=== PATIENT | female | born 1950 | race African-American/Black ===

== ENCOUNTER 2017-01-10 00:09 | Inpatient (IN) | payer OTHER, MEDICARE ==
[~2017-01-10] VITALS: Ht 167.6 cm; Wt 71.0 kg
[2017-01-10] VITALS (11 sets, daily range): BP systolic 115–158; BP diastolic 60–77; PULSE 52–99; RESP 14–20; TEMP 97.7–98.2; O2SAT 95–99
[~2017-01-10 00:09] MED LIST: AMLO10 PO; ASPI81 PO; CALC0.25 PO; CLON0.2T PO; FISH1000 PO; FLUO40CA PO; FURO1TAB93 PO; GLIP5 OR; HYDR50TA15 PO; KETO2AER; KETO2SHA5 EX; METO10TA PO; NEOS15T; ROSU10 PO; SIMV20 PO; SPIR25TA PO; SUPECAP3 PO; TOPR25TA2 PO; TRAZ50TA4 PO
[2017-01-10] MEDS ORDERED: GLUCAGON 1 MG/ML VIAL ONE (00:19)
[2017-01-10] MEDS ORDERED: SODIUM CHLORIDE 0.9% FLUSH 5 ML FLUSH IVF PRN (00:45)
[2017-01-10] MEDS ORDERED: DEXTROSE 50% IN WATER 50 ML VIAL(D50) IV PUSH ONE ×2 (00:45→05:15)
--- NOTE | 2017-01-10 00:57 | RADRPT ---
EXAM DATE/TIME: 01/10/2017 00:49 [facility] COMPARISON: No previous studies available for comparison. INDICATIONS : Shortness of breath. MEDICAL HISTORY : Hypertension. Congestive heart failure. Diabetes mellitus type II. SURGICAL HISTORY : None. ENCOUNTER: Initial ACUITY: 1 day PAIN SCORE: Non-responsive. LOCATION: Bilateral chest FINDINGS: Lungs are clear. There is cardiomegaly. No definite consolidation or effusion. EKG leads overlie the chest. Prominent skin folds overlie the right chest and cervical region. Degenerative changes of the spine. CONCLUSION: No acute disease. Samuel Don MD on January 10, 2017 at 0:55 Board Certified Radiologist. This report was verified electronically.
--- NOTE | 2017-01-10 01:03 | PD ---
HPI Chief Complaint: Altered Mental Status Time Seen by Provider: 00:34 Travel History International Travel<30 days: No Contact w/Intl Traveler<30days: No Traveled to known affect area: No History of Present Illness HPI The patient is a 66 year old female who presents to the [facility] emergency department with a history of since 7 PM this evening beginning to stare off into space and being nonverbal. According to her at 7:16 PM he checked her blood sugar and it was 30. He reports that she was sleepy, therefore she went to bed. He reports that she last ate a normal meal last night. He reports that this morning at 9:20 AM he did check her blood sugar and it was 131. At this time he administered her last dose of insulin. At that time he gave 10 units of Humalog and 20 units of Lantus. He reports that she has had altered mentation since 2:58 PM today, however it became more severe at 7:00. He reports that she has a history of diminished appetite for weeks. He reports that she last moved her bowels earlier today and it was a very large bowel movement. He denies her having any abdominal pain, vomiting, or diarrhea. The patient on arrival is noted to have a blood sugar of 36. The patient is staring off and is not answering questions. The patient does spontaneously move all of her extremities. The patient has no visible facial asymmetry. 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 Arthritis: No Asthma: No Autoimmune Disease: No Blood Disorders: No Anxiety: No Depression: No Heart Rhythm Problems: No Cancer: No Cardiovascular Problems: Yes High Cholesterol: Yes Chemotherapy: No Chest Pain: Yes Congestive Heart Failure: Yes COPD: No Cerebrovascular Accident: Yes (2010 LEFT SIDE AFFECTED) Diabetes: Yes Patient Takes Glucophage: Yes Diminished Hearing: No Endocrine: Yes GERD: No Glaucoma: No Genitourinary: No Headaches: No Hepatitis: No Hiatal Hernia: No Hypertension: Yes Immune Disorder: No Kidney Stones: No Musculoskeletal: No Neurologic: Yes Psychiatric: No Reproductive: No Respiratory: Yes Immunizations Current: Yes Migraines: No Myocardial Infarction: No Radiation Therapy: No Renal Failure: No Seizures: Yes Sickle Cell Disease: No Sleep Apnea: No Thyroid Disease: Yes Ulcer: No Tetanus Vaccination: Unknown Influenza Vaccination: No PNEUMOCCOCAL Vaccine (Year): 2 ?: Not Menopausal: Yes : 5 Para: 5 Dilation and Curettage (D&C): Yes (X4) Tubal Ligation: Yes Past Surgical History Narrative Surgical The patient's past surgical history is significant for a D&C 4, bilateral tubal ligation. Abdominal Surgery: No AICD: No Appendectomy: No Arteriovenous Shunt: No Cardiac Surgery: No Cholecystectomy: No Ear Surgery: No Endocrine Surgery: No Eye Surgery: No Genitourinary Surgery: No Gynecologic Surgery: Yes (D/C X4, BTL) Hysterectomy: Yes Insulin Pump: No Joint Replacement: No Oral Surgery: No Pacemaker: No Thoracic Surgery: No Other Surgery: Yes Social History Alcohol Use: No Tobacco Use: No Substance Use: No Allergies-Medications (Allergen,Severity, Reaction): Coded Allergies: Penicillin (Verified Allergy, Severe, rash/itching, 01/10/17) Uncoded Allergies: CILLINS ALL (Allergy, Severe, 07/23/10) Reported Meds & Prescriptions Reported Meds & Active Scripts Active Reported Calcitriol 0.25 Mcg Cap 0.25 Mcg PO EVERY OTHER DAY Aspirin 81 Mg Tabdr 81 Mg PO DAILY [place] 3 500 500 mg ([place]-3 Fatty Acids) 1 Cap Cap 500 Mg PO DAILY Vitamin D3 (Cholecalciferol) 5,000 Unit Tab 5,000 Units PO DAILY Sensipar (Cinacalcet) 30 Mg Tab 30 Mg PO DAILY Furosemide 20 Mg Tab 20 Mg PO BID Bydureon Inj (Exenatide) 2 Mg Vial 2 Mg SQ Q7D Clonidine (Clonidine HCl) 0.2 Mg Tab 0.2 Mg PO BID Glipizide 5 Mg Tab 5 Mg PO BIDAC Take 30 minutes before a meal Trazodone (Trazodone HCl) 50 Mg Tab 50 Mg PO HS Zocor (Simvastatin) 20 Mg Tab 20 Mg PO HS Spironolactone 25 Mg Tab 25 Mg PO HS Metoclopramide (Metoclopramide HCl) 5 Mg Tab 5 Mg PO QID Fluoxetine (Fluoxetine HCl) 40 Mg Cap 40 Cap PO DAILY Amlodipine (Amlodipine Besylate) 10 Mg Tab 10 Mg PO DAILY Review of Systems General / Constitutional: No: Fever Eyes: No: Visual changes HENT: No: Headaches Cardiovascular: No: Chest Pain or Discomfort Respiratory: No: Shortness of Breath Gastrointestinal: Positive: Constipation, Other (she had a large bowel movement earlier today), No: Nausea, Vomiting, Diarrhea, Abdominal Pain Genitourinary: No: Dysuria Musculoskeletal: No: Pain Skin: No Rash Neurologic: Positive: Change in Mentation, No: Weakness, Focal Abnormalities, Slurred Speech, Sensory Disturbance Psychiatric: No: Depression Endocrine: No: Polydipsia Hematologic/Lymphatic: No: Easy Bruising Physical Exam Narrative General: The patient is a well-developed well-nourished female, staring off, intermittently making eye contact with the staff at the bedside, nonverbal. Head and Neck exam: Head is normocephalic atraumatic. Eyes: EOMI, pupils are equal round and reactive to light. Nose: Midline septum with pink mucous membranes Mouth: Dentition unremarkable. Moist mucus membranes. Posterior oropharynx is not erythematous. No tonsillar hypertrophy. Uvula midline. Airway patent. Neck: No palpable lymphadenopathy. No nuchal rigidity. No thyromegaly. Cardiovascular: Sinus tachycardia in the low 100s without any murmurs gallops or rubs, no pulse deficit to the extremities on simultaneous auscultation and palpation of her radial artery. Lungs: Clear to auscultation bilaterally. No wheezes, rhonchi, or rales. Abdomen: Soft, without tenderness to palpation in all 4 quadrants of the abdomen. No guarding, rebound, or rigidity. Normal bowel sounds are audible. No tenderness on palpation of McBurney's point. Extremities: No clubbing, cyanosis, or edema. 2+ pulses in all 4 extremities. No calf tenderness on palpation. Back: No spinous process tenderness to palpation. No costovertebral angle tenderness to palpation. Neurologic Exam: Initially, the patient was nonverbal, however after an IV was placed and the patient was given an amp of D50, the patient began to have improvement in her mentation and was able to answer questions regarding her name and the fact that she is currently in the hospital. The patient has 5 over 5 strength in all 4 extremities, intact sensation over all dermatomes. No evidence of facial asymmetry. Skin Exam: No rash noted. Intact skin that is warm and dry. Data Data Last Documented VS Vital Signs Date Time Temp Pulse Resp B/P Pulse Ox O2 Delivery O2 Flow Rate FiO2 01/10/17 01:56 14 96 Room Air 01/10/17 00:29 52 158/70 Orders Glucagon Inj (Glucagon Inj) (01/10/17 00:19) Electrocardiogram (01/10/17 00:38) Ammonia (01/10/17 00:38) Complete Blood Count With Diff (01/10/17 00:38) Comprehensive Metabolic Panel (01/10/17 00:38) Creatine Kinase (Cpk) (01/10/17 00:38) Prothrombin Time / Inr (Pt) (01/10/17 00:38) Act Partial Throm Time (Ptt) (01/10/17 00:38) Troponin I (01/10/17 00:38) Thyroid Stimulating Hormone (01/10/17 00:38) Urinalysis - C+S If Indicated (01/10/17 00:38) Chest, Single Ap (01/10/17 00:38) Ct Brain W/O Iv Contrast(Rout) (01/10/17 00:38) Blood Glucose (01/10/17 00:38) Ecg Monitoring (01/10/17 00:38) Iv Access Insert/Monitor (01/10/17 00:38) Oximetry (01/10/17 00:38) Dextrose 50% In Jessica (Vial) Inj (D50w (Vi (01/10/17 00:45) Sodium Chloride 0.9% Flush (Ns Flush) (01/10/17 00:45) Drug Screen, Random Urine (01/10/17 00:38) Alcohol (Ethanol) (01/10/17 00:38) Salicylates (Aspirin) (01/10/17 00:38) Tylenol (Acetaminophen) (01/10/17 00:38) Cath For Specimen (01/10/17 02:38) CKMB (01/10/17 02:15) CKMB% (01/10/17 02:15) Admit Order (Ed Use Only) (01/10/17 03:56) Dext 5%-Nacl 0.45% 1000 Ml Inj (D5w-1/2 (01/10/17 04:00) Labs Laboratory Tests Test 01/10/17 02:15 White Blood Count 19.5 TH/MM3 Red Blood Count 3.28 MIL/MM3 Hemoglobin 9.7 GM/DL Hematocrit 31.3 % Mean Corpuscular Volume 95.5 FL Mean Corpuscular Hemoglobin 29.6 PG Mean Corpuscular Hemoglobin 31.0 % Concent Red Cell Distribution Width 17.2 % Platelet Count 361 TH/MM3 Mean Platelet Volume 8.4 FL Neutrophils (%) (Auto) 90.9 % Lymphocytes (%) (Auto) 2.8 % Monocytes (%) (Auto) 6.0 % Eosinophils (%) (Auto) 0.1 % Basophils (%) (Auto) 0.2 % Neutrophils # (Auto) 17.7 TH/MM3 Lymphocytes # (Auto) 0.5 TH/MM3 Monocytes # (Auto) 1.2 TH/MM3 Eosinophils # (Auto) 0.0 TH/MM3 Basophils # (Auto) 0.0 TH/MM3 CBC Comment DIFF FINAL Differential Comment Prothrombin Time 11.3 SEC Prothromb Time International 1.0 RATIO Ratio Activated Partial 21.0 SEC Thromboplast Time Sodium Level 146 MEQ/L Potassium Level 4.3 MEQ/L Chloride Level 109 MEQ/L Carbon Dioxide Level 24.8 MEQ/L Anion Gap 12 MEQ/L Blood Urea Nitrogen 101 MG/DL Creatinine 3.91 MG/DL Estimat Glomerular Filtration 14 ML/MIN Rate Random Glucose 133 MG/DL Calcium Level 11.7 MG/DL Protein Corrected Calcium 11.2 MG/DL Total Bilirubin 0.4 MG/DL Aspartate Amino Transf 58 U/L (AST/SGOT) Alanine Aminotransferase 53 U/L (ALT/SGPT) Alkaline Phosphatase 100 U/L Ammonia 23 MCMOL/L Total Creatine Kinase 665 U/L Creatine Kinase MB 6.0 NG/ML Creatine Kinase MB % 0.9 % Troponin I 0.10 NG/ML Total Protein 7.9 GM/DL Albumin 1.9 GM/DL Thyroid Stimulating Hormone 0.593 uIU/ML 3rd Gen Salicylates Level LESS THAN 1.7 MG/DL Acetaminophen Level LESS THAN 2.0 MCG/ML Ethyl Alcohol Level LESS THAN 3 MG/DL MDM Medical Decision Making Medical Screen Exam Complete: Yes Emergency Medical Condition: Yes Medical Record Reviewed: Yes Differential Diagnosis Intracranial abnormality, versus hepatic encephalopathy, versus hypoglycemic encephalopathy Narrative Course During the course of the patients emergency department visit, the patients history, examination, and differential diagnosis were reviewed with the patient. The patient had IV access obtained and blood work sent for analysis. The patient was placed on a base filler with oximetry and blood pressure monitoring. An EKG was ordered. An ammonia level was ordered. The patient's blood sugar on arrival was noted to be 36. The patient was started on an amp of D50. The patient will be given food and drink to supplement her blood sugar as she is becoming more awake and alert. The patient's blood sugar will be repeated. The patient was able to tolerate eating some food. The patient on repeat Accu-Chek was noted to be 125. The patient's then questioned whether the patient would be receiving her insulin. I explained to him that we would be holding off on insulin at this point given her persistent hypoglycemia throughout the evening. We will be continuing to monitor her closely and if her blood sugar goes to high and we will address that at that point. The patients laboratory studies were reviewed and remarkable for an elevated sodium and chloride, elevated BUN and creatinine increased compared to previously consistent with acute on chronic renal failure. The patient was noted to have a leukocytosis. Chest x-ray showed no evidence of infiltrate. The patient's urine will be sent for analysis for possible source of leukocytosis. Alcohol level was negative, urine drug screen was negative. Salicylate and Tylenol level were negative. Ammonia level was within normal limits ruling out hepatic encephalopathy. CPK was slightly elevated with a normal MB percent. Troponin I was an intermediate range, however this could simply be related to the patient's acute on chronic renal failure. The patient denies having any chest pain. Patient is noted to be hypercalcemic with a protein corrected calcium of 11.2 which could be contributing additionally to her mentation changes. Radiology studies were reviewed and remarkable for a chest x-ray that is unremarkable. CT scan of the brain showed no acute abnormality. The patient will be admitted for AMS, hypoglycemia, leukocytosis, acute on chronic renal failure. The patient's case was discussed with Ralph lAex. He is made aware the patient's leukocytosis and the fact that urinalysis is pending. They will address with antibiotic coverage if necessary. The patients results were discussed with the patient, including the plan of care. I explained that further testing and/ or monitoring is indicated based on the patients history, examination, and/ or laboratory findings. Therefore, I recommended admission for additional evaluation. The patient expressed understanding and was agreeable with this plan. The patient was admitted to the hospital in stable condition and sent to a bed under the care of the [facility]. Physician Communication Physician Communication The patient's case was discussed with Ralph Alex who did agree to that the patient for further evaluation and treatment at this time. Diagnosis Primary Impression: Hypoglycemia Additional Impressions: Altered mental status Qualified Code: R40.4 - Transient alteration of awareness Leukocytosis Qualified Code: D72.829 - Leukocytosis, unspecified type Acute on chronic renal failure Hypercalcemia Admitting Information Admitting Physician Requests: Jasmin Garland MD Jan 10, 2017 01:03
--- NOTE | 2017-01-10 01:47 | RADRPT ---
EXAM DATE/TIME: 01/10/2017 01:23 [facility] COMPARISON: CT BRAIN W/O CONTRAST, January 25, 2012, 16:38. INDICATIONS : Altered mental status. RADIATION DOSE: 48.72 CTDIvol (mGy) MEDICAL HISTORY : Seizures. Hypertension. cva, diabetes SURGICAL HISTORY : Hysterectomy. ENCOUNTER: Initial ACUITY: 1 day PAIN SCALE: 2/10 LOCATION: cranial TECHNIQUE: Multiple contiguous axial images were obtained of the head. Using automated exposure control and adj ustment of the mA and/or kV according to patient size, radiation dose was kept as low as reasonably a chievable to obtain optimal diagnostic quality images. FINDINGS: There is mild atrophy greatest at the level of the cerebellum. No hemorrhage, acute infarct, or mass. No fractures. Remote basal ganglia lacunar infarcts. CONCLUSION: No significant change has occurred. Samuel Don MD on January 10, 2017 at 1:44 Board Certified Radiologist. This report was verified electronically.
[2017-01-10 02:35] LABS: AUTOMATED NEUTROPHIL # 17.7 TH/MM3 (1.8-7.7); BASOPHIL % 0.2 % (0.0-2.0); EOSINOPHIL % 0.1 % (0.0-4.0); HEMATOCRIT 31.3 % (35.0-46.0); HEMO FLAGS DIFF FINAL; LYMPH % 2.8 % (9.0-44.0); LYMPHOCYTE # 0.5 TH/MM3 (1.0-4.8); MEAN CELL VOLUME 95.5 FL (80.0-100.0); MEAN CORPUSCULAR HEMOGLOBIN 29.6 PG (27.0-34.0); NEUT % 90.9 % (16.0-70.0); PLATELET COUNT 361 TH/MM3 (150-450); RED BLOOD COUNT 3.28 MIL/MM3 (4.00-5.30); RED CELL DISTRIBUTION WIDTH 17.2 % (11.6-17.2); WHITE BLOOD COUNT 19.5 TH/MM3 (4.0-11.0)
[2017-01-10 02:43] LABS: PROTHROMBIN TIME - PATIENT 11.3 SEC (9.8-11.6)
[2017-01-10 02:57] LABS: ALKALINE PHOSPHATASE 100 U/L (45-117); ALT (GPT) 53 U/L (10-53); ANION GAP 12 MEQ/L (5-15); AST (GOT) 58 U/L (15-37); BICARBONATE 24.8 MEQ/L (21.0-32.0); BLOOD UREA NITROGEN 101 MG/DL (7-18); CALCIUM-PROTEIN CORRECTED 11.2 MG/DL (8.5-10.1); CHLORIDE 109 MEQ/L (98-107); CREATINE KINASE 665 U/L (26-192); GLOMERULAR FILTRATION RATE 14 ML/MIN (>89); POTASSIUM 4.3 MEQ/L (3.5-5.1); SODIUM (NA) 146 MEQ/L (136-145); TOTAL BILIRUBIN ADULT 0.4 MG/DL (0.2-1.0)
[2017-01-10 02:58] LABS: ACETAMINOPHEN LESS THAN 2.0 MCG/ML (10.0-30.0)
[2017-01-10] MEDS ORDERED: DEXT 5%-NACL 0.45% 1000 ML INJ 1,000 ML IV SCH (04:00)
[2017-01-10 04:51] LABS: BACTERIA, URINE MANY /hpf; BLOOD, URINE SMALL (NEG); COMMENT (UR) CATH-CULTURE IND; CULTURE IF INDICATED CATH CULTURE IND; GLUCOSE,URINE NEG (NEG); HYALINE CAST, URINE 3 /lpf (RARE); KETONE, URINE NEG (NEG); MUCUS URINE FEW /lpf (OCC); NITRITE,URINE NEG (NEG); PH, URINE 6.5 (5.0-8.5); RENAL EPITHELIAL CELLS <1 /hpf; SQUAMOUS EPITHELIAL CELL URINE 10 /hpf (0-5); TRANSITIONAL EPI CELLS, URINE <1 /hpf; URINE COLOR YELLOW (YELLW/STRAW)
[2017-01-10 05:02] LABS: AMPHETAMINE, URINE NEG (NEG); BARBITURATES, URINE NEG (NEG); COCAINE, URINE NEG (NEG)
[2017-01-10] MEDS ORDERED: NALOXONE HCL 0.4 MG/ML AMP IV PRN (05:15)
[2017-01-10] MEDS ORDERED: GLUCAGON 1 MG/ML VIAL IM ONE (05:15)
[2017-01-10] MEDS ORDERED: SODIUM CHLORIDE 0.9% FLUSH 5 ML FLUSH FLUSH PRN (05:15)
[2017-01-10] MEDS ORDERED: SENNOSIDES 8.6 MG TAB PO PRN (05:15)
[2017-01-10] MEDS: DEXT 5%-NACL 0.9% 1000 ML INJ 1,000 ML IV SCH ×2 (05:30→18:36)
[2017-01-10] MEDS: HEPARIN SODIUM - SQ 10,000 UNITS/ML VIAL SQ SCH ×2 (06:33→18:32)
[2017-01-10] MEDS: LEVOFLOXACIN 750 MG PREMIX INJ 150 ML IV SCH (06:34)
[2017-01-10] MEDS ORDERED: AMLO10TA2 PO (08:35)
[2017-01-10] MEDS ORDERED: OMEG1CAP50 PO (08:35)
[2017-01-10] MEDS ORDERED: ZOCO20TA PO (08:35)
[2017-01-10] MEDS ORDERED: EXENINJ SQ (08:35)
[2017-01-10] MEDS ORDERED: METO5TAB PO (08:35)
[2017-01-10] MEDS ORDERED: ASPI1TAB69 PO (08:35)
[2017-01-10] MEDS ORDERED: CLON0.2T PO (08:35)
[2017-01-10] MEDS ORDERED: CINA30 PO (08:35)
[2017-01-10] MEDS ORDERED: CHOL50008 PO (08:35)
[2017-01-10] MEDS ORDERED: SPIR25TA PO (08:35)
[2017-01-10] MEDS ORDERED: GLIP5TAB8 PO (08:35)
[2017-01-10] MEDS ORDERED: CALC0.25 PO (08:35)
[2017-01-10] MEDS ORDERED: FLUO40CA PO (08:35)
[2017-01-10] MEDS ORDERED: FURO20TA PO (08:35)
[2017-01-10] MEDS ORDERED: TRAZ50TA12 PO (08:35)
--- NOTE | 2017-01-10 09:03 | HHI.HP ---
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 Patient presented to the emergency room after she was noted altered, staing into space and hypoglycemic. endorses that patient has been declining over the last 2 weeks. She has not been eating much and not talking much. She has also been more agitated and refusing to take her pills sometimes spitting food at him. He has been crushing pills and trying to mix them in applesauce. She also noted that she's been coughing more and having some difficulty swallowing. Yesterday he noted that she didn't want to eat and had to force her to take a couple of bites. He checked her blood sugar and it was 131 at which time he administer her insulin dosage. Later on, she was noted more sleepy, he checked her blood sugar and it was noted in the 30s. Since she refused to eat he decided to bring her to the hospital for further evaluation. He does not report any fever or chills. She is having regular bowel movements, no diarrhea. Patient was evaluated in the emergency room, laboratory workup was completed. She was noted with significant leukocytosis, WBC 19.5. Hemoglobin 9.7, hematocrit 31.3. ENT was remarkable for BUN of 101, creatinine 3.91. According to the she follows up with information systems planner in the [place] area and he recently attended a class to learn more about dialysis as she is becoming closer to going on dialysis. Her TSH was 0.593. Calcium was noted elevated. Her blood glucose on admission to the ED was 36, she was given an amp of D50 and patient started waking up. Urinalysis was positive for urinary tract infection. Patient was given IV fluids, she was started on empiric antibiotics. Patient is examined in the emergency room in the presence of her . indicates that he is the caregiver and has to do everything for her. He also endorses some pressure areas to the right buttock. Patient is slow to respond, she is oriented to self only. Patient is admitted for further evaluation and treatment. (Karis Guthrie) Review of Systems ROS Limitations: Clinical Condition (Karis Guthrie) Past Family Social History Past Medical History DM CKD possibly last stage, indicates that he was told that patient was close to dialysis. CHF HTN Sarcoidosis Pericardial Effusion Stroke with residual left-sided hemiplegia Prior history of myocardial infarction Coronary artery disease Hyperlipidemia Pericardial effusion Sarcoidosis Hypothyroid Past Surgical History Hysterectomy 2/2 fibroids Reported Medications Reported Meds & Active Scripts Active Reported Calcitriol 0.25 Mcg Cap 0.25 Mcg PO EVERY OTHER DAY Aspirin 81 Mg Tabdr 81 Mg PO DAILY [place] 3 500 500 mg ([place]-3 Fatty Acids) 1 Cap Cap 500 Mg PO DAILY Vitamin D3 (Cholecalciferol) 5,000 Unit Tab 5,000 Units PO DAILY Sensipar (Cinacalcet) 30 Mg Tab 30 Mg PO DAILY Furosemide 20 Mg Tab 20 Mg PO BID Bydureon Inj (Exenatide) 2 Mg Vial 2 Mg SQ Q7D Clonidine (Clonidine HCl) 0.2 Mg Tab 0.2 Mg PO BID Glipizide 5 Mg Tab 5 Mg PO BIDAC Take 30 minutes before a meal Trazodone (Trazodone HCl) 50 Mg Tab 50 Mg PO HS Zocor (Simvastatin) 20 Mg Tab 20 Mg PO HS Spironolactone 25 Mg Tab 25 Mg PO HS Metoclopramide (Metoclopramide HCl) 5 Mg Tab 5 Mg PO QID Fluoxetine (Fluoxetine HCl) 40 Mg Cap 40 Cap PO DAILY Amlodipine (Amlodipine Besylate) 10 Mg Tab 10 Mg PO DAILY (Karis Guthrie) Allergies: Coded Allergies: Penicillin (Verified Allergy, Severe, rash/itching, 01/10/17) Uncoded Allergies: CILLINS ALL (Allergy, Severe, 07/23/10) Active Ordered Medications Inpatient Medications Acetaminophen (Tylenol) 650 mg Q4H PRN PO TEMP > 100.4; Start 01/10/17 at 05:15 Bisacodyl (Dulcolax Supp) 10 mg DAILY PRN [place] CONSTIPATION; Start 01/10/17 at 05 :15 Dextrose (D50w (Vial) Inj) 25 ml NOW ONCE IV PUSH ; Start 01/10/17 at 05:15; Stop 01/10/17 at 05:17; Status DC Dextrose/Sodium Chloride 1,000 ml @ 75 mls/hr [id number] IV ; Start 01/10/17 at 05 :30 Dextrose/Sodium Chloride (D5W-1/2 NS 1000 ml Inj) 1,000 ml @ 100 mls/hr Q10H IV Last administered on 01/10/17 05:03; Start 01/10/17 at 04:00; Stop at 05:15; Status DC Glucagon 1 mg 1 mg NOW ONCE IM ; Start 01/10/17 at 05:15; Stop 01/10/17 at 05: 17; Status DC Heparin Sodium (Porcine) (Heparin Inj) 5,000 units Q12H SQ Last administered on 01/10/17 06:33; Start 01/10/17 at 06:00 IV Flush (NS Flush) 2 ml BID FLUSH ; Start 01/10/17 at 09:00 IV Flush 2 ml 2 ml UNSCH PRN IVF FLUSH AFTER USING IV ACCESS Last administered on 01/10/17 02:22; Start 01/10/17 at 00:45; Stop 01/10/17 at 05:15; Status DC Levofloxacin/ Dextrose (Levaquin 750 Mg Premix Inj) 150 ml @ 100 mls/hr Q48H IV Last administered on 01/10/17 06:34; Start 01/10/17 at 06:00 Naloxone HCl (Narcan Inj) 0.4 mg UNSCH PRN IV SEE LABEL COMMENTS; Start at 05:15 Ondansetron HCl (Zofran Inj) 4 mg Q6H PRN IVP NAUSEA OR VOMITING; Start at 05:15 Sennosides (Senokot) 17.2 mg Q12H PRN PO CONSTIPATION; Start 01/10/17 at 05:15 Family History Reviewed with , noncontributory Social History Patient is , lives with . Has been his caregiver. She has grown children. No recent smoking, no alcohol, no substance abuse. Patient is nonambulatory, requires assistance with activities of daily living. She needs to be fed (Karis Guthrie) Physical Exam Vital Signs Vital Signs Date Time Temp Pulse Resp B/P Pulse Ox O2 Delivery O2 Flow Rate FiO2 01/10/17 08:46 93 16 139/71 99 Room Air 01/10/17 05:09 98 2.00 01/10/17 01:56 14 96 Room Air 01/10/17 00:29 52 16 158/70 95 Room Air 01/10/17 00:17 16 96 Room Air 01/10/17 00:15 94 18 96 Physical Exam GENERAL: Chronically ill-appearing female SKIN: Stage II noted to right buttock, approximately 2 cm, indurated area underneath. There is a stage II to the back of the right thigh. HEAD: Atraumatic. Normocephalic. No temporal or scalp tenderness. EYES: Pupils equal round and reactive. Extraocular motions intact. No scleral icterus. No injection or drainage. ENT: Nose without bleeding, purulent drainage or septal hematoma. Throat without erythema, tonsillar hypertrophy or exudate. Uvula midline. Airway patent. NECK: Trachea midline. No JVD or lymphadenopathy. Supple, nontender, no meningeal signs. CARDIOVASCULAR: Regular rate and rhythm without murmurs, gallops, or rubs. RESPIRATORY: Diminished, poor inspiratory effort. GASTROINTESTINAL: Abdomen soft, non-tender, nondistended. No hepato-splenomegaly , or palpable masses. No guarding. MUSCULOSKELETAL: Left-sided hemiparesis from previous stroke. Muscle wasting the left upper and left lower extremity. Left wrist contracture. NEUROLOGICAL: Patient awakes to voice, oriented to self and others. Some expressive aphasia. Follows simple commands. Slow to respond. Left sided hemiplegia from previous stroke. Laboratory Laboratory Tests Test 01/10/17 01/10/17 02:15 04:35 White Blood Count 19.5 Red Blood Count 3.28 Hemoglobin 9.7 Hematocrit 31.3 Mean Corpuscular Volume 95.5 Mean Corpuscular Hemoglobin 29.6 Mean Corpuscular Hemoglobin 31.0 Concent Red Cell Distribution Width 17.2 Platelet Count 361 Mean Platelet Volume 8.4 Neutrophils (%) (Auto) 90.9 Lymphocytes (%) (Auto) 2.8 Monocytes (%) (Auto) 6.0 Eosinophils (%) (Auto) 0.1 Basophils (%) (Auto) 0.2 Neutrophils # (Auto) 17.7 Lymphocytes # (Auto) 0.5 Monocytes # (Auto) 1.2 Eosinophils # (Auto) 0.0 Basophils # (Auto) 0.0 CBC Comment DIFF FINAL Differential Comment Prothrombin Time 11.3 Prothromb Time International 1.0 Ratio Activated Partial 21.0 Thromboplast Time Sodium Level 146 Potassium Level 4.3 Chloride Level 109 Carbon Dioxide Level 24.8 Anion Gap 12 Blood Urea Nitrogen 101 Creatinine 3.91 Estimat Glomerular Filtration 14 Rate Random Glucose 133 Calcium Level 11.7 Protein Corrected Calcium 11.2 Total Bilirubin 0.4 Aspartate Amino Transf 58 (AST/SGOT) Alanine Aminotransferase 53 (ALT/SGPT) Alkaline Phosphatase 100 Ammonia 23 Total Creatine Kinase 665 Creatine Kinase MB 6.0 Creatine Kinase MB % 0.9 Troponin I 0.10 Total Protein 7.9 Albumin 1.9 Thyroid Stimulating Hormone 0.593 3rd Gen Salicylates Level LESS THAN 1.7 Acetaminophen Level LESS THAN 2.0 Ethyl Alcohol Level LESS THAN 3 Urine Color YELLOW Urine Turbidity CLOUDY Urine pH 6.5 Urine Specific [place] 1.012 Urine Protein 30 Urine Glucose (UA) NEG Urine Ketones NEG Urine Occult Blood SMALL Urine Nitrite NEG Urine Bilirubin NEG Urine Urobilinogen 8.0 Urine Leukocyte Esterase MOD Urine RBC 2 Urine WBC 45 Urine Squamous Epithelial 10 Cells Urine Transitional Epithelial <1 Cells Urine Renal Epithelial Cells <1 Urine Amorphous Sediment RARE Urine Bacteria MANY Urine Hyaline Casts 3 Urine Mucus FEW Microscopic Urinalysis Comment CATH-CULTURE IND Urine Opiates Screen NEG Urine Barbiturates Screen NEG Urine Amphetamines Screen NEG Urine Benzodiazepines Screen NEG Urine Cocaine Screen NEG Urine Cannabinoids Screen NEG Date/Time Procedure Status Source Growth 01/10/17 04:35 Urine Culture Received Urine Catheterized Urine Pending (Karis Guthrie) Result Diagram: 01/10/1721401/10/17214 Imaging Last Impressions Head CT 01/10/1737 Signed Impressions: Service Date/Time: Tuesday, January 10, 2017 01:23 - CONCLUSION: No significant change has occurred. Samuel Don MD Chest X-Ray 01/10/1737 Signed Impressions: Service Date/Time: Tuesday, January 10, 2017 00:49 - CONCLUSION: No acute disease. Samuel Don MD (Karis Guthrie) Assessment and Plan Problem List: (1) Hypoglycemia (2) Dehydration (3) Altered mental status (4) HTN (hypertension) (5) DM (diabetes mellitus) (6) History of CVA with residual deficit (7) UTI (urinary tract infection) (8) Hypercalcemia (9) Leukocytosis (10) Acute on chronic renal failure Assessment and Plan Admit to Dr. Valdivia 66-year-old female with history of chronic kidney disease, hypertension, hyperlipidemia, CVA with left-sided hemiparesis, type 2 diabetes. Admitted with hypoglycemia, altered mental status. Found with UTI, acute on chronic renal failure, dehydration. Altered mental status secondary to hypoglycemia, infection, dehydration, acute on chronic renal failure. Accu-Cheks every 4 hours Hold insulin and oral hypoglycemics at this time UTI, with significant leukocytosis -continue antibiotics -follow cultures Acute on CKD, stage V, pt. nearing HD per history. Possibly worst secondary to dehydration, poor by mouth intake -nephrology consultation -Appointed for toxic agents Avoid diuretics Repeat BMP Hypercalcemia, etiology unclear, on calcium supplements, also prolonged bed rest -Hold calcium supplements Calcium level in the morning Continue with hydration Nephrology has been consulted Dysphasia, risk for aspiration We will obtain swallow evaluation History of CVA with residual deficits, left-sided hemiplegia, dysphasia, expressive aphasia. It and appears to be declining. CT of the head negative for any acute findings Continue with home medications Physical therapy, speech therapy -Continue with aspirin and statins Hypertension, stable Continue with home medications Pressure ulcer -wound care consultation Home medications reviewed, initiated as indicated SCDs and heparin for DVT prophylaxis Consult physical therapy for evaluation Pt's condition is guarded. Plan of care has been discussed with the patient's , his questions have been answered detail. Plan of care discussed with attending and registered nurse. Further management of the patient will be dependent on the hospital course This patient was seen by myself and Dr. Valdivia this H&P is written his behalf ( Karis Guthrie) Assessment and Plan PT IS SEEN & EXAMINED DW PT'S AT BEDSIDE anorexia /dehydration ARF/CKD hypercalcemia Hypergammaglobulinemia DM Htn CAD hx CVA w left hemiplegia see orders d/w Karis prince f./u (Melvin Valdivia MD) Physician Certification 2 Midnight Certification Type: Admission for Inpatient Services Order for Inpatient Services The services are ordered in accordance with Medicare regulations or non- Medicare payer requirements, as applicable. In the case of services not specified as inpatient-only, they are appropriately provided as inpatient services in accordance with the 2-midnight benchmark. Estimated LOS (days): 2 2 days is the estimated time the patient will need to remain in the hospital, assuming treatment plan goals are met and no additional complications. 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
[2017-01-10] MEDS ORDERED: PILL SPLITTER OTHER PRN (10:30)
[2017-01-10] MEDS: SODIUM CHLORIDE 0.9% FLUSH 5 ML FLUSH FLUSH SCH ×2 (13:13→21:00)
[2017-01-10] MEDS: METOCLOPRAMIDE HCL 10 MG TAB PO SCH ×3 (13:15→22:00)
[2017-01-10] MEDS ORDERED: GLUCAGON 1 MG/ML VIAL OTHER PRN (17:15)
[2017-01-10] MEDS ORDERED: DEXTROSE 50% IN WATER 50 ML VIAL(D50) IV PUSH PRN (17:15)
--- NOTE | 2017-01-10 20:07 | MB ---
cc: АННА CARTER MD DATE OF CONSULTATION 01/10/17 REASON FOR CONSULTATION Elevated BUN and creatinine with chronic kidney disease for evaluation. HISTORY OF PRESENT ILLNESS This is a 66-year-old female with past medical history of hypertension, diabetes mellitus, chronic kidney disease, history of cerebrovascular accident with left-sided weakness who was brought to the hospital because of altered mental status. I was called to see the patient because of elevated BUN and creatinine. The patient has known history of chronic kidney disease. She has been following with Dr. Ramos and, according to the , the last time she was seen was in October and at that time her GFR was 18 and she was told that she will need to start on dialysis and will need AV fistula in the near future. According to who takes care of her at home, she has been more sleepy and for the last two weeks off and on she is not eating very well and she has decreased appetite. There is no vomiting. There is no history of diarrhea. Occasionally she has nausea. Patient is still sleepy. She wakes up on command, but goes back to sleep again. Most of the history was taken from the patient's and also from the chart. There is no history of fever. The patient has been mostly bedridden because of the stroke and she can transport to pass stool and urine with some support which they have been at home. PAST MEDICAL HISTORY 1. Hypertension, 2. Cerebrovascular accident with left-sided weakness in 2009, 3. Ischemic heart disease, 4. Congestive heart failure, 5. Hyperlipidemia, 6. Diabetes mellitus, 7. Chronic kidney disease with stage IV renal failure, 8. Hypothyroidism. PAST SURGICAL HISTORY 1. Hysterectomy, 2. Tubal ligation REVIEW OF SYSTEMS Cannot be taken much since the patient is not answering most of the questions, but there is no history of fever. No sore throat. No shortness of breath. No chest pain. She has occasional nausea. There is no vomiting, has decreased appetite, generalized weakness, feeling tired. No abdominal pain. No history of diarrhea. No dysuria or hematuria. SOCIAL HISTORY lives with her . There is no history of smoking or alcoholism. FAMILY HISTORY Noncontributory. ALLERGIES PENICILLIN MEDICATIONS Currently - 1. Dextrose Normal saline at 100 mL an hour. 2. Catapres 0.2 mg b.i.d. 3. Amlodipine 10 mg once a day. 4. Aspirin 81 mg daily 5. Vitamin D3 5000 units once a day. 6. Sensipar 30 mg once a day. 7. Prozac 40 mg daily. 8. Santal ointment ___ 9. Pravachol 40 mg q.h.s. 10. Heparin 5000 units q. 12-hour. 11. Levaquin 750 mg IV q.48 h. 12. Reglan 5 mg q.i.d. 13. Insulin aspart per sliding scale. 14. Zofran as needed. 15. Narcan as needed PHYSICAL EXAMINATION GENERAL: The patient is sleepy. She wakes up on command and goes back to sleep, not in acute distress. VITAL SIGNS: Last blood pressure is 143/75, temperature 98.2, oxygen saturation on room air is 95-98%. HEENT: Pupils are mid constricted. Nonicteric sclerae, conjunctivae pale. NECK: Supple. JVD is not elevated. LUNGS: The patient has bilateral decreased air entry with occasional wheezing. HEART: S1, S2 regular rhythm. ABDOMEN: Distended, soft, lax. There is no tenderness. Bowel sounds positive. EXTREMITIES: There is mild edema in the legs. the left arm is contracted and she has some weakness in the left side. LABORATORY DATA WBC count 19.5, hemoglobin 9.7, platelet count of 361, neutrophils 90.9. Sodium 146, potassium 4.3, chloride 109, bicarb 24.3, BUN 101, creatinine 3.9 and GFR is 14, glucose 133. Calcium 11.7, corrected calcium 11.2, AST is 58, ALT is 53, creatinine kinase 665. Her total protein is 7.9 with albumin of 1.9, INR is 1.0. Urinalysis showing protein of 30 with many bacteria, WBCs 45. Toxicology screen was negative. Salicylate and less than 1.7. Acetaminophen was less than 2 and ethyl alcohol was less than three. She has positive kappa and lambda light chain and IgA total was elevated. This was done in 2010. IMAGING STUDIES The patient has CT scan of the brain was done which shows mild atrophy, no hemorrhage or acute infarct. There is remote basal ganglion lacunar infarct. Chest x-ray was done which shows no acute changes. ASSESSMENT/PLAN 1. Chronic kidney disease some acute worsening. 2. Urinary tract infection. 3. Hypercalcemia. 4. Altered mental status. 5. Diabetes mellitus 6. Hypertension. The patient has history of chronic kidney disease which is a possibility of combination of hypertensive and diabetic renal disease with contribution by the hypergammaglobulinemia, but she seems to have advanced stage IV disease. There is some acute worsening, could be related to urinary tract infection or hypercalcemia. The patient was on some vitamin D at home and she is still getting the vitamin D here, so I will stop the vitamin D. She is on Sensipar. I do not have the PTH and I do not have her phosphorus level, so I will send for these too. Agree with continuing IV fluid and antibiotic and hopefully we will have some improvement in the kidney function. I did discuss with the about the possibility of dialysis if things do not improve and he seems to understand that. Avoid any nephrotoxins and follow the urine output and BUN and creatinine. Thank you for the consultation and I will follow the patient while she is in the hospital. MD MAGNUS Alexander/ /6:28 PM /7:42 PM
[2017-01-10] MEDS ORDERED: FUROSEMIDE 20 MG TAB PO SCH (21:00)
[2017-01-10] MEDS ORDERED: SPIRONOLACTONE 25 MG TAB PO SCH (21:00)
[2017-01-10 21:24] LABS: TOTAL PROTEIN SPE 6.9 GM/DL (6.0-7.6)
[2017-01-10] MEDS: PRAVASTATIN SOD 40 MG TAB PO SCH (22:00)
[2017-01-10] MEDS: cloNIDine HCL 0.2 MG TAB PO SCH (22:00)
[2017-01-10] MEDS: INSULIN ASPART SUPPLEMENTAL SCALE SQ SCH (22:01)
[2017-01-11] VITALS (8 sets, daily range): BP systolic 105–169; BP diastolic 66–86; PULSE 86–116; RESP 17–22; TEMP 96.4–98.9; O2SAT 93–99
[2017-01-11] MEDS: DEXT 5%-NACL 0.9% 1000 ML INJ 1,000 ML IV SCH ×3 (04:26→23:23)
[2017-01-11] MEDS: INSULIN ASPART SUPPLEMENTAL SCALE SQ SCH ×4 (05:40→21:55)
[2017-01-11] MEDS: HEPARIN SODIUM - SQ 10,000 UNITS/ML VIAL SQ SCH ×2 (05:55→16:21)
[2017-01-11] MEDS ORDERED: CHOLECALCIFEROL (VIT D3) 5000 UNIT CAP PO SCH (09:00)
[2017-01-11] MEDS: ASPIRIN EC 81 MG TABEC PO SCH (09:55)
[2017-01-11] MEDS: CINACALCET HYDROCHLORIDE 30 MG TAB PO SCH (09:55)
[2017-01-11] MEDS: METOCLOPRAMIDE HCL 10 MG TAB PO SCH ×4 (09:55→21:56)
[2017-01-11] MEDS: cloNIDine HCL 0.2 MG TAB PO SCH ×2 (09:55→21:55)
[2017-01-11] MEDS: FLUoxetine HCL 20 MG CAP PO SCH (09:55)
[2017-01-11] MEDS: SODIUM CHLORIDE 0.9% FLUSH 5 ML FLUSH FLUSH SCH ×2 (09:56→21:55)
[2017-01-11 10:24] LABS: BICARBONATE 21.1 MEQ/L (21.0-32.0)
[2017-01-11 10:29] LABS: AUTOMATED NEUTROPHIL # 10.7 TH/MM3 (1.8-7.7); BASOPHIL % 0.2 % (0.0-2.0); EOSINOPHIL # 0.1 TH/MM3 (0-0.4); EOSINOPHIL % 1.2 % (0.0-4.0); HEMATOCRIT 30.9 % (35.0-46.0); HEMO FLAGS DIFF FINAL; LYMPH % 4.9 % (9.0-44.0); LYMPHOCYTE # 0.6 TH/MM3 (1.0-4.8); MEAN CELL VOLUME 92.4 FL (80.0-100.0); MEAN CORPUSCULAR HEMOGLOBIN 28.9 PG (27.0-34.0); MEAN CORPUSCULAR HGB CONC 31.3 % (32.0-36.0); NEUT % 87.7 % (16.0-70.0); PLATELET COUNT 237 TH/MM3 (150-450); RED BLOOD COUNT 3.35 MIL/MM3 (4.00-5.30); WHITE BLOOD COUNT 12.2 TH/MM3 (4.0-11.0)
[2017-01-11 10:30] LABS: POTASSIUM 4.7 MEQ/L (3.5-5.1)
--- NOTE | 2017-01-11 12:55 | HHI.PR ---
Subjective Subjective Remarks pt more awake oriented to self and place on pureed diet, at times pocketing food at bsd, multiple questions asked, doesn't want SNF HHC when offered, argumentative, asking why pt. was admitted. This was explained to him in detail yesterday and today Review of Systems Constitutional Constitutional Remarks unable to obtain ROS from pt. Vitals/Results Intake & Output 01/10/17 01/10/17 01/11/17 15:00 23:00 07:00 # Voids 1 1 1 Vital Signs Vital Signs Date Time Temp Pulse Resp B/P Pulse Ox O2 Delivery O2 Flow Rate FiO2 01/11/17 11:45 96.4 94 20 141/68 94 01/11/17 08:00 96.4 95 22 162/85 99 01/11/17 03:40 98.9 96 17 135/86 98 01/11/17 02:21 86 18 105/70 97 01/10/17 21:49 98 21 01/10/17 19:43 97.8 99 18 132/60 97 01/10/17 15:16 98.2 93 20 143/75 98 CBC/BMP: 01/11/17 0927 01/11/17 0927 Lab Results Laboratory Tests Test 01/10/17 01/11/17 01/11/17 20:20 09:17 09:27 Troponin I 0.07 NG/ML 0.05 NG/ML Total Protein 6.9 GM/DL Parathyroid Hormone (Intact) 269.8 PG/ML White Blood Count 12.2 TH/MM3 Red Blood Count 3.35 MIL/MM3 Hemoglobin 9.7 GM/DL Hematocrit 30.9 % Mean Corpuscular Volume 92.4 FL Mean Corpuscular Hemoglobin 28.9 PG Mean Corpuscular Hemoglobin 31.3 % Concent Red Cell Distribution Width 17.0 % Platelet Count 237 TH/MM3 Mean Platelet Volume 9.5 FL Neutrophils (%) (Auto) 87.7 % Lymphocytes (%) (Auto) 4.9 % Monocytes (%) (Auto) 6.0 % Eosinophils (%) (Auto) 1.2 % Basophils (%) (Auto) 0.2 % Neutrophils # (Auto) 10.7 TH/MM3 Lymphocytes # (Auto) 0.6 TH/MM3 Monocytes # (Auto) 0.7 TH/MM3 Eosinophils # (Auto) 0.1 TH/MM3 Basophils # (Auto) 0.0 TH/MM3 CBC Comment DIFF FINAL Differential Comment Hematology Comments Sodium Level 144 MEQ/L Potassium Level 4.7 MEQ/L Chloride Level 113 MEQ/L Carbon Dioxide Level 21.1 MEQ/L Anion Gap 10 MEQ/L Blood Urea Nitrogen 94 MG/DL Creatinine 3.06 MG/DL Estimat Glomerular Filtration 18 ML/MIN Rate Random Glucose 107 MG/DL Calcium Level 10.8 MG/DL Phosphorus Level 4.0 MG/DL Physical Exam General General Appearance: Well Developed, Comfortable, Obese Eyes Eye Exam: Pupils Equal, Pupils Reactive Ears & Nose Ears & Nose Exam: Nasal Mucosa [place] Throat Throat Exam: Oral Mucosa [place] & Moist Neck Neck Exam: Neck Supple, Trachea Midline Pulmonary Resp Exam: No Distress, Decreased Bases, Poor Inspiratory Effort Cardiology CV Exam: Regular Gastrointestinal/Abdomen GI Exam: Soft, Non-Tender, Bowel Sounds Present, Non-Distended Musculoskeletal MS Exam: Atrophy MS Remarks left hemiplegia contracture left wrist Integumentary Skin Exam: Warm Skin Remarks pressure areas right buttock, back of right thigh Extremeties Extremities Exam: Pedal Pulses Palpable, Trace Edema Neurologic Neuro Exam: Awake Neuro Remarks left hemiplegia VTE Prophylaxis VTE Prophylaxis Device: SCDs VTE Prophylaxis Meds: Heparin Assessment/Plan Problem List: (1) Altered mental status (2) Dehydration (3) Hypoglycemia (4) UTI (urinary tract infection) (5) HTN (hypertension) (6) DM (diabetes mellitus) (7) CKD (chronic kidney disease) stage 4, GFR 15-29 ml/min (8) History of CVA with residual deficit (9) Pressure ulcer (10) Hypercalcemia (11) Leukocytosis (12) Acute on chronic renal failure Assessment/Plan 66-year-old female with history of chronic kidney disease, hypertension, hyperlipidemia, CVA with left-sided hemiparesis, type 2 diabetes. Admitted with hypoglycemia, altered mental status. Found with UTI, acute on chronic renal failure, dehydration. Altered mental status secondary to hypoglycemia, infection, dehydration, acute on chronic renal failure. Improving -blood glucose 180s, 200s, not pt. is eating -will change to accuchecks AC/HS with low dose ISS -Enc. PO intake, must be fed, on pureed diet UTI, with significant leukocytosis -continue antibiotics -follow cultures-GNR, sens. pending Acute on CKD, stage V, pt. nearing HD per history. Possibly worst secondary to dehydration, poor by mouth intake. Some improvement -nephrology consultation-input appreciated -avoid nephrotoxic agents Avoid diuretics -follow BMP Hypercalcemia, etiology unclear, on calcium supplements, also prolonged bed rest -better today -Hold calcium supplements Continue with hydration Nephrology on board, input appreciated Dysphasia, risk for aspiration-d/w , wants to continue Pureed diet at this time. May need PEG at some point. -appreciate speech input -HOB up -Aspiration precautions -Pureed diet History of CVA with residual deficits, left-sided hemiplegia, dysphasia, expressive aphasia. It and appears to be declining. CT of the head negative for any acute findings Continue with home medications Physical therapy, speech therapy -Continue with aspirin and statins Hypertension, stable Continue with home medications Pressure ulcer -wound care consultation, recommendations noted SCDs and heparin for DVT prophylaxis Consult physical therapy for evaluation CM for DC planning,HHC vs SNF, doesn't know-wants to talk to his children hopefully dc pt. next 1-[address] Ruiz to assume care tomorrow, d/w D/W RN D/W Dr. Valdivia D/W pt's at length, more than 20 minutes spent discussing with him; answering same questions. Doesn't seem to have realistic expectation of patient' s declining condition. Offered HHC or SNF, declined both This patient was seen by myself and Dr. 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
[2017-01-11] MEDS ORDERED: GLUCAGON 1 MG/ML VIAL OTHER PRN (15:15)
[2017-01-11] MEDS ORDERED: DEXTROSE 50% IN WATER 50 ML VIAL(D50) IV PUSH PRN (15:15)
--- NOTE | 2017-01-11 19:13 | HHI.NPPN ---
Subjective History of Present Illness 66-year-old female with past medical history of hypertension, diabetes mellitus, chronic kidney disease, history of cerebrovascular accident with left-sided weakness who was brought to the hospital because of altered mental status. I was called to see the patient because of elevated BUN and creatinine. The patient has known history of chronic kidney disease. She has been following with Dr. Ramos. Additional Remarks Patient is awake, not following all commands, not in distress. Objective Data Data 01/10/17 01/11/17 19:00 07:00 # Voids 2 1 Vital Signs Date Time Temp Pulse Resp B/P Pulse Ox O2 Delivery O2 Flow Rate FiO2 01/11/17 16:00 96.9 88 22 152/72 95 01/11/17 13:44 99 21 01/11/17 11:45 96.4 94 20 141/68 94 01/11/17 08:00 96.4 95 22 162/85 99 01/11/17 03:40 98.9 96 17 135/86 98 01/11/17 02:21 86 18 105/70 97 01/10/17 21:49 98 21 01/10/17 19:43 97.8 99 18 132/60 97 -: 01/11/17 0927 01/11/17 0927 Physical Exam General Appearance: No Acute Distress, Anxious, Malnourished Eyes Eye Exam: Pupils Equal, Pupils Reactive Ears & Nose Ears & Nose Exam: Nasal Mucosa [place] Throat Throat Exam: Oral Mucosa [place] & Moist Neck Neck Exam: Neck Supple, Trachea Midline Pulmonary Resp Exam: No Distress, Decreased Bases, Poor Inspiratory Effort Cardiology CV Exam: Regular Gastrointestinal/Abdomen GI Exam: Soft, Non-Tender, Bowel Sounds Present, Non-Distended Musculoskeletal MS Exam: Atrophy Integumentary Skin Exam: Warm Extremeties Extremities Exam: Pedal Pulses Palpable, Trace Edema Neurologic Neuro Exam: Awake VTE Prophylaxis Device: SCDs Assessment/Plan Assessment Summary: Dehydration, Hypertension, CKD Stage IV Problem List: (1) Dehydration (2) UTI (urinary tract infection) (3) HTN (hypertension) (4) DM (diabetes mellitus) (5) CKD (chronic kidney disease) stage 4, GFR 15-29 ml/min (6) History of CVA with residual deficit (7) Altered mental status (8) Acute on chronic renal failure Plan Patient has advance stage 4 chronic kidney disease. Creatinine now better and the GFR is 18 ml/min., close to her baseline as per patient. Continue Levaquin and IVF. Encourage oral intake. 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
[2017-01-11] MEDS: PRAVASTATIN SOD 40 MG TAB PO SCH (21:55)
[2017-01-11] MEDS: COLLAGENASE OINT 30 GM TUBE TOP SCH (21:57)
[2017-01-12] VITALS (9 sets, daily range): BP systolic 122–165; BP diastolic 63–93; PULSE 100–106; RESP 16; TEMP 96.8–100; O2SAT 94–100
[2017-01-12] MEDS: HEPARIN SODIUM - SQ 10,000 UNITS/ML VIAL SQ SCH ×2 (05:59→16:26)
[2017-01-12] MEDS: LEVOFLOXACIN 750 MG PREMIX INJ 150 ML IV SCH (05:59)
[2017-01-12] MEDS: INSULIN ASPART SUPPLEMENTAL SCALE SQ SCH ×4 (06:10→22:13)
[2017-01-12 07:44] LABS: HEMATOCRIT 27.9 % (35.0-46.0); MEAN CELL VOLUME 93.7 FL (80.0-100.0); MEAN CORPUSCULAR HEMOGLOBIN 28.9 PG (27.0-34.0); MEAN CORPUSCULAR HGB CONC 30.8 % (32.0-36.0); PLATELET COUNT 322 TH/MM3 (150-450); RED BLOOD COUNT 2.98 MIL/MM3 (4.00-5.30); RED CELL DISTRIBUTION WIDTH 16.9 % (11.6-17.2); REVIEW FLAG FINAL; WHITE BLOOD COUNT 14.4 TH/MM3 (4.0-11.0)
[2017-01-12 08:12] LABS: BICARBONATE 24.1 MEQ/L (21.0-32.0); POTASSIUM 3.9 MEQ/L (3.5-5.1)
[2017-01-12 08:35] LABS: CALCIUM-PROTEIN CORRECTED 11.5 MG/DL (8.5-10.1)
[2017-01-12] MEDS: CINACALCET HYDROCHLORIDE 30 MG TAB PO SCH (09:00)
[2017-01-12] MEDS: METOCLOPRAMIDE HCL 10 MG TAB PO SCH ×4 (09:00→22:03)
[2017-01-12] MEDS: COLLAGENASE OINT 30 GM TUBE TOP SCH (09:00)
[2017-01-12] MEDS: FLUoxetine HCL 20 MG CAP PO SCH (09:00)
[2017-01-12] MEDS: cloNIDine HCL 0.2 MG TAB PO SCH ×2 (09:00→22:03)
[2017-01-12] MEDS ORDERED: CALCITRIOL 0.25 MCG CAP PO SCH (09:00)
[2017-01-12] MEDS: ASPIRIN EC 81 MG TABEC PO SCH (09:00)
[2017-01-12] MEDS: SODIUM CHLORIDE 0.9% FLUSH 5 ML FLUSH FLUSH SCH ×2 (09:00→22:03)
[2017-01-12] MEDS: ACETAMINOPHEN 325 MG TAB PO PRN (10:48)
--- NOTE | 2017-01-12 11:22 | HHI.PR ---
Subjective Interval History pt awake and alert oriented to self and place on pureed diet, at times pocketing food No family at bedside On questioning she is standing me back pain lower back pain. As per patient she was not on any medication for back pain. For some question she is not giving me any answers. Very difficult to get information from patient. Review of Systems unable to obtain ROS from pt. Vitals/Results Intake & Output 01/11/17 01/11/17 01/12/17 15:00 23:00 07:00 Intake Total 720 ml 120 ml Balance 720 ml 120 ml Intake Oral 720 ml 120 ml # Voids 4 2 4 Vital Signs Vital Signs Date Time Temp Pulse Resp B/P Pulse Ox O2 Delivery O2 Flow Rate FiO2 01/12/17 08:00 99.6 106 16 165/93 98 01/12/17 04:00 97.5 100 16 135/66 97 01/12/17 00:00 96.8 103 16 122/74 98 01/11/17 20:08 116 01/11/17 20:00 98.2 115 17 169/66 93 01/11/17 16:00 96.9 88 22 152/72 95 01/11/17 13:44 99 21 01/11/17 11:45 96.4 94 20 141/68 94 CBC/BMP: 01/12/17 0640 01/12/17 0640 Lab Results Laboratory Tests Test 01/12/17 06:40 White Blood Count 14.4 TH/MM3 Red Blood Count 2.98 MIL/MM3 Hemoglobin 8.6 GM/DL Hematocrit 27.9 % Mean Corpuscular Volume 93.7 FL Mean Corpuscular Hemoglobin 28.9 PG Mean Corpuscular Hemoglobin 30.8 % Concent Red Cell Distribution Width 16.9 % Platelet Count 322 TH/MM3 Mean Platelet Volume 8.7 FL Sodium Level 150 MEQ/L Potassium Level 3.9 MEQ/L Chloride Level 116 MEQ/L Carbon Dioxide Level 24.1 MEQ/L Anion Gap 10 MEQ/L Blood Urea Nitrogen 80 MG/DL Creatinine 2.83 MG/DL Estimat Glomerular Filtration 20 ML/MIN Rate Random Glucose 249 MG/DL Calcium Level 11.6 MG/DL Protein Corrected Calcium 11.5 MG/DL Total Protein 7.3 GM/DL Physical Exam General General Appearance: No Acute Distress, Anxious, Malnourished Eyes Eye Exam: Pupils Equal, Pupils Reactive Ears & Nose Ears & Nose Exam: Nasal Mucosa [place] Throat Throat Exam: Oral Mucosa [place] & Moist Neck Neck Exam: Neck Supple, Trachea Midline Pulmonary Resp Exam: No Distress, Decreased Bases, Poor Inspiratory Effort Cardiology CV Exam: Regular Gastrointestinal/Abdomen GI Exam: Soft, Non-Tender, Bowel Sounds Present, Non-Distended Musculoskeletal MS Exam: Atrophy Integumentary Skin Exam: Warm Extremeties Extremities Exam: Pedal Pulses Palpable, Trace Edema Neurologic Neuro Exam: Alert, Awake Neuro Remarks Following commands. With residual left-sided hemiparesis VTE Prophylaxis VTE Prophylaxis Device: SCDs VTE Prophylaxis Meds: Heparin Assessment/Plan Problem List: (1) Altered mental status (2) Dehydration (3) Hypoglycemia (4) UTI (urinary tract infection) (5) HTN (hypertension) (6) DM (diabetes mellitus) (7) CKD (chronic kidney disease) stage 4, GFR 15-29 ml/min (8) History of CVA with residual deficit (9) Pressure ulcer (10) Hypercalcemia (11) Leukocytosis (12) Acute on chronic renal failure Assessment/Plan 66-year-old female with history of chronic kidney disease, hypertension, hyperlipidemia, CVA with left-sided hemiparesis, type 2 diabetes. Admitted with hypoglycemia, altered mental status. Found with UTI, acute on chronic renal failure, dehydration. Altered mental status secondary to hypoglycemia, infection, dehydration, acute on chronic renal failure. Improving seems like back to baseline. -blood glucose 180s, 200s, pt. is eating. -accuchecks AC/HS with low dose ISS -Enc. PO intake, must be fed, on pureed diet UTI, with significant leukocytosis, improving -continue antibiotics -follow cultures-GNR, sens. Report seen continue antibiotic Acute on CKD, stage V, pt. nearing HD per history. Possibly worst secondary to dehydration, improving -nephrology consultation-input appreciated -avoid nephrotoxic agents Avoid diuretics -follow BMP Hypercalcemia, etiology unclear, on calcium supplements, also prolonged bed rest -better today -Hold calcium supplements Continue with hydration Nephrology on board, input appreciated Dysphasia, risk for aspiration-it was d/w on January 11, wants to continue Pureed diet at this time. May need PEG at some point. -appreciate speech input -HOB up -Aspiration precautions -Pureed diet History of CVA with residual deficits, left-sided hemiplegia, dysphasia, expressive aphasia. It appears to be declining. CT of the head negative for any acute findings Continue with home medications Physical therapy, speech therapy -Continue with aspirin and statins Hypertension, stable Continue with home medications Pressure ulcer -wound care consultation, recommendations noted Labs reviewed Hypernatremia will change IV fluid to half normal saline and monitor Anemia of hydration will monitor [place] for lower back pain on when necessary basis SCDs and heparin for DVT prophylaxis Consult physical therapy for evaluation CM for DC planning,HHC vs SNF, doesn't know-wants to talk to his children hopefully dc pt. next 1-2 days D/W RN As per yesterday's note patient Doesn't seem to have realistic expectation of patient's declining condition. 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
[2017-01-12] MEDS: SODIUM CHLOR 0.45% 1000 ML INJ 1,000 ML IV SCH ×2 (11:30→22:15)
--- NOTE | 2017-01-12 19:56 | HHI.NPPN ---
Subjective History of Present Illness 66-year-old female with past medical history of hypertension, diabetes mellitus, chronic kidney disease, history of cerebrovascular accident with left-sided weakness who was brought to the hospital because of altered mental status. I was called to see the patient because of elevated BUN and creatinine. The patient has known history of chronic kidney disease. She has been following with Dr. Ramos. Additional Remarks Patient is more alert and awake, now following some commands, not in distress. Objective Data Data 01/11/17 01/12/17 19:00 07:00 Intake Total 840 ml Balance 840 ml Intake Oral 840 ml # Voids 6 4 Vital Signs Date Time Temp Pulse Resp B/P Pulse Ox O2 Delivery O2 Flow Rate FiO2 01/12/17 17:35 94 21 01/12/17 16:00 99.8 104 16 155/75 95 01/12/17 12:00 100.0 105 16 150/71 94 01/12/17 11:29 98 01/12/17 08:00 99.6 106 16 165/93 98 01/12/17 04:00 97.5 100 16 135/66 97 01/12/17 00:00 96.8 103 16 122/74 98 01/11/17 20:08 116 01/11/17 20:00 98.2 115 17 169/66 93 -: 01/12/17 0640 01/12/17 0640 Physical Exam General Appearance: No Acute Distress, Anxious, Malnourished Eyes Eye Exam: Pupils Equal, Pupils Reactive Ears & Nose Ears & Nose Exam: Nasal Mucosa [place] Throat Throat Exam: Oral Mucosa [place] & Moist Neck Neck Exam: Neck Supple, Trachea Midline Pulmonary Resp Exam: No Distress, Decreased Bases, Poor Inspiratory Effort Cardiology CV Exam: Regular Gastrointestinal/Abdomen GI Exam: Soft, Non-Tender, Bowel Sounds Present, Non-Distended Musculoskeletal MS Exam: Atrophy Integumentary Skin Exam: Warm Extremeties Extremities Exam: Pedal Pulses Palpable, Trace Edema Neurologic Neuro Exam: Alert, Awake VTE Prophylaxis Device: SCDs Assessment/Plan Assessment Summary: Dehydration, Hypertension, CKD Stage IV Problem List: (1) Dehydration (2) UTI (urinary tract infection) (3) HTN (hypertension) (4) DM (diabetes mellitus) (5) CKD (chronic kidney disease) stage 4, GFR 15-29 ml/min (6) History of CVA with residual deficit (7) Altered mental status (8) Acute on chronic renal failure Plan Patient has advance stage 4 chronic kidney disease. Creatinine continue to improve and GFR now is 20 ml/min. close to her baseline as per patient. Continue Levaquin and IVF. Encourage oral intake. Calcium is still elevated, PTH is high. U/S neck for Parathyroid adenoma? Problem Qualifiers (1) UTI (urinary tract infection): Qualified Code: N39.0 - Urinary tract infection without hematuria, site unspecified (2) HTN (hypertension): Qualified Code: I10 - Essential hypertension (3) DM (diabetes mellitus): Qualified Code: E11.49 - Type 2 diabetes mellitus with other neurologic complication, unspecified usp insulin use status (4) Altered mental status: Qualified Code: R40.4 - Transient alteration of awareness Chelsea Mora MD Jan 12, 2017 19:56
[2017-01-12] MEDS: PRAVASTATIN SOD 40 MG TAB PO SCH (22:03)
[2017-01-12 22:06] LABS: ALBUMIN SPE 3.39 GM/DL (3.50-5.00); ALPHA 1 GLOBULIN 0.2 GM/DL (0.11-0.29); ALPHA 2 GLOBULIN 0.77 GM/DL (0.22-1.00); BETA GLOBULINS (SPE) 0.65 GM/DL (0.53-1.03)
[2017-01-13 05:16] VITALS: BP 123/73; PULSE 93; RESP 16; TEMP 98.4; O2SAT 99
[2017-01-13] MEDS: HEPARIN SODIUM - SQ 10,000 UNITS/ML VIAL SQ SCH ×2 (06:12→17:26)
[2017-01-13] MEDS: INSULIN ASPART SUPPLEMENTAL SCALE SQ SCH ×4 (06:35→21:41)
[2017-01-13 07:07] LABS: HEMATOCRIT 24.8 % (35.0-46.0); MEAN CELL VOLUME 93.7 FL (80.0-100.0); MEAN CORPUSCULAR HEMOGLOBIN 29.1 PG (27.0-34.0); PLATELET COUNT 281 TH/MM3 (150-450); RED BLOOD COUNT 2.64 MIL/MM3 (4.00-5.30); RED CELL DISTRIBUTION WIDTH 16.8 % (11.6-17.2); REVIEW FLAG FINAL; WHITE BLOOD COUNT 17.9 TH/MM3 (4.0-11.0)
[2017-01-13 07:34] LABS: BICARBONATE 24.8 MEQ/L (21.0-32.0); POTASSIUM 3.9 MEQ/L (3.5-5.1)
[2017-01-13 08:00] VITALS: BP 129/60; PULSE 96; RESP 21; TEMP 97.9; O2SAT 97
[2017-01-13] MEDS: CINACALCET HYDROCHLORIDE 30 MG TAB PO SCH (10:40)
[2017-01-13] MEDS: cloNIDine HCL 0.2 MG TAB PO SCH ×2 (10:40→21:41)
[2017-01-13] MEDS: METOCLOPRAMIDE HCL 10 MG TAB PO SCH ×4 (10:41→21:41)
[2017-01-13] MEDS: ASPIRIN EC 81 MG TABEC PO SCH (10:41)
[2017-01-13] MEDS: FLUoxetine HCL 20 MG CAP PO SCH (10:41)
--- NOTE | 2017-01-13 10:52 | HHI.PR ---
Subjective Interval History Patient is alert and talking some Denies any headache dizziness nausea vomiting chest pain abdominal pain. As per daughter was at bedside did not eat much. Patient doesn't like pured food Review of system for 10 point system otherwise unremarkable Vitals/Results Intake & Output 01/12/17 01/12/17 01/13/17 14:59 22:59 06:59 Intake Total 300 ml 2016 ml 0 ml Balance 300 ml 2016 ml 0 ml Intake Oral 300 ml 0 ml 0 ml IV Total 2016 ml # Voids 3 2 1 # Bowel Movements 0 0 0 Vital Signs Vital Signs Date Time Temp Pulse Resp B/P Pulse Ox O2 Delivery O2 Flow Rate FiO2 01/13/17 08:00 97.9 96 21 129/60 97 01/13/17 05:16 98.4 93 16 123/73 99 01/12/17 20:08 106 01/12/17 20:00 98.9 104 16 133/63 100 01/12/17 17:35 94 21 01/12/17 16:00 99.8 104 16 155/75 95 01/12/17 12:00 100.0 105 16 150/71 94 01/12/17 11:29 98 CBC/BMP: 01/13/17 0624 01/13/17 0624 Lab Results Laboratory Tests Test 01/13/17 06:24 White Blood Count 17.9 TH/MM3 Red Blood Count 2.64 MIL/MM3 Hemoglobin 7.7 GM/DL Hematocrit 24.8 % Mean Corpuscular Volume 93.7 FL Mean Corpuscular Hemoglobin 29.1 PG Mean Corpuscular Hemoglobin 31.0 % Concent Red Cell Distribution Width 16.8 % Platelet Count 281 TH/MM3 Mean Platelet Volume 8.4 FL Sodium Level 149 MEQ/L Potassium Level 3.9 MEQ/L Chloride Level 116 MEQ/L Carbon Dioxide Level 24.8 MEQ/L Anion Gap 8 MEQ/L Blood Urea Nitrogen 70 MG/DL Creatinine 2.43 MG/DL Estimat Glomerular Filtration 24 ML/MIN Rate Random Glucose 151 MG/DL Calcium Level 10.5 MG/DL Physical Exam General General Appearance: Well Developed, No Acute Distress, Malnourished Eyes Eye Exam: Pupils Equal, Pupils Reactive Ears & Nose Ears & Nose Exam: Nasal Mucosa [place] Throat Throat Exam: Oral Mucosa [place] & Moist Neck Neck Exam: Neck Supple, Trachea Midline Pulmonary Resp Exam: No Distress, Decreased Bases, Poor Inspiratory Effort Cardiology CV Exam: Regular Gastrointestinal/Abdomen GI Exam: Soft, Non-Tender, Bowel Sounds Present, Non-Distended Musculoskeletal MS Exam: Atrophy Integumentary Skin Exam: Warm Extremeties Extremities Exam: Pedal Pulses Palpable, Trace Edema Neurologic Neuro Exam: Alert, Awake Neuro Remarks Following commands. With residual left-sided hemiparesis VTE Prophylaxis VTE Prophylaxis Device: SCDs VTE Prophylaxis Meds: Heparin Assessment/Plan Problem List: (1) Altered mental status (2) Dehydration (3) Hypoglycemia (4) UTI (urinary tract infection) (5) HTN (hypertension) (6) DM (diabetes mellitus) (7) CKD (chronic kidney disease) stage 4, GFR 15-29 ml/min (8) History of CVA with residual deficit (9) Pressure ulcer (10) Hypercalcemia (11) Leukocytosis (12) Acute on chronic renal failure Assessment/Plan 66-year-old female with history of chronic kidney disease, hypertension, hyperlipidemia, CVA with left-sided hemiparesis, type 2 diabetes. Admitted with hypoglycemia, altered mental status. Found with UTI, acute on chronic renal failure, dehydration. Altered mental status secondary to hypoglycemia, infection, dehydration, acute on chronic renal failure. back to baseline as per family. -blood glucose level is better, pt. is eating. -accuchecks AC/HS with low dose ISS -Enc. PO intake, must be fed, on pureed diet UTI, with significant leukocytosis, improving -continue antibiotics -follow cultures-GNR, sens. Report seen continue antibiotic. Also Gardnerella vaginalis with a start metronidazole Acute on CKD, stage V, pt. nearing HD per history. Possibly worst secondary to dehydration, improving -nephrology consultation-input appreciated -avoid nephrotoxic agents Avoid diuretics -follow BMP Hypercalcemia, etiology unclear, on calcium supplements, also prolonged bed rest -better today -Hold calcium supplements Continue with hydration Nephrology on board, input appreciated Dysphasia, risk for aspiration-it was d/w on January 11, wants to continue Pureed diet at this time. May need PEG at some point. -appreciate speech input -HOB up -Aspiration precautions -Pureed diet History of CVA with residual deficits, left-sided hemiplegia, dysphasia, expressive aphasia. It appears to be declining. CT of the head negative for any acute findings Continue with home medications Physical therapy, speech therapy -Continue with aspirin and statins Hypertension, stable Continue with home medications Pressure ulcer -wound care consultation, recommendations noted Labs reviewed Hypernatremia improving him a continue IV fluid to half normal saline Anemia of hydration will monitor Labs for tomorrow [place] for lower back pain on when necessary basis SCDs and heparin for DVT prophylaxis Consult physical therapy for evaluation CM for DC planning,HHC vs SNF, doesn't know-wants to talk to his children hopefully dc pt. next 1-2 days D/W RN As per previous note patient Doesn't seem to have realistic expectation of patient's declining condition. He has been offered HHC or SNF, declined both discussed with daughter who is agreeing with SNF. And she will talk to her father. 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
[2017-01-13] MEDS: COLLAGENASE OINT 30 GM TUBE TOP SCH (10:58)
[2017-01-13] MEDS: SODIUM CHLORIDE 0.9% FLUSH 5 ML FLUSH FLUSH SCH ×2 (10:58→21:00)
--- NOTE | 2017-01-13 11:11 | RADRPT ---
EXAM DATE/TIME: 01/13/2017 08:58 [facility] COMPARISON: No previous studies available for comparison. INDICATIONS : Parathyroid enlargement. MEDICAL HISTORY : Hypertension. Hyperthyroidism. Diabetic. CAD. CVA. SURGICAL HISTORY : Hysterectomy. Tubal ligation. ENCOUNTER: Initial ACUITY: 1 day PAIN SCORE: Nonresponsive. LOCATION: Bilateral neck AREA EVALUATED: Lateral neck bilaterally. FINDINGS: MASSES: A 3 mm hypoechoic nodule is identified in the right lobe of the thyroid with a 5 mm cyst on the left. Parathyroid tissue is not identified. FLUID COLLECTIONS: None. OTHER: Negative. CONCLUSION: 1. Could not identify parathyroid tissue. 2. 3 mm, isolated hypoechoic nodule in the right lobe of the thyroid isolated 5 mm cyst in the left l obe of the thyroid. David Mason MD on January 13, 2017 at 11:07 Board Certified Radiologist. This report was verified electronically.
[2017-01-13 12:13] VITALS: BP 132/69; PULSE 100; RESP 19; TEMP 97.9; O2SAT 100
[2017-01-13] MEDS: ACETAMINOPHEN/HYDROcodone 325 MG/5 MG TAB PO PRN (12:16)
[2017-01-13] MEDS: SODIUM CHLOR 0.45% 1000 ML INJ 1,000 ML IV SCH ×2 (13:09→23:15)
[2017-01-13 16:04] VITALS: BP 139/62; PULSE 86; RESP 18; TEMP 98; O2SAT 98
--- NOTE | 2017-01-13 17:45 | HHI.NPPN ---
Subjective History of Present Illness 66-year-old female with past medical history of hypertension, diabetes mellitus, chronic kidney disease, history of cerebrovascular accident with left-sided weakness who was brought to the hospital because of altered mental status. I was called to see the patient because of elevated BUN and creatinine. The patient has known history of chronic kidney disease. She has been following with Dr. Ramos. Additional Remarks Patient is now sleepy, not in distress, started on thickened liquids. Objective Data Data 01/12/17 01/13/17 19:00 07:00 Intake Total 2316 ml 0 ml Balance 2316 ml 0 ml Intake Oral 300 ml 0 ml IV Total 2016 ml # Voids 4 2 # Bowel Movements 0 0 Vital Signs Date Time Temp Pulse Resp B/P Pulse Ox O2 Delivery O2 Flow Rate FiO2 01/13/17 16:04 98.0 86 18 139/62 98 01/13/17 12:13 97.9 100 19 132/69 100 01/13/17 08:00 97.9 96 21 129/60 97 01/13/17 05:16 98.4 93 16 123/73 99 01/12/17 20:08 106 01/12/17 20:00 98.9 104 16 133/63 100 -: 01/13/17 0624 01/13/17 0624 Physical Exam General Appearance: Well Developed, No Acute Distress, Malnourished Eyes Eye Exam: Pupils Equal, Pupils Reactive Ears & Nose Ears & Nose Exam: Nasal Mucosa [place] Th[place]at Throat Exam: Oral Mucosa [place] & Moist Neck Neck Exam: Neck Supple, Trachea Midline Pulmonary Resp Exam: No Distress, Decreased Bases, Poor Inspiratory Effort Cardiology CV Exam: Regular Gastrointestinal/Abdomen GI Exam: Soft, Non-Tender, Bowel Sounds Present, Non-Distended Musculoskeletal MS Exam: Atrophy Integumentary Skin Exam: Warm Extremeties Extremities Exam: Pedal Pulses Palpable, Trace Edema Neurologic Neuro Exam: Alert, Awake VTE Prophylaxis Device: SCDs Assessment/Plan Assessment Summary: Dehydration, Hypertension, CKD Stage IV Problem List: (1) Dehydration (2) UTI (urinary tract infection) (3) HTN (hypertension) (4) DM (diabetes mellitus) (5) CKD (chronic kidney disease) stage 4, GFR 15-29 ml/min (6) History of CVA with residual deficit (7) Altered mental status (8) Acute on chronic renal failure Plan Patient has advance stage 4 chronic kidney disease. Creatinine continue to improve and GFR now is 24 ml/min. So there is an element of EDMUND. Continue Levaquin and IVF. Encourage oral intake. Calcium is better, PTH is high. U/S neck noted. Has Thyroid Nodule. Will need to see Endocrinology after D/C. 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
[2017-01-13 20:00] VITALS: BP 122/53; PULSE 92; RESP 18; TEMP 98; O2SAT 97
[2017-01-13] MEDS: PRAVASTATIN SOD 40 MG TAB PO SCH (21:41)
[2017-01-14] VITALS: BP 121/58; PULSE 87; RESP 19; TEMP 97.7; O2SAT 97
[2017-01-14 04:00] VITALS: BP 120/54; PULSE 90; RESP 19; TEMP 98.1; O2SAT 97
[2017-01-14] MEDS: INSULIN ASPART SUPPLEMENTAL SCALE SQ SCH ×4 (05:18→20:43)
[2017-01-14] MEDS: HEPARIN SODIUM - SQ 10,000 UNITS/ML VIAL SQ SCH ×2 (05:18→17:38)
[2017-01-14] MEDS: LEVOFLOXACIN 750 MG PREMIX INJ 150 ML IV SCH (05:19)
[2017-01-14 07:17] LABS: HEMATOCRIT 22.5 % (35.0-46.0); MEAN CELL VOLUME 92.1 FL (80.0-100.0); MEAN CORPUSCULAR HEMOGLOBIN 29.2 PG (27.0-34.0); MEAN CORPUSCULAR HGB CONC 31.7 % (32.0-36.0); PLATELET COUNT 259 TH/MM3 (150-450); RED BLOOD COUNT 2.44 MIL/MM3 (4.00-5.30); RED CELL DISTRIBUTION WIDTH 16.7 % (11.6-17.2); REVIEW FLAG FINAL; WHITE BLOOD COUNT 16.2 TH/MM3 (4.0-11.0)
[2017-01-14 07:47] LABS: BICARBONATE 25.7 MEQ/L (21.0-32.0)
[2017-01-14 08:00] VITALS: BP 136/63; PULSE 89; PULSE 90; RESP 17; TEMP 98.8; O2SAT 100
[2017-01-14] MEDS: cloNIDine HCL 0.2 MG TAB PO SCH ×2 (09:42→20:41)
[2017-01-14] MEDS: FLUoxetine HCL 20 MG CAP PO SCH (09:42)
[2017-01-14] MEDS: ASPIRIN EC 81 MG TABEC PO SCH (09:42)
[2017-01-14] MEDS: CINACALCET HYDROCHLORIDE 30 MG TAB PO SCH (09:42)
[2017-01-14] MEDS: SODIUM CHLORIDE 0.9% FLUSH 5 ML FLUSH FLUSH SCH ×2 (09:42→20:43)
[2017-01-14] MEDS: METOCLOPRAMIDE HCL 10 MG TAB PO SCH ×4 (09:43→20:41)
[2017-01-14] MEDS: COLLAGENASE OINT 30 GM TUBE TOP SCH (09:43)
--- NOTE | 2017-01-14 10:48 | HHI.PR ---
Subjective Interval History Patient is alert walking 1-2 words. Denies any pain No nausea vomiting No shortness of breath No abdominal pain No headache Review of system for 10 point system otherwise unremarkable at bedside Vitals/Results Intake & Output 01/13/17 01/13/17 01/14/17 15:00 23:00 07:00 Intake Total 300 ml 120 ml Balance 300 ml 120 ml Intake Oral 300 ml 120 ml # Voids 1 2 3 # Bowel Movements 0 Vital Signs Vital Signs Date Time Temp Pulse Resp B/P Pulse Ox O2 Delivery O2 Flow Rate FiO2 01/14/17 08:00 98.8 90 17 136/63 100 01/14/17 04:00 98.1 90 19 120/54 97 01/14/17 00:00 97.7 87 19 121/58 97 01/13/17 20:00 98.0 92 18 122/53 97 01/13/17 16:04 98.0 86 18 139/62 98 01/13/17 12:13 97.9 100 19 132/69 100 CBC/BMP: 01/14/17 0620 01/14/17 0620 Lab Results Laboratory Tests Test 01/14/17 06:20 White Blood Count 16.2 TH/MM3 Red Blood Count 2.44 MIL/MM3 Hemoglobin 7.1 GM/DL Hematocrit 22.5 % Mean Corpuscular Volume 92.1 FL Mean Corpuscular Hemoglobin 29.2 PG Mean Corpuscular Hemoglobin 31.7 % Concent Red Cell Distribution Width 16.7 % Platelet Count 259 TH/MM3 Mean Platelet Volume 8.7 FL Sodium Level 146 MEQ/L Potassium Level 4.0 MEQ/L Chloride Level 114 MEQ/L Carbon Dioxide Level 25.7 MEQ/L Anion Gap 6 MEQ/L Blood Urea Nitrogen 56 MG/DL Creatinine 2.07 MG/DL Estimat Glomerular Filtration 29 ML/MIN Rate Random Glucose 127 MG/DL Calcium Level 10.7 MG/DL Physical Exam General General Appearance: Well Developed, No Acute Distress, Malnourished Eyes Eye Exam: Pupils Equal, Pupils Reactive Ears & Nose Ears & Nose Exam: Nasal Mucosa [place] Throat Throat Exam: Oral Mucosa [place] & Moist Neck Neck Exam: Neck Supple, Trachea Midline Pulmonary Resp Exam: No Distress, Decreased Bases, Poor Inspiratory Effort Cardiology CV Exam: Regular Gastrointestinal/Abdomen GI Exam: Soft, Non-Tender, Bowel Sounds Present, Non-Distended Musculoskeletal MS Exam: Atrophy Integumentary Skin Exam: Warm Extremeties Extremities Exam: Pedal Pulses Palpable, Trace Edema Extremeties Remarks With contractures chronic Neurologic Neuro Exam: Alert, Awake Neuro Remarks Following commands. With residual left-sided hemiparesis VTE Prophylaxis VTE Prophylaxis Device: SCDs VTE Prophylaxis Meds: Heparin Assessment/Plan Problem List: (1) Altered mental status (2) Dehydration (3) Hypoglycemia (4) UTI (urinary tract infection) (5) HTN (hypertension) (6) DM (diabetes mellitus) (7) CKD (chronic kidney disease) stage 4, GFR 15-29 ml/min (8) History of CVA with residual deficit (9) Pressure ulcer (10) Hypercalcemia (11) Leukocytosis (12) Acute on chronic renal failure Assessment/Plan 66-year-old female with history of chronic kidney disease, hypertension, hyperlipidemia, CVA with left-sided hemiparesis, type 2 diabetes. Admitted with hypoglycemia, altered mental status. Found with UTI, acute on chronic renal failure, dehydration. Altered mental status secondary to hypoglycemia, infection, dehydration, acute on chronic renal failure. His cast with , back to baseline. -blood glucose level is better, pt. is eating. -accuchecks AC/HS with low dose ISS -Enc. PO intake, must be fed, on pureed diet UTI, with significant leukocytosis, improving -Culture report seen adjust antibiotic -Escherichia coli resistant to Cipro will change to ceftriaxone. Also Gardnerella vaginalis with a start metronidazole Acute on CKD, stage V, pt. nearing HD per history. Possibly worst secondary to dehydration, improving -nephrology consultation-input appreciated -avoid nephrotoxic agents Avoid diuretics -follow BMP Hypercalcemia, etiology unclear, on calcium supplements, also prolonged bed rest -better today -Hold calcium supplements Continue with hydration Nephrology on board, input appreciated Dysphasia, risk for aspiration-it was d/w on January 11, wants to continue Pureed diet at this time. May need PEG at some point. -appreciate speech input -HOB up -Aspiration precautions -Pureed diet History of CVA with residual deficits, left-sided hemiplegia, dysphasia, expressive aphasia. It appears to be declining. CT of the head negative for any acute findings Continue with home medications Physical therapy, speech therapy -Continue with aspirin and statins Hypertension, stable Continue with home medications Pressure ulcer -wound care consultation, recommendations noted Labs reviewed Hypernatremia improving him a continue IV fluid to half normal saline Anemia of hydration will monitor Labs for tomorrow [place] for lower back pain on when necessary basis SCDs and heparin for DVT prophylaxis Consult physical therapy for evaluation CM for DC planning,HHC vs SNF, wants [facility] hopefully dc pt. next 1-2 days D/W RN Problem Qualifiers (1) Altered mental status: Qualified Code: R40.4 - Transient alteration of awareness (2) UTI (urinary tract infection): Qualified Code: N39.0 - Urinary tract infection without hematuria, site unspecified (3) HTN (hypertension): Qualified Code: I10 - Essential hypertension (4) DM (diabetes mellitus): Qualified Code: E11.49 - Type 2 diabetes mellitus with other neurologic complication, unspecified residential insulin use status (5) Leukocytosis: Qualified Code: D72.829 - Leukocytosis, unspecified type Jonathan Davis MD Jan 14, 2017 10:48
[2017-01-14] MEDS ORDERED: cefTRIAXone INJ 1,000 MG in SODIUM CHLORIDE 0.9% INJ 100 ML IV SCH (11:00)
[2017-01-14 12:00] VITALS: BP 117/66; PULSE 94; RESP 18; TEMP 99; O2SAT 97
[2017-01-14] MEDS: SULFAMETHOXAZOLE-TRIMETHOPRIM DS 800-160 MG TAB PO SCH ×2 (12:56→20:41)
[2017-01-14] MEDS: SODIUM CHLOR 0.45% 1000 ML INJ 1,000 ML IV SCH ×2 (13:52→23:53)
--- NOTE | 2017-01-14 13:58 | HHI.NPPN ---
Subjective History of Present Illness 66-year-old female with past medical history of hypertension, diabetes mellitus, chronic kidney disease, history of cerebrovascular accident with left-sided weakness who was brought to the hospital because of altered mental status. I was called to see the patient because of elevated BUN and creatinine. The patient has known history of chronic kidney disease. She has been following with Dr. Ramos. Additional Remarks Patient is now sleepy, not in distress, started on thickened liquids. Objective Data Data 01/13/17 01/14/17 19:00 07:00 Intake Total 300 ml 120 ml Balance 300 ml 120 ml Intake Oral 300 ml 120 ml # Voids 1 5 # Bowel Movements 0 Vital Signs Date Time Temp Pulse Resp B/P Pulse Ox O2 Delivery O2 Flow Rate FiO2 01/14/17 12:00 99.0 94 18 117/66 97 01/14/17 08:00 89 01/14/17 08:00 98.8 90 17 136/63 100 01/14/17 04:00 98.1 90 19 120/54 97 01/14/17 00:00 97.7 87 19 121/58 97 01/13/17 20:00 98.0 92 18 122/53 97 01/13/17 16:04 98.0 86 18 139/62 98 -: 01/14/17 0620 01/14/17 0620 Physical Exam General Appearance: Well Developed, No Acute Distress, Malnourished Eyes Eye Exam: Pupils Equal, Pupils Reactive Ears & Nose Ears & Nose Exam: Nasal Mucosa [place] Throat Throat Exam: Oral Mucosa [place] & Moist Neck Neck Exam: Neck Supple, Trachea Midline Pulmonary Resp Exam: No Distress, Decreased Bases, Poor Inspiratory Effort Cardiology CV Exam: Regular Gastrointestinal/Abdomen GI Exam: Soft, Non-Tender, Bowel Sounds Present, Non-Distended Musculoskeletal MS Exam: Atrophy Integumentary Skin Exam: Warm Extremeties Extremities Exam: Pedal Pulses Palpable, Trace Edema Neurologic Neuro Exam: Alert, Awake VTE Prophylaxis Device: SCDs Assessment/Plan Assessment Summary: Dehydration, Hypertension, CKD Stage IV Problem List: (1) Dehydration (2) UTI (urinary tract infection) (3) HTN (hypertension) (4) DM (diabetes mellitus) (5) CKD (chronic kidney disease) stage 4, GFR 15-29 ml/min (6) History of CVA with residual deficit (7) Altered mental status (8) Acute on chronic renal failure Plan Patient has advance stage 4 chronic kidney disease. Creatinine continue to improve and GFR now is 29 ml/min. So there is an element of EDMUND. Continue Levaquin and IVF. Encourage oral intake. Calcium is high, PTH is high. Sensipar 30 mg U/S neck noted. Has Thyroid Nodule. Will need to see Endocrinology after D/C. Problem Qualifiers (1) UTI (urinary tract infection): Qualified Code: N39.0 - Urinary tract infection without hematuria, site unspecified (2) HTN (hypertension): Qualified Code: I10 - Essential hypertension (3) DM (diabetes mellitus): Qualified Code: E11.49 - Type 2 diabetes mellitus with other neurologic complication, unspecified senior living insulin use status (4) Altered mental status: Qualified Code: R40.4 - Transient alteration of awareness Rich Downing MD Jan 14, 2017 13:58
[2017-01-14 16:00] VITALS: BP 125/58; PULSE 95; RESP 18; TEMP 99.3; O2SAT 100
[2017-01-14 20:00] VITALS: BP 128/58; PULSE 89; PULSE 91; RESP 22; TEMP 98.7; O2SAT 95
[2017-01-14] MEDS: PRAVASTATIN SOD 40 MG TAB PO SCH (20:41)
[2017-01-15] VITALS (7 sets, daily range): BP systolic 115–145; BP diastolic 56–68; PULSE 85–108; RESP 18–21; TEMP 97–100.5; O2SAT 96–100
[2017-01-15] MEDS: INSULIN ASPART SUPPLEMENTAL SCALE SQ SCH ×4 (06:01→20:29)
[2017-01-15] MEDS: HEPARIN SODIUM - SQ 10,000 UNITS/ML VIAL SQ SCH ×2 (06:01→18:19)
[2017-01-15 07:59] LABS: BICARBONATE 22.7 MEQ/L (21.0-32.0); POTASSIUM 4.2 MEQ/L (3.5-5.1)
[2017-01-15 08:04] LABS: HEMATOCRIT 22.4 % (35.0-46.0); MEAN CELL VOLUME 92.1 FL (80.0-100.0); MEAN CORPUSCULAR HGB CONC 31.5 % (32.0-36.0); PLATELET COUNT 244 TH/MM3 (150-450); RED BLOOD COUNT 2.43 MIL/MM3 (4.00-5.30); RED CELL DISTRIBUTION WIDTH 16.6 % (11.6-17.2); REVIEW FLAG FINAL; WHITE BLOOD COUNT 13.7 TH/MM3 (4.0-11.0)
[2017-01-15] MEDS: METOCLOPRAMIDE HCL 10 MG TAB PO SCH ×4 (09:00→20:27)
[2017-01-15] MEDS: ASPIRIN EC 81 MG TABEC PO SCH (10:12)
[2017-01-15] MEDS: CINACALCET HYDROCHLORIDE 30 MG TAB PO SCH (10:12)
[2017-01-15] MEDS: FLUoxetine HCL 20 MG CAP PO SCH (10:12)
[2017-01-15] MEDS: cloNIDine HCL 0.2 MG TAB PO SCH ×2 (10:12→20:27)
[2017-01-15] MEDS: SODIUM CHLORIDE 0.9% FLUSH 5 ML FLUSH FLUSH SCH ×2 (10:13→21:00)
[2017-01-15] MEDS: SULFAMETHOXAZOLE-TRIMETHOPRIM DS 800-160 MG TAB PO SCH ×2 (10:13→20:27)
[2017-01-15] MEDS: COLLAGENASE OINT 30 GM TUBE TOP SCH (10:13)
[2017-01-15] MEDS: SODIUM CHLOR 0.45% 1000 ML INJ 1,000 ML IV SCH ×2 (11:36→20:30)
--- NOTE | 2017-01-15 12:50 | HHI.PR ---
Subjective Interval History Patient offering no complaint As per our and had low-grade fever 100.1 No nausea vomiting No chest pain or abdominal pain No diarrhea Review of systems a 12 point system otherwise unremarkable Vitals/Results Intake & Output 01/14/17 01/14/17 01/15/17 15:00 23:00 07:00 Intake Total 120 ml 60 ml Balance 120 ml 60 ml Intake Oral 120 ml 60 ml # Voids 2 3 Vital Signs Vital Signs Date Time Temp Pulse Resp B/P Pulse Ox O2 Delivery O2 Flow Rate FiO2 01/15/17 09:45 100.1 108 21 139/68 96 01/15/17 04:00 98.1 89 21 115/56 98 01/15/17 00:00 97.0 94 21 144/66 97 01/14/17 20:00 98.7 91 22 128/58 95 01/14/17 20:00 89 01/14/17 16:00 99.3 95 18 125/58 100 CBC/BMP: 01/15/17 0703 01/15/17 0703 Lab Results Laboratory Tests Test 01/15/17 07:03 White Blood Count 13.7 TH/MM3 Red Blood Count 2.43 MIL/MM3 Hemoglobin 7.1 GM/DL Hematocrit 22.4 % Mean Corpuscular Volume 92.1 FL Mean Corpuscular Hemoglobin 29.0 PG Mean Corpuscular Hemoglobin 31.5 % Concent Red Cell Distribution Width 16.6 % Platelet Count 244 TH/MM3 Mean Platelet Volume 8.6 FL Sodium Level 146 MEQ/L Potassium Level 4.2 MEQ/L Chloride Level 115 MEQ/L Carbon Dioxide Level 22.7 MEQ/L Anion Gap 8 MEQ/L Blood Urea Nitrogen 55 MG/DL Creatinine 2.15 MG/DL Estimat Glomerular Filtration 28 ML/MIN Rate Random Glucose 86 MG/DL Calcium Level 10.4 MG/DL Microbiology Microbiology 01/15/17 Gram Stain - Final, Resulted 01/15/17 Wound Culture, Resulted Pending 01/15/17 Aerobic Blood Culture, Received Pending 01/15/17 Anaerobic Blood Culture, Received Pending 01/15/17 Aerobic Blood Culture, Received Pending 01/15/17 Anaerobic Blood Culture, Received Pending Physical Exam General General Appearance: Well Developed, No Acute Distress, Malnourished Eyes Eye Exam: Pupils Equal, Pupils Reactive Ears & Nose Ears & Nose Exam: Nasal Mucosa [place] Throat Throat Exam: Oral Mucosa [place] & Moist Neck Neck Exam: Neck Supple, Trachea Midline Pulmonary Resp Exam: No Distress, Decreased Bases, Poor Inspiratory Effort Cardiology CV Exam: Regular Gastrointestinal/Abdomen GI Exam: Soft, Non-Tender, Bowel Sounds Present, Non-Distended Musculoskeletal MS Exam: Atrophy Integumentary Skin Exam: Warm Extremeties Extremities Exam: Pedal Pulses Palpable, Trace Edema Extremeties Remarks With contractures chronic Neurologic Neuro Exam: Alert, Awake Neuro Remarks Following commands. With residual left-sided hemiparesis VTE Prophylaxis VTE Prophylaxis Device: SCDs VTE Prophylaxis Meds: Heparin Assessment/Plan Problem List: (1) Altered mental status (2) Dehydration (3) Hypoglycemia (4) UTI (urinary tract infection) (5) HTN (hypertension) (6) DM (diabetes mellitus) (7) CKD (chronic kidney disease) stage 4, GFR 15-29 ml/min (8) History of CVA with residual deficit (9) Pressure ulcer (10) Hypercalcemia (11) Leukocytosis (12) Acute on chronic renal failure Assessment/Plan 66-year-old female with history of chronic kidney disease, hypertension, hyperlipidemia, CVA with left-sided hemiparesis, type 2 diabetes. Admitted with hypoglycemia, altered mental status. Found with UTI, acute on chronic renal failure, dehydration. Low-grade fever -Blood culture, UA and blood test. Altered mental status secondary to hypoglycemia, infection, dehydration, acute on chronic renal failure. His cast with , back to baseline. -blood glucose level is better, pt. is eating. -accuchecks AC/HS with low dose ISS -Enc. PO intake, must be fed, on pureed diet UTI, with significant leukocytosis, improving -Culture report seen adjust antibiotic -Escherichia coli resistant to Cipro will change to Bactrim. Also Gardnerella vaginalis with a start metronidazole Acute on CKD, stage V, pt. nearing HD per history. Possibly worst secondary to dehydration, improving. -nephrology consultation-input appreciated -avoid nephrotoxic agents Avoid diuretics -follow BMP Hypercalcemia, etiology unclear, on calcium supplements, also prolonged bed rest -better today . Improving -Hold calcium supplements Continue with hydration Nephrology on board, input appreciated Dysphasia, risk for aspiration-it was d/w on January 11, wants to continue Pureed diet at this time. May need PEG at some point. -appreciate speech input -HOB up -Aspiration precautions -Pureed diet History of CVA with residual deficits, left-sided hemiplegia, dysphasia, expressive aphasia. It appears to be declining. CT of the head negative for any acute findings Continue with home medications Physical therapy, speech therapy -Continue with aspirin and statins Hypertension, stable Continue with home medications Pressure ulcer -wound care consultation, recommendations noted Labs reviewed Hypernatremia improving him a continue IV fluid to half normal saline Anemia of hydration stable H&H Labs for tomorrow [place] for lower back pain on when necessary basis SCDs and heparin for DVT prophylaxis Consult physical therapy for evaluation CM for DC planning,HHC vs SNF, wants [facility] hopefully dc pt. 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
--- NOTE | 2017-01-15 13:38 | HHI.NPPN ---
Subjective History of Present Illness 66-year-old female with past medical history of hypertension, diabetes mellitus, chronic kidney disease, history of cerebrovascular accident with left-sided weakness who was brought to the hospital because of altered mental status. I was called to see the patient because of elevated BUN and creatinine. The patient has known history of chronic kidney disease. She has been following with Dr. Ramos. Additional Remarks Patient is now sleepy, not in distress, started on thickened liquids. Objective Data Data 01/14/17 01/15/17 19:00 07:00 Intake Total 180 ml Balance 180 ml Intake Oral 180 ml # Voids 5 Vital Signs Date Time Temp Pulse Resp B/P Pulse Ox O2 Delivery O2 Flow Rate FiO2 01/15/17 13:12 104 01/15/17 09:45 100.1 108 21 139/68 96 01/15/17 04:00 98.1 89 21 115/56 98 01/15/17 00:00 97.0 94 21 144/66 97 01/14/17 20:00 98.7 91 22 128/58 95 01/14/17 20:00 89 01/14/17 16:00 99.3 95 18 125/58 100 -: 01/15/17 0703 01/15/17 0703 Microbiology 01/15/17 Gram Stain - Final, Resulted 01/15/17 Wound Culture, Resulted Pending 01/15/17 Aerobic Blood Culture, Received Pending 01/15/17 Anaerobic Blood Culture, Received Pending 01/15/17 Aerobic Blood Culture, Received Pending 01/15/17 Anaerobic Blood Culture, Received Pending Physical Exam General Appearance: Well Developed, No Acute Distress, Malnourished Eyes Eye Exam: Pupils Equal, Pupils Reactive Ears & Nose Ears & Nose Exam: Nasal Mucosa [place] Throat Throat Exam: Oral Mucosa [place] & Moist Neck Neck Exam: Neck Supple, Trachea Midline Pulmonary Resp Exam: No Distress, Decreased Bases, Poor Inspiratory Effort Cardiology CV Exam: Regular Gastrointestinal/Abdomen GI Exam: Soft, Non-Tender, Bowel Sounds Present, Non-Distended Musculoskeletal MS Exam: Atrophy Integumentary Skin Exam: Warm Extremeties Extremities Exam: Pedal Pulses Palpable, Trace Edema Neurologic Neuro Exam: Alert, Awake VTE Prophylaxis Device: SCDs Assessment/Plan Assessment Summary: Dehydration, Hypertension, CKD Stage IV Problem List: (1) Dehydration (2) UTI (urinary tract infection) (3) HTN (hypertension) (4) DM (diabetes mellitus) (5) CKD (chronic kidney disease) stage 4, GFR 15-29 ml/min (6) History of CVA with residual deficit (7) Altered mental status (8) Acute on chronic renal failure Plan Patient has advance stage 4 chronic kidney disease. Creatinine continue to improve and GFR now is 28 ml/min. So there is an element of EDMUND. switch to Bactrim watch GFR as in [place] it can caused worsening IVF. Encourage oral intake. Calcium is high, PTH is high. Sensipar 30 mg U/S neck noted. Has Thyroid Nodule. Will need to see Endocrinology after D/C. Problem Qualifiers (1) UTI (urinary tract infection): Qualified Code: N39.0 - Urinary tract infection without hematuria, site unspecified (2) HTN (hypertension): Qualified Code: I10 - Essential hypertension (3) DM (diabetes mellitus): Qualified Code: E11.49 - Type 2 diabetes mellitus with other neurologic complication, unspecified [facility] insulin use status (4) Altered mental status: Qualified Code: R40.4 - Transient alteration of awareness Rich Downing MD Jan 15, 2017 13:38
[2017-01-15] MEDS: ACETAMINOPHEN 325 MG TAB PO PRN (15:13)
[2017-01-15] MEDS: PRAVASTATIN SOD 40 MG TAB PO SCH (20:27)
[2017-01-15 21:46] LABS: BLOOD, URINE NEG (NEG); COMMENT (UR) CULT NOT INDICATED; CULTURE IF INDICATED CULT NOT INDICATED; GLUCOSE,URINE TRACE mg/dL (NEG); HYALINE CAST, URINE 2 /lpf (RARE); KETONE, URINE NEG (NEG); MUCUS URINE FEW /lpf (OCC); NITRITE,URINE NEG (NEG); PH, URINE 6.5 (5.0-8.5); SQUAMOUS EPITHELIAL CELL URINE 1 /hpf (0-5); URINE COLOR YELLOW (YELLW/STRAW)
[2017-01-16] VITALS (7 sets, daily range): BP systolic 108–156; BP diastolic 57–76; PULSE 80–92; RESP 17–22; TEMP 98–99.5; O2SAT 94–99
[2017-01-16] MEDS: INSULIN ASPART SUPPLEMENTAL SCALE SQ SCH ×4 (06:07→21:00)
[2017-01-16] MEDS: HEPARIN SODIUM - SQ 10,000 UNITS/ML VIAL SQ SCH ×2 (06:07→18:38)
[2017-01-16 06:21] LABS: HEMATOCRIT 21.4 % (35.0-46.0); MEAN CORPUSCULAR HEMOGLOBIN 28.8 PG (27.0-34.0); MEAN CORPUSCULAR HGB CONC 31.3 % (32.0-36.0); PLATELET COUNT 237 TH/MM3 (150-450); RED BLOOD COUNT 2.33 MIL/MM3 (4.00-5.30); RED CELL DISTRIBUTION WIDTH 17.2 % (11.6-17.2); WHITE BLOOD COUNT 11.8 TH/MM3 (4.0-11.0)
[2017-01-16 06:23] LABS: REVIEW FLAG FINAL
[2017-01-16 06:48] LABS: BICARBONATE 22.9 MEQ/L (21.0-32.0); POTASSIUM 3.8 MEQ/L (3.5-5.1)
[2017-01-16] MEDS: SULFAMETHOXAZOLE-TRIMETHOPRIM DS 800-160 MG TAB PO SCH (09:00)
[2017-01-16] MEDS: ASPIRIN EC 81 MG TABEC PO SCH (09:00)
[2017-01-16] MEDS: METOCLOPRAMIDE HCL 10 MG TAB PO SCH ×3 (09:00→22:23)
[2017-01-16] MEDS: FLUoxetine HCL 20 MG CAP PO SCH (09:00)
[2017-01-16] MEDS: cloNIDine HCL 0.2 MG TAB PO SCH ×2 (09:00→22:23)
[2017-01-16] MEDS: COLLAGENASE OINT 30 GM TUBE TOP SCH (09:00)
[2017-01-16] MEDS: SODIUM CHLORIDE 0.9% FLUSH 5 ML FLUSH FLUSH SCH ×2 (09:00→21:00)
[2017-01-16] MEDS: CINACALCET HYDROCHLORIDE 30 MG TAB PO SCH (09:00)
[2017-01-16] MEDS ORDERED: FUROSEMIDE 20 MG/2 ML VIAL IV PUSH PRN (09:45)
[2017-01-16] MEDS: SODIUM CHLOR 0.45% 1000 ML INJ 1,000 ML IV SCH ×2 (10:50→22:45)
--- NOTE | 2017-01-16 10:51 | HHI.PR ---
Subjective Interval History Offering no complaint Has no bowel movement from past 6 days No abdominal pain No nausea vomiting No shortness of breath Review of system for point system otherwise unremarkable at bedside Vitals/Results Intake & Output 01/15/17 01/15/17 01/16/17 15:00 23:00 07:00 Intake Total 120 ml 60 ml 120 ml Output Total 275 ml Balance 120 ml -215 ml 120 ml Intake Oral 120 ml 60 ml 120 ml Output Urine Total 275 ml # Voids 2 1 3 Vital Signs Vital Signs Date Time Temp Pulse Resp B/P Pulse Ox O2 Delivery O2 Flow Rate FiO2 01/16/17 04:00 99.5 92 19 108/57 94 01/16/17 00:00 98.9 89 18 128/58 97 01/15/17 20:00 98.6 99 19 145/63 97 01/15/17 20:00 90 01/15/17 16:00 100.1 99 20 145/65 100 01/15/17 13:12 104 01/15/17 12:00 100.5 85 18 142/60 98 CBC/BMP: 01/16/17 0545 01/16/17 0545 Lab Results Laboratory Tests Test 01/15/17 01/16/17 01/16/17 21:03 05:45 09:45 Urine Color YELLOW Urine Turbidity HAZY Urine pH 6.5 Urine Specific [place] 1.012 Urine Protein 30 mg/dL Urine Glucose (UA) TRACE mg/dL Urine Ketones NEG mg/dL Urine Occult Blood NEG Urine Nitrite NEG Urine Bilirubin NEG Urine Urobilinogen LESS THAN 2.0 MG/DL Urine Leukocyte Esterase TRACE Urine RBC 1 /hpf Urine WBC 7 /hpf Urine Squamous Epithelial 1 /hpf Cells Urine Bacteria NONE /hpf Urine Hyaline Casts 2 /lpf Urine Mucus FEW /lpf Microscopic Urinalysis Comment CULT NOT INDICATED White Blood Count 11.8 TH/MM3 Red Blood Count 2.33 MIL/MM3 Hemoglobin 6.7 GM/DL Hematocrit 21.4 % Mean Corpuscular Volume 92.0 FL Mean Corpuscular Hemoglobin 28.8 PG Mean Corpuscular Hemoglobin 31.3 % Concent Red Cell Distribution Width 17.2 % Platelet Count 237 TH/MM3 Mean Platelet Volume 8.6 FL Sodium Level 147 MEQ/L Potassium Level 3.8 MEQ/L Chloride Level 114 MEQ/L Carbon Dioxide Level 22.9 MEQ/L Anion Gap 10 MEQ/L Blood Urea Nitrogen 44 MG/DL Creatinine 2.15 MG/DL Estimat Glomerular Filtration 28 ML/MIN Rate Random Glucose 118 MG/DL Calcium Level 10.2 MG/DL Blood Type O POSITIVE Microbiology Microbiology 01/15/17 Aerobic Blood Culture, Received Pending 01/15/17 Anaerobic Blood Culture, Received Pending 01/15/17 Aerobic Blood Culture, Received Pending 01/15/17 Anaerobic Blood Culture, Received Pending Physical Exam General General Appearance: Well Developed, No Acute Distress, Malnourished Eyes Eye Exam: Pupils Equal, Pupils Reactive Ears & Nose Ears & Nose Exam: Nasal Mucosa [place] Neck Neck Exam: Neck Supple, Trachea Midline Pulmonary Resp Exam: No Distress, Decreased Bases, Poor Inspiratory Effort Cardiology CV Exam: Regular Gastrointestinal/Abdomen GI Exam: Soft, Non-Tender, Bowel Sounds Present, Non-Distended Musculoskeletal MS Exam: Atrophy Integumentary Skin Exam: Warm Skin Remarks Stage II decubitus ulcer approximately 5 cm lower left lateral buttock area with clean base. Just beneath that also there is a small hole with a yellowish discharge. No surrounding swelling or discoloration noted. Extremeties Extremities Exam: Pedal Pulses Palpable, Trace Edema Extremeties Remarks With contractures chronic Neurologic Neuro Exam: Alert, Awake Neuro Remarks Following commands. With residual left-sided hemiparesis VTE Prophylaxis VTE Prophylaxis Device: SCDs VTE Prophylaxis Meds: Heparin Assessment/Plan Problem List: (1) Altered mental status (2) Dehydration (3) Hypoglycemia (4) UTI (urinary tract infection) (5) HTN (hypertension) (6) DM (diabetes mellitus) (7) CKD (chronic kidney disease) stage 4, GFR 15-29 ml/min (8) History of CVA with residual deficit (9) Pressure ulcer (10) Hypercalcemia (11) Leukocytosis (12) Acute on chronic renal failure Assessment/Plan 66-year-old female with history of chronic kidney disease, hypertension, hyperlipidemia, CVA with left-sided hemiparesis, type 2 diabetes. Admitted with hypoglycemia, altered mental status. Found with UTI, acute on chronic renal failure, dehydration. Low-grade fever -Blood culture pending, UA report reviewed and blood test report reviewed. -Leukocytosis improving Anemia -Likely of chronic disease plan for blood transfusion today Decubitus ulcer -Wound care is following -Questionable abscess plan for CT lower extremity -Antibiotic empirically -ID consult -Surgical consult Altered mental status secondary to hypoglycemia, infection, dehydration, acute on chronic renal failure. His cast with , back to baseline. -blood glucose level is better, pt. is eating. -accuchecks AC/HS with low dose ISS -Enc. PO intake, must be fed, on pureed diet UTI, with significant leukocytosis, improving -Culture report seen adjust antibiotic -Escherichia coli resistant to Cipro will change to Bactrim. Also Gardnerella vaginalis with a start metronidazole Acute on CKD, stage V, pt. nearing HD per history. Possibly worst secondary to dehydration, improving. -nephrology consultation-input appreciated -avoid nephrotoxic agents Avoid diuretics -follow BMP Hypercalcemia, etiology unclear, on calcium supplements, also prolonged bed rest -better today . Improving -Hold calcium supplements Continue with hydration Nephrology on board, input appreciated Dysphasia, risk for aspiration-it was d/w on January 11, wants to continue Pureed diet at this time. May need PEG at some point. -appreciate speech input -[facility] up -Aspiration precautions -Pureed diet History of CVA with residual deficits, left-sided hemiplegia, dysphasia, expressive aphasia. It appears to be declining. CT of the head negative for any acute findings Continue with home medications Physical therapy, speech therapy -Continue with aspirin and statins Hypertension, stable Continue with home medications Pressure ulcer -wound care consultation, recommendations noted Labs reviewed Hypernatremia improving him a continue IV fluid to half normal saline Labs for tomorrow [place] for lower back pain on when necessary basis SCDs and heparin for DVT prophylaxis physical therapy Discussed with bedside in detail D/W RN Problem Qualifiers (1) Altered mental status: Qualified Code: R40.4 - Transient alteration of awareness (2) UTI (urinary tract infection): Qualified Code: N39.0 - Urinary tract infection without hematuria, site unspecified (3) HTN (hypertension): Qualified Code: I10 - Essential hypertension (4) DM (diabetes mellitus): Qualified Code: E11.49 - Type 2 diabetes mellitus with other neurologic complication, unspecified terminal gauger insulin use status (5) Leukocytosis: Qualified Code: D72.829 - Leukocytosis, unspecified type Jonathan Davis MD Jan 16, 2017 10:51
[2017-01-16] MEDS ORDERED: VANCOMYCIN INJ 1,000 MG in SODIUM CHLOR 0.9% 250 ML INJ 250 ML IV ONE (11:00)
[2017-01-16] MEDS ORDERED: Vancomycin Consult Pharmacy 1 EA OTHER SCH (11:00)
--- NOTE | 2017-01-16 12:21 | PD.ID.CON ---
History of Present Illness Service ID Consult Requested By Dr Davis Reason for Consult L buttock abscess Primary Care Physician Mango Ruiz MD Diagnoses: History of Present Illness 66-year-old female with history of CVA in 2009 with left-sided hemiplegia, type 2 diabetes, chronic kidney disease nearing hemodialysis, hyperlipidemia, CHF, sarcoidosis, hypertension. She is bed ridden and totally dependent on DLA Patient presented to the emergency room after she was noted altered, staing into space and hypoglycemic. noticed that patient has been declining over the last 2 weeks, has not been eating much and not talking much, more agitated and refusing to take her pills UA initially had 45 WBC and urine clx grew out >100,000 CFU/ML ESCHERICHIA COLI and >100,000 CFU/ML GARDNERELLA VAGINALIS Repeat UA negtive Blood clx negative @ 1 day SHe has Left buttock pressure wound present on admission and the gram stain showed HEAVY MIXED SANTHOSH WITH NO PREDOMINANT MORPHOLOGY; culture P Pt has interemitted fever in the last 2 days notticed worsening in the appearnce alcon the wound few days before admission Review of Systems ROS Limitations: Clinical Condition, Altered Mental Status Past Family Social History Allergies: Coded Allergies: Penicillin (Verified Allergy, Severe, rash/itching, 01/10/17) Uncoded Allergies: CILLINS ALL (Allergy, Severe, 07/23/10) Past Medical History DM CKD possibly last stage, indicates that he was told that patient was close to dialysis. CHF HTN Sarcoidosis Pericardial Effusion Stroke with residual left-sided hemiplegia Prior history of myocardial infarction Coronary artery disease Hyperlipidemia Pericardial effusion Sarcoidosis Hypothyroid Past Surgical History Hysterectomy 2/2 fibroids Active Ordered Medications Medications where reviewed in EMR Antibiotics Include: Bactrim Family History Non-Contributory. Social History No Tobacco. No ETOH. No Illicit Drugs. Physical Exam Vital Signs Vital Signs Date Time Temp Pulse Resp B/P Pulse Ox O2 Delivery O2 Flow Rate FiO2 01/16/17 04:00 99.5 92 19 108/57 94 01/16/17 00:00 98.9 89 18 128/58 97 01/15/17 20:00 98.6 99 19 145/63 97 01/15/17 20:00 90 01/15/17 16:00 100.1 99 20 145/65 100 01/15/17 13:12 104 Physical Exam CONSTITUTIONAL/GENERAL: This is an adequately nourished patient, in no apparent distress. TUBES/LINES/DRAINS: SKIN: No jaundice, rashes, Skin temperature appropriate. Not diaphoretic. Small excriated stage II R buttock ulcer L posterior thigh and buttock has an unstagible decubitus ulcer, covered with necrotic tissue and draining purulent d/c No granulations observed. Complex shape of decubitus ulceration, deep likely stage III-IV HEAD: Atraumatic. Normocephalic. EYES: Pupils equal and round and reactive. Extraocular motions intact. No scleral icterus. No injection or drainage. Fundi not examined. ENT: Hearing grossly normal. Nose without bleeding or purulent drainage.Oral mucosae moist without visible erythem NECK: Trachea midline. Supple, nontender. CARDIOVASCULAR: Regular rate and rhythm without murmurs, gallops, or rubs. No JVD. Peripheral pulses symmetric. RESPIRATORY/CHEST: Symmetric, unlabored respirations. Clear to auscultation. Breath sounds equal bilaterally. No wheezes, rales, or rhonchi. GASTROINTESTINAL: Abdomen soft, non-tender, nondistended. No hepato-splenomegaly , or palpable masses. No guarding. Bowel sounds present. GENITOURINARY: Without palpable bladder distension. MUSCULOSKELETAL: Extremities without clubbing, cyanosis, or edema. No joint tenderness or effusion noted. No calf tenderness. No mottling or clubbing. LYMPHATICS: No palpable cervical or supraclavicular adenopathy. NEUROLOGICAL: Awake and alert. L side with hemiplegia (baseline); PSYCHIATRIC: calm and cooperative Laboratory Laboratory Tests Test 01/15/17 01/16/17 01/16/17 21:03 05:45 09:45 Urine Color YELLOW Urine Turbidity HAZY Urine pH 6.5 Urine Specific [place] 1.012 Urine Protein 30 Urine Glucose (UA) TRACE Urine Ketones NEG Urine Occult Blood NEG Urine Nitrite NEG Urine Bilirubin NEG Urine Urobilinogen LESS THAN 2.0 Urine Leukocyte Esterase TRACE Urine RBC 1 Urine WBC 7 Urine Squamous Epithelial 1 Cells Urine Bacteria NONE Urine Hyaline Casts 2 Urine Mucus FEW Microscopic Urinalysis Comment CULT NOT INDICATED White Blood Count 11.8 Red Blood Count 2.33 Hemoglobin 6.7 Hematocrit 21.4 Mean Corpuscular Volume 92.0 Mean Corpuscular Hemoglobin 28.8 Mean Corpuscular Hemoglobin 31.3 Concent Red Cell Distribution Width 17.2 Platelet Count 237 Mean Platelet Volume 8.6 Sodium Level 147 Potassium Level 3.8 Chloride Level 114 Carbon Dioxide Level 22.9 Anion Gap 10 Blood Urea Nitrogen 44 Creatinine 2.15 Estimat Glomerular Filtration 28 Rate Random Glucose 118 Calcium Level 10.2 Blood Type O POSITIVE Antibody Screen NEGATIVE Crossmatch Leukocyte-Reduced Red Blood Cells Blood Bank Comment Date/Time Procedure Status Source Growth 01/15/17 11:53 Aerobic Blood Culture - Preliminary Resulted Blood Peripheral NO GROWTH IN 1 DAY 01/15/17 11:53 Anaerobic Blood Culture - Preliminary Resulted Blood Peripheral NO GROWTH IN 1 DAY 01/15/17 00:05 Gram Stain - Final Resulted Wound Buttock 01/15/17 00:05 Wound Culture Resulted Wound Buttock Pending Result Diagram: 01/16/17 0545 01/16/17 0545 Imaging Last Impressions Neck Ultrasound 01/13/17 0000 Signed Impressions: Service Date/Time: Friday, January 13, 2017 08:58 - CONCLUSION: 1. Could not identify parathyroid tissue. 2. 3 mm, isolated hypoechoic nodule in the right lobe of the thyroid isolated 5 mm cyst in the left lobe of the thyroid. David Mason MD Head CT 01/10/17 0038 Signed Impressions: Service Date/Time: Tuesday, January 10, 2017 01:23 - CONCLUSION: No significant change has occurred. Samuel Don MD Chest X-Ray 01/10/17 003 Signed Impressions: Service Date/Time: Tuesday, January 10, 2017 00:49 - CONCLUSION: No acute disease. Samuel Don MD Assessment and Plan Assessment and Plan Bedridden non verbal pt with h/o devastating stroke L thigh/L buttock decub, appears clinically infected - clx is growing MRSA and GNB UTI PCN allergy , but uneventfully took cefepime in 2009 CKD approaching ESRD -change current abx to vancomycin, flagyl and cefepime - monitor closely pts GFR Discussed Condition With at b/s Janice Navarrete MD Jan 16, 2017 12:21
[2017-01-16] MEDS ORDERED: Vancomycin Consult Pharmacy 1 EA IV SCH (13:45)
[2017-01-16] MEDS ORDERED: CEFEPIME INJ 2,000 MG in SODIUM CHLORIDE 0.9% INJ 100 ML IV SCH (14:00)
[2017-01-16] MEDS: ACETAMINOPHEN 325 MG TAB PO PRN (16:41)
[2017-01-16] MEDS: LACTULOSE SYRUP 20 GM/30 ML CUP PO SCH (16:41)
[2017-01-16] MEDS: metroNIDAZOLE 500 MG INJ 100 ML IV SCH (16:42)
--- NOTE | 2017-01-16 19:23 | HHI.NPPN ---
Subjective History of Present Illness 66-year-old female with past medical history of hypertension, diabetes mellitus, chronic kidney disease, history of cerebrovascular accident with left-sided weakness who was brought to the hospital because of altered mental status. I was called to see the patient because of elevated BUN and creatinine. The patient has known history of chronic kidney disease. She has been following with Dr. Ramos. Additional Remarks Patient is awake not in distress, started on thickened liquids. Objective Data Data 01/15/17 01/16/17 19:00 07:00 Intake Total 120 ml 180 ml Output Total 275 ml Balance 120 ml -95 ml Intake Oral 120 ml 180 ml Output Urine Total 275 ml # Voids 2 4 Vital Signs Date Time Temp Pulse Resp B/P Pulse Ox O2 Delivery O2 Flow Rate FiO2 01/16/17 15:55 98.0 88 22 119/71 97 01/16/17 13:10 98.4 92 18 140/70 99 01/16/17 04:00 99.5 92 19 108/57 94 01/16/17 00:00 98.9 89 18 128/58 97 01/15/17 20:00 98.6 99 19 145/63 97 01/15/17 20:00 90 -: 01/16/17 0545 01/16/17 0545 Microbiology 01/16/17 Gram Stain - Final, Resulted 01/16/17 Wound Culture, Resulted Pending Physical Exam General Appearance: Well Developed, No Acute Distress, Malnourished Eyes Eye Exam: Pupils Equal, Pupils Reactive Ears & Nose Ears & Nose Exam: Nasal Mucosa [place] Neck Neck Exam: Neck Supple, Trachea Midline Pulmonary Resp Exam: No Distress, Decreased Bases, Poor Inspiratory Effort Cardiology CV Exam: Regular Gastrointestinal/Abdomen GI Exam: Soft, Non-Tender, Bowel Sounds Present, Non-Distended Musculoskeletal MS Exam: Atrophy Integumentary Skin Exam: Warm Extremeties Extremities Exam: Pedal Pulses Palpable, Trace Edema Neurologic Neuro Exam: Alert, Awake VTE Prophylaxis Device: SCDs Assessment/Plan Assessment Summary: Dehydration, Hypertension, CKD Stage IV Problem List: (1) Dehydration (2) UTI (urinary tract infection) (3) HTN (hypertension) (4) DM (diabetes mellitus) (5) CKD (chronic kidney disease) stage 4, GFR 15-29 ml/min (6) History of CVA with residual deficit (7) Altered mental status (8) Acute on chronic renal failure Plan Patient has advance stage 4 chronic kidney disease. Creatinine continue to improve and GFR now is 28 ml/min. So there is an element of EDMUND. Has Thyroid Nodule. Will need to see Endocrinology after D/C. Now on Cefepime and Metronidazole. ID following. Check serum immunofixation. Hgb. dropped, check iron study and one dose of Epogen. Problem Qualifiers (1) UTI (urinary tract infection): Qualified Code: N39.0 - Urinary tract infection without hematuria, site unspecified (2) HTN (hypertension): Qualified Code: I10 - Essential hypertension (3) DM (diabetes mellitus): Qualified Code: E11.49 - Type 2 diabetes mellitus with other neurologic complication, unspecified prison insulin use status (4) Altered mental status: Qualified Code: R40.4 - Transient alteration of awareness Chelsea Mora MD Jan 16, 2017 19:23
[2017-01-16] MEDS ORDERED: EPOETIN ALFA 20,000 UNITS/ML VIAL SQ ONE (19:30)
[2017-01-16] MEDS: PRAVASTATIN SOD 40 MG TAB PO SCH (21:00)
--- NOTE | 2017-01-16 22:05 | RADRPT ---
EXAM DATE/TIME: 01/16/2017 21:27 [place] COMPARISON: No previous studies available for comparison. INDICATIONS : Evaluate left femur and buttocks area for abscess. RADIATION DOSE: 44.57 CTDIvol (mGy) MEDICAL HISTORY : Seizures. Diabetes mellitus type 2. Hypertension. SURGICAL HISTORY : None. ENCOUNTER: Subsequent ACUITY: 1 day PAIN SCALE: 3/10 LOCATION: Left leg and pelvis TECHNIQUE: Volumetric scanning of the femur was performed. Using automated exposure control and adjustment of t he mA and/or kV according to patient size, radiation dose was kept as low as reasonably achievable to obtain optimal diagnostic quality images. FINDINGS: There is a large fluid and air collection involving the left posterior lateral upper thigh and inferi or aspect of the left buttock which measures 10.4 cm x 8.1 cm x 6.4 cm. This is consistent with a la rge subcutaneous abscess. Diffuse cellulitis is noted surrounding this abscess. No definite erosive changes are noted involving the adjacent femur or ischium. CONCLUSION: Large air and fluid collection within the subcutaneous tissues of the posterior lateral upper thigh a nd base of the left buttock measuring 10.4 x 8.1 x 6.4 cm consistent with large subcutaneous abscess and surrounding diffuse cellulitis. Shaw Morfin MD on January 16, 2017 at 21:55 Board Certified Radiologist. This report was verified electronically.
[2017-01-17] VITALS (7 sets, daily range): BP systolic 130–159; BP diastolic 69–76; PULSE 80–91; RESP 18–20; TEMP 97.2–97.8; O2SAT 95–100
[2017-01-17] MEDS: metroNIDAZOLE 500 MG INJ 100 ML IV SCH ×4 (00:55→23:48)
[2017-01-17] MEDS: CEFEPIME INJ 2,000 MG in SODIUM CHLORIDE 0.9% INJ 100 ML IV SCH ×2 (01:53→23:50)
[2017-01-17] MEDS: HEPARIN SODIUM - SQ 10,000 UNITS/ML VIAL SQ SCH ×2 (06:36→18:05)
[2017-01-17] MEDS: INSULIN ASPART SUPPLEMENTAL SCALE SQ SCH ×4 (06:37→20:36)
[2017-01-17] MEDS: SODIUM CHLOR 0.45% 1000 ML INJ 1,000 ML IV SCH ×2 (06:38→20:36)
[2017-01-17 07:01] LABS: HEMATOCRIT 30.4 % (35.0-46.0); MEAN CELL VOLUME 89.8 FL (80.0-100.0); MEAN CORPUSCULAR HEMOGLOBIN 28.8 PG (27.0-34.0); MEAN CORPUSCULAR HGB CONC 32.1 % (32.0-36.0); PLATELET COUNT 247 TH/MM3 (150-450); RED BLOOD COUNT 3.38 MIL/MM3 (4.00-5.30); RED CELL DISTRIBUTION WIDTH 15.7 % (11.6-17.2); REVIEW FLAG FINAL; WHITE BLOOD COUNT 13.2 TH/MM3 (4.0-11.0)
[2017-01-17 07:18] LABS: ANION GAP 8 MEQ/L (5-15); BICARBONATE 22.8 MEQ/L (21.0-32.0); BLOOD UREA NITROGEN 38 MG/DL (7-18); CHLORIDE 115 MEQ/L (98-107); FERRITIN 258 NG/ML (8-252); GLOMERULAR FILTRATION RATE 31 ML/MIN (>89); SODIUM (NA) 146 MEQ/L (136-145); TRANSFERRIN IRON PROFILE 101 MG/DL (200-360)
[2017-01-17] MEDS: FLUoxetine HCL 20 MG CAP PO SCH (09:48)
[2017-01-17] MEDS: LACTULOSE SYRUP 20 GM/30 ML CUP PO SCH (09:48)
[2017-01-17] MEDS: METOCLOPRAMIDE HCL 10 MG TAB PO SCH ×4 (09:49→20:23)
[2017-01-17] MEDS: COLLAGENASE OINT 30 GM TUBE TOP SCH (09:49)
[2017-01-17] MEDS: cloNIDine HCL 0.2 MG TAB PO SCH ×2 (09:49→20:24)
[2017-01-17] MEDS: ASPIRIN EC 81 MG TABEC PO SCH (09:49)
[2017-01-17] MEDS: CINACALCET HYDROCHLORIDE 30 MG TAB PO SCH (09:49)
[2017-01-17] MEDS ORDERED: VANCOMYCIN 1,000 MG/NS 250 ML IV ONE ×2 (10:00)
[2017-01-17] MEDS: SODIUM CHLORIDE 0.9% FLUSH 5 ML FLUSH FLUSH SCH ×2 (10:27→20:36)
--- NOTE | 2017-01-17 11:03 | HHI.PR ---
Subjective Interval History Offering no complaint Has no bowel movement from past 6 days No abdominal pain No nausea vomiting No shortness of breath Review of system for 10 point system otherwise unremarkable No family at bedside Vitals/Results Intake & Output 01/16/17 01/16/17 01/17/17 15:00 23:00 07:00 Intake Total 120 ml 1165 ml Balance 120 ml 1165 ml Intake Oral 120 ml IV Total 1165 ml # Voids 2 2 4 # Bowel Movements 0 Vital Signs Vital Signs Date Time Temp Pulse Resp B/P Pulse Ox O2 Delivery O2 Flow Rate FiO2 01/17/17 08:00 97.8 83 20 130/71 96 01/17/17 00:45 97.2 80 20 157/70 100 01/16/17 23:00 98.5 80 18 126/68 97 01/16/17 22:40 98.0 81 18 156/76 96 01/16/17 20:00 82 01/16/17 20:00 99.0 84 17 124/69 95 01/16/17 15:55 98.0 88 22 119/71 97 01/16/17 13:10 98.4 92 18 140/70 99 CBC/BMP: 01/17/17 0620 01/17/17 0620 Lab Results Laboratory Tests Test 01/16/17 01/17/17 11:35 06:20 Blood Type O POSITIVE White Blood Count 13.2 TH/MM3 Red Blood Count 3.38 MIL/MM3 Hemoglobin 9.8 GM/DL Hematocrit 30.4 % Mean Corpuscular Volume 89.8 FL Mean Corpuscular Hemoglobin 28.8 PG Mean Corpuscular Hemoglobin 32.1 % Concent Red Cell Distribution Width 15.7 % Platelet Count 247 TH/MM3 Mean Platelet Volume 8.6 FL Sodium Level 146 MEQ/L Potassium Level 4.0 MEQ/L Chloride Level 115 MEQ/L Carbon Dioxide Level 22.8 MEQ/L Anion Gap 8 MEQ/L Blood Urea Nitrogen 38 MG/DL Creatinine 1.96 MG/DL Estimat Glomerular Filtration 31 ML/MIN Rate Random Glucose 95 MG/DL Calcium Level 9.8 MG/DL Iron Level 56 MCG/DL Total Iron Binding Capacity 141 MCG/DL Percent Iron Saturation 39.6 % Ferritin 258 NG/ML Random Vancomycin Level 10.4 COMMENT Microbiology Microbiology 01/16/17 Gram Stain - Final, Resulted 01/16/17 Wound Culture, Resulted Pending Physical Exam General General Appearance: Well Developed, No Acute Distress, Malnourished Eyes Eye Exam: Pupils Equal, Pupils Reactive Ears & Nose Ears & Nose Exam: Nasal Mucosa [place] Neck Neck Exam: Neck Supple, Trachea Midline Pulmonary Resp Exam: No Distress, Decreased Bases, Poor Inspiratory Effort Cardiology CV Exam: Regular Gastrointestinal/Abdomen GI Exam: Soft, Non-Tender, Bowel Sounds Present, Non-Distended Musculoskeletal MS Exam: Atrophy Integumentary Skin Exam: Warm Skin Remarks Stage II decubitus ulcer approximately 5 cm lower left lateral buttock area with clean base. Just beneath that also there is a small hole with a yellowish discharge. No surrounding swelling or discoloration noted. Extremeties Extremities Exam: Pedal Pulses Palpable, Trace Edema Extremeties Remarks With contractures chronic Neurologic Neuro Exam: Alert, Awake Neuro Remarks Following commands. With residual left-sided hemiparesis VTE Prophylaxis VTE Prophylaxis Device: SCDs VTE Prophylaxis Meds: Heparin Assessment/Plan Problem List: (1) Altered mental status (2) Dehydration (3) Hypoglycemia (4) UTI (urinary tract infection) (5) HTN (hypertension) (6) DM (diabetes mellitus) (7) CKD (chronic kidney disease) stage 4, GFR 15-29 ml/min (8) History of CVA with residual deficit (9) Pressure ulcer (10) Hypercalcemia (11) Leukocytosis (12) Acute on chronic renal failure Assessment/Plan 66-year-old female with history of chronic kidney disease, hypertension, hyperlipidemia, CVA with left-sided hemiparesis, type 2 diabetes. Admitted with hypoglycemia, altered mental status. Found with UTI, acute on chronic renal failure, dehydration. Low-grade fever resolved -Blood culture pending, UA report reviewed and blood test report reviewed. Wound culture report pending -Leukocytosis will monitor Anemia -Likely of chronic disease status post blood transfusion arch 27th. Stable will monitor Decubitus ulcer with abscess left buttock and thigh -Wound care is following -Report of CT lower extremity reviewed. -Antibiotic empirically -ID consult magen abx per ID -Surgical consult, discussed the surgeon he prefers plastic surgery. -Plastic surgery consult Altered mental status secondary to hypoglycemia, infection, dehydration, acute on chronic renal failure. His cast with , back to baseline. -blood glucose level is better, pt. is eating. -accuchecks AC/HS with low dose ISS -Enc. PO intake, must be fed, on pureed diet UTI, with significant leukocytosis, improving -Culture report seen adjust antibiotic -Escherichia coli resistant to Cipro will change to Bactrim. Also Gardnerella vaginalis with a start metronidazole Acute on CKD, stage V, pt. nearing HD per history. Possibly worst secondary to dehydration, improving. -nephrology consultation-input appreciated -avoid nephrotoxic agents Avoid diuretics -follow BMP Hypercalcemia, etiology unclear, on calcium supplements, also prolonged bed rest -better today . Improving -Hold calcium supplements Continue with hydration Nephrology on board, input appreciated Dysphasia, risk for aspiration-it was d/w on January 11, wants to continue Pureed diet at this time. May need PEG at some point. -appreciate speech input -HOB up -Aspiration precautions -Pureed diet History of CVA with residual deficits, left-sided hemiplegia, dysphasia, expressive aphasia. It appears to be declining. CT of the head negative for any acute findings Continue with home medications Physical therapy, speech therapy -Continue with aspirin and statins Hypertension, stable Continue with home medications Labs reviewed Hypernatremia improving him a continue IV fluid to half normal saline Labs for tomorrow [place] for lower back pain on when necessary basis SCDs and heparin for DVT prophylaxis physical therapy Discussed with bedside in detail D/W RN Problem Qualifiers (1) Altered mental status: Qualified Code: R40.4 - Transient alteration of awareness (2) UTI (urinary tract infection): Qualified Code: N39.0 - Urinary tract infection without hematuria, site unspecified (3) HTN (hypertension): Qualified Code: I10 - Essential hypertension (4) DM (diabetes mellitus): Qualified Code: E11.49 - Type 2 diabetes mellitus with other neurologic complication, unspecified supervisor maintenance insulin use status (5) Leukocytosis: Qualified Code: D72.829 - Leukocytosis, unspecified type Jonathan Davis MD Jan 17, 2017 11:03
--- NOTE | 2017-01-17 11:46 | PD.CONS ---
HPI Service General Surgery Consult Requested By Dr. Davis Reason for Consult Infected pressure ulcer with abscess Primary Care Physician Mango Ruiz MD History of Present Illness The patient is a 66 yo F with a h/o CVA in 2009, CKD, HTN, DM who presented to the hospital on 01/10 with altered mental status. She was found to have leukocytosis and anemia as well as acute on chronic kidney insufficiency. She was noted to have multiple sacral and trochanteric pressure ulcers, the worst on the left greater trochanter. This was noted to be draining pus. Cultures were obtained and grew MRSA, E coli, and abelardo. She is currently treated with cefepime, flagyl, and vancomycin. The patient underwent CT left femur with SQ air and fluid in tissues of lateral left upper thigh and buttock, consistent with infected pressure ulcer in this area. Review of Systems Constitutional: DENIES: Fever, Chills Eyes: DENIES: Eye inflammation, Eye pain Ears, nose, mouth, throat: DENIES: Ear Pain, Running Nose Gastrointestinal: DENIES: Abdominal pain, Vomiting Integumentary: DENIES: Pruritus, Rash Neurologic: COMPLAINS OF: Localized weakness, Speech Problems Past Family Social History Past Medical History DM CKD CHF HTN Sarcoidosis Pericardial Effusion Stroke with residual left-sided hemiplegia Prior history of myocardial infarction Coronary artery disease Hyperlipidemia Pericardial effusion Sarcoidosis Hypothyroid Past Surgical History Hysterectomy Reported Medications Reported Meds & Active Scripts Active Reported Calcitriol 0.25 Mcg Cap 0.25 Mcg PO EVERY OTHER DAY Aspirin 81 Mg Tabdr 81 Mg PO DAILY [place] 3 500 500 mg ([place]-3 Fatty Acids) 1 Cap Cap 500 Mg PO DAILY Vitamin D3 (Cholecalciferol) 5,000 Unit Tab 5,000 Units PO DAILY Sensipar (Cinacalcet) 30 Mg Tab 30 Mg PO DAILY Furosemide 20 Mg Tab 20 Mg PO BID Bydureon Inj (Exenatide) 2 Mg Vial 2 Mg SQ Q7D Clonidine (Clonidine HCl) 0.2 Mg Tab 0.2 Mg PO BID Glipizide 5 Mg Tab 5 Mg PO BIDAC Take 30 minutes before a meal Trazodone (Trazodone HCl) 50 Mg Tab 50 Mg PO HS Zocor (Simvastatin) 20 Mg Tab 20 Mg PO HS Spironolactone 25 Mg Tab 25 Mg PO HS Metoclopramide (Metoclopramide HCl) 5 Mg Tab 5 Mg PO QID Fluoxetine (Fluoxetine HCl) 40 Mg Cap 40 Cap PO DAILY Amlodipine (Amlodipine Besylate) 10 Mg Tab 10 Mg PO DAILY Allergies: Coded Allergies: Penicillin (Verified Allergy, Severe, rash/itching, 01/10/17) *MDRO Multi-Drug Resistant Organism (Verified Adverse Reaction, Unknown, ) MRSA (buttock)-01/15/17 Uncoded Allergies: CILLINS ALL (Allergy, Severe, 07/23/10) Active Ordered Medications Current Medications Medications (Trade) Dose Ordered Sig/Yari Route Start Time Stop Time Status Last Admin (NS Flush) 2 ml UNSCH PRN FLUSH 01/10/17 05:15 (NS Flush) 2 ml BID FLUSH 01/10/17 09:00 01/17/17 10:27 (Tylenol) 650 mg Q4H PRN PO 01/10/17 05:15 01/16/17 16:41 (Zofran Inj) 4 mg Q6H PRN IVP 01/10/17 05:15 (Dulcolax Supp) 10 mg DAILY PRN NC 01/10/17 05:15 (Senokot) 17.2 mg Q12H PRN PO 01/10/17 05:15 (Heparin Inj) 5,000 units Q12H SQ 01/10/17 06:00 01/17/17 06:36 (Narcan Inj) 0.4 mg UNSCH PRN IV 01/10/17 05:15 (Norvasc) 10 mg DAILY PO 01/11/17 09:00 01/17/17 09:48 (Ecotrin Ec) 81 mg DAILY PO 01/11/17 09:00 01/17/17 09:49 (Sensipar) 30 mg DAILY PO 01/11/17 09:00 01/17/17 09:49 (Catapres) 0.2 mg BID PO 01/10/17 21:00 01/17/17 09:49 (PROzac) 40 mg DAILY PO 01/11/17 09:00 01/17/17 09:48 (Reglan) 5 mg QID PO 01/10/17 13:00 01/17/17 09:49 (Pravachol) 40 mg HS PO 01/10/17 21:00 01/16/17 21:00 (Pill Splitter) 1 ea UNSCH PRN OTHER 01/10/17 10:30 (Santyl Oint) 1 applic DAILY TOP 01/11/17 09:00 01/17/17 09:49 (D50w (Vial) Inj) 25 ml UNSCH PRN IV PUSH 01/11/17 15:15 (Glucagon Inj) 1 mg UNSCH PRN OTHER 01/11/17 15:15 Acetaminophen/ Hydrocodone Bitart 1 tab 1 tab Q6H PRN PO 01/12/17 11:30 01/13/17 12:16 (1/2 NS 1000 ml Inj) 1,000 ml @ 84 mls/hr [id number] IV 01/12/17 11:30 01/17/17 06:38 (Lasix Inj) 20 mg UNSCH PRN IV PUSH 01/16/17 09:45 01/16/17 22:22 Lactulose 30 ml 30 ml DAILY PO 01/16/17 11:00 01/17/17 09:48 Pharmacy Profile Note 0 ml @ 0 mls/hr UNSCH IV 01/16/17 13:45 Metronidazole 100 ml @ 100 mls/hr Q8H IV 01/16/17 15:00 01/17/17 06:35 (Maxipime Inj/NS Inj) 100 ml @ 200 mls/hr Q24H IV 01/17/17 01:00 01/17/17 01:53 Family History Noncontributory. Social History and lives with who is present. No ETOH, drug or tobacco use. She is dependent for ADLS. Physical Exam Vital Signs Vital Signs Date Time Temp Pulse Resp B/P Pulse Ox O2 Delivery O2 Flow Rate FiO2 01/17/17 08:00 97.8 83 20 130/71 96 01/17/17 00:45 97.2 80 20 157/70 100 01/16/17 23:00 98.5 80 18 126/68 97 01/16/17 22:40 98.0 81 18 156/76 96 01/16/17 20:00 82 01/16/17 20:00 99.0 84 17 124/69 95 01/16/17 15:55 98.0 88 22 119/71 97 01/16/17 13:10 98.4 92 18 140/70 99 Physical Exam GENERAL: Chronically ill-appearing female SKIN: Stage II pressure ulcer noted to sacrum, approximately 6x6 cm. She has multiple healed scars apparently from previous pressure ulcers. left greater trochanter area there is a large unstageable ulcer with a pinhole type wound superiolaterally draining copious pus. HEAD: Atraumatic. Normocephalic EYES: Pupils equal round and reactive. Extraocular motions intact. CARDIOVASCULAR: Regular rate and rhythm without murmurs, gallops, or rubs. RESPIRATORY: CTAB GASTROINTESTINAL: Abdomen soft, non-tender, nondistended. MUSCULOSKELETAL: Left-sided hemiparesis from previous stroke. Muscle wasting the left upper and left lower extremity. Left wrist contracture. NEUROLOGICAL: Some expressive aphasia. Slow to respond. Left sided hemiplegia from previous stroke. Laboratory Laboratory Tests Test 01/16/17 01/17/17 11:35 06:20 Blood Type O POSITIVE White Blood Count 13.2 Red Blood Count 3.38 Hemoglobin 9.8 Hematocrit 30.4 Mean Corpuscular Volume 89.8 Mean Corpuscular Hemoglobin 28.8 Mean Corpuscular Hemoglobin 32.1 Concent Red Cell Distribution Width 15.7 Platelet Count 247 Mean Platelet Volume 8.6 Sodium Level 146 Potassium Level 4.0 Chloride Level 115 Carbon Dioxide Level 22.8 Anion Gap 8 Blood Urea Nitrogen 38 Creatinine 1.96 Estimat Glomerular Filtration 31 Rate Random Glucose 95 Calcium Level 9.8 Iron Level 56 Total Iron Binding Capacity 141 Percent Iron Saturation 39.6 Ferritin 258 Random Vancomycin Level 10.4 Date/Time Procedure Status Source Growth 01/16/17 11:15 Gram Stain - Final Resulted Wound Buttock 01/16/17 11:15 Wound Culture Resulted Wound Buttock Pending 01/15/17 11:53 Aerobic Blood Culture - Preliminary Resulted Blood Peripheral NO GROWTH IN 2 DAYS 01/15/17 11:53 Anaerobic Blood Culture - Preliminary Resulted Blood Peripheral NO GROWTH IN 2 DAYS Result Diagram: 01/17/17 0620 01/17/17 0620 Imaging Last Impressions Lower Extremity CT 01/16/17 0000 Signed Impressions: Service Date/Time: Monday, January 16, 2017 21:27 - CONCLUSION: Large air and fluid collection within the subcutaneous tissues of the posterior lateral upper thigh and base of the left buttock measuring 10.4 x 8.1 x 6.4 cm consistent with large subcutaneous abscess and surrounding diffuse cellulitis. Shaw Morfin MD Neck Ultrasound 01/13/17 0000 Signed Impressions: Service Date/Time: Friday, January 13, 2017 08:58 - CONCLUSION: 1. Could not identify parathyroid tissue. 2. 3 mm, isolated hypoechoic nodule in the right lobe of the thyroid isolated 5 mm cyst in the left lobe of the thyroid. David Mason MD Head CT 01/10/1737 Signed Impressions: Service Date/Time: Tuesday, January 10, 2017 01:23 - CONCLUSION: No significant change has occurred. Samuel Don MD Chest X-Ray 01/10/1737 Signed Impressions: Service Date/Time: Tuesday, January 10, 2017 00:49 - CONCLUSION: No acute disease. Samuel Don MD Assessment and Plan Assessment and Plan 66 yo F h/o CVA and multiple chronic conditions with unstageable likely stage 4 left trochanteric pressure ulcer with underlying soft tissue infection. I recommend evaluation and treatment by plastic surgery and wound care team for comprehensive treatment of her pressure ulcers. She appears to require surgical debridement. Discussed Condition With Kt Castro MD Jan 17, 2017 11:46
--- NOTE | 2017-01-17 15:57 | HHI.NPPN ---
Subjective History of Present Illness 66-year-old female with past medical history of hypertension, diabetes mellitus, chronic kidney disease, history of cerebrovascular accident with left-sided weakness who was brought to the hospital because of altered mental status. I was called to see the patient because of elevated BUN and creatinine. The patient has known history of chronic kidney disease. She has been following with Dr. Ramos. Additional Remarks Patient is more alert, and not in distress. Objective Data Data 01/16/17 01/17/17 19:00 07:00 Intake Total 1285 ml Balance 1285 ml Intake Oral 120 ml IV Total 1165 ml # Voids 4 4 # Bowel Movements 0 Vital Signs Date Time Temp Pulse Resp B/P Pulse Ox O2 Delivery O2 Flow Rate FiO2 01/17/17 12:00 97.8 82 20 132/69 95 01/17/17 08:00 97.8 83 20 130/71 96 01/17/17 00:45 97.2 80 20 157/70 100 01/16/17 23:00 98.5 80 18 126/68 97 01/16/17 22:40 98.0 81 18 156/76 96 01/16/17 20:00 82 01/16/17 20:00 99.0 84 17 124/69 95 -: 01/17/17 0620 01/17/17 0620 Physical Exam General Appearance: No Acute Distress, Anxious, Malnourished Eyes Eye Exam: Pupils Equal, Pupils Reactive Ears & Nose Ears & Nose Exam: Nasal Mucosa [place] Neck Neck Exam: Neck Supple, Trachea Midline Pulmonary Resp Exam: No Distress, Decreased Bases, Poor Inspiratory Effort Cardiology CV Exam: Regular Gastrointestinal/Abdomen GI Exam: Soft, Non-Tender, Bowel Sounds Present, Non-Distended Musculoskeletal MS Exam: Atrophy Integumentary Skin Exam: Warm Extremeties Extremities Exam: Pedal Pulses Palpable, Trace Edema Neurologic Neuro Exam: Alert, Awake VTE Prophylaxis Device: SCDs Assessment/Plan Assessment Summary: Dehydration, Hypertension, CKD Stage IV Problem List: (1) Dehydration (2) UTI (urinary tract infection) (3) HTN (hypertension) (4) DM (diabetes mellitus) (5) CKD (chronic kidney disease) stage 4, GFR 15-29 ml/min (6) History of CVA with residual deficit (7) Altered mental status (8) Acute on chronic renal failure Plan Patient has advance stage 4 chronic kidney disease. Creatinine continue to improve. So there is an element of EDMUND, possibly pre renal. Has Thyroid Nodule. Will need to see Endocrinology after D/C. TSH was normal. Now on Cefepime and Metronidazole. ID following. Check serum immunofixation. Hgb. dropped, transfused, also given Epogen. Seen by surgery has pressure ulcers and will need possible debridement. Problem Qualifiers (1) UTI (urinary tract infection): Qualified Code: N39.0 - Urinary tract infection without hematuria, site unspecified (2) HTN (hypertension): Qualified Code: I10 - Essential hypertension (3) DM (diabetes mellitus): Qualified Code: E11.49 - Type 2 diabetes mellitus with other neurologic complication, unspecified longterm insulin use status (4) Altered mental status: Qualified Code: R40.4 - Transient alteration of awareness Chelsea Mora MD Jan 17, 2017 15:57
[2017-01-17] MEDS: ACETAMINOPHEN/HYDROcodone 325 MG/5 MG TAB PO PRN (20:24)
[2017-01-17] MEDS: PRAVASTATIN SOD 40 MG TAB PO SCH (20:24)
[2017-01-18] VITALS (7 sets, daily range): BP systolic 139–156; BP diastolic 67–87; PULSE 78–93; RESP 18–20; TEMP 96–98; O2SAT 95–100
[2017-01-18] MEDS: HEPARIN SODIUM - SQ 10,000 UNITS/ML VIAL SQ SCH ×2 (05:55→18:02)
[2017-01-18] MEDS: metroNIDAZOLE 500 MG INJ 100 ML IV SCH ×3 (06:01→23:00)
[2017-01-18] MEDS: INSULIN ASPART SUPPLEMENTAL SCALE SQ SCH ×4 (06:01→20:49)
[2017-01-18 06:35] LABS: HEMATOCRIT 30.6 % (35.0-46.0); MEAN CORPUSCULAR HEMOGLOBIN 28.6 PG (27.0-34.0); MEAN CORPUSCULAR HGB CONC 31.4 % (32.0-36.0); PLATELET COUNT 263 TH/MM3 (150-450); RED BLOOD COUNT 3.37 MIL/MM3 (4.00-5.30); RED CELL DISTRIBUTION WIDTH 15.9 % (11.6-17.2); REVIEW FLAG FINAL; WHITE BLOOD COUNT 12.4 TH/MM3 (4.0-11.0)
[2017-01-18 06:52] LABS: POTASSIUM 3.7 MEQ/L (3.5-5.1)
[2017-01-18] MEDS: SODIUM CHLORIDE 0.9% FLUSH 5 ML FLUSH FLUSH SCH ×2 (09:00→20:40)
--- NOTE | 2017-01-18 10:40 | HHI.PR ---
Subjective Interval History Offering no complaint Has no bowel movement from past 6 days No abdominal pain No nausea vomiting No shortness of breath Review of system for 10 point system otherwise unremarkable at bedside Vitals/Results Intake & Output 01/17/17 01/17/17 01/18/17 15:00 23:00 07:00 Intake Total 170 ml 240 ml 2180 ml Balance 170 ml 240 ml 2180 ml Intake Oral 170 ml 240 ml IV Total 2180 ml # Voids 2 3 3 Vital Signs Vital Signs Date Time Temp Pulse Resp B/P Pulse Ox O2 Delivery O2 Flow Rate FiO2 01/18/17 04:00 96.7 86 18 142/68 99 01/18/17 00:00 96.6 89 18 139/67 100 01/17/17 21:15 90 01/17/17 20:00 97.6 91 18 159/70 96 01/17/17 16:00 97.7 83 20 145/76 100 01/17/17 12:00 97.8 82 20 132/69 95 CBC/BMP: 01/18/17 0533 01/18/17 0533 Lab Results Laboratory Tests Test 01/18/17 05:33 White Blood Count 12.4 TH/MM3 Red Blood Count 3.37 MIL/MM3 Hemoglobin 9.6 GM/DL Hematocrit 30.6 % Mean Corpuscular Volume 91.0 FL Mean Corpuscular Hemoglobin 28.6 PG Mean Corpuscular Hemoglobin 31.4 % Concent Red Cell Distribution Width 15.9 % Platelet Count 263 TH/MM3 Mean Platelet Volume 9.1 FL Sodium Level 144 MEQ/L Potassium Level 3.7 MEQ/L Chloride Level 115 MEQ/L Carbon Dioxide Level 21.0 MEQ/L Anion Gap 8 MEQ/L Blood Urea Nitrogen 32 MG/DL Creatinine 1.81 MG/DL Estimat Glomerular Filtration 34 ML/MIN Rate Random Glucose 107 MG/DL Calcium Level 9.9 MG/DL Random Vancomycin Level 6.7 COMMENT Physical Exam General General Appearance: No Acute Distress, Anxious, Malnourished Eyes Eye Exam: Pupils Equal, Pupils Reactive Ears & Nose Ears & Nose Exam: Nasal Mucosa [place] Neck Neck Exam: Neck Supple, Trachea Midline Pulmonary Resp Exam: No Distress, Decreased Bases, Poor Inspiratory Effort Cardiology CV Exam: Regular Gastrointestinal/Abdomen GI Exam: Soft, Non-Tender, Bowel Sounds Present, Non-Distended Musculoskeletal MS Exam: Atrophy Integumentary Skin Exam: Warm Skin Remarks Stage II decubitus ulcer lower left lateral buttock area with pinkish corrigan base. Just beneath that also there is a small hole with a grayish yellowish discharge on dressing. No surrounding swelling or discoloration noted. Extremeties Extremities Exam: Pedal Pulses Palpable, Trace Edema Extremeties Remarks With contractures chronic Neurologic Neuro Exam: Alert, Awake Neuro Remarks Following commands. With residual left-sided hemiparesis VTE Prophylaxis VTE Prophylaxis Device: SCDs VTE Prophylaxis Meds: Heparin Assessment/Plan Problem List: (1) Altered mental status (2) Dehydration (3) Hypoglycemia (4) UTI (urinary tract infection) (5) HTN (hypertension) (6) DM (diabetes mellitus) (7) CKD (chronic kidney disease) stage 4, GFR 15-29 ml/min (8) History of CVA with residual deficit (9) Pressure ulcer (10) Hypercalcemia (11) Leukocytosis (12) Acute on chronic renal failure Assessment/Plan 66-year-old female with history of chronic kidney disease, hypertension, hyperlipidemia, CVA with left-sided hemiparesis, type 2 diabetes. Admitted with hypoglycemia, altered mental status. Found with UTI, acute on chronic renal failure, dehydration. Low-grade fever resolved -Blood culture following, UA report reviewed and blood test report reviewed. Wound culture report seen -Leukocytosis , improving will monitor -On antibiotic per ID. Will add Diflucan Anemia -Likely of chronic disease status post blood transfusion arch 27th. Stable, will monitor Decubitus ulcer with abscess left buttock and thigh -Wound care is following -Report of CT lower extremity reviewed. -Antibiotic empirically -ID consult magen abx per ID, discussed with ID in detail. As per ID no invasive radiology consult. As patient need plastic surgeon. -Surgical consult, discussed the surgeon he prefers plastic surgery. No plastic surgeon available. Processes started to transfer to tertiary care center. Discussed with surgeon yesterday in tertiary care center. customer development manager is working on it. -Plastic surgery consult again today Altered mental status secondary to hypoglycemia, infection, dehydration, acute on chronic renal failure. His cast with , back to baseline. -blood glucose level is better, pt. is eating. -accuchecks AC/HS with low dose ISS -Enc. PO intake, must be fed, on pureed diet UTI, with significant leukocytosis, improving -Culture report seen adjust antibiotic -Escherichia coli resistant to Cipro will change to Bactrim. Also Gardnerella vaginalis with a start metronidazole Acute on CKD, stage V, pt. nearing HD per history. Possibly worst secondary to dehydration, improving. -nephrology consultation-input appreciated -avoid nephrotoxic agents Avoid diuretics -follow BMP Hypercalcemia, etiology unclear, on calcium supplements, also prolonged bed rest -better today . Improving -Hold calcium supplements Continue with hydration Nephrology on board, input appreciated Dysphasia, risk for aspiration-it was d/w on January 11, wants to continue Pureed diet at this time. May need PEG at some point. -appreciate speech input -HOB up -Aspiration precautions -Pureed diet History of CVA with residual deficits, left-sided hemiplegia, dysphasia, expressive aphasia. It appears to be declining. CT of the head negative for any acute findings Continue with home medications Physical therapy, speech therapy -Continue with aspirin and statins Hypertension, stable Continue with home medications Labs reviewed Hypernatremia improved Labs for tomorrow [place] for lower back pain on when necessary basis SCDs and heparin for DVT prophylaxis physical therapy Discussed with bedside in detail all questions answered in detail fashion. Also discussed with primary care physician D/W RN patient seen with RN Discussed with window caser Total time spent in management of this patient is more than 35 minutes Problem Qualifiers (1) Altered mental status: Qualified Code: R40.4 - Transient alteration of awareness (2) UTI (urinary tract infection): Qualified Code: N39.0 - Urinary tract infection without hematuria, site unspecified (3) HTN (hypertension): Qualified Code: I10 - Essential hypertension (4) DM (diabetes mellitus): Qualified Code: E11.49 - Type 2 diabetes mellitus with other neurologic complication, unspecified [facility] insulin use status (5) Leukocytosis: Qualified Code: D72.829 - Leukocytosis, unspecified type Jonathan Davis MD Jan 18, 2017 10:40
[2017-01-18] MEDS: CINACALCET HYDROCHLORIDE 30 MG TAB PO SCH (11:00)
[2017-01-18] MEDS: LACTULOSE SYRUP 20 GM/30 ML CUP PO SCH (11:00)
[2017-01-18] MEDS: FLUoxetine HCL 20 MG CAP PO SCH (11:01)
[2017-01-18] MEDS: cloNIDine HCL 0.2 MG TAB PO SCH ×2 (11:01→20:40)
[2017-01-18] MEDS: METOCLOPRAMIDE HCL 10 MG TAB PO SCH ×4 (11:01→20:40)
[2017-01-18] MEDS: ASPIRIN EC 81 MG TABEC PO SCH (11:02)
[2017-01-18] MEDS: COLLAGENASE OINT 30 GM TUBE TOP SCH (11:02)
[2017-01-18] MEDS: FLUCONAZOLE 200 MG PREMIX BAG 100 ML IV SCH (11:18)
[2017-01-18] MEDS: SODIUM CHLOR 0.45% 1000 ML INJ 1,000 ML IV SCH ×2 (11:18→20:56)
[2017-01-18] MEDS ORDERED: VANCOMYCIN INJ 1,250 MG in SODIUM CHLOR 0.9% 250 ML INJ 250 ML IV SCH (12:00)
--- NOTE | 2017-01-18 12:04 | HHI.NPPN ---
Subjective History of Present Illness 66-year-old female with past medical history of hypertension, diabetes mellitus, chronic kidney disease, history of cerebrovascular accident with left-sided weakness who was brought to the hospital because of altered mental status. I was called to see the patient because of elevated BUN and creatinine. The patient has known history of chronic kidney disease. She has been following with Dr. Ramos. Additional Remarks Patient is alert, and not in distress, taking orally, no SOB. Objective Data Data 01/17/17 01/18/17 19:00 07:00 Intake Total 410 ml 2180 ml Balance 410 ml 2180 ml Intake Oral 410 ml IV Total 2180 ml # Voids 3 5 Vital Signs Date Time Temp Pulse Resp B/P Pulse Ox O2 Delivery O2 Flow Rate FiO2 01/18/17 07:50 96.0 91 20 150/76 100 01/18/17 04:00 96.7 86 18 142/68 99 01/18/17 00:00 96.6 89 18 139/67 100 01/17/17 21:15 90 01/17/17 20:00 97.6 91 18 159/70 96 01/17/17 16:00 97.7 83 20 145/76 100 -: 01/18/17 0533 01/18/17 0533 Physical Exam General Appearance: No Acute Distress, Anxious, Malnourished Eyes Eye Exam: Pupils Equal, Pupils Reactive Ears & Nose Ears & Nose Exam: Nasal Mucosa [place] Neck Neck Exam: Neck Supple, Trachea Midline Pulmonary Resp Exam: No Distress, Decreased Bases, Poor Inspiratory Effort Cardiology CV Exam: Regular Gastrointestinal/Abdomen GI Exam: Soft, Non-Tender, Bowel Sounds Present, Non-Distended Musculoskeletal MS Exam: Atrophy Integumentary Skin Exam: Warm Extremeties Extremities Exam: Pedal Pulses Palpable, Trace Edema Neurologic Neuro Exam: Alert, Awake VTE Prophylaxis Device: SCDs Assessment/Plan Assessment Summary: Dehydration, Hypertension, CKD Stage IV Problem List: (1) Dehydration (2) UTI (urinary tract infection) (3) HTN (hypertension) (4) DM (diabetes mellitus) (5) CKD (chronic kidney disease) stage 4, GFR 15-29 ml/min (6) History of CVA with residual deficit (7) Altered mental status (8) Acute on chronic renal failure Plan Patient has advance stage 4 chronic kidney disease. Has Thyroid Nodule. Will need to see Endocrinology after D/C. TSH was normal. Now on Cefepime and Metronidazole. ID following. Check serum immunofixation, in progress. Hgb. is stable. Seen by surgery has pressure ulcers and will need possible debridement. Creatinine continue to improve. So there is an element of EDMUND, possibly pre renal. Encourage oral intake. Problem Qualifiers (1) UTI (urinary tract infection): Qualified Code: N39.0 - Urinary tract infection without hematuria, site unspecified (2) HTN (hypertension): Qualified Code: I10 - Essential hypertension (3) DM (diabetes mellitus): Qualified Code: E11.49 - Type 2 diabetes mellitus with other neurologic complication, unspecified alf insulin use status (4) Altered mental status: Qualified Code: R40.4 - Transient alteration of awareness Chelsea Mora MD Jan 18, 2017 12:04
--- NOTE | 2017-01-18 12:11 | HHI.IDPN ---
Subjective Subjective Remarks CT [id number] cm abscess clx + for MRSA no fever but persistent leukocytosis Allergies: Coded Allergies: Penicillin (Verified Allergy, Severe, rash/itching, 01/10/17) *MDRO Multi-Drug Resistant Organism (Verified Adverse Reaction, Unknown, ) MRSA (buttock)-01/15/17 Uncoded Allergies: CILLINS ALL (Allergy, Severe, 07/23/10) Objective . Vital Signs Date Time Temp Pulse Resp B/P Pulse Ox O2 Delivery O2 Flow Rate FiO2 01/18/17 07:50 96.0 91 20 150/76 100 01/18/17 04:00 96.7 86 18 142/68 99 01/18/17 00:00 96.6 89 18 139/67 100 01/17/17 21:15 90 01/17/17 20:00 97.6 91 18 159/70 96 01/17/17 16:00 97.7 83 20 145/76 100 01/17/17 01/17/17 01/18/17 15:00 23:00 07:00 Intake Total 170 ml 240 ml 2180 ml Balance 170 ml 240 ml 2180 ml Intake Oral 170 ml 240 ml IV Total 2180 ml # Voids 2 3 3 . Laboratory Tests Test 01/17/17 01/18/17 06:20 05:33 White Blood Count 13.2 TH/MM3 12.4 TH/MM3 Red Blood Count 3.38 MIL/MM3 3.37 MIL/MM3 Hemoglobin 9.8 GM/DL 9.6 GM/DL Hematocrit 30.4 % 30.6 % Mean Corpuscular Volume 89.8 FL 91.0 FL Mean Corpuscular Hemoglobin 28.8 PG 28.6 PG Mean Corpuscular Hemoglobin 32.1 % 31.4 % Concent Red Cell Distribution Width 15.7 % 15.9 % Platelet Count 247 TH/MM3 263 TH/MM3 Mean Platelet Volume 8.6 FL 9.1 FL Laboratory Tests Test 01/17/17 01/18/17 06:20 05:33 Sodium Level 146 MEQ/L 144 MEQ/L Potassium Level 4.0 MEQ/L 3.7 MEQ/L Chloride Level 115 MEQ/L 115 MEQ/L Carbon Dioxide Level 22.8 MEQ/L 21.0 MEQ/L Anion Gap 8 MEQ/L 8 MEQ/L Blood Urea Nitrogen 38 MG/DL 32 MG/DL Creatinine 1.96 MG/DL 1.81 MG/DL Estimat Glomerular Filtration 31 ML/MIN 34 ML/MIN Rate Random Glucose 95 MG/DL 107 MG/DL Calcium Level 9.8 MG/DL 9.9 MG/DL Iron Level 56 MCG/DL Total Iron Binding Capacity 141 MCG/DL Percent Iron Saturation 39.6 % Ferritin 258 NG/ML Microbiology Date/Time Procedure Status Source Growth 01/16/17 11:15 Gram Stain - Final Complete Wound Buttock 01/16/17 11:15 Wound Culture - Final Complete S. Aureus [facility] Imaging Last Impressions Lower Extremity CT 01/16/17 0000 Signed Impressions: Service Date/Time: Monday, January 16, 2017 21:27 - CONCLUSION: Large air and fluid collection within the subcutaneous tissues of the posterior lateral upper thigh and base of the left buttock measuring 10.4 x 8.1 x 6.4 cm consistent with large subcutaneous abscess and surrounding diffuse cellulitis. Shaw Morfin MD Neck Ultrasound 01/13/17 0000 Signed Impressions: Service Date/Time: Friday, January 13, 2017 08:58 - CONCLUSION: 1. Could not identify parathyroid tissue. 2. 3 mm, isolated hypoechoic nodule in the right lobe of the thyroid isolated 5 mm cyst in the left lobe of the thyroid. David Mason MD Head CT 01/10/1737 Signed Impressions: Service Date/Time: Tuesday, January 10, 2017 01:23 - CONCLUSION: No significant change has occurred. Samuel Don MD Chest X-Ray 01/10/1737 Signed Impressions: Service Date/Time: Tuesday, January 10, 2017 00:49 - CONCLUSION: No acute disease. Samuel Don MD Physical Exam CONSTITUTIONAL/GENERAL: This is an adequately nourished patient, in no apparent distress. TUBES/LINES/DRAINS: SKIN: No jaundice, rashes, Skin temperature appropriate. Not diaphoretic. Small excoriated stage II R buttock ulcer L posterior thigh and buttock has an unstagible decubitus ulcer, covered with necrotic tissue and draining purulent d/c + induration, + tenderness and some hyperemic skin discoloration aroud it No granulations observed. Complex shape of decubitus ulceration, deep likely stage III-IV Sacrum 6 cm stage II clean decubitus HEAD: Atraumatic. Normocephalic. EYES: Pupils equal and round and reactive. Extraocular motions intact. No scleral icterus. No injection or drainage. Fundi not examined. ENT:Oral mucosae moist without visible erythem CARDIOVASCULAR: Regular rate and rhythm without murmurs, gallops, or rubs. No JVD. Peripheral pulses symmetric. RESPIRATORY/CHEST: Symmetric, unlabored respirations. Clear to auscultation. Breath sounds equal bilaterally. No wheezes, rales, or rhonchi. GASTROINTESTINAL: Abdomen soft, non-tender, nondistended. No hepato-splenomegaly , or palpable masses. No guarding. Bowel sounds present. MUSCULOSKELETAL: Extremities without clubbing, cyanosis, or edema. No joint tenderness or effusion noted. No calf tenderness. No mottling or clubbing. LYMPHATICS: No palpable cervical or supraclavicular adenopathy. NEUROLOGICAL: Awake and alert. L side with hemiplegia (baseline); Non verbal PSYCHIATRIC: calm Assessment & Plan Remarks Bedridden non verbal pt with h/o devastating stroke L thigh/L buttock decub, appears clinically infected L buttock abscess, MRSA - clx is growing MRSA and E.coli base of the left buttock measuring 10.4 x 8.1 x 6.4 cm consistent with large subcutaneous abscess and surrounding diffuse cellulitis -abelardo is likely representing colonisation UTI, E.coli PCN allergy , but uneventfully took cefepime in 2009 CKD approaching ESRD -cont vancomycin, - cont flagyl and cefepime - dc fluconazol - monitor closely pts GFR Discussed Condition With at b/s Dr Susan Ratliff - he will see her today Janice Camp MD Jan 18, 2017 12:11
[2017-01-18] MEDS: VANCOMYCIN 1,000 MG/NS 250 ML IV SCH ×2 (13:13)
--- NOTE | 2017-01-18 14:49 | HHI.DS ---
Discharge Summary Admission Date Jan 10, 2017 at 04:03 Discharge Date: Jan 18, 2017 Admitting Diagnosis AMS, hypoglycemia, leukocytosis, acute on chronic renal failure (1) Hypoglycemia (2) Dehydration (3) Altered mental status (4) HTN (hypertension) (5) DM (diabetes mellitus) (6) History of CVA with residual deficit (7) UTI (urinary tract infection) (8) Hypercalcemia (9) Leukocytosis (10) Acute on chronic renal failure (11) Pressure ulcer (12) CKD (chronic kidney disease) stage 4, GFR 15-29 ml/min (13) Left buttock abscess CBC/BMP: 01/18/17 0533 01/18/17 0533 Significant Findings Laboratory Tests Test 01/15/17 01/16/17 01/17/17 01/18/17 21:03 05:45 06:20 05:33 Urine Turbidity HAZY (CLEAR) Urine Protein 30 mg/dL (NEG-TRACE) Urine Leukocyte Esterase TRACE (NEG) Urine WBC 7 /hpf (0-5) Urine Mucus FEW /lpf (OCC) White Blood Count 11.8 TH/MM3 13.2 TH/MM3 12.4 TH/MM3 (4.0-11.0) (4.0-11.0) (4.0-11.0) Red Blood Count 2.33 MIL/MM3 3.38 MIL/MM3 3.37 MIL/MM3 (4.00-5.30) (4.00-5.30) (4.00-5.30) Hemoglobin 6.7 GM/DL 9.8 GM/DL 9.6 GM/DL (11.6-15.3) (11.6-15.3) (11.6-15.3) Hematocrit 21.4 % 30.4 % 30.6 % (35.0-46.0) (35.0-46.0) (35.0-46.0) Mean Corpuscular Hemoglobin 31.3 % 31.4 % Concent (32.0-36.0) (32.0-36.0) Sodium Level 147 MEQ/L 146 MEQ/L (136-145) (136-145) Chloride Level 114 MEQ/L 115 MEQ/L 115 MEQ/L (98-107) (98-107) (98-107) Blood Urea Nitrogen 44 MG/DL (7-18) 38 MG/DL (7-18) 32 MG/DL (7-18) Creatinine 2.15 MG/DL 1.96 MG/DL 1.81 MG/DL (0.50-1.00) (0.50-1.00) (0.50-1.00) Estimat Glomerular Filtration 28 ML/MIN (>89) 31 ML/MIN (>89) 34 ML/MIN (>89) Rate Random Glucose 118 MG/DL 107 MG/DL (74-106) (74-106) Calcium Level 10.2 MG/DL (8.5-10.1) Total Iron Binding Capacity 141 MCG/DL (250-450) Ferritin 258 NG/ML (8-252) Imaging Last Impressions Lower Extremity CT 01/16/17 Signed Impressions: Service Date/Time: Monday, January 16, 2017 21:27 - CONCLUSION: Large air and fluid collection within the subcutaneous tissues of the posterior lateral upper thigh and base of the left buttock measuring 10.4 x 8.1 x 6.4 cm consistent with large subcutaneous abscess and surrounding diffuse cellulitis. Shaw Morfin MD Neck Ultrasound 01/13/17 Signed Impressions: Service Date/Time: Friday, January 13, 2017 08:58 - CONCLUSION: 1. Could not identify parathyroid tissue. 2. 3 mm, isolated hypoechoic nodule in the right lobe of the thyroid isolated 5 mm cyst in the left lobe of the thyroid. David Mason MD Head CT 01/10/1737 Signed Impressions: Service Date/Time: Tuesday, January 10, 2017 01:23 - CONCLUSION: No significant change has occurred. Samuel Don MD Chest X-Ray 01/10/1737 Signed Impressions: Service Date/Time: Tuesday, January 10, 2017 00:49 - CONCLUSION: No acute disease. Samuel Don MD Hospital Course This is an unfortunate 66-year-old female with history of CVA in 2010 with left- sided hemiplegia, type 2 diabetes, chronic kidney disease nearing hemodialysis, hyperlipidemia, CHF, sarcoidosis, hypertension. Patient presented to the emergency room after she was noted altered, staring into space and hypoglycemic. endorsed that patient has been declining over the last 2 weeks. She had not been eating much and not talking much. She had also been more agitated and refusing to take her pills sometimes spitting food at him. He had been crushing pills and trying to mix them in applesauce. He also noted that she's been coughing more and having some difficulty swallowing. The day before admission, he noted that she didn't want to eat and had to force her to take a couple of bites. He checked her blood sugar and it was 131 at which time he administer her insulin dosage. Later on, she was noted more sleepy, he checked her blood sugar and it was noted in the 30s. Since she refused to eat he decided to bring her to the hospital for further evaluation. He did not report any fever or chills. She was having regular bowel movements, no diarrhea. Patient was evaluated in the emergency room, laboratory workup was completed. She was noted with significant leukocytosis, WBC 19.5. Hemoglobin 9.7, hematocrit 31.3. BMP was remarkable for BUN of 101, creatinine 3.91. According to the she follows up with maintenance of [facility] in the [place] area and he recently attended a class to learn more about dialysis as she is becoming closer to going on dialysis. Her TSH was 0.593. Calcium was noted elevated. Her blood glucose on admission to the ED was 36, she was given an amp of D50 and patient started waking up. Urinalysis was positive for urinary tract infection. Patient was given IV fluids, she was started on empiric antibiotics. Patient is examined in the emergency room in the presence of her . indicates that he is the caregiver and has to do everything for her. He also endorsed some pressure areas to the right buttock. Patient was slow to respond, she was oriented to self only. Patient was admitted for further evaluation and treatment for the following: (1) Altered mental status (2) Dehydration (3) Hypoglycemia (4) UTI (urinary tract infection) (5) HTN (hypertension) (6) DM (diabetes mellitus) (7) CKD (chronic kidney disease) stage 4, GFR 15-29 ml/min (8) History of CVA with residual deficit (9) Pressure ulcer (10) Hypercalcemia (11) Leukocytosis (12) Acute on chronic renal failure (13). Left buttock abscess During the course of the hospitalization, the following took place: 66-year-old female with history of chronic kidney disease, hypertension, hyperlipidemia, CVA with left-sided hemiparesis, type 2 diabetes. Admitted with hypoglycemia, altered mental status. Found with UTI, acute on chronic renal failure, dehydration. Fever, presence of UTI, significant leukocytosis -started on antibiotics -cultures were followed, + MRSA -consulted ID who managed abx -Wound care nurse consulted -was found with wound to buttocks. L thigh/L buttock decub, appeared clinically infected L buttock abscess, MRSA - clx is growing MRSA and E.coli CT of leg done- base of the left buttock measuring 10.4 x 8.1 x 6.4 cm consistent with large subcutaneous abscess and surrounding diffuse cellulitis also + abelardo is likely representing colonization UTI, E.coli -cont vancomycin, - cont flagyl and cefepime - dc fluconazol Per ID recommendation: no invasive radiology consult, patient needs plastic surgeon. General surgery consulted initially who evaluated pt. and recommended plastic surgery as well. No plastic surgeon available. Processes started to transfer to tertiary care center. Discussed with surgeon yesterday in tertiary care center. Anemia -Likely of chronic disease -was transfused and given Epogen -no active bleeding. Altered mental status secondary to hypoglycemia, infection, dehydration, acute on chronic renal failure. -blood glucose level is better, pt. was eating. -accuchecks AC/HS with low dose ISS -Enc. PO intake, must be fed, on pureed diet Acute on CKD, stage V, pt. nearing HD per history. Possibly worst secondary to dehydration, improving. -nephrology consultation-input appreciated -avoided nephrotoxic agents Avoided diuretics -followed BMP Hypercalcemia, etiology unclear, on calcium supplements, also prolonged bed rest -Improving -Held calcium supplements Continued with hydration Nephrology on board, input appreciated Dysphasia, risk for aspiration-it was d/w on January 11, wants to continue Pureed diet at this time. May need PEG at some point. -appreciate speech input -HOB up -Aspiration precautions -Pureed diet to continue History of CVA with residual deficits, left-sided hemiplegia, dysphasia, expressive aphasia. It appears to be declining. CT of the head negative for any acute findings Continued with home medications Physical therapy, speech therapy -Continued with aspirin and statins Hypertension, stable Continued with home medications [place] for lower back pain on when necessary basis SCDs and heparin for DVT prophylaxis physical therapy was ordered ST followed pt. as well. Plan of care discussed with in detail, he agreed with transfer and to continue aggressive care. Pt. transferred to [facility] for further treatment-possible debridement of left buttock abscess. Pt Condition on Discharge: Guarded Discharge Instructions Speech Therapy-Diet Recommends: Karis Mccall Jan 18, 2017 14:49
--- NOTE | 2017-01-18 19:33 | MB ---
cc: MASON BECKHAM M.D.,YUKO DATE OF CONSULTATION: 01/18/2017 REASON FOR CONSULTATION: Decubitus ulcer with abscess on the knee. REQUESTING PHYSICIAN: Dr. Davis HISTORY OF PRESENT ILLNESS The patient is a 66-year-old female with a history of CVA since 2009. She has left-sided hemiplegia, type 2 diabetes. In addition, she has chronic renal disease, hyperlipidemia, congestive heart failure, sarcoidosis and hypertension. The patient was admitted due to changes in her affect. On 01/10/17, it was noted that she came in with a decubitus ulcer and was diagnosed as having an abscess. Consultation was requested regarding evaluation and treatment of the abscess. REVIEW OF SYSTEMS Unable to be obtained. PAST MEDICAL HISTORY Obtained from the chart. History of medical problems as noted above. PAST SURGICAL HISTORY Hysterectomy. MEDICATIONS Listed on the chart. ALLERGIES PENICILLIN. PHYSICAL EXAMINATION The patient is lying in bed. She is not communicative. She is somewhat sh[place] her lower extremities. Examination of the buttock area to the left reveals decubitus ulcer which is stage IV. There is draining purulence. Exploration does reveal a pocket. The abscess cavity is approximately 7 cm to 9 cm deep, going towards the left hip. There is also loss of skin. There is a large open area and it is actively draining. There is another small area on the right side which is small and draining slightly. LABORATORY DATA: White count is 12.4, H&H is 9.6/30.6. Her latest albumin was 3.39 on 01/10. IMPRESSION The patient has multiple decubitus ulcers which appear to communicate with each other and is spontaneously draining. PLAN The wound will be irrigated twice a day by the nursing staff and OR debridement may be anticipated. Mason Beckham MD Radha/YOEL /5:35 PM /7:22 PM
[2017-01-18] MEDS: PRAVASTATIN SOD 40 MG TAB PO SCH (20:40)
[2017-01-18] MEDS: POVIDONE IODINE 10% SOLN 118 ML BOTTLE TOP SCH (21:00)
[2017-01-19] VITALS (7 sets, daily range): BP systolic 137–160; BP diastolic 68–89; PULSE 83–98; RESP 16–18; TEMP 96.5–99.2; O2SAT 95–100
[2017-01-19] MEDS: CEFEPIME INJ 2,000 MG in SODIUM CHLORIDE 0.9% INJ 100 ML IV SCH (01:00)
[2017-01-19] MEDS: INSULIN ASPART SUPPLEMENTAL SCALE SQ SCH ×4 (06:00→22:54)
[2017-01-19] MEDS: HEPARIN SODIUM - SQ 10,000 UNITS/ML VIAL SQ SCH ×2 (06:00→17:50)
[2017-01-19] MEDS: VANCOMYCIN 1,000 MG/NS 250 ML IV SCH ×2 (06:00)
[2017-01-19 07:24] LABS: BICARBONATE 20.8 MEQ/L (21.0-32.0); POTASSIUM 3.8 MEQ/L (3.5-5.1)
[2017-01-19 07:32] LABS: HEMATOCRIT 32.2 % (35.0-46.0); MEAN CELL VOLUME 90.4 FL (80.0-100.0); MEAN CORPUSCULAR HEMOGLOBIN 28.6 PG (27.0-34.0); MEAN CORPUSCULAR HGB CONC 31.7 % (32.0-36.0); PLATELET COUNT 282 TH/MM3 (150-450); RED BLOOD COUNT 3.57 MIL/MM3 (4.00-5.30); RED CELL DISTRIBUTION WIDTH 15.5 % (11.6-17.2); REVIEW FLAG FINAL; WHITE BLOOD COUNT 11.3 TH/MM3 (4.0-11.0)
[2017-01-19] MEDS: SODIUM CHLORIDE 0.9% FLUSH 5 ML FLUSH FLUSH SCH ×2 (09:00→22:39)
[2017-01-19] MEDS: POVIDONE IODINE 10% SOLN 118 ML BOTTLE TOP SCH ×2 (09:00→22:40)
[2017-01-19] MEDS: metroNIDAZOLE 500 MG INJ 100 ML IV SCH ×3 (09:40→22:41)
[2017-01-19] MEDS: CINACALCET HYDROCHLORIDE 30 MG TAB PO SCH (09:41)
[2017-01-19] MEDS: METOCLOPRAMIDE HCL 10 MG TAB PO SCH ×4 (09:41→22:39)
[2017-01-19] MEDS: cloNIDine HCL 0.2 MG TAB PO SCH ×2 (09:41→22:39)
[2017-01-19] MEDS: ASPIRIN EC 81 MG TABEC PO SCH (09:43)
[2017-01-19] MEDS: LACTULOSE SYRUP 20 GM/30 ML CUP PO SCH (09:43)
[2017-01-19] MEDS: FLUoxetine HCL 20 MG CAP PO SCH (09:43)
[2017-01-19] MEDS: FLUCONAZOLE 200 MG PREMIX BAG 100 ML IV SCH (09:45)
[2017-01-19] MEDS: COLLAGENASE OINT 30 GM TUBE TOP SCH (09:54)
--- NOTE | 2017-01-19 10:25 | HHI.PR ---
Subjective Interval History Offering no complaint No abdominal pain No nausea vomiting No shortness of breath Review of system for 10 point system otherwise unremarkable at bedside Vitals/Results Intake & Output 01/18/17 01/18/17 01/19/17 15:00 23:00 07:00 Intake Total 1198 ml Balance 1198 ml Intake Oral 400 ml IV Total 798 ml # Voids 5 1 # Bowel Movements 0 1 1 Vital Signs Vital Signs Date Time Temp Pulse Resp B/P Pulse Ox O2 Delivery O2 Flow Rate FiO2 01/19/17 08:49 97.8 85 18 145/68 100 01/19/17 04:00 98.2 95 16 142/75 100 01/19/17 00:00 99.2 98 16 152/89 100 01/18/17 22:00 91 01/18/17 20:00 98.0 93 18 139/87 100 01/18/17 15:50 97.3 78 20 144/78 100 01/18/17 11:50 96.5 87 20 156/80 95 CBC/BMP: 01/19/17 0538 01/19/17 0538 Lab Results Laboratory Tests Test 01/19/17 05:38 White Blood Count 11.3 TH/MM3 Red Blood Count 3.57 MIL/MM3 Hemoglobin 10.2 GM/DL Hematocrit 32.2 % Mean Corpuscular Volume 90.4 FL Mean Corpuscular Hemoglobin 28.6 PG Mean Corpuscular Hemoglobin 31.7 % Concent Red Cell Distribution Width 15.5 % Platelet Count 282 TH/MM3 Mean Platelet Volume 8.4 FL Sodium Level 144 MEQ/L Potassium Level 3.8 MEQ/L Chloride Level 114 MEQ/L Carbon Dioxide Level 20.8 MEQ/L Anion Gap 9 MEQ/L Blood Urea Nitrogen 29 MG/DL Creatinine 1.75 MG/DL Estimat Glomerular Filtration 35 ML/MIN Rate Random Glucose 137 MG/DL Calcium Level 9.8 MG/DL Magnesium Level 2.0 MG/DL Physical Exam General General Appearance: No Acute Distress, Anxious, Malnourished Eyes Eye Exam: Pupils Equal, Pupils Reactive Ears & Nose Ears & Nose Exam: Nasal Mucosa [place] Neck Neck Exam: Neck Supple, Trachea Midline Pulmonary Resp Exam: No Distress, Decreased Bases, Poor Inspiratory Effort Cardiology CV Exam: Regular Gastrointestinal/Abdomen GI Exam: Soft, Non-Tender, Bowel Sounds Present, Non-Distended Musculoskeletal MS Exam: Atrophy Integumentary Skin Exam: Warm Skin Remarks Stage II decubitus ulcer lower left lateral buttock area with pinkish base clean. With gauze wick. Some discharge on dressing. Extremeties Extremities Exam: Pedal Pulses Palpable, Trace Edema Extremeties Remarks With contractures chronic Neurologic Neuro Exam: Alert, Awake Neuro Remarks Following commands. With residual left-sided hemiparesis VTE Prophylaxis VTE Prophylaxis Device: SCDs VTE Prophylaxis Meds: Heparin Assessment/Plan Problem List: (1) Altered mental status (2) Dehydration (3) Hypoglycemia (4) UTI (urinary tract infection) (5) HTN (hypertension) (6) DM (diabetes mellitus) (7) CKD (chronic kidney disease) stage 4, GFR 15-29 ml/min (8) History of CVA with residual deficit (9) Pressure ulcer (10) Hypercalcemia (11) Leukocytosis (12) Acute on chronic renal failure Assessment/Plan 66-year-old female with history of chronic kidney disease, hypertension, hyperlipidemia, CVA with left-sided hemiparesis, type 2 diabetes. Admitted with hypoglycemia, altered mental status. Found with UTI, acute on chronic renal failure, dehydration. Low-grade fever resolved -Blood culture following, UA report reviewed and blood test report reviewed. Wound culture report seen -Leukocytosis , improving will monitor -On antibiotic per ID. Anemia -Likely of chronic disease status post blood transfusion arch 27th. Stable, will monitor Decubitus ulcer with abscess left buttock and thigh -Wound care is following -Report of CT lower extremity reviewed. -Antibiotic empirically -ID consult magen abx per ID, discussed with ID -Plastic surgery consult appreciated Altered mental status secondary to hypoglycemia, infection, dehydration, acute on chronic renal failure. His cast with , back to baseline. -blood glucose level is better, pt. is eating. -accuchecks AC/HS with low dose ISS -Enc. PO intake, must be fed, on pureed diet UTI, with significant leukocytosis, improving -Culture report seen adjust antibiotic -Escherichia coli resistant to Cipro will change to Bactrim. Also Gardnerella vaginalis with a start metronidazole Acute on CKD, stage V, pt. nearing HD per history. Possibly worst secondary to dehydration, improving. -nephrology-input appreciated -avoid nephrotoxic agents Avoid diuretics -follow BMP Hypercalcemia, etiology unclear, on calcium supplements, also prolonged bed rest -better today . Improving -Hold calcium supplements Continue with hydration Nephrology on board, input appreciated Dysphasia, risk for aspiration-it was d/w on January 11, wants to continue Pureed diet at this time. May need PEG at some point. -appreciate speech input -HOB up -Aspiration precautions -Pureed diet History of CVA with residual deficits, left-sided hemiplegia, dysphasia, expressive aphasia. It appears to be declining. CT of the head negative for any acute findings Continue with home medications Physical therapy, speech therapy -Continue with aspirin and statins Hypertension, stable Continue with home medications Thyroid nodule -Follow endocrinology as outpatient Labs reviewed Hypernatremia improved Labs for tomorrow [place] for lower back pain on when necessary basis SCDs and heparin for DVT prophylaxis physical therapy Discussed with bedside in detail all questions answered in detail fashion. D/W RN patient seen with RN Discussed with caser in Total time spent in management of this patient is more than 35 minutes Problem Qualifiers (1) Altered mental status: Qualified Code: R40.4 - Transient alteration of awareness (2) UTI (urinary tract infection): Qualified Code: N39.0 - Urinary tract infection without hematuria, site unspecified (3) HTN (hypertension): Qualified Code: I10 - Essential hypertension (4) DM (diabetes mellitus): Qualified Code: E11.49 - Type 2 diabetes mellitus with other neurologic complication, unspecified assisted insulin use status (5) Leukocytosis: Qualified Code: D72.829 - Leukocytosis, unspecified type Jonathan Davis MD Jan 19, 2017 10:25
--- NOTE | 2017-01-19 10:44 | HHI.NPPN ---
Subjective History of Present Illness 66-year-old female with past medical history of hypertension, diabetes mellitus, chronic kidney disease, history of cerebrovascular accident with left-sided weakness who was brought to the hospital because of altered mental status. I was called to see the patient because of elevated BUN and creatinine. The patient has known history of chronic kidney disease. She has been following with Dr. Ramos. Additional Remarks Patient is more alert, and not in distress, now eating better. Objective Data Data 01/18/17 01/19/17 19:00 07:00 Intake Total 1198 ml Balance 1198 ml Intake Oral 400 ml IV Total 798 ml # Voids 5 1 # Bowel Movements 0 2 Vital Signs Date Time Temp Pulse Resp B/P Pulse Ox O2 Delivery O2 Flow Rate FiO2 01/19/17 08:49 97.8 85 18 145/68 100 01/19/17 04:00 98.2 95 16 142/75 100 01/19/17 00:00 99.2 98 16 152/89 100 01/18/17 22:00 91 01/18/17 20:00 98.0 93 18 139/87 100 01/18/17 15:50 97.3 78 20 144/78 100 01/18/17 11:50 96.5 87 20 156/80 95 -: 01/19/17 0538 01/19/17 0538 Physical Exam General Appearance: No Acute Distress, Anxious, Malnourished Eyes Eye Exam: Pupils Equal, Pupils Reactive Ears & Nose Ears & Nose Exam: Nasal Mucosa [place] Neck Neck Exam: Neck Supple, Trachea Midline Pulmonary Resp Exam: No Distress, Decreased Bases, Poor Inspiratory Effort Cardiology CV Exam: Regular Gastrointestinal/Abdomen GI Exam: Soft, Non-Tender, Bowel Sounds Present, Non-Distended Musculoskeletal MS Exam: Atrophy Integumentary Skin Exam: Warm Extremeties Extremities Exam: Pedal Pulses Palpable, Trace Edema Neurologic Neuro Exam: Alert, Awake VTE Prophylaxis Device: SCDs Assessment/Plan Assessment Summary: Dehydration, Hypertension, CKD Stage IV Problem List: (1) Dehydration (2) UTI (urinary tract infection) (3) HTN (hypertension) (4) DM (diabetes mellitus) (5) CKD (chronic kidney disease) stage 4, GFR 15-29 ml/min (6) History of CVA with residual deficit (7) Altered mental status (8) Acute on chronic renal failure Plan Patient has advance stage 4 chronic kidney disease. Has Thyroid Nodule. Will need to see Endocrinology after D/C. TSH was normal. Now on Cefepime and Metronidazole. ID following. Check serum immunofixation, in progress. Hgb. is stable. Seen by surgery has pressure ulcers and will need possible debridement. Creatinine continue to improve, now it is 1.75. So there is an element of EDMUND, possibly pre renal. Encourage oral intake. D/W the . Problem Qualifiers (1) UTI (urinary tract infection): Qualified Code: N39.0 - Urinary tract infection without hematuria, site unspecified (2) HTN (hypertension): Qualified Code: I10 - Essential hypertension (3) DM (diabetes mellitus): Qualified Code: E11.49 - Type 2 diabetes mellitus with other neurologic complication, unspecified technician terminal and repeater insulin use status (4) Altered mental status: Qualified Code: R40.4 - Transient alteration of awareness Chelsea Mora MD Jan 19, 2017 10:44
[2017-01-19] MEDS: SODIUM CHLOR 0.45% 1000 ML INJ 1,000 ML IV SCH ×2 (14:22→22:41)
[2017-01-19] MEDS: PRAVASTATIN SOD 40 MG TAB PO SCH (22:39)
[2017-01-19] MEDS ORDERED: PHARMACY ORDERED LAB XX ONE (23:45)
[2017-01-20] VITALS (8 sets, daily range): BP systolic 128–160; BP diastolic 66–84; PULSE 73–90; RESP 16–19; TEMP 96.2–97.6; O2SAT 94–100
[2017-01-20 01:04] LABS: BICARBONATE 21.3 MEQ/L (21.0-32.0); POTASSIUM 3.8 MEQ/L (3.5-5.1); VANCOMYCIN TROUGH 22.6 MCG/ML (5.0-10.0)
[2017-01-20] MEDS: VANCOMYCIN 1,000 MG/NS 250 ML IV SCH ×2 (01:59)
[2017-01-20] MEDS: CEFEPIME INJ 2,000 MG in SODIUM CHLORIDE 0.9% INJ 100 ML IV SCH (02:05)
[2017-01-20] MEDS: HEPARIN SODIUM - SQ 10,000 UNITS/ML VIAL SQ SCH ×2 (06:11→18:08)
[2017-01-20] MEDS: metroNIDAZOLE 500 MG INJ 100 ML IV SCH ×3 (06:12→23:33)
[2017-01-20] MEDS: INSULIN ASPART SUPPLEMENTAL SCALE SQ SCH ×4 (06:12→21:00)
[2017-01-20 07:02] LABS: HEMATOCRIT 31.1 % (35.0-46.0); MEAN CELL VOLUME 89.9 FL (80.0-100.0); MEAN CORPUSCULAR HEMOGLOBIN 30.4 PG (27.0-34.0); MEAN CORPUSCULAR HGB CONC 33.9 % (32.0-36.0); PLATELET COUNT 313 TH/MM3 (150-450); RED BLOOD COUNT 3.46 MIL/MM3 (4.00-5.30); RED CELL DISTRIBUTION WIDTH 15.9 % (11.6-17.2); REVIEW FLAG FINAL; WHITE BLOOD COUNT 9.8 TH/MM3 (4.0-11.0)
[2017-01-20] MEDS: SODIUM CHLORIDE 0.9% FLUSH 5 ML FLUSH FLUSH SCH ×2 (09:00→21:00)
[2017-01-20] MEDS: LACTULOSE SYRUP 20 GM/30 ML CUP PO SCH (09:00)
[2017-01-20] MEDS: CINACALCET HYDROCHLORIDE 30 MG TAB PO SCH (09:55)
[2017-01-20] MEDS: METOCLOPRAMIDE HCL 10 MG TAB PO SCH ×4 (09:55→21:36)
[2017-01-20] MEDS: FLUCONAZOLE 200 MG PREMIX BAG 100 ML IV SCH (09:55)
[2017-01-20] MEDS: cloNIDine HCL 0.2 MG TAB PO SCH ×2 (09:55→21:36)
[2017-01-20] MEDS: ASPIRIN EC 81 MG TABEC PO SCH (09:55)
[2017-01-20] MEDS: FLUoxetine HCL 20 MG CAP PO SCH (09:55)
--- NOTE | 2017-01-20 11:06 | HHI.NPPN ---
Subjective History of Present Illness 66-year-old female with past medical history of hypertension, diabetes mellitus, chronic kidney disease, history of cerebrovascular accident with left-sided weakness who was brought to the hospital because of altered mental status. I was called to see the patient because of elevated BUN and creatinine. The patient has known history of chronic kidney disease. She has been following with Dr. Ramos. Additional Remarks Patient is clinically same, not in distress. Objective Data Data 01/19/17 01/20/17 19:00 07:00 Intake Total 240 ml 0 ml Balance 240 ml 0 ml Intake Oral 240 ml 0 ml # Voids 2 3 # Bowel Movements 2 1 Vital Signs Date Time Temp Pulse Resp B/P Pulse Ox O2 Delivery O2 Flow Rate FiO2 01/20/17 08:00 97.4 87 18 160/70 100 01/20/17 08:00 97.5 86 16 128/66 97 01/20/17 04:49 97.3 87 16 139/67 94 01/20/17 00:00 97.6 88 16 152/80 94 01/19/17 20:00 96.5 85 16 160/80 95 01/19/17 16:00 98.1 83 18 139/72 100 01/19/17 12:08 97.7 86 16 137/73 99 -: 01/20/17 0555 01/20/17 0023 Physical Exam General Appearance: No Acute Distress, Anxious, Malnourished Eyes Eye Exam: Pupils Equal, Pupils Reactive Ears & Nose Ears & Nose Exam: Nasal Mucosa [place] Neck Neck Exam: Neck Supple, Trachea Midline Pulmonary Resp Exam: No Distress, Decreased Bases, Poor Inspiratory Effort Cardiology CV Exam: Regular Gastrointestinal/Abdomen GI Exam: Soft, Non-Tender, Bowel Sounds Present, Non-Distended Musculoskeletal MS Exam: Atrophy Integumentary Skin Exam: Warm Extremeties Extremities Exam: Pedal Pulses Palpable, Trace Edema Neurologic Neuro Exam: Alert, Awake VTE Prophylaxis Device: SCDs Assessment/Plan Assessment Summary: Dehydration, Hypertension, CKD Stage IV Problem List: (1) Dehydration (2) UTI (urinary tract infection) (3) HTN (hypertension) (4) DM (diabetes mellitus) (5) CKD (chronic kidney disease) stage 4, GFR 15-29 ml/min (6) History of CVA with residual deficit (7) Altered mental status (8) Acute on chronic renal failure Plan Patient has advance stage 4 chronic kidney disease. Has Thyroid Nodule. Will need to see Endocrinology after D/C. TSH was normal. Now on Cefepime and Metronidazole. ID following. Check serum immunofixation, in progress. Hgb. is stable. Seen by surgery has pressure ulcers and will need possible debridement. Creatinine continue to improve, now it is 1.5 So there is an element of EDMUND, possibly pre renal. Encourage oral intake. Continue antibiotics, avoid Nephrotoxins. Problem Qualifiers (1) UTI (urinary tract infection): Qualified Code: N39.0 - Urinary tract infection without hematuria, site unspecified (2) HTN (hypertension): Qualified Code: I10 - Essential hypertension (3) DM (diabetes mellitus): Qualified Code: E11.49 - Type 2 diabetes mellitus with other neurologic complication, unspecified jail insulin use status (4) Altered mental status: Qualified Code: R40.4 - Transient alteration of awareness Chelsea Mora MD Jan 20, 2017 11:06
[2017-01-20] MEDS: SODIUM CHLOR 0.45% 1000 ML INJ 1,000 ML IV SCH ×2 (13:13→23:33)
--- NOTE | 2017-01-20 13:13 | HHI.PR ---
Subjective Interval History Offering no complaint No abdominal pain No nausea vomiting No shortness of breath Review of system for 10 point system otherwise unremarkable As per RN had 3 bowel movements at bedside Vitals/Results Intake & Output 01/19/17 01/19/17 01/20/17 15:00 23:00 07:00 Intake Total 240 ml 0 ml 0 ml Balance 240 ml 0 ml 0 ml Intake Oral 240 ml 0 ml 0 ml # Voids 2 2 1 # Bowel Movements 2 0 1 Vital Signs Vital Signs Date Time Temp Pulse Resp B/P Pulse Ox O2 Delivery O2 Flow Rate FiO2 01/20/17 08:21 73 01/20/17 08:00 97.4 87 18 160/70 100 01/20/17 08:00 97.5 86 16 128/66 97 01/20/17 04:49 97.3 87 16 139/67 94 01/20/17 00:00 97.6 88 16 152/80 94 01/19/17 20:00 96.5 85 16 160/80 95 01/19/17 16:00 98.1 83 18 139/72 100 CBC/BMP: 01/20/17 0555 01/20/17 0023 Lab Results Laboratory Tests Test 01/20/17 01/20/17 00:23 05:55 Sodium Level 142 MEQ/L Potassium Level 3.8 MEQ/L Chloride Level 114 MEQ/L Carbon Dioxide Level 21.3 MEQ/L Anion Gap 7 MEQ/L Blood Urea Nitrogen 22 MG/DL Creatinine 1.56 MG/DL Estimat Glomerular Filtration 40 ML/MIN Rate Random Glucose 107 MG/DL Calcium Level 9.0 MG/DL Vancomycin Level Trough 22.6 MCG/ML White Blood Count 9.8 TH/MM3 Red Blood Count 3.46 MIL/MM3 Hemoglobin 10.5 GM/DL Hematocrit 31.1 % Mean Corpuscular Volume 89.9 FL Mean Corpuscular Hemoglobin 30.4 PG Mean Corpuscular Hemoglobin 33.9 % Concent Red Cell Distribution Width 15.9 % Platelet Count 313 TH/MM3 Mean Platelet Volume 8.3 FL Physical Exam General General Appearance: No Acute Distress, Anxious, Malnourished Eyes Eye Exam: Pupils Equal, Pupils Reactive Ears & Nose Ears & Nose Exam: Nasal Mucosa [place] Neck Neck Exam: Neck Supple, Trachea Midline Pulmonary Resp Exam: No Distress, Decreased Bases, Poor Inspiratory Effort Cardiology CV Exam: Regular Gastrointestinal/Abdomen GI Exam: Soft, Non-Tender, Bowel Sounds Present, Non-Distended Musculoskeletal MS Exam: Atrophy Integumentary Skin Exam: Warm Skin Remarks Stage II decubitus ulcer lower left lateral buttock area with pinkish base clean. With gauze wick. Some discharge on dressing. Extremeties Extremities Exam: Pedal Pulses Palpable, Trace Edema Extremeties Remarks With contractures chronic Neurologic Neuro Exam: Alert, Awake Neuro Remarks Following commands. With residual left-sided hemiparesis VTE Prophylaxis VTE Prophylaxis Device: SCDs VTE Prophylaxis Meds: Heparin Assessment/Plan Problem List: (1) Altered mental status (2) Dehydration (3) Hypoglycemia (4) UTI (urinary tract infection) (5) HTN (hypertension) (6) DM (diabetes mellitus) (7) CKD (chronic kidney disease) stage 4, GFR 15-29 ml/min (8) History of CVA with residual deficit (9) Pressure ulcer (10) Hypercalcemia (11) Leukocytosis (12) Acute on chronic renal failure Assessment/Plan 66-year-old female with history of chronic kidney disease, hypertension, hyperlipidemia, CVA with left-sided hemiparesis, type 2 diabetes. Admitted with hypoglycemia, altered mental status. Found with UTI, acute on chronic renal failure, dehydration. No more fever, resolved -Blood culture negative 5 days, UA report reviewed and blood test report reviewed. Wound culture report seen -Leukocytosis , improved -On antibiotic per ID. Anemia -Likely of chronic disease status post blood transfusion arch 27. Stable, will monitor Decubitus ulcer with abscess left buttock and thigh -Wound care is following -Report of CT lower extremity reviewed. -Antibiotic empirically -ID consult magen abx per ID, discussed with ID -Plastic surgery consult appreciated. Discussed with plastic surgeon yesterday , likely debridement on Monday Altered mental status secondary to hypoglycemia, infection, dehydration, acute on chronic renal failure. Discussed with with , back to baseline. -blood glucose level is better, pt. is eating. -accuchecks AC/HS with low dose ISS -Enc. PO intake, must be fed, on pureed diet UTI, with significant leukocytosis, improving -Culture report seen adjust antibiotic -Escherichia coli resistant to Cipro will change to Bactrim. Also Gardnerella vaginalis with a start metronidazole Acute on CKD, stage V, pt. nearing HD per history. Possibly worst secondary to dehydration, improving. -nephrology-input appreciated -avoid nephrotoxic agents Avoid diuretics -follow BMP Hypercalcemia, etiology unclear, on calcium supplements, also prolonged bed rest -better today . Improving -Hold calcium supplements Continue with hydration Nephrology on board, input appreciated Dysphasia, risk for aspiration-it was d/w on January 11, wants to continue Pureed diet at this time. May need PEG at some point. -appreciate speech input -HOB up -Aspiration precautions -Pureed diet History of CVA with residual deficits, left-sided hemiplegia, dysphasia, expressive aphasia. It appears to be declining. CT of the head negative for any acute findings Continue with home medications Physical therapy, speech therapy -Continue with aspirin and statins Hypertension, stable Continue with home medications Thyroid nodule -Follow endocrinology as outpatient Labs reviewed Hypernatremia improved Labs for tomorrow [place] for lower back pain on when necessary basis SCDs and heparin for DVT prophylaxis physical therapy Discussed with bedside in detail all questions answered in detail fashion. D/W RN patient seen with RN Total time spent in management of this patient is more than 35 minutes Problem Qualifiers (1) Altered mental status: Qualified Code: R40.4 - Transient alteration of awareness (2) UTI (urinary tract infection): Qualified Code: N39.0 - Urinary tract infection without hematuria, site unspecified (3) HTN (hypertension): Qualified Code: I10 - Essential hypertension (4) DM (diabetes mellitus): Qualified Code: E11.49 - Type 2 diabetes mellitus with other neurologic complication, unspecified assisted insulin use status (5) Leukocytosis: Qualified Code: D72.829 - Leukocytosis, unspecified type Jonathan Davis MD Jan 20, 2017 13:13
[2017-01-20] MEDS: COLLAGENASE OINT 30 GM TUBE TOP SCH (15:19)
[2017-01-20] MEDS: POVIDONE IODINE 10% SOLN 118 ML BOTTLE TOP SCH ×2 (15:19→21:00)
[2017-01-20] MEDS: PRAVASTATIN SOD 40 MG TAB PO SCH (21:00)
[2017-01-20] MEDS: ACETAMINOPHEN/HYDROcodone 325 MG/5 MG TAB PO PRN (23:33)
[2017-01-21] VITALS: BP 139/80; PULSE 85; RESP 19; TEMP 97.7; O2SAT 99
[2017-01-21] MEDS: CEFEPIME INJ 2,000 MG in SODIUM CHLORIDE 0.9% INJ 100 ML IV SCH (00:40)
[2017-01-21 04:00] VITALS: BP 128/69; PULSE 82; RESP 19; TEMP 97.3; O2SAT 99
[2017-01-21] MEDS: INSULIN ASPART SUPPLEMENTAL SCALE SQ SCH ×4 (06:05→21:00)
[2017-01-21] MEDS: HEPARIN SODIUM - SQ 10,000 UNITS/ML VIAL SQ SCH ×2 (06:09→17:49)
[2017-01-21] MEDS: metroNIDAZOLE 500 MG INJ 100 ML IV SCH ×3 (06:09→22:54)
[2017-01-21 08:00] VITALS: BP 150/89; PULSE 90; RESP 16; TEMP 98.1; O2SAT 98
[2017-01-21] MEDS: POVIDONE IODINE 10% SOLN 118 ML BOTTLE TOP SCH ×2 (09:00→21:00)
[2017-01-21] MEDS: LACTULOSE SYRUP 20 GM/30 ML CUP PO SCH (09:00)
[2017-01-21] MEDS: SODIUM CHLORIDE 0.9% FLUSH 5 ML FLUSH FLUSH SCH ×2 (09:00→21:00)
--- NOTE | 2017-01-21 09:04 | HHI.PR ---
Subjective Interval History Lying on bed comfortably without any apparent distress Alert talking some Offering no complaint No abdominal pain No nausea vomiting No shortness of breath Review of system for 10 point system otherwise unremarkable at bedside trying to feed her first Vitals/Results Intake & Output 01/20/17 01/20/17 01/21/17 15:00 23:00 07:00 Intake Total 480 ml 240 ml 2490 ml Balance 480 ml 240 ml 2490 ml Intake Oral 480 ml 240 ml 240 ml IV Total 2250 ml # Voids 1 1 3 # Bowel Movements 0 1 Vital Signs Vital Signs Date Time Temp Pulse Resp B/P Pulse Ox O2 Delivery O2 Flow Rate FiO2 01/21/17 04:00 97.3 82 19 128/69 99 01/21/17 00:00 97.7 85 19 139/80 99 01/20/17 21:05 86 01/20/17 20:00 96.2 90 19 143/79 100 01/20/17 16:00 97.0 90 16 145/84 98 01/20/17 12:00 97.2 82 18 149/83 99 CBC/BMP: 01/20/17 0555 01/21/17 0800 Lab Results Laboratory Tests Test 01/21/17 08:00 Creatinine 1.46 MG/DL Estimat Glomerular Filtration 43 ML/MIN Rate Random Vancomycin Level 16.5 COMMENT Physical Exam General General Appearance: No Acute Distress, Anxious, Malnourished Eyes Eye Exam: Pupils Equal, Pupils Reactive Ears & Nose Ears & Nose Exam: Nasal Mucosa [place] Neck Neck Exam: Neck Supple, Trachea Midline Pulmonary Resp Exam: No Distress, Decreased Bases, Poor Inspiratory Effort Cardiology CV Exam: Regular Gastrointestinal/Abdomen GI Exam: Soft, Non-Tender, Bowel Sounds Present, Non-Distended Musculoskeletal MS Exam: Atrophy Integumentary Skin Exam: Warm Skin Remarks Stage II decubitus ulcer lower left lateral buttock area with pinkish base clean. With gauze wick. Some discharge on dressing. Extremeties Extremities Exam: Pedal Pulses Palpable, Trace Edema Extremeties Remarks With contractures chronic Neurologic Neuro Exam: Alert, Awake Neuro Remarks Following commands. With residual left-sided hemiparesis VTE Prophylaxis VTE Prophylaxis Device: SCDs VTE Prophylaxis Meds: Heparin Assessment/Plan Problem List: (1) Altered mental status (2) Dehydration (3) Hypoglycemia (4) UTI (urinary tract infection) (5) HTN (hypertension) (6) DM (diabetes mellitus) (7) CKD (chronic kidney disease) stage 4, GFR 15-29 ml/min (8) History of CVA with residual deficit (9) Pressure ulcer (10) Hypercalcemia (11) Leukocytosis (12) Acute on chronic renal failure Assessment/Plan 66-year-old female with history of chronic kidney disease, hypertension, hyperlipidemia, CVA with left-sided hemiparesis, type 2 diabetes. Admitted with hypoglycemia, altered mental status. Found with UTI, acute on chronic renal failure, dehydration. No more fever, resolved -Blood culture negative 5 days, UA report reviewed and blood test report reviewed. Wound culture report seen -Leukocytosis , improved -On antibiotic per ID. Anemia -Likely of chronic disease status post blood transfusion arch . Stable, will monitor Decubitus ulcer with abscess left buttock and thigh -Wound care is following -Report of CT lower extremity reviewed. -Antibiotic empirically. Wound culture showing MRSA -ID consult magen abx per ID, discussed with ID -Plastic surgery consult appreciated. Discussed with plastic surgeon yesterday , likely debridement on Monday Altered mental status secondary to hypoglycemia, infection, dehydration, acute on chronic renal failure. Discussed with with , back to baseline. -blood glucose level is better, pt. is eating. -accuchecks AC/HS with low dose ISS -Enc. PO intake, must be fed, on pureed diet UTI, with significant leukocytosis, improving -Culture report seen adjust antibiotic -Escherichia coli resistant to Cipro will change to Bactrim. Also Gardnerella vaginalis with a start metronidazole Acute on CKD, stage V, pt. nearing HD per history. Possibly worst secondary to dehydration, improving. -nephrology-input appreciated -avoid nephrotoxic agents Avoid diuretics -follow BMP Hypercalcemia, etiology unclear, on calcium supplements, also prolonged bed rest -better today . Improving -Hold calcium supplements Continue with hydration Nephrology on board, input appreciated Dysphasia, risk for aspiration-it was d/w on January 11, wants to continue Pureed diet at this time. May need PEG at some point. -appreciate speech input -HOB up -Aspiration precautions -Pureed diet History of CVA with residual deficits, left-sided hemiplegia, dysphasia, expressive aphasia. It appears to be declining. CT of the head negative for any acute findings Continue with home medications Physical therapy, speech therapy -Continue with aspirin and statins Hypertension, stable Continue with home medications Thyroid nodule -Follow endocrinology as outpatient Labs reviewed Anemia stable H&H Labs for tomorrow [place] for lower back pain on when necessary basis SCDs and heparin for DVT prophylaxis physical therapy Discussed with bedside in detail again D/W RN Total time spent in management of this patient is more than 35 minutes Problem Qualifiers (1) Altered mental status: Qualified Code: R40.4 - Transient alteration of awareness (2) UTI (urinary tract infection): Qualified Code: N39.0 - Urinary tract infection without hematuria, site unspecified (3) HTN (hypertension): Qualified Code: I10 - Essential hypertension (4) DM (diabetes mellitus): Qualified Code: E11.49 - Type 2 diabetes mellitus with other neurologic complication, unspecified [facility] insulin use status (5) Leukocytosis: Qualified Code: D72.829 - Leukocytosis, unspecified type Jonathan Davis MD Jan 21, 2017 09:04
[2017-01-21] MEDS: ASPIRIN EC 81 MG TABEC PO SCH (10:56)
[2017-01-21] MEDS: CINACALCET HYDROCHLORIDE 30 MG TAB PO SCH ×2 (10:56→10:57)
[2017-01-21] MEDS: cloNIDine HCL 0.2 MG TAB PO SCH ×2 (10:56→20:57)
[2017-01-21] MEDS: METOCLOPRAMIDE HCL 10 MG TAB PO SCH ×4 (10:57→20:56)
[2017-01-21] MEDS: FLUoxetine HCL 20 MG CAP PO SCH (10:57)
[2017-01-21] MEDS: FLUCONAZOLE 200 MG PREMIX BAG 100 ML IV SCH (11:09)
[2017-01-21] MEDS: COLLAGENASE OINT 30 GM TUBE TOP SCH (11:11)
[2017-01-21] MEDS: FAMOTIDINE 20 MG TAB PO SCH ×2 (11:14→20:57)
--- NOTE | 2017-01-21 11:41 | HHI.NPPN ---
Subjective History of Present Illness 66-year-old female with past medical history of hypertension, diabetes mellitus, chronic kidney disease, history of cerebrovascular accident with left-sided weakness who was brought to the hospital because of altered mental status. I was called to see the patient because of elevated BUN and creatinine. The patient has known history of chronic kidney disease. She has been following with Dr. Ramos. Additional Remarks Patient is awake, but not answering and non verbal, not in distress. Objective Data Data 01/20/17 01/21/17 19:00 07:00 Intake Total 480 ml 2730 ml Balance 480 ml 2730 ml Intake Oral 480 ml 480 ml IV Total 2250 ml # Voids 1 4 # Bowel Movements 0 1 Vital Signs Date Time Temp Pulse Resp B/P Pulse Ox O2 Delivery O2 Flow Rate FiO2 01/21/17 08:00 98.1 90 16 150/89 98 01/21/17 04:00 97.3 82 19 128/69 99 01/21/17 00:00 97.7 85 19 139/80 99 01/20/17 21:05 86 01/20/17 20:00 96.2 90 19 143/79 100 01/20/17 16:00 97.0 90 16 145/84 98 01/20/17 12:00 97.2 82 18 149/83 99 -: 01/20/17 0555 01/21/17 0800 Physical Exam General Appearance: No Acute Distress, Anxious, Malnourished Eyes Eye Exam: Pupils Equal, Pupils Reactive Ears & Nose Ears & Nose Exam: Nasal Mucosa [place] Neck Neck Exam: Neck Supple, Trachea Midline Pulmonary Resp Exam: No Distress, Decreased Bases, Poor Inspiratory Effort Cardiology CV Exam: Regular Gastrointestinal/Abdomen GI Exam: Soft, Non-Tender, Bowel Sounds Present, Non-Distended Musculoskeletal MS Exam: Atrophy Integumentary Skin Exam: Warm Extremeties Extremities Exam: Pedal Pulses Palpable, Trace Edema Neurologic Neuro Exam: Alert, Awake VTE Prophylaxis Device: SCDs Assessment/Plan Assessment Summary: Dehydration, Hypertension, CKD Stage IV Problem List: (1) Dehydration (2) UTI (urinary tract infection) (3) HTN (hypertension) (4) DM (diabetes mellitus) (5) CKD (chronic kidney disease) stage 4, GFR 15-29 ml/min (6) History of CVA with residual deficit (7) Altered mental status (8) Acute on chronic renal failure Plan Patient has now stage 3 chronic kidney disease. Has Thyroid Nodule. Will need to see Endocrinology after D/C. TSH was normal. Now on Cefepime and Metronidazole. ID following. Check serum immunofixation, in progress. Hgb. is stable. Seen by surgery has pressure ulcers and will need possible debridement. Creatinine continue to improve, now it is 1.45. So there is an element of EDMUND, possibly pre renal. Encourage oral intake. Continue antibiotics, avoid Nephrotoxins. Wound care, follow Hgb. Problem Qualifiers (1) UTI (urinary tract infection): Qualified Code: N39.0 - Urinary tract infection without hematuria, site unspecified (2) HTN (hypertension): Qualified Code: I10 - Essential hypertension (3) DM (diabetes mellitus): Qualified Code: E11.49 - Type 2 diabetes mellitus with other neurologic complication, unspecified senior living insulin use status (4) Altered mental status: Qualified Code: R40.4 - Transient alteration of awareness Chelsea Mora MD Jan 21, 2017 11:41
[2017-01-21 12:00] VITALS: BP 107/64; PULSE 86; RESP 16; TEMP 97.1; O2SAT 95
[2017-01-21] MEDS: ACETAMINOPHEN/HYDROcodone 325 MG/5 MG TAB PO PRN (13:27)
[2017-01-21 16:00] VITALS: BP_SYST 149; BP_SYST 98; BP_DIAS 61; BP_DIAS 79; PULSE 110; PULSE 87; RESP 16; RESP 20; TEMP 96.9; TEMP 98.8; O2SAT 100; O2SAT 97
[2017-01-21] MEDS: VANCOMYCIN 1,000 MG/NS 250 ML IV SCH ×2 (17:54)
[2017-01-21 20:00] VITALS: BP 149/70; PULSE 85; PULSE 89; RESP 19; TEMP 97.4; O2SAT 99
[2017-01-21] MEDS: PRAVASTATIN SOD 40 MG TAB PO SCH (21:00)
[2017-01-22] VITALS (7 sets, daily range): BP systolic 122–146; BP diastolic 62–79; PULSE 77–85; RESP 16–20; TEMP 95.5–98; O2SAT 96–100
[2017-01-22] MEDS: ACETAMINOPHEN/HYDROcodone 325 MG/5 MG TAB PO PRN ×3 (00:15→21:47)
[2017-01-22] MEDS: CEFEPIME INJ 2,000 MG in SODIUM CHLORIDE 0.9% INJ 100 ML IV SCH (00:16)
[2017-01-22] MEDS: metroNIDAZOLE 500 MG INJ 100 ML IV SCH ×3 (06:07→23:19)
[2017-01-22] MEDS: HEPARIN SODIUM - SQ 10,000 UNITS/ML VIAL SQ SCH (06:08)
[2017-01-22] MEDS: SODIUM CHLOR 0.45% 1000 ML INJ 1,000 ML IV SCH ×3 (06:25→21:45)
[2017-01-22] MEDS: INSULIN ASPART SUPPLEMENTAL SCALE SQ SCH ×4 (06:30→21:58)
[2017-01-22] MEDS: ASPIRIN EC 81 MG TABEC PO SCH ×2 (07:34→10:18)
[2017-01-22] MEDS: FAMOTIDINE 20 MG TAB PO SCH ×3 (07:35→21:47)
[2017-01-22] MEDS: LACTULOSE SYRUP 20 GM/30 ML CUP PO SCH (07:35)
[2017-01-22] MEDS: METOCLOPRAMIDE HCL 10 MG TAB PO SCH ×5 (07:35→21:47)
[2017-01-22 08:25] LABS: HEMATOCRIT 29.2 % (35.0-46.0); MEAN CELL VOLUME 90.6 FL (80.0-100.0); MEAN CORPUSCULAR HEMOGLOBIN 30.5 PG (27.0-34.0); MEAN CORPUSCULAR HGB CONC 33.6 % (32.0-36.0); PLATELET COUNT 326 TH/MM3 (150-450); RED BLOOD COUNT 3.22 MIL/MM3 (4.00-5.30); REVIEW FLAG FINAL; WHITE BLOOD COUNT 10.5 TH/MM3 (4.0-11.0)
[2017-01-22 08:53] LABS: BICARBONATE 19.9 MEQ/L (21.0-32.0); POTASSIUM 3.5 MEQ/L (3.5-5.1)
[2017-01-22] MEDS: SODIUM CHLORIDE 0.9% FLUSH 5 ML FLUSH FLUSH SCH ×2 (09:00→22:00)
[2017-01-22] MEDS: POVIDONE IODINE 10% SOLN 118 ML BOTTLE TOP SCH ×2 (09:00→21:59)
[2017-01-22] MEDS: FLUCONAZOLE 200 MG PREMIX BAG 100 ML IV SCH (10:15)
[2017-01-22] MEDS: CINACALCET HYDROCHLORIDE 30 MG TAB PO SCH (10:17)
[2017-01-22] MEDS: cloNIDine HCL 0.2 MG TAB PO SCH ×2 (10:18→21:47)
[2017-01-22] MEDS: FLUoxetine HCL 20 MG CAP PO SCH (10:19)
[2017-01-22] MEDS: COLLAGENASE OINT 30 GM TUBE TOP SCH (10:19)
--- NOTE | 2017-01-22 13:31 | HHI.PR ---
Subjective Interval History Lying on bed comfortably without any apparent distress Alert talking some Offering no complaint No abdominal pain No nausea vomiting No shortness of breath Review of system for 10 point system otherwise unremarkable at bedside trying to feed her first Vitals/Results Intake & Output 01/21/17 01/21/17 01/22/17 15:00 23:00 07:00 Intake Total 480 ml 240 ml Balance 480 ml 240 ml Intake Oral 480 ml 240 ml # Voids 4 2 4 # Bowel Movements 3 Vital Signs Vital Signs Date Time Temp Pulse Resp B/P Pulse Ox O2 Delivery O2 Flow Rate FiO2 01/22/17 12:00 96.9 84 16 146/78 96 01/22/17 08:00 95.5 83 16 132/67 97 01/22/17 04:00 96.1 85 20 133/66 99 01/22/17 00:00 96.2 81 18 122/62 98 01/21/17 20:00 89 01/21/17 20:00 97.4 85 19 149/70 99 01/21/17 16:00 96.9 87 16 149/79 100 CBC/BMP: 01/22/17 0710 01/22/17 0710 Lab Results Laboratory Tests Test 01/22/17 07:10 White Blood Count 10.5 TH/MM3 Red Blood Count 3.22 MIL/MM3 Hemoglobin 9.8 GM/DL Hematocrit 29.2 % Mean Corpuscular Volume 90.6 FL Mean Corpuscular Hemoglobin 30.5 PG Mean Corpuscular Hemoglobin 33.6 % Concent Red Cell Distribution Width 16.0 % Platelet Count 326 TH/MM3 Mean Platelet Volume 8.0 FL Sodium Level 140 MEQ/L Potassium Level 3.5 MEQ/L Chloride Level 112 MEQ/L Carbon Dioxide Level 19.9 MEQ/L Anion Gap 8 MEQ/L Blood Urea Nitrogen 16 MG/DL Creatinine 1.40 MG/DL Estimat Glomerular Filtration 46 ML/MIN Rate Random Glucose 82 MG/DL Calcium Level 8.7 MG/DL Physical Exam General General Appearance: No Acute Distress, Anxious, Malnourished Eyes Eye Exam: Pupils Equal, Pupils Reactive Ears & Nose Ears & Nose Exam: Nasal Mucosa [place] Neck Neck Exam: Neck Supple, Trachea Midline Pulmonary Resp Exam: No Distress, Decreased Bases, Poor Inspiratory Effort Cardiology CV Exam: Regular Gastrointestinal/Abdomen GI Exam: Soft, Non-Tender, Bowel Sounds Present, Non-Distended Musculoskeletal MS Exam: Atrophy Integumentary Skin Exam: Warm Skin Remarks dressing on ulcerated area Extremeties Extremities Exam: Pedal Pulses Palpable, Trace Edema Extremeties Remarks With contractures chronic Neurologic Neuro Exam: Alert, Awake Neuro Remarks Following commands. With residual left-sided hemiparesis VTE Prophylaxis VTE Prophylaxis Device: SCDs VTE Prophylaxis Meds: Heparin Assessment/Plan Problem List: (1) Altered mental status (2) Dehydration (3) Hypoglycemia (4) UTI (urinary tract infection) (5) HTN (hypertension) (6) DM (diabetes mellitus) (7) CKD (chronic kidney disease) stage 4, GFR 15-29 ml/min (8) History of CVA with residual deficit (9) Pressure ulcer (10) Hypercalcemia (11) Leukocytosis (12) Acute on chronic renal failure Assessment/Plan 66-year-old female with history of chronic kidney disease, hypertension, hyperlipidemia, CVA with left-sided hemiparesis, type 2 diabetes. Admitted with hypoglycemia, altered mental status. Found with UTI, acute on chronic renal failure, dehydration. No more fever, resolved -Blood culture negative 5 days, UA report reviewed and blood test report reviewed. Wound culture report seen -Leukocytosis , improved -On antibiotic per ID. Anemia -Likely of chronic disease status post blood transfusion arch . Stable, will monitor Decubitus ulcer with abscess left buttock and thigh -Wound care is following -Report of CT lower extremity reviewed. -Antibiotic empirically. Wound culture showing MRSA -ID consult magen abx per ID, discussed with ID -Plastic surgery consult appreciated. debridement on Monday Altered mental status secondary to hypoglycemia, infection, dehydration, acute on chronic renal failure. Discussed with with , back to baseline. -blood glucose level is better, pt. is eating. -accuchecks AC/HS with low dose ISS -Enc. PO intake, must be fed, on pureed diet UTI, with significant leukocytosis, improving -Culture report seen adjust antibiotic -Escherichia coli resistant to Cipro will change to Bactrim. Also Gardnerella vaginalis with a start metronidazole Acute on CKD, stage V, pt. nearing HD per history. Possibly worst secondary to dehydration, improving. -nephrology-input appreciated -avoid nephrotoxic agents Avoid diuretics -follow BMP Hypercalcemia, etiology unclear, on calcium supplements, also prolonged bed rest -better today . Improving -Hold calcium supplements Continue with hydration Nephrology on board, input appreciated Dysphasia, risk for aspiration-it was d/w on January 11, wants to continue Pureed diet at this time. May need PEG at some point. -appreciate speech input -HOB up -Aspiration precautions -Pureed diet History of CVA with residual deficits, left-sided hemiplegia, dysphasia, expressive aphasia. It appears to be declining. CT of the head negative for any acute findings Continue with home medications Physical therapy, speech therapy -Continue with aspirin and statins Hypertension, stable Continue with home medications Thyroid nodule -Follow endocrinology as outpatient Labs reviewed Anemia stable H&H Labs for tomorrow [place] for lower back pain on when necessary basis SCDs and heparin for DVT prophylaxis physical therapy Discussed with bedside in detail again D/W RN Problem Qualifiers (1) Altered mental status: Qualified Code: R40.4 - Transient alteration of awareness (2) UTI (urinary tract infection): Qualified Code: N39.0 - Urinary tract infection without hematuria, site unspecified (3) HTN (hypertension): Qualified Code: I10 - Essential hypertension (4) DM (diabetes mellitus): Qualified Code: E11.49 - Type 2 diabetes mellitus with other neurologic complication, unspecified usp insulin use status (5) Leukocytosis: Qualified Code: D72.829 - Leukocytosis, unspecified type Jonathan Davis MD Jan 22, 2017 13:31
[2017-01-22] MEDS: VANCOMYCIN 1,000 MG/NS 250 ML IV SCH ×2 (16:40)
--- NOTE | 2017-01-22 20:18 | HHI.NPPN ---
Subjective History of Present Illness 66-year-old female with past medical history of hypertension, diabetes mellitus, chronic kidney disease, history of cerebrovascular accident with left-sided weakness who was brought to the hospital because of altered mental status. I was called to see the patient because of elevated BUN and creatinine. The patient has known history of chronic kidney disease. She has been following with Dr. Ramos. Additional Remarks Patient is awake, non verbal, clinically same, not in distress. Objective Data Data 01/21/17 01/22/17 19:00 07:00 Intake Total 480 ml 240 ml Balance 480 ml 240 ml Intake Oral 480 ml 240 ml # Voids 4 6 # Bowel Movements 3 Vital Signs Date Time Temp Pulse Resp B/P Pulse Ox O2 Delivery O2 Flow Rate FiO2 01/22/17 16:00 95.9 80 16 125/70 98 01/22/17 12:00 96.9 84 16 146/78 96 01/22/17 08:00 95.5 83 16 132/67 97 01/22/17 04:00 96.1 85 20 133/66 99 01/22/17 00:00 96.2 81 18 122/62 98 -: 01/22/17 0710 01/22/17 0710 Physical Exam General Appearance: No Acute Distress, Anxious, Malnourished Eyes Eye Exam: Pupils Equal, Pupils Reactive Ears & Nose Ears & Nose Exam: Nasal Mucosa [place] Neck Neck Exam: Neck Supple, Trachea Midline Pulmonary Resp Exam: No Distress, Decreased Bases, Poor Inspiratory Effort Cardiology CV Exam: Regular Gastrointestinal/Abdomen GI Exam: Soft, Non-Tender, Bowel Sounds Present, Non-Distended Musculoskeletal MS Exam: Atrophy Integumentary Skin Exam: Warm Extremeties Extremities Exam: Pedal Pulses Palpable, Trace Edema Neurologic Neuro Exam: Alert, Awake VTE Prophylaxis Device: SCDs Assessment/Plan Assessment Summary: Dehydration, Hypertension, CKD Stage IV Problem List: (1) Dehydration (2) UTI (urinary tract infection) (3) HTN (hypertension) (4) DM (diabetes mellitus) (5) CKD (chronic kidney disease) stage 4, GFR 15-29 ml/min (6) History of CVA with residual deficit (7) Altered mental status (8) Acute on chronic renal failure Plan Patient has now stage 3 chronic kidney disease. Has Thyroid Nodule. Will need to see Endocrinology after D/C. TSH was normal. Now on Cefepime and Metronidazole. ID following. Check serum immunofixation, in progress. Hgb. is stable. Seen by surgery has pressure ulcers and will need possible debridement. Creatinine continue to improve, So there is an element of EDMUND, possibly pre renal. Encourage oral intake. Continue antibiotics, avoid Nephrotoxins. For wound debridement. Problem Qualifiers (1) UTI (urinary tract infection): Qualified Code: N39.0 - Urinary tract infection without hematuria, site unspecified (2) HTN (hypertension): Qualified Code: I10 - Essential hypertension (3) DM (diabetes mellitus): Qualified Code: E11.49 - Type 2 diabetes mellitus with other neurologic complication, unspecified assisted insulin use status (4) Altered mental status: Qualified Code: R40.4 - Transient alteration of awareness Chelsea Mora MD Jan 22, 2017 20:18
[2017-01-22] MEDS: PRAVASTATIN SOD 40 MG TAB PO SCH (21:48)
[2017-01-23] VITALS (9 sets, daily range): BP systolic 121–166; BP diastolic 63–91; PULSE 76–96; RESP 12–20; TEMP 96.3–98.2; O2SAT 95–100
[2017-01-23] MEDS: CEFEPIME INJ 2,000 MG in SODIUM CHLORIDE 0.9% INJ 100 ML IV SCH (01:29)
[2017-01-23] MEDS: LACTATED RINGER'S 1000 ML INJ 1,000 ML IV SCH (03:08)
[2017-01-23] MEDS ORDERED: POVIDONE IODINE 5% (ANTISEPSIS KIT) 4 APPLICATIONS EACH NARE PRN (03:15)
[2017-01-23] MEDS ORDERED: CHLORHEXIDINE GLUCONATE 2 % 1 PACK (2 CLOTHS) TOPICAL PRN (03:15)
[2017-01-23] MEDS ORDERED: SODIUM CHLORID 0.9% 500 ML IV PRN (03:15)
[2017-01-23] MEDS: SODIUM CHLOR 0.45% 1000 ML INJ 1,000 ML IV SCH ×2 (06:16→22:35)
[2017-01-23] MEDS: metroNIDAZOLE 500 MG INJ 100 ML IV SCH ×4 (06:28→22:35)
[2017-01-23] MEDS: INSULIN ASPART SUPPLEMENTAL SCALE SQ SCH ×4 (06:40→21:00)
[2017-01-23] MEDS: LACTULOSE SYRUP 20 GM/30 ML CUP PO SCH (07:58)
[2017-01-23] MEDS: FAMOTIDINE 20 MG TAB PO SCH ×2 (07:58→21:00)
[2017-01-23] MEDS: CINACALCET HYDROCHLORIDE 30 MG TAB PO SCH (07:59)
[2017-01-23] MEDS: SODIUM CHLORIDE 0.9% FLUSH 5 ML FLUSH FLUSH SCH ×2 (07:59→21:00)
[2017-01-23] MEDS: METOCLOPRAMIDE HCL 10 MG TAB PO SCH ×4 (07:59→22:33)
[2017-01-23] MEDS: FLUoxetine HCL 20 MG CAP PO SCH (07:59)
[2017-01-23 08:07] LABS: APTT (PATIENT) 35.4 SEC (24.3-30.1); INTERNATIONAL NORMALIZED RATIO 1.6 RATIO; PROTHROMBIN TIME - PATIENT 18.4 SEC (9.8-11.6)
[2017-01-23 08:42] LABS: BICARBONATE 14.9 MEQ/L (21.0-32.0); POTASSIUM 3.9 MEQ/L (3.5-5.1)
[2017-01-23] MEDS: cloNIDine HCL 0.2 MG TAB PO SCH ×2 (09:00→22:33)
[2017-01-23] MEDS: POVIDONE IODINE 10% SOLN 118 ML BOTTLE TOP SCH ×2 (09:00→21:00)
[2017-01-23] MEDS: COLLAGENASE OINT 30 GM TUBE TOP SCH (09:00)
[2017-01-23] MEDS: FLUCONAZOLE 200 MG PREMIX BAG 100 ML IV SCH (10:20)
--- NOTE | 2017-01-23 10:31 | EKG ---
Date Performed: 01/23/2017 Time Performed: 05:37:00 PTAGE: 66 years EKG: Sinus rhythm LOW QRS VOLTAGE IN PRECORDIAL LEADS INFERIOR MYOCARDIAL INFARCTION , PROBABLY OLD ANTEROLATERAL MYOC ARDIAL INFARCTION , OF INDETERMINATE AGE ABNORMAL ECG PREVIOUS TRACING : 01/25/2012 15.07 DOCTOR: Bud Cedeno Interpretating Date/Time 01/23/2017 10:30:23
[2017-01-23] MEDS ORDERED: METRONIDAZOLE 500 MG/100 ML IV ONE (12:00)
[2017-01-23] MEDS ORDERED: DEXTROSE 50% IN WATER 50 ML SYRINGE IV ONE (12:00)
[2017-01-23] MEDS ORDERED: PROPOFOL 200 MG/20 ML AMP IV ONE (12:00)
[2017-01-23] MEDS ORDERED: ONDANSETRON HCL 4 MG/2 ML VIAL IV PUSH ONE (12:00)
--- NOTE | 2017-01-23 12:52 | HHI.PR ---
Subjective Interval History patient appears at baseline at bed side no fever plan for debridement of left leg wound Vitals/Results Intake & Output 01/22/17 01/22/17 01/23/17 15:00 23:00 07:00 Intake Total 360 ml 2098 ml 1435 ml Balance 360 ml 2098 ml 1435 ml Intake Oral 360 ml 240 ml IV Total 1858 ml 1435 ml # Voids 2 1 4 # Bowel Movements 1 Vital Signs Vital Signs Date Time Temp Pulse Resp B/P Pulse Ox O2 Delivery O2 Flow Rate FiO2 01/23/17 08:00 96.9 88 20 139/68 95 01/23/17 04:00 98.2 86 18 142/79 100 01/23/17 00:00 97.6 76 18 121/63 98 01/22/17 20:01 77 01/22/17 20:00 98.0 80 18 136/79 100 01/22/17 16:00 95.9 80 16 125/70 98 CBC/BMP: 01/22/17 0710 01/23/17 0640 Lab Results Laboratory Tests Test 01/23/17 06:40 Prothrombin Time 18.4 SEC Prothromb Time International 1.6 RATIO Ratio Activated Partial 35.4 SEC Thromboplast Time Sodium Level 139 MEQ/L Potassium Level 3.9 MEQ/L Chloride Level 113 MEQ/L Carbon Dioxide Level 14.9 MEQ/L Anion Gap 11 MEQ/L Blood Urea Nitrogen 15 MG/DL Creatinine 1.42 MG/DL Estimat Glomerular Filtration 45 ML/MIN Rate Random Glucose 74 MG/DL Calcium Level 8.5 MG/DL Physical Exam General General Appearance: No Acute Distress, Anxious, Malnourished Eyes Eye Exam: Pupils Equal, Pupils Reactive Ears & Nose Ears & Nose Exam: Nasal Mucosa [place] Neck Neck Exam: Neck Supple, Trachea Midline Pulmonary Resp Exam: No Distress, Decreased Bases, Poor Inspiratory Effort Cardiology CV Exam: Regular Gastrointestinal/Abdomen GI Exam: Soft, Non-Tender, Bowel Sounds Present, Non-Distended Musculoskeletal MS Exam: Atrophy Integumentary Skin Exam: Warm Extremeties Extremities Exam: Pedal Pulses Palpable, Trace Edema Neurologic Neuro Exam: Alert, Awake VTE Prophylaxis VTE Prophylaxis Device: SCDs VTE Prophylaxis Meds: Heparin Assessment/Plan Problem List: (1) Altered mental status (2) Dehydration (3) Hypoglycemia (4) UTI (urinary tract infection) (5) HTN (hypertension) (6) DM (diabetes mellitus) (7) CKD (chronic kidney disease) stage 4, GFR 15-29 ml/min (8) History of CVA with residual deficit (9) Pressure ulcer (10) Hypercalcemia (11) Leukocytosis (12) Acute on chronic renal failure Assessment/Plan 66-year-old female with history of chronic kidney disease, hypertension, hyperlipidemia, CVA with left-sided hemiparesis, type 2 diabetes. Admitted with hypoglycemia, altered mental status. Found with UTI, acute on chronic renal failure, dehydration. No more fever, resolved -Blood culture negative 5 days, UA report reviewed and blood test report reviewed. Wound culture report seen -Leukocytosis , improved -On antibiotic per ID. Anemia -Likely of chronic disease status post blood transfusion arch . Stable, will monitor Decubitus ulcer with abscess left buttock and thigh -Wound care is following -Report of CT lower extremity reviewed. -Antibiotic empirically. Wound culture showing MRSA -ID consult magen abx per ID, discussed with ID -Plastic surgery consult appreciated. debridement today. Altered mental status secondary to hypoglycemia, infection, dehydration, acute on chronic renal failure. Discussed with with , back to baseline. -blood glucose level is better, pt. is eating. -accuchecks AC/HS with low dose ISS -Enc. PO intake, must be fed, on pureed diet UTI, with significant leukocytosis, improving -Culture report seen adjust antibiotic -Escherichia coli resistant to Cipro will change to Bactrim. Also Gardnerella vaginalis with a start metronidazole Acute on CKD, stage V, pt. nearing HD per history. Possibly worst secondary to dehydration, improving. -nephrology-input appreciated -avoid nephrotoxic agents Avoid diuretics -follow BMP Hypercalcemia, etiology unclear, on calcium supplements, also prolonged bed rest -better today . Improving -Hold calcium supplements Continue with hydration Nephrology on board, input appreciated Dysphasia, risk for aspiration-it was d/w on January 11, wants to continue Pureed diet at this time. May need PEG at some point. -appreciate speech input -HOB up -Aspiration precautions -Pureed diet History of CVA with residual deficits, left-sided hemiplegia, dysphasia, expressive aphasia. It appears to be declining. CT of the head negative for any acute findings Continue with home medications Physical therapy, speech therapy -Continue with aspirin and statins Hypertension, stable Continue with home medications Thyroid nodule -Follow endocrinology as outpatient Labs reviewed Anemia stable H&H Labs for tomorrow [place] for lower back pain on when necessary basis SCDs and heparin for DVT prophylaxis physical therapy Discussed with bedside in detail again D/W RN Problem Qualifiers (1) Altered mental status: Qualified Code: R40.4 - Transient alteration of awareness (2) UTI (urinary tract infection): Qualified Code: N39.0 - Urinary tract infection without hematuria, site unspecified (3) HTN (hypertension): Qualified Code: I10 - Essential hypertension (4) DM (diabetes mellitus): Qualified Code: E11.49 - Type 2 diabetes mellitus with other neurologic complication, unspecified 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
[2017-01-23] MEDS ORDERED: DEXTROSE 50% IN WATER 50 ML SYRINGE ONE (13:44)
[2017-01-23] MEDS ORDERED: KETAMINE HCL 500 MG/5 ML VIAL ONE (15:40)
[2017-01-23] MEDS ORDERED: PHARMACY ORDERED LAB ONE (15:45)
[2017-01-23] MEDS: VANCOMYCIN 1,000 MG/NS 250 ML IV SCH ×2 (16:00)
[2017-01-23] MEDS ORDERED: VANCOMYCIN 500 MG VIAL ONE (17:00)
[2017-01-23] MEDS ORDERED: fentaNYL CITRATE 250 MCG/5 ML AMP ONE (17:10)
[2017-01-23] MEDS ORDERED: SUGAMMADEX SODIUM 200 MG/2 ML VIAL IV PUSH ONE ×2 (17:10)
[2017-01-23] MEDS ORDERED: diphenhydrAMINE HCL 50 MG/ML VIAL ONE (17:19)
--- NOTE | 2017-01-23 17:24 | HHI.PR ---
Immediate Post Op Note Procedure Date: Jan 23, 2017 Pre Op Diagnosis: (1) Pressure ulcer Post Op Diagnosis: (1) Pressure ulcer Surgeon: Carol Ratliff Manager Stars(s): None Procedure: Excisional debridement of muscle of left buttock. Application of Wound vac. Estimated blood loss: 100ml Anesthesia: General Drains: Other (wound vac) Patient to: PACU (Swelling of tongue noted and treated.) Patient Condition: Good Date/Time of Procedure: SEE SURGICAL CARE RECORD Carol Ratliff MD Jan 23, 2017 17:24
[2017-01-23] MEDS ORDERED: PROPOFOL 1000 MG/100 ML INJ 100 ML ONE ×2 (17:34→21:24)
[2017-01-23] MEDS ORDERED: MIDAZOLAM HCL 2 MG/2 ML VIAL ONE (17:55)
[2017-01-23 18:05] LABS: BLOOD GAS BASE EXCESS -8.2 mmol/L (-2-2); BLOOD GAS CARBOXYHEMOGLOBIN 1.2 % (0-4); BLOOD GAS HCO3 17 mmol/L (22-26); BLOOD GAS METHEMOGLOBIN 1.3 % (0-2); BLOOD GAS O2 HGB SATURATION 96 % (90-100); BLOOD GAS OXYGEN CONTENT 13.3 Vol % (12.0-20.0); BLOOD GAS PCO2 35 mmHg (38-42); BLOOD GAS PO2 125 mmHg (61-120); BLOOD GAS TOTAL HGB 9.7 G/DL (12.0-16.0); CRITICAL VALUE NO; OXYGEN DEVICE VENTILATOR; TEMP CORR TO 98.6; VENT SETTINGS 500/AC12/PEEP5
[2017-01-23 18:06] LABS: DRAW SITE LT RADIAL; FIO2 50 %; NUMBER OF ARTERIAL PUNCTURES 1; STAT NO; ULNAR PULSE PRESENT
--- NOTE | 2017-01-23 18:26 | RADRPT ---
EXAM DATE/TIME: 01/23/2017 17:41 [facility] COMPARISON: CHEST SINGLE AP, January 10, 2017, 0:49. INDICATIONS : ET tube placement. MEDICAL HISTORY : None. SURGICAL HISTORY : None. ENCOUNTER: Initial ACUITY: 1 day PAIN SCORE: 0/10 LOCATION: Bilateral chest FINDINGS: ET tube is present with tip overlapping approximately 2 cm above the sukhdeep. There is prominence of t he perivascular markings with crowding of the bronchovascular markings may be due to expiratory state of this radiograph, however slight interstitial process is not excluded. Borderline cardiomegaly is seen. CONCLUSION: Possible mild distal early CHF versus technical. KRen Ambrosio MD on January 23, 2017 at 18:23 Board Certified Radiologist. This report was verified electronically.
[2017-01-23] MEDS ORDERED: DO NOT ADM ANY ANTICOAGULANT DRUGS PRN (19:15)
--- NOTE | 2017-01-23 21:08 | RADRPT ---
EXAM DATE/TIME: 01/23/2017 20:58 [facility] COMPARISON: CHEST SINGLE AP, January 23, 2017, 17:41. INDICATIONS : Respiratory failure and OG tube placement. MEDICAL HISTORY : None. SURGICAL HISTORY : None. ENCOUNTER: Initial ACUITY: 1 day PAIN SCORE: Non-responsive. LOCATION: Bilateral chest FINDINGS: ET tube is present with tip overlapping approximately 3 cm above the sukhdeep. OG tube is present with tip in the stomach. There is dense air space consolidation left lung base. Mild degree of pulmonary e lucho is not excluded. CONCLUSION: Dense left lung base consolidation and mild case of pulmonary edema is not excluded. Gabriele Ambrosio MD on January 23, 2017 at 21:06 Board Certified Radiologist. This report was verified electronically.
--- NOTE | 2017-01-23 21:18 | PD.CONS ---
HPI Service Critical Care Medicine Consult Requested By Primary Care Physician Mango Ruiz MD History of Present Illness 66-year-old female with history of CVA in 2009 with residual left-sided hemiplegia, type 2 diabetes, chronic kidney disease nearing hemodialysis, hyperlipidemia, CHF, sarcoidosis, hypertension. She is bed ridden and totally dependent on DLA. She has developed stage IV sacral ulcer and became clinically worsening including hypoglycemia and leukocytosis. She was taken to operating room for debridement of a sacral ulcer. During the general anesthesia and surgical procedure she developed angioedema and postprocedure remained intubated for an airway protection. Review of Systems ROS Unable to obtain patient is sedated and intubated Past Family Social History Allergies: Coded Allergies: Penicillin (Verified Allergy, Severe, rash/itching, 01/10/17) *MDRO Multi-Drug Resistant Organism (Verified Adverse Reaction, Unknown, ) MRSA (buttock)-01/15/17 Uncoded Allergies: CILLINS ALL (Allergy, Severe, 07/23/10) Past Medical History Diabetes mellitus Chronic kidney disease nearing dialysis Congestive heart failure Hypertension Sarcoidosis Pericardial Effusion Stroke with residual left-sided hemiplegia Prior history of myocardial infarction Coronary artery disease Hyperlipidemia Pericardial effusion Sarcoidosis Hypothyroid Past Surgical History Hysterectomy 2/2 fibroids Reported Medications Reported Meds & Active Scripts Active Reported Calcitriol 0.25 Mcg Cap 0.25 Mcg PO EVERY OTHER DAY Aspirin 81 Mg Tabdr 81 Mg PO DAILY [place] 3 500 500 mg ([place]-3 Fatty Acids) 1 Cap Cap 500 Mg PO DAILY Vitamin D3 (Cholecalciferol) 5,000 Unit Tab 5,000 Units PO DAILY Sensipar (Cinacalcet) 30 Mg Tab 30 Mg PO DAILY Furosemide 20 Mg Tab 20 Mg PO BID Bydureon Inj (Exenatide) 2 Mg Vial 2 Mg SQ Q7D Clonidine (Clonidine HCl) 0.2 Mg Tab 0.2 Mg PO BID Glipizide 5 Mg Tab 5 Mg PO BIDAC Take 30 minutes before a meal Trazodone (Trazodone HCl) 50 Mg Tab 50 Mg PO HS Zocor (Simvastatin) 20 Mg Tab 20 Mg PO HS Spironolactone 25 Mg Tab 25 Mg PO HS Metoclopramide (Metoclopramide HCl) 5 Mg Tab 5 Mg PO QID Fluoxetine (Fluoxetine HCl) 40 Mg Cap 40 Cap PO DAILY Amlodipine (Amlodipine Besylate) 10 Mg Tab 10 Mg PO DAILY Active Ordered Medications Current Medications Medications (Trade) Dose Ordered Sig/Yari Route PRN Reason Start Time Stop Time Status Last Admin Dose Admin IV Flush (NS Flush) 2 ml UNSCH PRN FLUSH FLUSH AFTER USING IV ACCESS 01/10/17 05:15 IV Flush (NS Flush) 2 ml BID FLUSH 01/10/17 09:00 01/22/17 22:00 Acetaminophen (Tylenol) 650 mg Q4H PRN PO TEMP > 100.4 01/10/17 05:15 01/16/17 16:41 Ondansetron HCl (Zofran Inj) 4 mg Q6H PRN IVP NAUSEA OR VOMITING 01/10/17 05:15 Bisacodyl (Dulcolax Supp) 10 mg DAILY PRN [place] CONSTIPATION 01/10/17 05:15 Sennosides (Senokot) 17.2 mg Q12H PRN PO CONSTIPATION 01/10/17 05:15 Heparin Sodium (Porcine) (Heparin Inj) 5,000 units Q12H SQ 01/10/17 06:00 Hold 01/22/17 06:08 Naloxone HCl (Narcan Inj) 0.4 mg UNSCH PRN IV SEE LABEL COMMENTS 01/10/17 05:15 Amlodipine Besylate (Norvasc) 10 mg DAILY PO 01/11/17 09:00 01/22/17 10:18 Aspirin (Ecotrin Ec) 81 mg DAILY PO 01/11/17 09:00 Hold 01/22/17 10:18 Cinacalcet (Sensipar) 30 mg DAILY PO 01/11/17 09:00 01/22/17 10:17 Clonidine (Catapres) 0.2 mg BID PO 01/10/17 21:00 01/23/17 22:33 Fluoxetine HCl (PROzac) 40 mg DAILY PO 01/11/17 09:00 01/22/17 10:19 Metoclopramide HCl (Reglan) 5 mg QID PO 01/10/17 13:00 01/23/17 22:33 Pravastatin Sodium (Pravachol) 40 mg HS PO 01/10/17 21:00 01/23/17 22:33 Miscellaneous (Pill Splitter) 1 ea UNSCH PRN OTHER SEE LABEL COMMENTS 01/10/17 10:30 Collagenase (Santyl Oint) 1 applic DAILY TOP 01/11/17 09:00 01/22/17 10:19 Dextrose (D50w (Vial) Inj) 25 ml UNSCH PRN IV PUSH HYPOGLYCEMIA-SEE COMMENTS 01/11/17 15:15 Glucagon (Glucagon Inj) 1 mg UNSCH PRN OTHER HYPOGLYCEMIA-SEE COMMENTS 01/11/17 15:15 Acetaminophen/ Hydrocodone Bitart 1 tab 1 tab Q6H PRN PO PAIN SCALE 6 TO 10 01/12/17 11:30 01/22/17 21:47 Sodium Chloride (1/2 NS 1000 ml Inj) 1,000 ml @ 84 mls/hr [id number] IV 01/12/17 11:30 01/23/17 22:35 Furosemide (Lasix Inj) 20 mg UNSCH PRN IV PUSH UNITS OF BLOOD 01/16/17 09:45 01/16/17 22:22 Lactulose 30 ml 30 ml DAILY PO 01/16/17 11:00 01/19/17 09:43 Pharmacy Profile Note 0 ml @ 0 mls/hr UNSCH IV 01/16/17 13:45 Metronidazole 100 ml @ 100 mls/hr Q8H IV 01/16/17 15:00 01/23/17 22:35 Cefepime HCl 2000 mg/Sodium Chloride 100 ml @ 200 mls/hr Q24H IV 01/17/17 01:00 01/24/17 00:56 Fluconazole/ Sodium Chloride (Diflucan 200 Mg Premix Bag) 100 ml @ 100 mls/hr Q24H IV 01/18/17 10:00 01/23/17 10:20 Povidone Iodine (Betadine 10% Top Soln) 1 applic BID TOP 01/18/17 21:00 01/22/17 21:59 Famotidine 10 mg 10 mg BID PO 01/22/17 21:00 01/22/17 21:47 Lactated Ringer's 1,000 ml @ 0 mls/hr Q24H IV 01/23/17 03:15 Sodium Chloride (NS 500 ml Inj) 500 ml @ 30 mls/hr [id number] PRN IV SEE LABEL COMMENTS 01/23/17 03:15 01/26/17 03:14 Miscellaneous Information ALL NURSING DEPARTME... UNSCH PRN .XX SEE LABEL COMMENTS 4/3/17 19:15 01/24/17 19:14 Vancomycin HCl/ Sodium Chloride (Vancomycin Inj/ NS 250 ml Inj) 250 ml @ 250 mls/hr Q24H IV 01/24/17 17:00 Miscellaneous Information SPECIFIC LAB TO BE DRAWN:VA... ONCE ONCE .XX 01/24/17 16:45 01/24/17 16:46 Protein (Beneprotein Powder) 2 pack TID G-TUBE 01/24/17 09:00 Dexamethasone Sodium Phosphate (Decadron Inj) 10 mg DAILY IV PUSH 01/23/17 21:15 01/23/17 23:14 Famotidine (Pepcid Inj) 20 mg Q12H IV PUSH 01/23/17 21:15 01/23/17 22:34 Diphenhydramine HCl 25 mg 25 mg Q6H IM 01/23/17 21:15 01/24/17 03:04 Propofol (Diprivan 1000 Mg/100ml Inj) 100 ml @ 0 mls/hr TITRATE IV 01/24/17 01:00 Family History Noncontributory Social History Negative 3 Physical Exam Vital Signs Vital Signs Date Time Temp Pulse Resp B/P Pulse Ox O2 Delivery O2 Flow Rate FiO2 01/23/17 19:49 100 100 01/23/17 19:25 50 01/23/17 19:25 98.6 74 14 124/75 99 Mechanical Ventilator 50 01/23/17 19:15 74 14 124/75 99 Mechanical Ventilator 50 01/23/17 19:00 75 14 146/82 99 Mechanical Ventilator 50 01/23/17 18:45 75 14 122/73 99 Mechanical Ventilator 50 01/23/17 18:30 50 01/23/17 18:30 76 14 134/78 100 Mechanical Ventilator 50 01/23/17 18:15 77 14 97/58 99 Mechanical Ventilator 50 01/23/17 18:00 66 14 107/69 100 Mechanical Ventilator 50 01/23/17 17:45 99 14 93/57 99 Mechanical Ventilator 50 01/23/17 17:29 50 01/23/17 17:29 98.6 111 14 151/68 99 Mechanical Ventilator 50 01/23/17 17:29 99 50 01/23/17 13:05 88 01/23/17 12:00 96.3 96 20 150/73 99 01/23/17 08:00 96.9 88 20 139/68 95 01/23/17 04:00 98.2 86 18 142/79 100 01/23/17 00:00 97.6 76 18 121/63 98 Physical Exam GENERAL: To be dictation on mechanical ventilation in no acute distress SKIN: Warm and dry. HEAD: Normocephalic. Angioedema of the tongue EYES: No scleral icterus. No injection or drainage. NECK: Supple, trachea midline. No JVD or lymphadenopathy. CARDIOVASCULAR: Regular rate and rhythm without murmurs, gallops, or rubs. RESPIRATORY: Breath sounds equal bilaterally. No accessory muscle use. GASTROINTESTINAL: Abdomen soft, non-tender, nondistended. MUSCULOSKELETAL: No cyanosis, or edema. BACK: Nontender without obvious deformity. No CVA tenderness. EXTREMITIES: No clubbing cyanosis or edema Laboratory Laboratory Tests Test 01/23/17 01/23/17 06:40 17:58 Prothrombin Time 18.4 Prothromb Time International 1.6 Ratio Activated Partial 35.4 Thromboplast Time Sodium Level 139 Potassium Level 3.9 Chloride Level 113 Carbon Dioxide Level 14.9 Anion Gap 11 Blood Urea Nitrogen 15 Creatinine 1.42 Estimat Glomerular Filtration 45 Rate Random Glucose 74 Calcium Level 8.5 Blood Gas Puncture Site LT RADIAL Blood Gas Patient Temperature 98.6 Blood Gas HCO3 17 Blood Gas Base Excess -8.2 Blood Gas Oxygen Saturation 96 Arterial Blood pH 7.31 Arterial Blood Partial 35 Pressure CO2 Arterial Blood Partial 125 Pressure O2 Arterial Blood Oxygen Content 13.3 Arterial Blood 1.2 Carboxyhemoglobin Arterial Blood Methemoglobin 1.3 Blood Gas Hemoglobin 9.7 Oxygen Delivery Device VENTILATOR Blood Gas Ventilator Setting 500/AC12/PEEP5 Blood Gas Inspired Oxygen 50 Result Diagram: 01/22/17 0710 01/23/17 0640 Assessment and Plan Assessment and Plan Respiratory failure - Intubated for an airway protection - Continue mechanical ventilation - no weaning until it edema improves Angioedema - Unknown origin - Decadron - H1 H2 blockers IV - Supportive care Diabetes - Levemir and insulin sliding scale - Glucerna tube feeds Stage IV chronic kidney disease - Per nephrology Stage IV sacral ulcer - Status post debridement - Further per surgery and infectious disease DVT GI prophylaxis - Teds SCDs subcutaneous heparin and Pepcid Critical Care: The total critical care time was 35 minutes. Time to perform other separately billable procedures was not included in the critical care time. Carlos Camara MD Jan 23, 2017 21:18
[2017-01-23 22:07] LABS: HEMATOCRIT 34.5 % (35.0-46.0); MEAN CELL VOLUME 90.9 FL (80.0-100.0); MEAN CORPUSCULAR HEMOGLOBIN 30.1 PG (27.0-34.0); MEAN CORPUSCULAR HGB CONC 33.1 % (32.0-36.0); PLATELET COUNT 422 TH/MM3 (150-450); RED BLOOD COUNT 3.79 MIL/MM3 (4.00-5.30); RED CELL DISTRIBUTION WIDTH 16.4 % (11.6-17.2); REVIEW FLAG FINAL; WHITE BLOOD COUNT 14.1 TH/MM3 (4.0-11.0)
[2017-01-23 22:09] LABS: BLOOD GAS BASE EXCESS -7.6 mmol/L (-2-2); BLOOD GAS HCO3 17 mmol/L (22-26); BLOOD GAS METHEMOGLOBIN 1.1 % (0-2); BLOOD GAS O2 HGB SATURATION 97 % (90-100); BLOOD GAS OXYGEN CONTENT 16.4 Vol % (12.0-20.0); BLOOD GAS PCO2 29 mmHg (38-42); BLOOD GAS PO2 165 mmHg (61-120); BLOOD GAS TOTAL HGB 11.8 G/DL (12.0-16.0); TEMP CORR TO 98.6
[2017-01-23 22:10] LABS: CRITICAL VALUE NO; DRAW SITE LT RADIAL; FIO2 50 %; NUMBER OF ARTERIAL PUNCTURES 1; OXYGEN DEVICE VENTILATOR; STAT NO; ULNAR PULSE PRESENT; VENT SETTINGS AC/12/500/PEEP 5
--- NOTE | 2017-01-23 22:10 | HHI.NPPN ---
Subjective History of Present Illness 66-year-old female with past medical history of hypertension, diabetes mellitus, chronic kidney disease, history of cerebrovascular accident with left-sided weakness who was brought to the hospital because of altered mental status. I was called to see the patient because of elevated BUN and creatinine. The patient has known history of chronic kidney disease. She has been following with Dr. Ramos. Additional Remarks Patient seen in RR, intubated and sedated. Objective Data Data 01/22/17 01/23/17 19:00 07:00 Intake Total 2218 ml 1675 ml Balance 2218 ml 1675 ml Intake Oral 360 ml 240 ml IV Total 1858 ml 1435 ml # Voids 2 5 # Bowel Movements 1 Vital Signs Date Time Temp Pulse Resp B/P Pulse Ox O2 Delivery O2 Flow Rate FiO2 01/23/17 19:49 100 100 01/23/17 19:25 50 01/23/17 19:25 98.6 74 14 124/75 99 Mechanical Ventilator 50 01/23/17 19:15 74 14 124/75 99 Mechanical Ventilator 50 01/23/17 19:00 75 14 146/82 99 Mechanical Ventilator 50 01/23/17 18:45 75 14 122/73 99 Mechanical Ventilator 50 01/23/17 18:30 50 01/23/17 18:30 76 14 134/78 100 Mechanical Ventilator 50 01/23/17 18:15 77 14 97/58 99 Mechanical Ventilator 50 01/23/17 18:00 66 14 107/69 100 Mechanical Ventilator 50 01/23/17 17:45 99 14 93/57 99 Mechanical Ventilator 50 01/23/17 17:29 50 01/23/17 17:29 98.6 111 14 151/68 99 Mechanical Ventilator 50 01/23/17 17:29 99 50 01/23/17 13:05 88 01/23/17 12:00 96.3 96 20 150/73 99 01/23/17 08:00 96.9 88 20 139/68 95 01/23/17 04:00 98.2 86 18 142/79 100 01/23/17 00:00 97.6 76 18 121/63 98 -: 01/23/17 2105 01/23/17 0640 Physical Exam General Appearance: Malnourished Appearance Remarks Intubated and sedated. Eyes Eye Exam: Pupils Equal, Pupils Reactive Ears & Nose Ears & Nose Exam: Nasal Mucosa [place] Neck Neck Exam: Neck Supple, Trachea Midline Pulmonary Resp Exam: No Distress, Decreased Bases, Poor Inspiratory Effort Cardiology CV Exam: Regular Gastrointestinal/Abdomen GI Exam: Soft, Non-Tender, Bowel Sounds Present, Non-Distended Musculoskeletal MS Exam: Atrophy Integumentary Skin Exam: Warm Extremeties Extremities Exam: Trace Edema Neurologic Neuro Exam: Sedated VTE Prophylaxis Device: SCDs Assessment/Plan Assessment Summary: Dehydration, Hypertension, CKD Stage IV Problem List: (1) Dehydration (2) UTI (urinary tract infection) (3) HTN (hypertension) (4) DM (diabetes mellitus) (5) CKD (chronic kidney disease) stage 4, GFR 15-29 ml/min (6) History of CVA with residual deficit (7) Altered mental status (8) Acute on chronic renal failure Plan Patient has now stage 3 chronic kidney disease. Has Thyroid Nodule. Will need to see Endocrinology after D/C. TSH was normal. Now on Cefepime and Metronidazole. ID following. Check serum immunofixation, in progress. Patient now has debridement. Develop swelling of tongue and intubated. Now for transfer to [facility]. Given steroid, for observation. 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
[2017-01-23] MEDS: PRAVASTATIN SOD 40 MG TAB PO SCH (22:33)
[2017-01-23] MEDS: FAMOTIDINE 20 MG/2 ML VIAL IV PUSH SCH (22:34)
[2017-01-23] MEDS: diphenhydrAMINE HCL 50 MG/ML VIAL IM SCH (22:34)
[2017-01-23] MEDS: DEXAMETHASONE SOD PHOS 20 MG/5 ML VIAL IV PUSH SCH (23:14)
[2017-01-24] VITALS (17 sets, daily range): BP systolic 115–151; BP diastolic 65–90; PULSE 56–84; RESP 12–16; TEMP 97.4–97.6; O2SAT 100
[2017-01-24] MEDS: CEFEPIME INJ 2,000 MG in SODIUM CHLORIDE 0.9% INJ 100 ML IV SCH (00:56)
[2017-01-24] MEDS: LACTATED RINGER'S 1000 ML INJ 1,000 ML IV SCH (01:34)
[2017-01-24] MEDS: diphenhydrAMINE HCL 50 MG/ML VIAL IM SCH ×4 (03:04→20:38)
[2017-01-24 04:13] LABS: AUTOMATED NEUTROPHIL # 9.7 TH/MM3 (1.8-7.7); BASOPHIL % 0.2 % (0.0-2.0); EOSINOPHIL % 0.1 % (0.0-4.0); HEMATOCRIT 35.5 % (35.0-46.0); LYMPH % 5.6 % (9.0-44.0); LYMPHOCYTE # 0.6 TH/MM3 (1.0-4.8); MEAN CELL VOLUME 91.3 FL (80.0-100.0); MEAN CORPUSCULAR HEMOGLOBIN 29.6 PG (27.0-34.0); MEAN CORPUSCULAR HGB CONC 32.4 % (32.0-36.0); MONO % 2.2 % (0.0-8.0); NEUT % 91.9 % (16.0-70.0); PLATELET COUNT 345 TH/MM3 (150-450); RED BLOOD COUNT 3.89 MIL/MM3 (4.00-5.30); RED CELL DISTRIBUTION WIDTH 16.5 % (11.6-17.2); WHITE BLOOD COUNT 10.6 TH/MM3 (4.0-11.0)
[2017-01-24 04:14] LABS: HEMO FLAGS AUTO DIFF
[2017-01-24] MEDS: PROPOFOL 1000 MG/100 ML IV SCH ×3 (04:34→20:38)
[2017-01-24 04:42] LABS: BICARBONATE 17.7 MEQ/L (21.0-32.0); POTASSIUM 4.4 MEQ/L (3.5-5.1)
[2017-01-24 05:23] LABS: BANDS 11 % (0-6); METAMYELOCYTES 4 % (0-1); MYELOCYTES 3 % (0-0); NEUTROPHIL # MANUAL DIFF 9.9 TH/MM3 (1.8-7.7); PLATELET ESTIMATE SMEAR NORMAL (NORMAL); PLATELET MORPHOLOGY NORMAL (NORMAL); POLYS (SEG NEUTROPHILS) 75 % (16-70); SCAN/DIFF FINAL DIFF MANUAL; WBC DIFF SAMPLE 100
[2017-01-24] MEDS: metroNIDAZOLE 500 MG INJ 100 ML IV SCH ×3 (06:43→22:49)
[2017-01-24] MEDS: INSULIN ASPART SUPPLEMENTAL SCALE SQ SCH ×4 (06:54→22:49)
[2017-01-24] MEDS: FAMOTIDINE 20 MG TAB PO SCH ×2 (09:00→20:39)
[2017-01-24] MEDS: CINACALCET HYDROCHLORIDE 30 MG TAB PO SCH (09:00)
[2017-01-24] MEDS: POVIDONE IODINE 10% SOLN 118 ML BOTTLE TOP SCH ×2 (09:00→20:39)
[2017-01-24] MEDS: COLLAGENASE OINT 30 GM TUBE TOP SCH (09:00)
[2017-01-24] MEDS: FAMOTIDINE 20 MG/2 ML VIAL IV PUSH SCH ×2 (09:24→20:39)
[2017-01-24] MEDS: METOCLOPRAMIDE HCL 10 MG TAB PO SCH ×4 (09:24→20:38)
[2017-01-24] MEDS: DEXAMETHASONE SOD PHOS 20 MG/5 ML VIAL IV PUSH SCH (09:24)
[2017-01-24] MEDS: cloNIDine HCL 0.2 MG TAB PO SCH ×2 (09:25→20:38)
[2017-01-24] MEDS: FLUoxetine HCL 20 MG CAP PO SCH (09:25)
[2017-01-24] MEDS: BENEPROTEIN POWDER 1 PACK G-TUBE SCH ×3 (09:25→17:35)
[2017-01-24] MEDS: SODIUM CHLORIDE 0.9% FLUSH 5 ML FLUSH FLUSH SCH ×2 (09:25→20:39)
[2017-01-24] MEDS: LACTULOSE SYRUP 20 GM/30 ML CUP PO SCH (09:26)
[2017-01-24] MEDS: SODIUM CHLOR 0.45% 1000 ML INJ 1,000 ML IV SCH (09:28)
[2017-01-24] MEDS: FLUCONAZOLE 200 MG PREMIX BAG 100 ML IV SCH (09:28)
--- NOTE | 2017-01-24 14:13 | HHI.CCPN ---
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 She is bed ridden and totally dependent on DLA. She has developed stage IV sacral ulcer and became clinically worsening including hypoglycemia and leukocytosis. She was taken to operating room for debridement of a sacral ulcer. During the general anesthesia and surgical procedure she developed angioedema and postprocedure remained intubated for an airway protection. 01/24: Will attempt to extubate when tongue swelling improves. Cardiomegaly impressive. Objective Vital Signs Date Time Temp Pulse Resp B/P Pulse Ox O2 Delivery O2 Flow Rate FiO2 01/24/17 12:00 40 01/24/17 12:00 97.6 80 16 115/65 100 01/23/17 19:25 Mechanical Ventilator Intake and Output 01/23/17 01/23/17 01/24/17 08:00 16:00 00:00 Intake Total 620 ml 1423 ml Output Total 925 ml Balance 620 ml 498 ml Result Diagram: 01/24/17 0325 01/24/17 0325 Other Results Laboratory Tests Test 01/23/17 01/23/17 17:58 21:55 Blood Gas Puncture Site LT RADIAL LT RADIAL Blood Gas Patient Temperature 98.6 98.6 Blood Gas HCO3 17 mmol/L 17 mmol/L (22-26) (22-26) Blood Gas Base Excess -8.2 mmol/L -7.6 mmol/L (-2-2) (-2-2) Blood Gas Oxygen Saturation 96 % (90-100) 97 % (90-100) Arterial Blood pH 7.31 7.38 (7.380-7.420) (7.380-7.420) Arterial Blood Partial 35 mmHg (38-42) 29 mmHg (38-42) Pressure CO2 Arterial Blood Partial 125 mmHg 165 mmHg Pressure O2 (61-120) (61-120) Arterial Blood Oxygen Content 13.3 Vol % 16.4 Vol % (12.0-20.0) (12.0-20.0) Arterial Blood 1.2 % (0-4) 1.0 % (0-4) Carboxyhemoglobin Arterial Blood Methemoglobin 1.3 % (0-2) 1.1 % (0-2) Blood Gas Hemoglobin 9.7 G/DL 11.8 G/DL (12.0-16.0) (12.0-16.0) Oxygen Delivery Device VENTILATOR VENTILATOR Blood Gas Ventilator Setting 500/AC12/PEEP5 AC/12/500/PEEP 5 Blood Gas Inspired Oxygen 50 % 50 % Objective Remarks GENERAL: To be dictation on mechanical ventilation in no acute distress SKIN: Warm and dry. HEAD: Normocephalic. Angioedema of the tongue perstsists. EYES: No scleral icterus. NECK: Supple, trachea midline. CARDIOVASCULAR: Regular rate and rhythm without murmurs, gallops, or rubs. No JVD. RESPIRATORY: Breath sounds equal bilaterally. No accessory muscle use. GASTROINTESTINAL: Abdomen soft, non-tender, nondistended. MUSCULOSKELETAL: No cyanosis, or edema. BACK: Nontender without obvious deformity. No CVA tenderness. EXTREMITIES: No clubbing cyanosis or edema NEURO: Alert, follows commands. A/P Assessment and Plan Respiratory failure - Intubated for an airway protection - Continue mechanical ventilation - no weaning until it edema improves Angioedema - Unknown origin - Decadron - H1 H2 blockers IV - Supportive care Diabetes - Levemir and insulin sliding scale - Glucerna tube feeds Stage IV chronic kidney disease - Per nephrology Stage IV sacral ulcer - Status post debridement - Further per surgery and infectious disease DVT GI prophylaxis - Teds SCDs subcutaneous heparin and Pepcid Overall impression: Critical airway - will extubate when patent's oral/tongue edema resolves. Miah Alvarez MD Jan 24, 2017 14:12
[2017-01-24] MEDS ORDERED: PHARMACY ORDERED LAB ONE (16:45)
[2017-01-24] MEDS ORDERED: VANCOMYCIN 1,000 MG/NS 250 ML IV SCH ×2 (17:00)
--- NOTE | 2017-01-24 18:44 | HHI.NPPN ---
Subjective History of Present Illness 66-year-old female with past medical history of hypertension, diabetes mellitus, chronic kidney disease, history of cerebrovascular accident with left-sided weakness who was brought to the hospital because of altered mental status. I was called to see the patient because of elevated BUN and creatinine. The patient has known history of chronic kidney disease. She has been following with Dr. Ramos. Additional Remarks Patient remain intubated and sedated. Objective Data Data 01/23/17 01/24/17 19:00 07:00 Intake Total 1250 ml 845 ml Output Total 650 ml 595 ml Balance 600 ml 250 ml IV Total 250 ml 845 ml Other 1000 ml Output Urine Total 600 ml 525 ml Drainage Total 70 ml Estimated Blood Loss 50 ml # Bowel Movements 0 Vital Signs Date Time Temp Pulse Resp B/P Pulse Ox O2 Delivery O2 Flow Rate FiO2 01/24/17 16:00 40 01/24/17 16:00 97.4 80 12 134/73 100 01/24/17 15:28 100 40 01/24/17 12:00 40 01/24/17 12:00 97.6 80 16 115/65 100 01/24/17 09:16 100 40 01/24/17 08:00 40 01/24/17 08:00 97.4 77 12 130/77 100 01/24/17 07:15 80 01/24/17 04:29 100 40 01/24/17 04:00 97.6 80 14 151/90 100 01/24/17 00:45 100 40 01/24/17 00:00 97.5 81 12 142/83 100 01/23/17 22:30 40 01/23/17 20:00 86 01/23/17 20:00 50 01/23/17 20:00 97.6 82 12 166/91 100 01/23/17 19:49 100 100 01/23/17 19:45 100 50 01/23/17 19:25 50 01/23/17 19:25 98.6 74 14 124/75 99 Mechanical Ventilator 50 01/23/17 19:15 74 14 124/75 99 Mechanical Ventilator 50 01/23/17 19:00 75 14 146/82 99 Mechanical Ventilator 50 01/23/17 18:45 75 14 122/73 99 Mechanical Ventilator 50 -: 01/24/17 0325 01/24/17 0325 Physical Exam General Appearance: Malnourished Appearance Remarks Intubated and sedated. Eyes Eye Exam: Pupils Equal, Pupils Reactive Ears & Nose Ears & Nose Exam: Nasal Mucosa Diagonal Neck Neck Exam: Neck Supple, Trachea Midline Pulmonary Resp Exam: No Distress, Decreased Bases, Poor Inspiratory Effort Cardiology CV Exam: Regular Gastrointestinal/Abdomen GI Exam: Soft, Non-Tender, Bowel Sounds Present, Non-Distended Musculoskeletal MS Exam: Atrophy Integumentary Skin Exam: Warm Extremeties Extremities Exam: Trace Edema Neurologic Neuro Exam: Sedated VTE Prophylaxis Device: SCDs Assessment/Plan Assessment Summary: Dehydration, Hypertension, CKD Stage IV Problem List: (1) Dehydration (2) UTI (urinary tract infection) (3) HTN (hypertension) (4) DM (diabetes mellitus) (5) CKD (chronic kidney disease) stage 4, GFR 15-29 ml/min (6) History of CVA with residual deficit (7) Altered mental status (8) Acute on chronic renal failure Plan Patient has now stage 3 chronic kidney disease. Has Thyroid Nodule. Will need to see Endocrinology after D/C. TSH was normal. Now on Cefepime and Metronidazole. ID following. Check serum immunofixation, in progress. Patient now has debridement. Develop swelling of tongue and intubated. Now for transfer to [facility]. Given steroid, for observation. Hgb. is stable, Creatinine is also same. D/W the . Problem Qualifiers (1) UTI (urinary tract infection): Qualified Code: N39.0 - Urinary tract infection without hematuria, site unspecified (2) HTN (hypertension): Qualified Code: I10 - Essential hypertension (3) DM (diabetes mellitus): Qualified Code: E11.49 - Type 2 diabetes mellitus with other neurologic complication, unspecified alf insulin use status (4) Altered mental status: Qualified Code: R40.4 - Transient alteration of awareness Chelsea Mora MD Jan 24, 2017 18:44
--- NOTE | 2017-01-24 20:06 | HHI.IDPN ---
Subjective Subjective Remarks Events noted Pt went to OR for debridement of her L thigh and developpped angioedema remains intubated off pressors afebrile vanco held / high trough Antibiotics vanco cefepime fluconazol flagyl Allergies: Coded Allergies: Penicillin (Verified Allergy, Severe, rash/itching, 01/10/17) *MDRO Multi-Drug Resistant Organism (Verified Adverse Reaction, Unknown, ) MRSA (buttock)-01/15/17 Uncoded Allergies: CILLINS ALL (Allergy, Severe, 07/23/10) Objective . Vital Signs Date Time Temp Pulse Resp B/P Pulse Ox O2 Delivery O2 Flow Rate FiO2 01/24/17 18:00 79 01/24/17 16:00 40 01/24/17 16:00 97.4 80 12 134/73 100 01/24/17 16:00 80 01/24/17 15:28 100 40 01/24/17 14:00 78 01/24/17 12:00 40 01/24/17 12:00 97.6 80 16 115/65 100 01/24/17 12:00 80 01/24/17 10:00 84 01/24/17 09:16 100 40 01/24/17 08:00 40 01/24/17 08:00 80 01/24/17 08:00 97.4 77 12 130/77 100 01/24/17 07:15 80 01/24/17 04:29 100 40 01/24/17 04:00 97.6 80 14 151/90 100 01/24/17 00:45 100 40 01/24/17 00:00 97.5 81 12 142/83 100 01/23/17 22:30 40 01/23/17 01/23/17 01/24/17 15:00 23:00 07:00 Intake Total 1423 ml 672 ml Output Total 925 ml 320 ml Balance 498 ml 352 ml IV Total 423 ml 672 ml Other 1000 ml Output Urine Total 825 ml 300 ml Drainage Total 50 ml 20 ml Estimated Blood Loss 50 ml # Bowel Movements 0 . Laboratory Tests Test 01/23/17 01/24/17 21:05 03:25 White Blood Count 14.1 TH/MM3 10.6 TH/MM3 Red Blood Count 3.79 MIL/MM3 3.89 MIL/MM3 Hemoglobin 11.4 GM/DL 11.5 GM/DL Hematocrit 34.5 % 35.5 % Mean Corpuscular Volume 90.9 FL 91.3 FL Mean Corpuscular Hemoglobin 30.1 PG 29.6 PG Mean Corpuscular Hemoglobin 33.1 % 32.4 % Concent Red Cell Distribution Width 16.4 % 16.5 % Platelet Count 422 TH/MM3 345 TH/MM3 Mean Platelet Volume 8.1 FL 7.8 FL Neutrophils (%) (Auto) 91.9 % Lymphocytes (%) (Auto) 5.6 % Monocytes (%) (Auto) 2.2 % Eosinophils (%) (Auto) 0.1 % Basophils (%) (Auto) 0.2 % Neutrophils # (Auto) 9.7 TH/MM3 Lymphocytes # (Auto) 0.6 TH/MM3 Monocytes # (Auto) 0.2 TH/MM3 Eosinophils # (Auto) 0.0 TH/MM3 Basophils # (Auto) 0.0 TH/MM3 CBC Comment AUTO DIFF Differential Total Cells 100 Counted Neutrophils % (Manual) 75 % Band Neutrophils % 11 % Lymphocytes % 6 % Monocytes % 1 % Neutrophils # (Manual) 9.9 TH/MM3 Metamyelocytes 4 % Myelocytes 3 % Differential Comment FINAL DIFF MANUAL Platelet Estimate NORMAL Platelet Morphology Comment NORMAL Laboratory Tests Test 01/23/17 01/24/17 06:40 03:25 Sodium Level 139 MEQ/L 141 MEQ/L Potassium Level 3.9 MEQ/L 4.4 MEQ/L Chloride Level 113 MEQ/L 111 MEQ/L Carbon Dioxide Level 14.9 MEQ/L 17.7 MEQ/L Anion Gap 11 MEQ/L 12 MEQ/L Blood Urea Nitrogen 15 MG/DL 15 MG/DL Creatinine 1.42 MG/DL 1.49 MG/DL Estimat Glomerular Filtration 45 ML/MIN 42 ML/MIN Rate Random Glucose 74 MG/DL 150 MG/DL Calcium Level 8.5 MG/DL 8.9 MG/DL Imaging Last Impressions Chest X-Ray 01/23/17 0000 Signed Impressions: Service Date/Time: Monday, January 23, 2017 20:58 - CONCLUSION: Dense left lung base consolidation and mild case of pulmonary edema is not excluded. Gabriele Ambrosio MD Lower Extremity CT 01/16/17 0000 Signed Impressions: Service Date/Time: Monday, January 16, 2017 21:27 - CONCLUSION: Large air and fluid collection within the subcutaneous tissues of the posterior lateral upper thigh and base of the left buttock measuring 10.4 x 8.1 x 6.4 cm consistent with large subcutaneous abscess and surrounding diffuse cellulitis. Shaw Morfin MD Neck Ultrasound 01/13/17 0000 Signed Impressions: Service Date/Time: Friday, January 13, 2017 08:58 - CONCLUSION: 1. Could not identify parathyroid tissue. 2. 3 mm, isolated hypoechoic nodule in the right lobe of the thyroid isolated 5 mm cyst in the left lobe of the thyroid. David Mason MD Head CT 01/10/17 0038 Signed Impressions: Service Date/Time: Tuesday, January 10, 2017 01:23 - CONCLUSION: No significant change has occurred. Samuel Don MD Physical Exam CONSTITUTIONAL/GENERAL: This is an adequately nourished patient, in no apparent distress. TUBES/LINES/DRAINS: SKIN: No jaundice, rashes, HEAD: Atraumatic. Normocephalic. EYES: Pupils equal and round and reactive. Extraocular motions intact. No scleral icterus. No injection or drainage. Fundi not examined. ENT:Oral mucosae moist without visible erythema; swollen lips and toungue orally intubated CARDIOVASCULAR: Regular rate and rhythm without murmurs, gallops, or rubs. No JVD. Peripheral pulses symmetric. RESPIRATORY/CHEST: Symmetric, unlabored respirations. Clear to auscultation. Breath sounds equal bilaterally. No wheezes, rales, or rhonchi. GASTROINTESTINAL: Abdomen soft, non-tender, nondistended. No hepato-splenomegaly , or palpable masses. No guarding. Bowel sounds present. MUSCULOSKELETAL: Extremities without clubbing, cyanosis, or edema. VAC in place L LE with serosang dc LYMPHATICS: No palpable cervical or supraclavicular adenopathy. NEUROLOGICAL: sedated. L side with hemiplegia (baseline); Assessment & Plan Remarks Bedridden non verbal pt with h/o devastating stroke L thigh/L buttock decub, appears clinically infected L buttock abscess, MRSA - clx is growing MRSA and E.coli base of the left buttock measuring 10.4 x 8.1 x 6.4 cm consistent with large subcutaneous abscess and surrounding diffuse cellulitis -abelardo is likely representing colonisation UTI, E.coli PCN allergy , but uneventfully took cefepime in 2009 CKD approaching ESRD New issue: During the general anesthesia and surgical procedure she developed angioedema and postprocedure remained intubated for an airway protection. Acute VDRF ? PNA -cont vancomycin, - cont flagyl and cefepime - dc fluconazol - chk spiutum clx - monitor closely pts GFR Discussed Condition With at b/s Janice Navarrete MD Jan 24, 2017 20:06
[2017-01-24] MEDS: PRAVASTATIN SOD 40 MG TAB PO SCH (20:38)
--- NOTE | 2017-01-24 23:12 | HHI.PR ---
Subjective Interval History patient seen in ICU intubated sec to angioedema s/p wound debridement and wound vac placement at bed side Vitals/Results Intake & Output 01/23/17 01/23/17 01/24/17 14:59 22:59 06:59 Intake Total 620 ml 1423 ml 672 ml Output Total 925 ml 320 ml Balance 620 ml 498 ml 352 ml IV Total 620 ml 423 ml 672 ml Other 1000 ml Output Urine Total 825 ml 300 ml Drainage Total 50 ml 20 ml Estimated Blood Loss 50 ml # Bowel Movements 0 Vital Signs Vital Signs Date Time Temp Pulse Resp B/P Pulse Ox O2 Delivery O2 Flow Rate FiO2 01/24/17 22:00 56 01/24/17 20:36 100 40 01/24/17 20:00 97.6 80 12 137/67 100 01/24/17 20:00 40 01/24/17 20:00 80 01/24/17 19:00 100 Mechanical Ventilator 40 01/24/17 18:00 79 01/24/17 16:00 40 01/24/17 16:00 97.4 80 12 134/73 100 01/24/17 16:00 80 01/24/17 15:28 100 40 01/24/17 14:00 78 01/24/17 12:00 40 01/24/17 12:00 97.6 80 16 115/65 100 01/24/17 12:00 80 01/24/17 10:00 84 01/24/17 09:16 100 40 01/24/17 08:00 40 01/24/17 08:00 80 01/24/17 08:00 97.4 77 12 130/77 100 01/24/17 07:15 80 01/24/17 04:29 100 40 01/24/17 04:00 97.6 80 14 151/90 100 01/24/17 00:45 100 40 01/24/17 00:00 97.5 81 12 142/83 100 CBC/BMP: 01/24/17 0325 01/24/17 0325 Lab Results Laboratory Tests Test 01/24/17 01/24/17 03:25 15:00 White Blood Count 10.6 TH/MM3 Red Blood Count 3.89 MIL/MM3 Hemoglobin 11.5 GM/DL Hematocrit 35.5 % Mean Corpuscular Volume 91.3 FL Mean Corpuscular Hemoglobin 29.6 PG Mean Corpuscular Hemoglobin 32.4 % Concent Red Cell Distribution Width 16.5 % Platelet Count 345 TH/MM3 Mean Platelet Volume 7.8 FL Neutrophils (%) (Auto) 91.9 % Lymphocytes (%) (Auto) 5.6 % Monocytes (%) (Auto) 2.2 % Eosinophils (%) (Auto) 0.1 % Basophils (%) (Auto) 0.2 % Neutrophils # (Auto) 9.7 TH/MM3 Lymphocytes # (Auto) 0.6 TH/MM3 Monocytes # (Auto) 0.2 TH/MM3 Eosinophils # (Auto) 0.0 TH/MM3 Basophils # (Auto) 0.0 TH/MM3 CBC Comment AUTO DIFF Differential Total Cells 100 Counted Neutrophils % (Manual) 75 % Band Neutrophils % 11 % Lymphocytes % 6 % Monocytes % 1 % Neutrophils # (Manual) 9.9 TH/MM3 Metamyelocytes 4 % Myelocytes 3 % Differential Comment FINAL DIFF MANUAL Platelet Estimate NORMAL Platelet Morphology Comment NORMAL Sodium Level 141 MEQ/L Potassium Level 4.4 MEQ/L Chloride Level 111 MEQ/L Carbon Dioxide Level 17.7 MEQ/L Anion Gap 12 MEQ/L Blood Urea Nitrogen 15 MG/DL Creatinine 1.49 MG/DL Estimat Glomerular Filtration 42 ML/MIN Rate Random Glucose 150 MG/DL Calcium Level 8.9 MG/DL Vancomycin Level Trough 24.5 MCG/ML Physical Exam General General Appearance: Malnourished Appearance Remarks intubated and sedated faciial swelling Eyes Eye Exam: Pupils Equal, Pupils Reactive Ears & Nose Ears & Nose Exam: Nasal Mucosa [place] Neck Neck Exam: Neck Supple, Trachea Midline Pulmonary Resp Exam: No Distress, Decreased Bases, Poor Inspiratory Effort Cardiology CV Exam: Regular Gastrointestinal/Abdomen GI Exam: Soft, Non-Tender, Bowel Sounds Present, Non-Distended Musculoskeletal MS Exam: Atrophy Integumentary Skin Exam: Warm Skin Remarks wound vac left thigh Extremeties Extremities Exam: Trace Edema Neurologic Neuro Exam: Sedated VTE Prophylaxis VTE Prophylaxis Device: SCDs VTE Prophylaxis Meds: Heparin Assessment/Plan Problem List: (1) Altered mental status (2) Dehydration (3) Hypoglycemia (4) UTI (urinary tract infection) (5) HTN (hypertension) (6) DM (diabetes mellitus) (7) CKD (chronic kidney disease) stage 4, GFR 15-29 ml/min (8) History of CVA with residual deficit (9) Pressure ulcer (10) Hypercalcemia (11) Leukocytosis (12) Acute on chronic renal failure Assessment/Plan 66-year-old female with history of chronic kidney disease, hypertension, hyperlipidemia, CVA with left-sided hemiparesis, type 2 diabetes. Admitted with hypoglycemia, altered mental status. Found with UTI, acute on chronic renal failure, dehydration. intubated for airway protection, sec to angoedema, continue stroids and benadryl Anemia -Likely of chronic disease status post blood transfusion arch 27. Stable, will monitor Decubitus ulcer with abscess left buttock and thigh -Wound care is following -Report of CT lower extremity reviewed. Wound culture showing MRSA abx per ID, -Plastic surgery consult appreciated.s/p debridement Altered mental status secondary to hypoglycemia, infection, dehydration, acute on chronic renal failure. back to baseline. -accuchecks AC/HS with low dose ISS on pureed diet prior to intubation UTI, with significant leukocytosis, improving -Culture report seen adjust antibiotic -Escherichia coli resistant to Cipro will change to Bactrim. Also Gardnerella vaginalis with a start metronidazole Acute on CKD, stage V, pt. nearing HD per history. Possibly worst secondary to dehydration, improving. -nephrology-input appreciated -avoid nephrotoxic agents Avoid diuretics -follow BMP Hypercalcemia, etiology unclear, on calcium supplements, also prolonged bed rest -better today . Improving -Hold calcium supplements Continue with hydration Nephrology on board, input appreciated Dysphasia, risk for aspiration-it was d/w on January 11, wants to continue Pureed diet at this time. May need PEG at some point. -appreciate speech input -HOB up -Aspiration precautions History of CVA with residual deficits, left-sided hemiplegia, dysphasia, expressive aphasia. It appears to be declining. CT of the head negative for any acute findings Continue with home medications Physical therapy, speech therapy -Continue with aspirin and statins Hypertension, stable Continue with home medications Thyroid nodule -Follow endocrinology as outpatient Labs for tomorrow SCDs and heparin for DVT prophylaxis Discussed with bedside in detail again D/W RN Problem Qualifiers (1) Altered mental status: Qualified Code: R40.4 - Transient alteration of awareness (2) UTI (urinary tract infection): Qualified Code: N39.0 - Urinary tract infection without hematuria, site unspecified (3) HTN (hypertension): Qualified Code: I10 - Essential hypertension (4) DM (diabetes mellitus): Qualified Code: E11.49 - Type 2 diabetes mellitus with other neurologic complication, unspecified care home insulin use status (5) Leukocytosis: Qualified Code: D72.829 - Leukocytosis, unspecified type Monserrat Heath MD Jan 24, 2017 23:12
[2017-01-25] VITALS (18 sets, daily range): BP systolic 114–166; BP diastolic 66–89; PULSE 74–97; RESP 12; TEMP 97.3–98.3; O2SAT 100
[2017-01-25] MEDS: CEFEPIME INJ 2,000 MG in SODIUM CHLORIDE 0.9% INJ 100 ML IV SCH (01:46)
[2017-01-25] MEDS: LACTATED RINGER'S 1000 ML INJ 1,000 ML IV SCH (02:50)
[2017-01-25] MEDS: diphenhydrAMINE HCL 50 MG/ML VIAL IM SCH ×4 (04:38→21:15)
[2017-01-25] MEDS: SODIUM CHLOR 0.45% 1000 ML INJ 1,000 ML IV SCH ×3 (04:38→21:15)
[2017-01-25 05:10] LABS: BICARBONATE 16.3 MEQ/L (21.0-32.0)
[2017-01-25 05:14] LABS: POTASSIUM 4.4 MEQ/L (3.5-5.1)
[2017-01-25] MEDS: INSULIN ASPART SUPPLEMENTAL SCALE SQ SCH ×4 (06:11→21:00)
[2017-01-25] MEDS: metroNIDAZOLE 500 MG INJ 100 ML IV SCH ×3 (06:11→23:29)
[2017-01-25] MEDS: cloNIDine HCL 0.2 MG TAB PO SCH ×2 (08:31→21:00)
[2017-01-25] MEDS: FAMOTIDINE 20 MG TAB PO SCH ×2 (08:32→21:34)
[2017-01-25] MEDS: LACTULOSE SYRUP 20 GM/30 ML CUP PO SCH (08:32)
[2017-01-25] MEDS: METOCLOPRAMIDE HCL 10 MG TAB PO SCH ×4 (08:32→21:32)
[2017-01-25] MEDS: DEXAMETHASONE SOD PHOS 20 MG/5 ML VIAL IV PUSH SCH (08:32)
[2017-01-25] MEDS: FAMOTIDINE 20 MG/2 ML VIAL IV PUSH SCH (08:33)
[2017-01-25] MEDS: FLUoxetine HCL 20 MG CAP PO SCH (08:33)
[2017-01-25] MEDS: CINACALCET HYDROCHLORIDE 30 MG TAB PO SCH (08:34)
[2017-01-25] MEDS: POVIDONE IODINE 10% SOLN 118 ML BOTTLE TOP SCH ×2 (08:34→21:00)
[2017-01-25] MEDS: COLLAGENASE OINT 30 GM TUBE TOP SCH (08:34)
[2017-01-25] MEDS: BENEPROTEIN POWDER 1 PACK G-TUBE SCH ×3 (08:36→17:08)
[2017-01-25] MEDS: SODIUM CHLORIDE 0.9% FLUSH 5 ML FLUSH FLUSH SCH ×2 (08:36→21:00)
--- NOTE | 2017-01-25 10:00 | HHI.CCPN ---
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 She is bed ridden and totally dependent on DLA. She has developed stage IV sacral ulcer and became clinically worsening including hypoglycemia and leukocytosis. She was taken to operating room for debridement of a sacral ulcer. During the general anesthesia and surgical procedure she developed angioedema and postprocedure remained intubated for an airway protection. 01/24: Will attempt to extubate when tongue swelling improves. Cardiomegaly impressive. 01/25: Tongue edema persists, airway is compromised. Will continue intubation. 01/26: Edema improved but still drooling and air obstructed. Continue intubation. Objective Vital Signs Date Time Temp Pulse Resp B/P Pulse Ox O2 Delivery O2 Flow Rate FiO2 01/25/17 08:57 100 40 01/25/17 08:00 98.3 76 12 126/66 01/25/17 07:00 Mechanical Ventilator Intake and Output 01/24/17 01/24/17 01/25/17 08:00 16:00 00:00 Intake Total 672 ml 1075 ml 750 ml Output Total 320 ml 250 ml 225 ml Balance 352 ml 825 ml 525 ml Result Diagram: 01/24/17 0325 01/25/17 0410 Objective Remarks GENERAL: To be dictation on mechanical ventilation in no acute distress SKIN: Warm and dry. HEAD: Normocephalic. Angioedema of the tongue persists, but improved. EYES: No scleral icterus. Periorbital edema. NECK: Supple, trachea midline. CARDIOVASCULAR: Regular rate and rhythm without murmurs, gallops, or rubs. No JVD. RESPIRATORY: Breath sounds equal bilaterally. Clear, no wheezes. GASTROINTESTINAL: Abdomen soft, non-tender, nondistended. BS active. MUSCULOSKELETAL: No cyanosis, or edema. BACK: Nontender without obvious deformity. No CVA tenderness. EXTREMITIES: No clubbing cyanosis or edema NEURO: Alert, follows commands. A/P Assessment and Plan Respiratory failure - Intubated for an airway protection - Continue mechanical ventilation - no extubation until it edema improves - Start SBTs Angioedema - Unknown origin - Decadron - H1 H2 blockers IV - Supportive care Diabetes - Levemir and insulin sliding scale - Glucerna tube feeds Stage IV chronic kidney disease - Per nephrology Stage IV sacral ulcer - Status post debridement - Further per surgery and infectious disease DVT GI prophylaxis - Teds SCDs subcutaneous heparin and Pepcid Overall impression: Critical airway - will extubate when patent's oral/tongue edema resolves. SBTs started. Miah Alvarez MD Jan 25, 2017 10:00
--- NOTE | 2017-01-25 10:33 | HHI.NPPN ---
Subjective History of Present Illness 66-year-old female with past medical history of hypertension, diabetes mellitus, chronic kidney disease, history of cerebrovascular accident with left-sided weakness who was brought to the hospital because of altered mental status. I was called to see the patient because of elevated BUN and creatinine. The patient has known history of chronic kidney disease. She has been following with Dr. Ramos. Additional Remarks Patient remain intubated and now off sedation and on CPAP. Objective Data Data 01/24/17 01/25/17 19:00 07:00 Intake Total 1075 ml 1990 ml Output Total 250 ml 475 ml Balance 825 ml 1515 ml IV Total 883 ml 1021 ml Tube Feeding 192 ml 569 ml Tube Irrigant 400 ml Output Urine Total 225 ml 475 ml Tube Feeding Residual Discard 0 ml Drainage Total 25 ml 0 ml # Bowel Movements 0 0 Vital Signs Date Time Temp Pulse Resp B/P Pulse Ox O2 Delivery O2 Flow Rate FiO2 01/25/17 08:57 100 40 01/25/17 08:45 40 01/25/17 08:00 98.3 76 12 126/66 100 01/25/17 08:00 76 01/25/17 08:00 40 01/25/17 07:00 100 Mechanical Ventilator 40 01/25/17 06:00 76 01/25/17 04:25 100 40 01/25/17 04:00 40 01/25/17 04:00 98.1 76 12 136/71 100 01/25/17 04:00 76 01/25/17 02:00 74 01/25/17 00:00 98.2 78 12 120/66 100 01/25/17 00:00 78 01/25/17 00:00 40 01/24/17 23:50 100 40 01/24/17 22:00 56 01/24/17 20:36 100 40 01/24/17 20:00 97.6 80 12 137/67 100 01/24/17 20:00 40 01/24/17 20:00 80 01/24/17 19:00 100 Mechanical Ventilator 40 01/24/17 18:00 79 01/24/17 16:00 40 01/24/17 16:00 97.4 80 12 134/73 100 01/24/17 16:00 80 01/24/17 15:28 100 40 01/24/17 14:00 78 01/24/17 12:00 40 01/24/17 12:00 97.6 80 16 115/65 100 01/24/17 12:00 80 -: 01/24/17 0325 01/25/17 0410 Physical Exam General Appearance: Malnourished Appearance Remarks Intubated and sedated. Eyes Eye Exam: Pupils Equal, Pupils Reactive Ears & Nose Ears & Nose Exam: Nasal Mucosa [place] Neck Neck Exam: Neck Supple, Trachea Midline Pulmonary Resp Exam: No Distress, Decreased Bases, Poor Inspiratory Effort Cardiology CV Exam: Regular Gastrointestinal/Abdomen GI Exam: Soft, Non-Tender, Bowel Sounds Present, Non-Distended Musculoskeletal MS Exam: Atrophy Integumentary Skin Exam: Warm Extremeties Extremities Exam: Trace Edema Neurologic Neuro Exam: Sedated VTE Prophylaxis Device: SCDs Assessment/Plan Assessment Summary: Dehydration, Hypertension, CKD Stage IV Problem List: (1) Dehydration (2) UTI (urinary tract infection) (3) HTN (hypertension) (4) DM (diabetes mellitus) (5) CKD (chronic kidney disease) stage 4, GFR 15-29 ml/min (6) History of CVA with residual deficit (7) Altered mental status (8) Acute on chronic renal failure Plan Patient has now stage 3 chronic kidney disease. Has Thyroid Nodule. Will need to see Endocrinology after D/C. TSH was normal. Now on Cefepime and Metronidazole. ID following. Check serum immunofixation, in progress. Patient now has debridement. Develop swelling of tongue and intubated. Now for transfer to [facility]. Creatinine increased slightly, will follow. Continue IVF, not tolerating NGT as has high residual. 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
[2017-01-25] MEDS: PROPOFOL 1000 MG/100 ML IV SCH ×2 (11:26→23:54)
[2017-01-25] MEDS: INSULIN DETEMIR 100 UNITS/ML VIAL SQ SCH ×2 (13:12→21:00)
--- NOTE | 2017-01-25 14:37 | MP ---
cc: MASON BECKHAM M.D. DATE OF SURGERY 01/23/2017 PREOPERATIVE DIAGNOSES 1. Decubitus ulcer of left buttock area. 2. Multiple superficial wounds of sacral area and buttock. POSTOPERATIVE DIAGNOSES 1. Decubitus ulcer of left buttock area. 2. Multiple superficial wounds of sacral area and buttock. PROCEDURE 1. Excisional debridement of skin, subcutaneous tissue and muscle of left buttock. 2. Debridement of wounds of left sacral area and right buttock. 3. Application of wound VAC. ANESTHESIA General. SURGEON Dr. Beckham. INDICATIONS This 66-year-old female with decubitus ulcer which had been draining purulent material. FINDINGS There was a significant amount of necrotic material. The majority of it was centered over the ischium on the left side. At the completion of the procedure, all the necrotic material was removed. The bed was pink. In addition the patient had several areas that were a little more superficial which had been attended to. The operative time was approximately 45 minutes. PROCEDURE The patient was seen preoperatively, taken to the operating room, placed in a prone position. The buttock and sacral areas were prepped with Hibiclens and draped in the usual sterile fashion. Once the patient was adequately anesthetized and adequate prepped and draped, some of material was removed sharply with a scissor and then the Versajet was used to debride the wounds. This was done to all of the different areas; there were approximately four. The larger one measured approximately 10.5 x 12-cm in greatest dimension with some undermining. The undermining was in all directions except between the 3 and 4 o'clock position to the left ischial area. The remaining areas were relatively superficial and ranged in size from 1-2 cm. Those areas were cleansed and dressed with povidone-iodine ointment and Tegaderm. The left ischemic ischial area, after adequate debridement and after adequate hemostasis, was packed with foam packing for the wound VAC with a bridge created. Once this was completed, the suction was hooked up; there was no leak. The patient was then placed into a supine position and taken to the recovery room. It was noted that she did have some swelling of her tongue and lips. She was treated with Decadron and Benadryl to which she has been responding well. MD ROSEMARIE Estrada/DEBO /5:40 PM /2:29 PM
[2017-01-25] MEDS: ACETAMINOPHEN/HYDROcodone 325 MG/5 MG TAB PO PRN (16:31)
--- NOTE | 2017-01-25 16:36 | HHI.PR ---
Subjective Interval History Patient intubated sedated postop at bedside Vitals/Results Intake & Output 01/24/17 01/24/17 01/25/17 15:00 23:00 07:00 Intake Total 1075 ml 750 ml 1240 ml Output Total 250 ml 225 ml 250 ml Balance 825 ml 525 ml 990 ml IV Total 883 ml 237 ml 784 ml Tube Feeding 192 ml 313 ml 256 ml Tube Irrigant 200 ml 200 ml Output Urine Total 225 ml 225 ml 250 ml Tube Feeding Residual Discard 0 ml Drainage Total 25 ml 0 ml # Bowel Movements 0 0 0 Vital Signs Vital Signs Date Time Temp Pulse Resp B/P Pulse Ox O2 Delivery O2 Flow Rate FiO2 01/25/17 12:00 40 01/25/17 12:00 98.0 74 12 114/68 100 01/25/17 12:00 74 01/25/17 11:49 100 40 01/25/17 10:00 75 01/25/17 08:57 100 40 01/25/17 08:45 40 01/25/17 08:00 98.3 76 12 126/66 100 01/25/17 08:00 76 01/25/17 08:00 40 01/25/17 07:00 100 Mechanical Ventilator 40 01/25/17 06:00 76 01/25/17 04:25 100 40 01/25/17 04:00 40 01/25/17 04:00 98.1 76 12 136/71 100 01/25/17 04:00 76 01/25/17 02:00 74 01/25/17 00:00 98.2 78 12 120/66 100 01/25/17 00:00 78 01/25/17 00:00 40 01/24/17 23:50 100 40 01/24/17 22:00 56 01/24/17 20:36 100 40 01/24/17 20:00 97.6 80 12 137/67 100 01/24/17 20:00 40 01/24/17 20:00 80 01/24/17 19:00 100 Mechanical Ventilator 40 01/24/17 18:00 79 CBC/BMP: 01/24/17 0325 01/25/17 0410 Lab Results Laboratory Tests Test 01/25/17 04:10 Sodium Level 137 MEQ/L Potassium Level 4.4 MEQ/L Chloride Level 109 MEQ/L Carbon Dioxide Level 16.3 MEQ/L Anion Gap 12 MEQ/L Blood Urea Nitrogen 28 MG/DL Creatinine 2.00 MG/DL Estimat Glomerular Filtration 30 ML/MIN Rate Random Glucose 217 MG/DL Calcium Level 8.8 MG/DL Random Vancomycin Level 24.1 COMMENT Physical Exam General General Appearance: Malnourished Eyes Eye Exam: Pupils Equal, Pupils Reactive Ears & Nose Ears & Nose Exam: Nasal Mucosa [place] Neck Neck Exam: Neck Supple, Trachea Midline Pulmonary Resp Exam: No Distress, Decreased Bases, Poor Inspiratory Effort Cardiology CV Exam: Regular Gastrointestinal/Abdomen GI Exam: Soft, Bowel Sounds Present, Non-Distended Musculoskeletal MS Exam: Atrophy Integumentary Skin Exam: Warm Skin Remarks dressing on ulcerated area Extremeties Extremities Exam: Trace Edema Extremeties Remarks With contractures chronic Neurologic Neuro Exam: Sedated Neuro Remarks Following commands. With residual left-sided hemiparesis VTE Prophylaxis VTE Prophylaxis Device: SCDs Assessment/Plan Problem List: (1) Altered mental status (2) Dehydration (3) Hypoglycemia (4) UTI (urinary tract infection) (5) HTN (hypertension) (6) DM (diabetes mellitus) (7) CKD (chronic kidney disease) stage 4, GFR 15-29 ml/min (8) History of CVA with residual deficit (9) Pressure ulcer (10) Hypercalcemia (11) Leukocytosis (12) Acute on chronic renal failure Assessment/Plan 66-year-old female with history of chronic kidney disease, hypertension, hyperlipidemia, CVA with left-sided hemiparesis, type 2 diabetes. Admitted with hypoglycemia, altered mental status. Found with UTI, acute on chronic renal failure, dehydration. intubated for airway protection, sec to angoedema, continue stroids and benadryl Anemia -Likely of chronic disease status post blood transfusion january 16. Stable, will monitor Decubitus ulcer with abscess left buttock and thigh -Wound care is following -Report of CT lower extremity reviewed. Wound culture showing MRSA abx per ID, -Plastic surgery consult appreciated.s/p debridement Altered mental status secondary to hypoglycemia, infection, dehydration, acute on chronic renal failure. back to baseline. Before intubation -accuchecks AC/HS with low dose ISS on pureed diet prior to intubation UTI, with significant leukocytosis, improving -Culture report seen adjust antibiotic -Escherichia coli resistant to Cipro will change to Bactrim. Also Gardnerella vaginalis with a start metronidazole Acute on CKD, stage V, pt. nearing HD per history. Possibly worst secondary to dehydration, improving. -nephrology-input appreciated -avoid nephrotoxic agents Avoid diuretics -follow BMP Hypercalcemia, etiology unclear, on calcium supplements, also prolonged bed rest -better today . Improving -Hold calcium supplements Continue with hydration Nephrology on board, input appreciated Dysphasia, risk for aspiration-it was d/w on January 11, wants to continue Pureed diet at this time. May need PEG at some point. Now on tube feeding -appreciate speech input -HOB up -Aspiration precautions History of CVA with residual deficits, left-sided hemiplegia, dysphasia, expressive aphasia. It appears to be declining. CT of the head negative for any acute findings Continue with home medications Physical therapy, speech therapy -Continue with aspirin and statins Hypertension, stable Continue with home medications Thyroid nodule -Follow endocrinology as outpatient Discussed with at bedside Discussed with RN Labs reviewed Labs for a.m. 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
[2017-01-25] MEDS: PRAVASTATIN SOD 40 MG TAB PO SCH (21:32)
[2017-01-26] VITALS (18 sets, daily range): BP systolic 124–162; BP diastolic 67–96; PULSE 64–97; RESP 12; TEMP 97–98.1; O2SAT 100
[2017-01-26] MEDS: CEFEPIME INJ 2,000 MG in SODIUM CHLORIDE 0.9% INJ 100 ML IV SCH (01:40)
[2017-01-26] MEDS: LACTATED RINGER'S 1000 ML INJ 1,000 ML IV SCH (02:11)
[2017-01-26] MEDS ORDERED: SODIUM CHLORID 0.9% IV PRN (03:15)
[2017-01-26] MEDS: diphenhydrAMINE HCL 50 MG/ML VIAL IM SCH ×4 (03:29→21:09)
[2017-01-26] MEDS: PROPOFOL 1000 MG/100 ML IV SCH ×2 (04:28→09:16)
[2017-01-26 05:01] LABS: POTASSIUM 4.3 MEQ/L (3.5-5.1)
[2017-01-26] MEDS: metroNIDAZOLE 500 MG INJ 100 ML IV SCH (06:35)
[2017-01-26] MEDS: INSULIN ASPART SUPPLEMENTAL SCALE SQ SCH ×4 (06:36→21:10)
[2017-01-26] MEDS: BENEPROTEIN POWDER 1 PACK G-TUBE SCH ×3 (09:00→17:06)
[2017-01-26] MEDS: COLLAGENASE OINT 30 GM TUBE TOP SCH (09:00)
[2017-01-26] MEDS: POVIDONE IODINE 10% SOLN 118 ML BOTTLE TOP SCH ×2 (09:00→21:10)
[2017-01-26] MEDS: SODIUM CHLORIDE 0.9% FLUSH 5 ML FLUSH FLUSH SCH ×2 (09:00→21:00)
[2017-01-26] MEDS: SODIUM CHLOR 0.45% 1000 ML INJ 1,000 ML IV SCH (09:10)
--- NOTE | 2017-01-26 09:50 | HHI.PR ---
Subjective Subjective Remarks remains intubated unable to obtain ROS tolerating tube feed well no family at bsd Review of Systems Constitutional Constitutional Remarks unable to obtain ROS from pt. Vitals/Results Intake & Output 01/25/17 01/25/17 01/26/17 15:00 23:00 07:00 Intake Total 1049 ml 993 ml 1201 ml Output Total 585.0 ml 500 ml 850 ml Balance 464.0 ml 493 ml 351 ml IV Total 781 ml 809 ml 1044 ml Tube Feeding 168 ml 124 ml 127 ml Tube Irrigant 100 ml 60 ml 30 ml Output Urine Total 475 ml 500 ml 850 ml Tube Feeding Residual Discard 100.0 ml Drainage Total 10 ml 0 ml # Bowel Movements 0 0 0 Vital Signs Vital Signs Date Time Temp Pulse Resp B/P Pulse Ox O2 Delivery O2 Flow Rate FiO2 01/26/17 08:14 100 40 01/26/17 06:00 82 01/26/17 04:00 73 01/26/17 04:00 40 01/26/17 04:00 98.1 73 12 128/74 100 01/26/17 03:22 100 40 01/26/17 02:00 84 01/26/17 00:00 97.9 64 12 124/67 100 01/26/17 00:00 64 01/26/17 00:00 40 01/25/17 23:32 100 40 01/25/17 22:00 83 01/25/17 20:45 100 40 01/25/17 20:00 87 01/25/17 20:00 40 01/25/17 20:00 97.3 87 12 117/67 100 01/25/17 19:00 100 Mechanical Ventilator 40 01/25/17 18:00 83 01/25/17 17:31 13 01/25/17 16:40 100 40 01/25/17 16:00 98.2 97 12 166/89 100 01/25/17 16:00 97 01/25/17 16:00 40 01/25/17 14:00 78 01/25/17 12:00 40 01/25/17 12:00 98.0 74 12 114/68 100 01/25/17 12:00 74 01/25/17 11:49 100 40 01/25/17 10:00 75 CBC/BMP: 01/24/17 0325 01/26/17 0333 Lab Results Laboratory Tests Test 01/26/17 03:33 Sodium Level 139 MEQ/L Potassium Level 4.3 MEQ/L Chloride Level 111 MEQ/L Carbon Dioxide Level 18.0 MEQ/L Anion Gap 10 MEQ/L Blood Urea Nitrogen 37 MG/DL Creatinine 2.18 MG/DL Estimat Glomerular Filtration 27 ML/MIN Rate Random Glucose 157 MG/DL Calcium Level 9.0 MG/DL Physical Exam General General Appearance: No Acute Distress, Comfortable Appearance Remarks mechanical ventilation Eyes Eye Exam: Pupils Equal, Pupils Reactive Ears & Nose Ears & Nose Exam: Nasal Mucosa [place] Throat Throat Exam: Oral Mucosa [place] & Moist Throat Remarks orally intubated Neck Neck Exam: Neck Supple, Trachea Midline Pulmonary Resp Exam: No Distress, Decreased Bases, Poor Inspiratory Effort Cardiology CV Exam: Regular Gastrointestinal/Abdomen GI Exam: Soft, Non-Tender, Bowel Sounds Present, Non-Distended GI Remarks NGT with tube feeding Genitourinary Exam: Clear Urine Remarks [place] Musculoskeletal MS Exam: Atrophy, Unable to Ambulate MS Remarks left hemiplegia contracture left wrist Integumentary Skin Exam: Warm Skin Remarks wound vac to buttock Extremeties Extremities Exam: Pedal Pulses Palpable, Moderate Edema Neurologic Neuro Exam: Sedated Neuro Remarks left hemiplegia VTE Prophylaxis VTE Prophylaxis Device: SCDs PUD Prophylasis PUD Remarks Pepcid Assessment/Plan Problem List: (1) Altered mental status (2) Dehydration (3) Hypoglycemia (4) UTI (urinary tract infection) (5) HTN (hypertension) (6) DM (diabetes mellitus) (7) CKD (chronic kidney disease) stage 4, GFR 15-29 ml/min (8) History of CVA with residual deficit (9) Pressure ulcer (10) Hypercalcemia (11) Leukocytosis (12) Acute on chronic renal failure (13) Left buttock abscess (14) Angioedema Assessment/Plan 66-year-old female with history of chronic kidney disease, hypertension, hyperlipidemia, CVA with left-sided hemiparesis, type 2 diabetes. Admitted with hypoglycemia, altered mental status. Found with UTI, acute on chronic renal failure, dehydration, abscess to left buttock Resp. failure sec. angioedema -intubated for airway protection, sec to angioedema, -continue steroids and benadryl -[facility] managing, input appreciated Anemia -Likely of chronic disease status post blood transfusion january 16. Stable, will monitor Decubitus ulcer with abscess left buttock and thigh -Wound care is following -Report of CT lower extremity reviewed. -Wound culture showing MRSA - abx per ID, -Plastic surgery consult appreciated.s/p debridement 01/23 Altered mental status secondary to hypoglycemia, infection, dehydration, acute on chronic renal failure. Resolved prior to intubation -monitor accuchecks AC/HS with low dose ISS UTI, with significant leukocytosis, improving -Culture report seen adjust antibiotic -Escherichia coli resistant to Cipro will change to Bactrim. Also Gardnerella vaginalis, continue metronidazole Acute on CKD, stage V, pt. nearing HD per history. Possibly worst secondary to dehydration, improving. -nephrology-input appreciated -avoid nephrotoxic agents Avoid diuretics --follow BMP Hypercalcemia, etiology unclear, on calcium supplements, also prolonged bed rest -better today . Improving -Hold calcium supplements Continue with hydration Nephrology on board, input appreciated Dysphasia,may need peg. Pt's refusing. now on tube feeding -continue tube feeding for now -Aspiration precautions History of CVA with residual deficits, left-sided hemiplegia, dysphasia, expressive aphasia. It appears to be declining. CT of the head negative for any acute findings Continue with home medications Physical therapy, speech therapy -Continue with aspirin and statins Hypertension, stable Continue with home medications Thyroid nodule -Follow endocrinology as outpatient Condition guarded SCDs for DVT prophylaxis PUD prophylaxis Labs reviewed D/W RN D/W Dr. Heath This patient was seen by myself and , this note is written on her behalf. 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
[2017-01-26] MEDS: cloNIDine HCL 0.2 MG TAB PO SCH ×2 (09:58→21:10)
[2017-01-26] MEDS: LACTULOSE SYRUP 20 GM/30 ML CUP PO SCH (09:58)
[2017-01-26] MEDS: FLUoxetine HCL 20 MG CAP PO SCH (09:58)
[2017-01-26] MEDS: METOCLOPRAMIDE HCL 10 MG TAB PO SCH ×4 (09:59→21:09)
[2017-01-26] MEDS: FAMOTIDINE 20 MG TAB PO SCH ×2 (09:59→21:10)
[2017-01-26] MEDS: CINACALCET HYDROCHLORIDE 30 MG TAB PO SCH (09:59)
[2017-01-26] MEDS: DEXAMETHASONE SOD PHOS 20 MG/5 ML VIAL IV PUSH SCH (10:03)
[2017-01-26] MEDS: INSULIN DETEMIR 100 UNITS/ML VIAL SQ SCH ×2 (10:06→21:08)
--- NOTE | 2017-01-26 12:41 | HHI.CCPN ---
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 She is bed ridden and totally dependent on DLA. She has developed stage IV sacral ulcer and became clinically worsening including hypoglycemia and leukocytosis. She was taken to operating room for debridement of a sacral ulcer. During the general anesthesia and surgical procedure she developed angioedema and postprocedure remained intubated for an airway protection. 01/24: Will attempt to extubate when tongue swelling improves. Cardiomegaly impressive. 01/25: Tongue edema persists, airway is compromised. Will continue intubation. 01/26: Edema improved but still drooling and air obstructed. Continue intubation. Objective Vital Signs Date Time Temp Pulse Resp B/P Pulse Ox O2 Delivery O2 Flow Rate FiO2 01/26/17 11:26 100 40 01/26/17 10:00 73 01/26/17 08:00 97.5 12 139/82 01/26/17 07:00 Mechanical Ventilator Intake and Output 01/25/17 01/25/17 01/26/17 08:00 16:00 00:00 Intake Total 1240 ml 1049 ml 993 ml Output Total 350.0 ml 485 ml 500 ml Balance 890.0 ml 564 ml 493 ml Result Diagram: 01/24/17 0325 01/26/17 0333 Objective Remarks GENERAL: To be dictation on mechanical ventilation in no acute distress SKIN: Warm and dry. HEAD: Normocephalic. Angioedema of the tongue persists, but improved. EYES: No scleral icterus. Periorbital edema. NECK: Supple, trachea midline. CARDIOVASCULAR: Regular rate and rhythm without murmurs, gallops, or rubs. No JVD. RESPIRATORY: Breath sounds equal bilaterally. Clear, no wheezes. GASTROINTESTINAL: Abdomen soft, non-tender, nondistended. BS active. MUSCULOSKELETAL: No cyanosis, or edema. BACK: Nontender without obvious deformity. No CVA tenderness. EXTREMITIES: No clubbing cyanosis or edema NEURO: Alert, follows commands. A/P Assessment and Plan Respiratory failure - Intubated for an airway protection - Continue mechanical ventilation - no extubation until it edema improves - Start SBTs Angioedema - Unknown origin - Decadron - H1 H2 blockers IV - Supportive care Diabetes - Levemir and insulin sliding scale - Glucerna tube feeds Stage IV chronic kidney disease - Per nephrology Stage IV sacral ulcer - Status post debridement - Further per surgery and infectious disease DVT GI prophylaxis - Teds SCDs subcutaneous heparin and Pepcid Overall impression: Critical airway - will extubate when patent's oral/tongue edema resolves. SBTs started. Miah Alvarez MD Jan 26, 2017 12:41
--- NOTE | 2017-01-26 13:02 | HHI.NPPN ---
Subjective History of Present Illness 66-year-old female with past medical history of hypertension, diabetes mellitus, chronic kidney disease, history of cerebrovascular accident with left-sided weakness who was brought to the hospital because of altered mental status. I was called to see the patient because of elevated BUN and creatinine. The patient has known history of chronic kidney disease. She has been following with Dr. Ramos. Additional Remarks Patient remain intubated and her eyes open, not in distress. Objective Data Data 01/25/17 01/26/17 19:00 07:00 Intake Total 1049 ml 2194 ml Output Total 585.0 ml 1350 ml Balance 464.0 ml 844 ml IV Total 781 ml 1853 ml Tube Feeding 168 ml 251 ml Tube Irrigant 100 ml 90 ml Output Urine Total 475 ml 1350 ml Tube Feeding Residual Discard 100.0 ml Drainage Total 10 ml 0 ml # Bowel Movements 0 0 Vital Signs Date Time Temp Pulse Resp B/P Pulse Ox O2 Delivery O2 Flow Rate FiO2 01/26/17 12:00 40 01/26/17 12:00 97 01/26/17 12:00 97.1 94 12 147/96 100 01/26/17 11:26 100 40 01/26/17 10:00 73 01/26/17 08:14 100 40 01/26/17 08:00 40 01/26/17 08:00 97.5 78 12 139/82 100 01/26/17 08:00 78 01/26/17 07:00 100 Mechanical Ventilator 40 01/26/17 06:00 82 01/26/17 04:00 73 01/26/17 04:00 40 01/26/17 04:00 98.1 73 12 128/74 100 01/26/17 03:22 100 40 01/26/17 02:00 84 01/26/17 00:00 97.9 64 12 124/67 100 01/26/17 00:00 64 01/26/17 00:00 40 01/25/17 23:32 100 40 01/25/17 22:00 83 01/25/17 20:45 100 40 01/25/17 20:00 87 01/25/17 20:00 40 01/25/17 20:00 97.3 87 12 117/67 100 01/25/17 19:00 100 Mechanical Ventilator 40 01/25/17 18:00 83 01/25/17 17:31 13 01/25/17 16:40 100 40 01/25/17 16:00 98.2 97 12 166/89 100 01/25/17 16:00 97 01/25/17 16:00 40 01/25/17 14:00 78 -: 01/24/17 0325 01/26/17 0333 Physical Exam General Appearance: No Acute Distress, Comfortable Appearance Remarks Intubated and sedated. Eyes Eye Exam: Pupils Equal, Pupils Reactive Ears & Nose Ears & Nose Exam: Nasal Mucosa [place] Throat Throat Exam: Oral Mucosa [place] & Moist Neck Neck Exam: Neck Supple, Trachea Midline Pulmonary Resp Exam: No Distress, Decreased Bases, Poor Inspiratory Effort Cardiology CV Exam: Regular Gastrointestinal/Abdomen GI Exam: Soft, Non-Tender, Bowel Sounds Present, Non-Distended Genitourinary Exam: Clear Urine Musculoskeletal MS Exam: Atrophy, Unable to Ambulate Integumentary Skin Exam: Warm Extremeties Extremities Exam: Pedal Pulses Palpable, Moderate Edema Neurologic Neuro Exam: Sedated VTE Prophylaxis Device: SCDs Assessment/Plan Assessment Summary: Dehydration, Hypertension, CKD Stage IV Problem List: (1) Dehydration (2) UTI (urinary tract infection) (3) HTN (hypertension) (4) DM (diabetes mellitus) (5) CKD (chronic kidney disease) stage 4, GFR 15-29 ml/min (6) History of CVA with residual deficit (7) Altered mental status (8) Acute on chronic renal failure Plan Patient has now stage 3 chronic kidney disease. Has Thyroid Nodule. Will need to see Endocrinology after D/C. TSH was normal. Now on Cefepime and Metronidazole. ID following. Check serum immunofixation, in progress. Patient now has debridement. Develop swelling of tongue and intubated. Now for transfer to [facility]. Creatinine now stable. Weaning as per CCM. Problem Qualifiers (1) UTI (urinary tract infection): Qualified Code: N39.0 - Urinary tract infection without hematuria, site unspecified (2) HTN (hypertension): Qualified Code: I10 - Essential hypertension (3) DM (diabetes mellitus): Qualified Code: E11.49 - Type 2 diabetes mellitus with other neurologic complication, unspecified care home insulin use status (4) Altered mental status: Qualified Code: R40.4 - Transient alteration of awareness Chelsea Mora MD Jan 26, 2017 13:02
[2017-01-26] MEDS: FUROSEMIDE 20 MG/2 ML VIAL IV PUSH SCH ×2 (13:31→18:15)
[2017-01-26] MEDS: SODIUM CHLOR 0.9% 1000 ML INJ 1,000 ML IV SCH ×2 (13:31→20:41)
[2017-01-26] MEDS: PRAVASTATIN SOD 40 MG TAB PO SCH (21:10)
[2017-01-27] VITALS (19 sets, daily range): BP systolic 133–188; BP diastolic 72–96; PULSE 75–104; RESP 12–24; TEMP 97.5–98.2; O2SAT 98–100
[2017-01-27] MEDS: PROPOFOL 1000 MG/100 ML IV SCH ×3 (00:12→09:24)
[2017-01-27] MEDS: SODIUM CHLOR 0.9% 1000 ML INJ 1,000 ML IV SCH ×2 (04:09→13:25)
[2017-01-27] MEDS: diphenhydrAMINE HCL 50 MG/ML VIAL IM SCH ×2 (04:09→08:02)
[2017-01-27 05:44] LABS: AUTOMATED NEUTROPHIL # 12.7 TH/MM3 (1.8-7.7); BASOPHIL # 0.1 TH/MM3 (0-0.2); BASOPHIL % 0.4 % (0.0-2.0); EOSINOPHIL # 0.1 TH/MM3 (0-0.4); EOSINOPHIL % 0.4 % (0.0-4.0); HEMATOCRIT 33.2 % (35.0-46.0); LYMPH % 3.3 % (9.0-44.0); LYMPHOCYTE # 0.5 TH/MM3 (1.0-4.8); MEAN CELL VOLUME 92.2 FL (80.0-100.0); MEAN CORPUSCULAR HEMOGLOBIN 29.7 PG (27.0-34.0); MEAN CORPUSCULAR HGB CONC 32.2 % (32.0-36.0); MONO % 14.1 % (0.0-8.0); NEUT % 81.8 % (16.0-70.0); PLATELET COUNT 362 TH/MM3 (150-450); RED CELL DISTRIBUTION WIDTH 17.4 % (11.6-17.2); WHITE BLOOD COUNT 15.5 TH/MM3 (4.0-11.0)
[2017-01-27 05:54] LABS: HEMO FLAGS AUTO DIFF
[2017-01-27 06:17] LABS: BICARBONATE 18.9 MEQ/L (21.0-32.0); POTASSIUM 4.1 MEQ/L (3.5-5.1)
[2017-01-27] MEDS: INSULIN ASPART SUPPLEMENTAL SCALE SQ SCH ×4 (06:52→20:49)
[2017-01-27 07:05] LABS: METAMYELOCYTES 1 % (0-1); MYELOCYTES 3 % (0-0); NEUTROPHIL # MANUAL DIFF 14.6 TH/MM3 (1.8-7.7); POLYS (SEG NEUTROPHILS) 90 % (16-70); WBC DIFF SAMPLE 100
[2017-01-27 07:06] LABS: PLATELET ESTIMATE SMEAR NORMAL (NORMAL); PLATELET MORPHOLOGY NORMAL (NORMAL); SCAN/DIFF FINAL DIFF MANUAL
[2017-01-27] MEDS: DEXAMETHASONE SOD PHOS 20 MG/5 ML VIAL IV PUSH SCH (08:01)
[2017-01-27] MEDS: BENEPROTEIN POWDER 1 PACK G-TUBE SCH ×3 (08:01→17:07)
[2017-01-27] MEDS: SODIUM CHLORIDE 0.9% FLUSH 5 ML FLUSH FLUSH SCH ×2 (08:01→20:10)
[2017-01-27] MEDS: FUROSEMIDE 20 MG/2 ML VIAL IV PUSH SCH ×2 (08:02→17:07)
[2017-01-27] MEDS: LACTULOSE SYRUP 20 GM/30 ML CUP PO SCH (08:03)
[2017-01-27] MEDS: FAMOTIDINE 20 MG TAB PO SCH ×2 (08:03→20:11)
[2017-01-27] MEDS: ACETAMINOPHEN/HYDROcodone 325 MG/5 MG TAB PO PRN (08:03)
[2017-01-27] MEDS: FLUoxetine HCL 20 MG CAP PO SCH (08:03)
[2017-01-27] MEDS: METOCLOPRAMIDE HCL 10 MG TAB PO SCH ×4 (08:04→20:10)
[2017-01-27] MEDS: cloNIDine HCL 0.2 MG TAB PO SCH ×2 (08:04→20:11)
[2017-01-27] MEDS: INSULIN DETEMIR 100 UNITS/ML VIAL SQ SCH ×2 (08:04→20:49)
[2017-01-27] MEDS: CINACALCET HYDROCHLORIDE 30 MG TAB PO SCH (08:05)
[2017-01-27] MEDS: POVIDONE IODINE 10% SOLN 118 ML BOTTLE TOP SCH ×2 (08:06→20:49)
[2017-01-27] MEDS: COLLAGENASE OINT 30 GM TUBE TOP SCH (08:06)
--- NOTE | 2017-01-27 10:57 | HHI.CCPN ---
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 She is bed ridden and totally dependent on DLA. She has developed stage IV sacral ulcer and became clinically worsening including hypoglycemia and leukocytosis. She was taken to operating room for debridement of a sacral ulcer. During the general anesthesia and surgical procedure she developed angioedema and postprocedure remained intubated for an airway protection. 01/24: Will attempt to extubate when tongue swelling improves. Cardiomegaly impressive. 01/25: Tongue edema persists, airway is compromised. Will continue intubation. 01/26: Edema improved but still drooling and air obstructed. Continue intubation. 01/27: Tongue edema improved, less drooling. Will work to extubate. Objective Vital Signs Date Time Temp Pulse Resp B/P Pulse Ox O2 Delivery O2 Flow Rate FiO2 01/27/17 10:00 84 01/27/17 09:03 12 01/27/17 08:40 100 40 01/27/17 08:00 97.5 149/76 01/27/17 07:00 Mechanical Ventilator Intake and Output 01/26/17 01/26/17 01/27/17 08:00 16:00 00:00 Intake Total 1201 ml 827 ml 2180 ml Output Total 850 ml 1750 ml 1700 ml Balance 351 ml -923 ml 480 ml Result Diagram: 01/27/17 0533 01/27/17 0533 Objective Remarks SKIN: Warm and dry. HEAD: Normocephalic. Angioedema of the tongue much less, and improved. EYES: No scleral icterus. Periorbital edema. NECK: Supple, trachea midline. CARDIOVASCULAR: Regular rate and rhythm without murmurs, gallops, or rubs. No JVD. RESPIRATORY: Breath sounds equal bilaterally. Clear, no wheezes. GASTROINTESTINAL: Abdomen soft, non-tender, nondistended. BS active. MUSCULOSKELETAL: No cyanosis, or edema. BACK: Nontender without obvious deformity. No CVA tenderness. EXTREMITIES: No clubbing cyanosis or edema NEURO: Alert, follows commands. Moves 4 limbs. A/P Assessment and Plan Respiratory failure - Intubated for an airway protection - Continue mechanical ventilation - no extubation until it edema improves - Start SBTs Angioedema - Unknown origin - Decadron - H1 H2 blockers IV - Supportive care Diabetes - Levemir and insulin sliding scale - Glucerna tube feeds Stage IV chronic kidney disease - Per nephrology Stage IV sacral ulcer - Status post debridement - Further per surgery and infectious disease DVT GI prophylaxis - Teds SCDs subcutaneous heparin and Pepcid Overall impression: Critical airway - will extubate. SBTs started. Miah Alvarez MD Jan 27, 2017 10:56
--- NOTE | 2017-01-27 11:19 | HHI.PR ---
Subjective Subjective Remarks remains intubated tongue swelling better poss extubation today unable to obtain ROS tolerating tube feed well at bsd (Karis Guthrie) Review of Systems Constitutional Constitutional Remarks unable to obtain ROS from pt. (Karis Guthrie) Vitals/Results Intake & Output 01/26/17 01/26/17 01/27/17 15:00 23:00 07:00 Intake Total 827 ml 2180 ml 1560 ml Output Total 1750 ml 1700 ml 1000 ml Balance -923 ml 480 ml 560 ml IV Total 757 ml 1770 ml 1100 ml Tube Feeding 70 ml 290 ml 400 ml Tube Irrigant 120 ml 60 ml Output Urine Total 1750 ml 1700 ml 1000 ml Drainage Total 0 ml 0 ml # Bowel Movements 1 0 0 Vital Signs Vital Signs Date Time Temp Pulse Resp B/P Pulse Ox O2 Delivery O2 Flow Rate FiO2 01/27/17 10:00 84 01/27/17 09:03 12 01/27/17 08:40 100 40 01/27/17 08:00 40 01/27/17 08:00 97.5 76 13 149/76 100 01/27/17 08:00 76 01/27/17 07:00 100 Mechanical Ventilator 40 01/27/17 06:00 82 01/27/17 06:00 99 40 01/27/17 05:13 100 40 01/27/17 04:00 40 01/27/17 04:00 98 01/27/17 04:00 97.5 98 15 151/96 100 01/27/17 02:00 81 01/27/17 01:45 100 40 01/27/17 00:00 97.7 76 12 133/75 100 01/27/17 00:00 40 01/27/17 00:00 79 01/26/17 22:37 100 40 01/26/17 22:00 79 01/26/17 21:12 100 40 01/26/17 20:00 78 01/26/17 20:00 40 01/26/17 20:00 97.6 84 12 127/72 100 01/26/17 19:00 100 Mechanical Ventilator 40 01/26/17 18:00 78 01/26/17 17:50 100 40 01/26/17 16:00 40 01/26/17 16:00 86 01/26/17 16:00 97.0 82 12 162/78 100 01/26/17 14:00 82 01/26/17 12:00 40 01/26/17 12:00 97 01/26/17 12:00 97.1 94 12 147/96 100 01/26/17 11:26 100 40 (Karis Guthrie) CBC/BMP: 01/27/17 0533 01/27/17 0533 Lab Results Laboratory Tests Test 01/27/17 05:33 White Blood Count 15.5 TH/MM3 Red Blood Count 3.60 MIL/MM3 Hemoglobin 10.7 GM/DL Hematocrit 33.2 % Mean Corpuscular Volume 92.2 FL Mean Corpuscular Hemoglobin 29.7 PG Mean Corpuscular Hemoglobin 32.2 % Concent Red Cell Distribution Width 17.4 % Platelet Count 362 TH/MM3 Mean Platelet Volume 7.7 FL Neutrophils (%) (Auto) 81.8 % Lymphocytes (%) (Auto) 3.3 % Monocytes (%) (Auto) 14.1 % Eosinophils (%) (Auto) 0.4 % Basophils (%) (Auto) 0.4 % Neutrophils # (Auto) 12.7 TH/MM3 Lymphocytes # (Auto) 0.5 TH/MM3 Monocytes # (Auto) 2.2 TH/MM3 Eosinophils # (Auto) 0.1 TH/MM3 Basophils # (Auto) 0.1 TH/MM3 CBC Comment AUTO DIFF Differential Total Cells 100 Counted Neutrophils % (Manual) 90 % Lymphocytes % 2 % Monocytes % 4 % Neutrophils # (Manual) 14.6 TH/MM3 Metamyelocytes 1 % Myelocytes 3 % Differential Comment FINAL DIFF MANUAL Platelet Estimate NORMAL Platelet Morphology Comment NORMAL Sodium Level 144 MEQ/L Potassium Level 4.1 MEQ/L Chloride Level 114 MEQ/L Carbon Dioxide Level 18.9 MEQ/L Anion Gap 11 MEQ/L Blood Urea Nitrogen 40 MG/DL Creatinine 2.01 MG/DL Estimat Glomerular Filtration 30 ML/MIN Rate Random Glucose 163 MG/DL Calcium Level 9.2 MG/DL (Karis Guthrie) Physical Exam General General Appearance: No Acute Distress, Comfortable Appearance Remarks mechanical ventilation (Karis Guthrie) Eyes Eye Exam: Pupils Equal, Pupils Reactive (Karis Guthrie) Ears & Nose Ears & Nose Exam: Nasal Mucosa [place] (Gross,Karis G. EQUINE MANAGER) Throat Throat Exam: Oral Mucosa [place] & Moist Throat Remarks orally intubated (Karis Guthrie EQUINE MANAGER) Neck Neck Exam: Neck Supple, Trachea Midline (Karis GuthrieP) Pulmonary Resp Exam: No Distress, Rhonchi, Decreased Bases, Poor Inspiratory Effort ( Karis Guthrie EQUINE MANAGER) Cardiology CV Exam: Regular (Karis Guthrie EQUINE MANAGER) Gastrointestinal/Abdomen GI Exam: Soft, Non-Tender, Bowel Sounds Present, Non-Distended GI Remarks NGT with tube feeding (Karis Guthrie. EQUINE MANAGER) Genitourinary Exam: Clear Urine Remarks [place] (Karis Guthrie EQUINE MANAGER) Musculoskeletal MS Exam: Atrophy, Unable to Ambulate MS Remarks left hemiplegia contracture left wrist (Karis Guthrie EQUINE MANAGER) Integumentary Skin Exam: Warm Skin Remarks wound vac to buttock (Karis Guthrie EQUINE MANAGER) Extremeties Extremities Exam: Pedal Pulses Palpable, Moderate Edema (Karis Guthrie) Neurologic Neuro Exam: Sedated Neuro Remarks left hemiplegia (Karis Guthrie EQUINE MANAGER) VTE Prophylaxis VTE Prophylaxis Device: SCDs (Karis Guthrie. EQUINE MANAGER) PUD Prophylasis PUD Remarks Pepcid (Karis Guthrie EQUINE MANAGER) Assessment/Plan Problem List: (1) Altered mental status (2) Dehydration (3) Hypoglycemia (4) UTI (urinary tract infection) (5) HTN (hypertension) (6) DM (diabetes mellitus) (7) CKD (chronic kidney disease) stage 4, GFR 15-29 ml/min (8) History of CVA with residual deficit (9) Pressure ulcer (10) Hypercalcemia (11) Leukocytosis (12) Acute on chronic renal failure (13) Left buttock abscess (14) Angioedema Assessment/Plan 66-year-old female with history of chronic kidney disease, hypertension, hyperlipidemia, CVA with left-sided hemiparesis, type 2 diabetes. Admitted with hypoglycemia, altered mental status. Found with UTI, acute on chronic renal failure, dehydration, abscess to left buttock Resp. failure sec. angioedema -intubated for airway protection, sec to angioedema, -continue steroids and benadryl -[facility] managing, input appreciated -poss ext today, tongue edema improving Anemia -Likely of chronic disease status post blood transfusion january 16. Stable, will monitor Decubitus ulcer with abscess left buttock and thigh -Wound care is following -Report of CT lower extremity reviewed. -Wound culture showing MRSA - abx per ID, -Plastic surgery consult appreciated.s/p debridement 01/23 Altered mental status secondary to hypoglycemia, infection, dehydration, acute on chronic renal failure. Resolved prior to intubation -monitor accuchecks AC/HS with low dose ISS UTI, with significant leukocytosis, improving -Culture report seen adjust antibiotic -Escherichia coli resistant to Cipro will change to Bactrim. Also Gardnerella vaginalis, continue metronidazole Acute on CKD, stage V, pt. nearing HD per history. Possibly worst secondary to dehydration, improving. -nephrology-input appreciated -avoid nephrotoxic agents Avoid diuretics --follow BMP Hypercalcemia, etiology unclear, on calcium supplements, also prolonged bed rest -better today . Improving -Hold calcium supplements Continue with hydration Nephrology on board, input appreciated Dysphasia,may need peg. Pt's refusing. now on tube feeding -continue tube feeding for now -Aspiration precautions History of CVA with residual deficits, left-sided hemiplegia, dysphasia, expressive aphasia. It appears to be declining. CT of the head negative for any acute findings Continue with home medications Physical therapy, speech therapy -Continue with aspirin and statins Hypertension, stable Continue with home medications Thyroid nodule -Follow endocrinology as outpatient Condition guarded SCDs for DVT prophylaxis PUD prophylaxis Labs reviewed D/W RN D/W Dr. Heath D/W pt's This patient was seen by myself and , this note is written on her behalf. (Karis Guthrie) Assessment/Plan patient seen and examined remains intubated agree with above assessment and plan no family at bed side discussed with Karis RIVERA (Monserrat Heath MD) Problem Qualifiers (1) Altered mental status: Qualified Code: R40.4 - Transient alteration of awareness (2) UTI (urinary tract infection): Qualified Code: N39.0 - Urinary tract infection without hematuria, site unspecified (3) HTN (hypertension): Qualified Code: I10 - Essential hypertension (4) DM (diabetes mellitus): Qualified Code: E11.49 - Type 2 diabetes mellitus with other neurologic complication, unspecified group home insulin use status (5) Leukocytosis: Qualified Code: D72.829 - Leukocytosis, unspecified type (6) Angioedema: Qualified Code: T78.3XXA - Angioedema, initial encounter Karis Guthrie Jan 27, 2017 11:19 Monserrat Heath MD Jan 27, 2017 14:03
--- NOTE | 2017-01-27 14:51 | HHI.IDPN ---
Subjective Subjective Remarks doing well remains intubated tolerates CPAP off pressors afebrile RN changed VAC: clean , granulating wound WBC up to 15 K Antibiotics None Allergies: Coded Allergies: Penicillin (Verified Allergy, Severe, rash/itching, 01/10/17) *MDRO Multi-Drug Resistant Organism (Verified Adverse Reaction, Unknown, ) MRSA (buttock)-01/15/17 Uncoded Allergies: CILLINS ALL (Allergy, Severe, 07/23/10) Objective . Vital Signs Date Time Temp Pulse Resp B/P Pulse Ox O2 Delivery O2 Flow Rate FiO2 01/27/17 14:00 96 01/27/17 13:07 40 01/27/17 13:03 100 40 01/27/17 12:00 97.8 75 12 155/72 100 01/27/17 12:00 75 01/27/17 12:00 40 01/27/17 10:00 84 01/27/17 09:03 12 01/27/17 08:40 100 40 01/27/17 08:00 40 01/27/17 08:00 97.5 76 13 149/76 100 01/27/17 08:00 76 01/27/17 07:00 100 Mechanical Ventilator 40 01/27/17 06:00 82 01/27/17 06:00 99 40 01/27/17 05:13 100 40 01/27/17 04:00 40 01/27/17 04:00 98 01/27/17 04:00 97.5 98 15 151/96 100 01/27/17 02:00 81 01/27/17 01:45 100 40 01/27/17 00:00 97.7 76 12 133/75 100 01/27/17 00:00 40 01/27/17 00:00 79 01/26/17 22:37 100 40 01/26/17 22:00 79 01/26/17 21:12 100 40 01/26/17 20:00 78 01/26/17 20:00 40 01/26/17 20:00 97.6 84 12 127/72 100 01/26/17 19:00 100 Mechanical Ventilator 40 01/26/17 18:00 78 01/26/17 17:50 100 40 01/26/17 16:00 40 01/26/17 16:00 86 01/26/17 16:00 97.0 82 12 162/78 100 01/26/17 01/26/17 01/27/17 15:00 23:00 07:00 Intake Total 827 ml 2180 ml 1560 ml Output Total 1750 ml 1700 ml 1000 ml Balance -923 ml 480 ml 560 ml IV Total 757 ml 1770 ml 1100 ml Tube Feeding 70 ml 290 ml 400 ml Tube Irrigant 120 ml 60 ml Output Urine Total 1750 ml 1700 ml 1000 ml Drainage Total 0 ml 0 ml # Bowel Movements 1 0 0 . Laboratory Tests Test 01/27/17 05:33 White Blood Count 15.5 TH/MM3 Red Blood Count 3.60 MIL/MM3 Hemoglobin 10.7 GM/DL Hematocrit 33.2 % Mean Corpuscular Volume 92.2 FL Mean Corpuscular Hemoglobin 29.7 PG Mean Corpuscular Hemoglobin 32.2 % Concent Red Cell Distribution Width 17.4 % Platelet Count 362 TH/MM3 Mean Platelet Volume 7.7 FL Neutrophils (%) (Auto) 81.8 % Lymphocytes (%) (Auto) 3.3 % Monocytes (%) (Auto) 14.1 % Eosinophils (%) (Auto) 0.4 % Basophils (%) (Auto) 0.4 % Neutrophils # (Auto) 12.7 TH/MM3 Lymphocytes # (Auto) 0.5 TH/MM3 Monocytes # (Auto) 2.2 TH/MM3 Eosinophils # (Auto) 0.1 TH/MM3 Basophils # (Auto) 0.1 TH/MM3 CBC Comment AUTO DIFF Differential Total Cells 100 Counted Neutrophils % (Manual) 90 % Lymphocytes % 2 % Monocytes % 4 % Neutrophils # (Manual) 14.6 TH/MM3 Metamyelocytes 1 % Myelocytes 3 % Differential Comment FINAL DIFF MANUAL Platelet Estimate NORMAL Platelet Morphology Comment NORMAL Laboratory Tests Test 01/26/17 01/27/17 03:33 05:33 Sodium Level 139 MEQ/L 144 MEQ/L Potassium Level 4.3 MEQ/L 4.1 MEQ/L Chloride Level 111 MEQ/L 114 MEQ/L Carbon Dioxide Level 18.0 MEQ/L 18.9 MEQ/L Anion Gap 10 MEQ/L 11 MEQ/L Blood Urea Nitrogen 37 MG/DL 40 MG/DL Creatinine 2.18 MG/DL 2.01 MG/DL Estimat Glomerular Filtration 27 ML/MIN 30 ML/MIN Rate Random Glucose 157 MG/DL 163 MG/DL Calcium Level 9.0 MG/DL 9.2 MG/DL Imaging Last Impressions Chest X-Ray 01/23/17 0000 Signed Impressions: Service Date/Time: Monday, January 23, 2017 20:58 - CONCLUSION: Dense left lung base consolidation and mild case of pulmonary edema is not excluded. Gabriele Ambrosio MD Lower Extremity CT 01/16/17 0000 Signed Impressions: Service Date/Time: Monday, January 16, 2017 21:27 - CONCLUSION: Large air and fluid collection within the subcutaneous tissues of the posterior lateral upper thigh and base of the left buttock measuring 10.4 x 8.1 x 6.4 cm consistent with large subcutaneous abscess and surrounding diffuse cellulitis. Shaw Morfin MD Neck Ultrasound 01/13/17 0000 Signed Impressions: Service Date/Time: Friday, January 13, 2017 08:58 - CONCLUSION: 1. Could not identify parathyroid tissue. 2. 3 mm, isolated hypoechoic nodule in the right lobe of the thyroid isolated 5 mm cyst in the left lobe of the thyroid. David Mason MD Head CT 01/10/17 0038 Signed Impressions: Service Date/Time: Tuesday, January 10, 2017 01:23 - CONCLUSION: No significant change has occurred. Samuel Don MD Physical Exam CONSTITUTIONAL/GENERAL: This is an adequately nourished patient, in no apparent distress. TUBES/LINES/DRAINS: SKIN: No jaundice, rashes, HEAD: Atraumatic. Normocephalic. EYES: Pupils equal and round and reactive. Extraocular motions intact. No scleral icterus. No injection or drainage. Fundi not examined. ENT:Oral mucosae moist without visible erythema; no active drooling no tongue swelling orally intubated CARDIOVASCULAR: Regular rate and rhythm without murmurs, gallops, or rubs. No JVD. Peripheral pulses symmetric. RESPIRATORY/CHEST: Symmetric, unlabored respirations. Clear to auscultation. Breath sounds equal bilaterally. No wheezes, rales, or rhonchi. GASTROINTESTINAL: Abdomen soft, non-tender, nondistended. No hepato-splenomegaly , or palpable masses. No guarding. Bowel sounds present. MUSCULOSKELETAL: Extremities without clubbing, cyanosis, or edema. VAC in place L LE with serosang dc LYMPHATICS: No palpable cervical or supraclavicular adenopathy. NEUROLOGICAL: sedated. L side with hemiplegia (baseline); Assessment & Plan Remarks Bedridden non verbal pt with h/o devastating stroke L thigh/L buttock decub, appears clinically infected L buttock abscess, MRSA sp debridement, VAC placement UTI, E.coli PCN allergy , but uneventfully took cefepime in 2009 CKD approaching ESRD New issue: During the general anesthesia and surgical procedure she developed angioedema and postprocedure remained intubated for an airway protection. Acute VDRF ? PNA Worsening leukocytosis - can be 2/2 sterroids -cont vancomycin -dc cont flagyl and cefepime - dc fluconazol - chk vanco level (random) - monitor closely pts GFR Discussed Condition With Janice Navarrete MD Jan 27, 2017 14:51
--- NOTE | 2017-01-27 15:41 | HHI.NPPN ---
Subjective History of Present Illness 66-year-old female with past medical history of hypertension, diabetes mellitus, chronic kidney disease, history of cerebrovascular accident with left-sided weakness who was brought to the hospital because of altered mental status. I was called to see the patient because of elevated BUN and creatinine. The patient has known history of chronic kidney disease. She has been following with Dr. Ramos. Additional Remarks Patient remain intubated and her eyes open, now on CPAP. Objective Data Data 01/26/17 01/27/17 19:00 07:00 Intake Total 827 ml 3740 ml Output Total 1750 ml 2700 ml Balance -923 ml 1040 ml IV Total 757 ml 2870 ml Tube Feeding 70 ml 690 ml Tube Irrigant 180 ml Output Urine Total 1750 ml 2700 ml Drainage Total 0 ml # Bowel Movements 1 0 Vital Signs Date Time Temp Pulse Resp B/P Pulse Ox O2 Delivery O2 Flow Rate FiO2 01/27/17 14:00 96 01/27/17 13:07 40 01/27/17 13:03 100 40 01/27/17 12:00 97.8 75 12 155/72 100 01/27/17 12:00 75 01/27/17 12:00 40 01/27/17 10:00 84 01/27/17 09:03 12 01/27/17 08:40 100 40 01/27/17 08:00 40 01/27/17 08:00 97.5 76 13 149/76 100 01/27/17 08:00 76 01/27/17 07:00 100 Mechanical Ventilator 40 01/27/17 06:00 82 01/27/17 06:00 99 40 01/27/17 05:13 100 40 01/27/17 04:00 40 01/27/17 04:00 98 01/27/17 04:00 97.5 98 15 151/96 100 01/27/17 02:00 81 01/27/17 01:45 100 40 01/27/17 00:00 97.7 76 12 133/75 100 01/27/17 00:00 40 01/27/17 00:00 79 01/26/17 22:37 100 40 01/26/17 22:00 79 01/26/17 21:12 100 40 01/26/17 20:00 78 01/26/17 20:00 40 01/26/17 20:00 97.6 84 12 127/72 100 01/26/17 19:00 100 Mechanical Ventilator 40 01/26/17 18:00 78 01/26/17 17:50 100 40 01/26/17 16:00 40 01/26/17 16:00 86 01/26/17 16:00 97.0 82 12 162/78 100 -: 01/27/17 0533 01/27/17 0533 Physical Exam General Appearance: No Acute Distress, Comfortable Appearance Remarks Intubated and sedated. Eyes Eye Exam: Pupils Equal, Pupils Reactive Ears & Nose Ears & Nose Exam: Nasal Mucosa [place] Throat Throat Exam: Oral Mucosa [place] & Moist Neck Neck Exam: Neck Supple, Trachea Midline Pulmonary Resp Exam: No Distress, Rhonchi, Decreased Bases, Poor Inspiratory Effort Cardiology CV Exam: Regular Gastrointestinal/Abdomen GI Exam: Soft, Non-Tender, Bowel Sounds Present, Non-Distended Genitourinary Exam: Clear Urine Musculoskeletal MS Exam: Atrophy, Unable to Ambulate Integumentary Skin Exam: Warm Extremeties Extremities Exam: Pedal Pulses Palpable, Moderate Edema Neurologic Neuro Exam: Sedated VTE Prophylaxis Device: SCDs Assessment/Plan Assessment Summary: Dehydration, Hypertension, CKD Stage IV Problem List: (1) Dehydration (2) UTI (urinary tract infection) (3) HTN (hypertension) (4) DM (diabetes mellitus) (5) CKD (chronic kidney disease) stage 4, GFR 15-29 ml/min (6) History of CVA with residual deficit (7) Altered mental status (8) Acute on chronic renal failure Plan Patient has now stage 3 chronic kidney disease. Has Thyroid Nodule. Will need to see Endocrinology after D/C. TSH was normal. Now on Cefepime and Metronidazole. ID following. Check serum immunofixation, in progress. Patient now has debridement. Develop swelling of tongue and intubated. Urine out put is good. On Lasix, Creatinine is at 2.0, stable. Possible extubation. Problem Qualifiers (1) UTI (urinary tract infection): Qualified Code: N39.0 - Urinary tract infection without hematuria, site unspecified (2) HTN (hypertension): Qualified Code: I10 - Essential hypertension (3) DM (diabetes mellitus): Qualified Code: E11.49 - Type 2 diabetes mellitus with other neurologic complication, unspecified half-way insulin use status (4) Altered mental status: Qualified Code: R40.4 - Transient alteration of awareness Chelsea Mora MD Jan 27, 2017 15:41
[2017-01-27] MEDS: MORPHINE SULFATE 4 MG/ML INJ IV PUSH PRN (16:38)
[2017-01-27] MEDS: PRAVASTATIN SOD 40 MG TAB PO SCH (20:10)
[2017-01-27] MEDS: traZODone HCL 50 MG TAB PO SCH (20:11)
[2017-01-28] VITALS (13 sets, daily range): BP systolic 143–153; BP diastolic 70–80; PULSE 64–95; RESP 14–22; TEMP 97.3–98.4; O2SAT 90–100
[2017-01-28] MEDS: SODIUM CHLOR 0.9% 1000 ML INJ 1,000 ML IV SCH ×2 (01:11→12:02)
[2017-01-28] MEDS: LABETALOL HCL 100 MG/20 ML VIAL IV PUSH PRN ×2 (03:34→23:04)
[2017-01-28 04:55] LABS: BICARBONATE 21.7 MEQ/L (21.0-32.0); POTASSIUM 3.8 MEQ/L (3.5-5.1)
[2017-01-28] MEDS: INSULIN ASPART SUPPLEMENTAL SCALE SQ SCH ×4 (07:00→21:00)
--- NOTE | 2017-01-28 08:21 | HHI.CCPN ---
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 She is bed ridden and totally dependent on DLA. She has developed stage IV sacral ulcer and became clinically worsening including hypoglycemia and leukocytosis. She was taken to operating room for debridement of a sacral ulcer. During the general anesthesia and surgical procedure she developed angioedema and postprocedure remained intubated for an airway protection. 01/24: Will attempt to extubate when tongue swelling improves. Cardiomegaly impressive. 01/25: Tongue edema persists, airway is compromised. Will continue intubation. 01/26: Edema improved but still drooling and air obstructed. Continue intubation. 01/27: Tongue edema improved, less drooling. Will work to extubate. 01/28: Extubated 01/28, breathing comfortably. No airway obstruction. Objective Vital Signs Date Time Temp Pulse Resp B/P Pulse Ox O2 Delivery O2 Flow Rate FiO2 01/28/17 08:00 99 21 01/28/17 06:00 88 01/28/17 04:00 97.7 16 143/75 01/27/17 22:00 Room Air 01/27/17 20:00 2.00 Intake and Output 01/27/17 01/27/17 01/28/17 08:00 16:00 00:00 Intake Total 1560 ml 1288 ml 820 ml Output Total 1000 ml 1550 ml 1000 ml Balance 560 ml -262 ml -180 ml Result Diagram: 01/27/17 0533 01/28/17 0414 Objective Remarks SKIN: Warm and dry. HEAD: Normocephalic. Angioedema of the tongue much less, and improved. EYES: No scleral icterus. Periorbital edema. NECK: Supple, trachea midline. CARDIOVASCULAR: Regular rate and rhythm without murmurs, gallops, or rubs. No JVD. RESPIRATORY: Breath sounds equal bilaterally. Clear, no wheezes. GASTROINTESTINAL: Abdomen soft, non-tender, nondistended. BS active. MUSCULOSKELETAL: No cyanosis, or edema. BACK: Nontender without obvious deformity. No CVA tenderness. EXTREMITIES: No clubbing cyanosis or edema. Large posterior wound with VAC coverage. NEURO: Alert, follows commands. S/P CVA with residual extremity weakness. Moves 4 limbs. A/P Assessment and Plan Respiratory failure - Intubated for an airway protection - Continue mechanical ventilation - no extubation until it edema improves -Extubated 01/27 Angioedema - Unknown origin - Decadron - H1 H2 blockers IV - Supportive care Diabetes - Levemir and insulin sliding scale - Glucerna tube feeds Stage IV chronic kidney disease - Per nephrology Stage IV sacral ulcer - Status post debridement - Further per surgery and infectious disease VAC DVT GI prophylaxis - Teds SCDs subcutaneous heparin and Pepcid Overall impression: Critical airway resolved. Ongoing care of decubitus. Miah Alvarez MD Jan 28, 2017 08:21
[2017-01-28] MEDS: METOCLOPRAMIDE HCL 10 MG TAB PO SCH ×4 (09:00→20:16)
[2017-01-28] MEDS: BENEPROTEIN POWDER 1 PACK G-TUBE SCH ×3 (09:00→18:00)
[2017-01-28] MEDS: FAMOTIDINE 20 MG TAB PO SCH ×2 (09:00→20:15)
[2017-01-28] MEDS: cloNIDine HCL 0.2 MG TAB PO SCH ×2 (09:00→20:15)
[2017-01-28] MEDS: CINACALCET HYDROCHLORIDE 30 MG TAB PO SCH (09:00)
[2017-01-28] MEDS: LACTULOSE SYRUP 20 GM/30 ML CUP PO SCH (09:00)
[2017-01-28] MEDS: INSULIN DETEMIR 100 UNITS/ML VIAL SQ SCH ×2 (09:00→21:19)
[2017-01-28] MEDS: SODIUM CHLORIDE 0.9% FLUSH 5 ML FLUSH FLUSH SCH ×2 (09:00→21:00)
[2017-01-28] MEDS: FLUoxetine HCL 20 MG CAP PO SCH (09:00)
[2017-01-28] MEDS: POVIDONE IODINE 10% SOLN 118 ML BOTTLE TOP SCH ×2 (10:39→20:16)
[2017-01-28] MEDS: COLLAGENASE OINT 30 GM TUBE TOP SCH (10:39)
[2017-01-28] MEDS: FUROSEMIDE 20 MG/2 ML VIAL IV PUSH SCH ×2 (10:49→18:19)
[2017-01-28] MEDS: DEXAMETHASONE SOD PHOS 20 MG/5 ML VIAL IV PUSH SCH (10:50)
--- NOTE | 2017-01-28 11:07 | HHI.NPPN ---
Subjective History of Present Illness 66-year-old female with past medical history of hypertension, diabetes mellitus, chronic kidney disease, history of cerebrovascular accident with left-sided weakness who was brought to the hospital because of altered mental status. I was called to see the patient because of elevated BUN and creatinine. The patient has known history of chronic kidney disease. She has been following with Dr. Ramos. Additional Remarks Extubated now, no acute complaints Objective Data Data 01/27/17 01/28/17 19:00 07:00 Intake Total 1288 ml 1580 ml Output Total 1550 ml 2600 ml Balance -262 ml -1020 ml Intake Oral 180 ml IV Total 1228 ml 1400 ml Tube Feeding 0 ml Tube Irrigant 60 ml Output Urine Total 1550 ml 2600 ml Drainage Total 0 ml 0 ml # Bowel Movements 0 0 Vital Signs Date Time Temp Pulse Resp B/P Pulse Ox O2 Delivery O2 Flow Rate FiO2 01/28/17 08:00 99 21 01/28/17 06:00 88 01/28/17 04:00 97.7 84 16 143/75 93 01/28/17 04:00 84 01/28/17 02:00 86 01/28/17 00:00 87 01/28/17 00:00 97.7 87 16 152/77 100 01/27/17 22:00 93 01/27/17 22:00 100 Room Air 01/27/17 21:14 100 21 01/27/17 21:00 100 Nasal Cannula 01/27/17 20:00 100 Nasal Cannula 2.00 01/27/17 20:00 97.7 87 18 151/83 100 01/27/17 20:00 93 01/27/17 19:00 100 Nasal Cannula 4.00 01/27/17 18:00 89 01/27/17 16:43 20 01/27/17 16:19 100 Nasal Cannula 4.00 01/27/17 16:18 100 Nasal Cannula 4 01/27/17 16:00 104 01/27/17 16:00 98.2 104 24 188/83 98 01/27/17 14:00 96 01/27/17 13:07 40 01/27/17 13:03 100 40 01/27/17 12:00 97.8 75 12 155/72 100 01/27/17 12:00 75 01/27/17 12:00 40 -: 01/27/17 0533 01/28/17 0414 Physical Exam General Appearance: No Acute Distress, Comfortable Eyes Eye Exam: Pupils Equal, Pupils Reactive Ears & Nose Ears & Nose Exam: Nasal Mucosa [place] Throat Throat Exam: Oral Mucosa [place] & Moist Neck Neck Exam: Neck Supple, Trachea Midline Pulmonary Resp Exam: No Distress, Rhonchi, Decreased Bases, Poor Inspiratory Effort Cardiology CV Exam: Regular Gastrointestinal/Abdomen GI Exam: Soft, Non-Tender, Bowel Sounds Present, Non-Distended Genitourinary Exam: Clear Urine Musculoskeletal MS Exam: Atrophy, Unable to Ambulate Integumentary Skin Exam: Warm Extremeties Extremities Exam: Pedal Pulses Palpable, Moderate Edema Neurologic Neuro Exam: Sedated VTE Prophylaxis Device: SCDs Assessment/Plan Assessment Summary: Dehydration, Hypertension, CKD Stage IV Problem List: (1) Dehydration (2) UTI (urinary tract infection) (3) HTN (hypertension) (4) DM (diabetes mellitus) (5) CKD (chronic kidney disease) stage 4, GFR 15-29 ml/min (6) History of CVA with residual deficit (7) Altered mental status (8) Acute on chronic renal failure Plan Patient has now stage 3 chronic kidney disease. Has Thyroid Nodule. Will need to see Endocrinology after D/C. TSH was normal. Now on Cefepime and Metronidazole. ID following. SPEP pending Extubated now, On Lasix 20mg IV BID, Creatinine is at 1.7, stable. Problem Qualifiers (1) UTI (urinary tract infection): Qualified Code: N39.0 - Urinary tract infection without hematuria, site unspecified (2) HTN (hypertension): Qualified Code: I10 - Essential hypertension (3) DM (diabetes mellitus): Qualified Code: E11.49 - Type 2 diabetes mellitus with other neurologic complication, unspecified intermediate card tender insulin use status (4) Altered mental status: Qualified Code: R40.4 - Transient alteration of awareness Al Wong MD Jan 28, 2017 11:07
--- NOTE | 2017-01-28 11:32 | HHI.PR ---
Subjective Subjective Remarks Randomly opens eyes Not speaking now Lethargic just got here for visit Very weak right hand squeeze (Shiloh Pyle) Review of Systems Constitutional Constitutional: Fatigue, Weakness Constitutional Remarks 10 point ROS done positives noted (Shiloh Pyle) Pulmonary Pulmonary Remarks Low volumes (Shiloh Pyle) Genitourinary Remarks UTI treatment (Shiloh Pyle) Musculoskeletal MS: Weakness, Stiffness, Swelling MS Remarks Old CVA (Shiloh Plye) Integumentary Skin: Wounds (sacral coccyx wounds, debride) (Shiloh Pyle) Vitals/Results Intake & Output 01/27/17 01/27/17 01/28/17 15:00 23:00 07:00 Intake Total 1288 ml 820 ml 760 ml Output Total 1550 ml 1000 ml 1600 ml Balance -262 ml -180 ml -840 ml Intake Oral 120 ml 60 ml IV Total 1228 ml 700 ml 700 ml Tube Feeding 0 ml Tube Irrigant 60 ml Output Urine Total 1550 ml 1000 ml 1600 ml Drainage Total 0 ml 0 ml 0 ml # Bowel Movements 0 0 0 Vital Signs Vital Signs Date Time Temp Pulse Resp B/P Pulse Ox O2 Delivery O2 Flow Rate FiO2 01/28/17 08:00 99 21 01/28/17 06:00 88 01/28/17 04:00 97.7 84 16 143/75 93 01/28/17 04:00 84 01/28/17 02:00 86 01/28/17 00:00 87 01/28/17 00:00 97.7 87 16 152/77 100 01/27/17 22:00 93 01/27/17 22:00 100 Room Air 01/27/17 21:14 100 21 01/27/17 21:00 100 Nasal Cannula 01/27/17 20:00 100 Nasal Cannula 2.00 01/27/17 20:00 97.7 87 18 151/83 100 01/27/17 20:00 93 01/27/17 19:00 100 Nasal Cannula 4.00 01/27/17 18:00 89 01/27/17 16:43 20 01/27/17 16:19 100 Nasal Cannula 4.00 01/27/17 16:18 100 Nasal Cannula 4 01/27/17 16:00 104 01/27/17 16:00 98.2 104 24 188/83 98 01/27/17 14:00 96 01/27/17 13:07 40 01/27/17 13:03 100 40 01/27/17 12:00 97.8 75 12 155/72 100 01/27/17 12:00 75 01/27/17 12:00 40 (Shiloh Pyle) CBC/BMP: 01/27/17 0533 01/28/17 0414 Lab Results Laboratory Tests Test 01/27/17 01/28/17 16:10 04:14 Random Vancomycin Level 15.3 COMMENT Sodium Level 144 MEQ/L Potassium Level 3.8 MEQ/L Chloride Level 114 MEQ/L Carbon Dioxide Level 21.7 MEQ/L Anion Gap 8 MEQ/L Blood Urea Nitrogen 37 MG/DL Creatinine 1.70 MG/DL Estimat Glomerular Filtration 36 ML/MIN Rate Random Glucose 79 MG/DL Calcium Level 9.0 MG/DL Imaging Remarks Last Impressions Chest X-Ray 01/23/17 0000 Signed Impressions: Service Date/Time: Monday, January 23, 2017 20:58 - CONCLUSION: Dense left lung base consolidation and mild case of pulmonary edema is not excluded. Gabriele Ambrosio MD Lower Extremity CT 01/16/17 0000 Signed Impressions: Service Date/Time: Monday, January 16, 2017 21:27 - CONCLUSION: Large air and fluid collection within the subcutaneous tissues of the posterior lateral upper thigh and base of the left buttock measuring 10.4 x 8.1 x 6.4 cm consistent with large subcutaneous abscess and surrounding diffuse cellulitis. Shaw Morfin MD Neck Ultrasound 01/13/17 0000 Signed Impressions: Service Date/Time: Friday, January 13, 2017 08:58 - CONCLUSION: 1. Could not identify parathyroid tissue. 2. 3 mm, isolated hypoechoic nodule in the right lobe of the thyroid isolated 5 mm cyst in the left lobe of the thyroid. David Mason MD Head CT 01/10/17 0038 Signed Impressions: Service Date/Time: Tuesday, January 10, 2017 01:23 - CONCLUSION: No significant change has occurred. Samuel Don MD Current Medications Active Medications Hydromorphone HCl (Dilaudid Pf Inj) 1 mg Q3H PRN IV PUSH; Start 01/27/17 at 17: 00 Insulin Detemir (Levemir Inj) 20 units Q12HR SQ; Start 01/28/17 at 09:00 Labetalol HCl (Trandate Inj) 20 mg Q2H PRN IV PUSH Last administered on 03:34; Admin Dose 20 MG; Start 01/27/17 at 17:00 Morphine Sulfate (Morphine Inj) 2 mg Q1H PRN IV PUSH Last administered on 16:38; Admin Dose 2 MG; Start 01/27/17 at 17:00 Trazodone HCl (Desyrel) 50 mg HS PO Last administered on 01/27/17 20:11; Admin Dose 50 MG; Start 01/27/17 at 21:00 (Shiloh Pyle) Physical Exam General General Appearance: No Acute Distress, Comfortable, Pale (mucous membranes) ( Shiloh Pyle) Eyes Eye Exam: Pupils Equal, Pupils Reactive (Shiloh Pyle) Ears & Nose Ears & Nose Exam: Nasal Mucosa [place] (Shiloh PyleP) Throat Throat Exam: Oral Mucosa [place] & Moist (Shiloh PyleP) Neck Neck Exam: Neck Supple, Trachea Midline (Shiloh PyleP) Pulmonary Resp Exam: No Distress, Rhonchi, Decreased Bases, Diminished Breath Sounds, Poor Inspiratory Effort (Shiloh PyleP) Cardiology CV Exam: Regular (Shiloh Pyle) Gastrointestinal/Abdomen GI Exam: Soft, Non-Tender, Bowel Sounds Present, Non-Distended (Shiloh PyleP) Genitourinary Exam: Clear Urine, Sediment (Shiloh PyleP) Musculoskeletal MS Exam: Atrophy, Unable to Ambulate (Shiloh PyleP) Integumentary Skin Exam: Warm, Dry (Shiloh PyleP) Extremeties Extremities Exam: Pedal Pulses Palpable, Moderate Edema (Shiloh PyleP) Neurologic Neuro Exam: Awake (at times), Sedated Neuro Remarks Old CVA (Shiloh Pyle) VTE Prophylaxis VTE Prophylaxis Device: SCDs ([place] ol[place]) Assessment/Plan Problem List: (1) Altered mental status (2) Dehydration (3) Hypoglycemia (4) UTI (urinary tract infection) (5) HTN (hypertension) (6) DM (diabetes mellitus) (7) CKD (chronic kidney disease) stage 4, GFR 15-29 ml/min (8) History of CVA with residual deficit (9) Pressure ulcer (10) Hypercalcemia (11) Leukocytosis (12) Acute on chronic renal failure (13) Left buttock abscess (14) Angioedema Assessment/Plan 66-year-old female with history of chronic kidney disease, hypertension, hyperlipidemia, CVA with left-sided hemiparesis, type 2 diabetes. Admitted with hypoglycemia, altered mental status. Found with UTI, acute on chronic renal failure, dehydration, abscess to left buttock and hypoglycemia Patient now maintained on O2, will randomly open eyes but still drowsy. Anemia -Likely of chronic disease status post blood transfusion january 16. Stable, will monitor Decubitus ulcer with abscess left buttock and thigh -Wound care is following -Report of CT lower extremity reviewed. -Wound culture showing MRSA - abx per ID, -Plastic surgery consult appreciated.s/p debridement 01/23 Spoke with concerning prehospital evaluation of wounds Altered mental status secondary to hypoglycemia, infection, dehydration, acute on chronic renal failure. -monitor accuchecks AC/HS with low dose ISS Hypoglycemia resolved, UTI, with significant leukocytosis, improving -Culture shows Escherichia coli, now on Bactrim Also Gardnerella vaginalis, continue metronidazole Acute on CKD, stage V, pt. nearing HD per history. Labs reviewed renal function improved with B UN of 37 creatinine 1.7, continue hydration Leukocytosis secondary to steroids -nephrology-input appreciated Hypercalcemia, normal, resolved Dysphasia,may need peg. Pt's refusing. now on tube feeding -continue tube feeding for now -Aspiration precautions Spoke with today concerning his wishes for his . Currently he wants ventilator and full aggressive treatment. Will need further discussion for PEG tube placement Speech therapy eval and treat ordered for their expert opinion and to assist on what patient treatment plan and options may be needed for her health. History of CVA with residual deficits, left-sided hemiplegia, dysphasia, expressive aphasia. It appears to be declining. CT of the head negative for any acute findings Physical therapy, speech therapy Discharge planning will need to be evaluated for this patient, may need long- term care due to her wounds and multiple medical comorbidities Hypertension, stable, monitor Patient on telemetry sinus rhythm Vital signs reviewed, afebrile normal ranges, monitor SCDs for DVT prophylaxis PUD prophylaxis Labs reviewed D/W RN D/W Dr. Heath D/W pt's (Shiloh Pyle) Assessment/Plan patient seen and examined extubated appears comfortable on Vanco per ID monitor in ICU overnight no family at bedside speech eval discussed with Shiloh RIVERA (Monserrat Heath MD) Problem Qualifiers (1) Altered mental status: Qualified Code: R40.4 - Transient alteration of awareness (2) UTI (urinary tract infection): Qualified Code: N39.0 - Urinary tract infection without hematuria, site unspecified (3) HTN (hypertension): Qualified Code: I10 - Essential hypertension (4) DM (diabetes mellitus): Qualified Code: E11.49 - Type 2 diabetes mellitus with other neurologic complication, unspecified 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
[2017-01-28] MEDS: MORPHINE SULFATE 4 MG/ML INJ IV PUSH PRN (16:48)
[2017-01-28] MEDS: PRAVASTATIN SOD 40 MG TAB PO SCH (20:15)
[2017-01-28] MEDS: traZODone HCL 50 MG TAB PO SCH (20:15)
[2017-01-29] VITALS (15 sets, daily range): BP systolic 159–189; BP diastolic 77–99; PULSE 60–127; RESP 13–24; TEMP 97.1–98.1; O2SAT 95–100
[2017-01-29] MEDS: HYDROmorphone HCL PF 1 MG/ML VIAL IV PUSH PRN ×2 (00:12→04:30)
[2017-01-29] MEDS: SODIUM CHLOR 0.9% 1000 ML INJ 1,000 ML IV SCH (02:00)
[2017-01-29] MEDS: LABETALOL HCL 100 MG/20 ML VIAL IV PUSH PRN ×2 (03:12→23:05)
[2017-01-29 05:12] LABS: BICARBONATE 23.9 MEQ/L (21.0-32.0); POTASSIUM 4.3 MEQ/L (3.5-5.1)
[2017-01-29] MEDS: MORPHINE SULFATE 4 MG/ML INJ IV PUSH PRN ×2 (05:12→06:30)
[2017-01-29] MEDS: INSULIN ASPART SUPPLEMENTAL SCALE SQ SCH ×4 (07:00→20:51)
[2017-01-29] MEDS: cloNIDine HCL 0.2 MG TAB PO SCH ×2 (07:41→09:00)
[2017-01-29] MEDS: DEXAMETHASONE SOD PHOS 20 MG/5 ML VIAL IV PUSH SCH (07:41)
[2017-01-29] MEDS: CINACALCET HYDROCHLORIDE 30 MG TAB PO SCH ×2 (07:42→09:00)
[2017-01-29] MEDS: FLUoxetine HCL 20 MG CAP PO SCH ×2 (07:42→09:00)
[2017-01-29] MEDS: FAMOTIDINE 20 MG TAB PO SCH ×3 (07:42→20:04)
[2017-01-29] MEDS: BENEPROTEIN POWDER 1 PACK G-TUBE SCH ×3 (07:43→16:58)
[2017-01-29] MEDS: FUROSEMIDE 20 MG/2 ML VIAL IV PUSH SCH ×2 (07:43→16:57)
[2017-01-29] MEDS: INSULIN DETEMIR 100 UNITS/ML VIAL SQ SCH ×2 (07:44→21:00)
[2017-01-29] MEDS: METOCLOPRAMIDE HCL 10 MG TAB PO SCH ×5 (07:44→20:05)
[2017-01-29] MEDS: LACTULOSE SYRUP 20 GM/30 ML CUP PO SCH ×2 (07:45→09:00)
[2017-01-29] MEDS: POVIDONE IODINE 10% SOLN 118 ML BOTTLE TOP SCH ×2 (07:46→20:05)
[2017-01-29] MEDS: SODIUM CHLORIDE 0.9% FLUSH 5 ML FLUSH FLUSH SCH ×2 (07:46→21:00)
[2017-01-29] MEDS: COLLAGENASE OINT 30 GM TUBE TOP SCH (07:46)
--- NOTE | 2017-01-29 11:34 | HHI.NPPN ---
Subjective History of Present Illness 66-year-old female with past medical history of hypertension, diabetes mellitus, chronic kidney disease, history of cerebrovascular accident with left-sided weakness who was brought to the hospital because of altered mental status. I was called to see the patient because of elevated BUN and creatinine. The patient has known history of chronic kidney disease. She has been following with Dr. Ramos. Additional Remarks No acute complaints Objective Data Data 01/28/17 01/29/17 19:00 07:00 Intake Total 916 ml 1610 ml Output Total 1600 ml 1800 ml Balance -684 ml -190 ml Intake Oral 240 ml 360 ml IV Total 676 ml 1250 ml Output Urine Total 1600 ml 1800 ml Drainage Total 0 ml 0 ml # Bowel Movements 0 0 Vital Signs Date Time Temp Pulse Resp B/P Pulse Ox O2 Delivery O2 Flow Rate FiO2 01/29/17 08:03 100 Nasal Cannula 2.00 01/29/17 06:00 74 01/29/17 04:00 98.1 60 13 175/84 100 01/29/17 04:00 60 01/29/17 02:00 64 01/29/17 00:28 84 01/29/17 00:00 84 01/29/17 00:00 97.7 84 24 178/80 99 01/28/17 22:00 92 01/28/17 20:27 97 21 01/28/17 20:00 95 01/28/17 20:00 98.4 87 22 152/73 90 01/28/17 19:00 96 Room Air 01/28/17 18:00 90 01/28/17 16:00 88 01/28/17 16:00 97.3 88 18 145/70 97 01/28/17 14:00 64 01/28/17 12:00 97.7 83 14 153/80 100 01/28/17 12:00 83 -: 01/27/17 0533 01/29/17 0340 Physical Exam General Appearance: No Acute Distress, Comfortable, Pale (mucous membranes) Eyes Eye Exam: Pupils Equal, Pupils Reactive Ears & Nose Ears & Nose Exam: Nasal Mucosa [place] Throat Throat Exam: Oral Mucosa [place] & Moist Neck Neck Exam: Neck Supple, Trachea Midline Pulmonary Resp Exam: No Distress, Rhonchi, Decreased Bases, Diminished Breath Sounds, Poor Inspiratory Effort Cardiology CV Exam: Regular Gastrointestinal/Abdomen GI Exam: Soft, Non-Tender, Bowel Sounds Present, Non-Distended Genitourinary Exam: Clear Urine, Sediment Musculoskeletal MS Exam: Atrophy, Unable to Ambulate Integumentary Skin Exam: Warm, Dry Extremeties Extremities Exam: Pedal Pulses Palpable, Moderate Edema Neurologic Neuro Exam: Awake (at times), Sedated VTE Prophylaxis Device: SCDs Assessment/Plan Assessment Summary: Dehydration, Hypertension, CKD Stage IV Problem List: (1) Dehydration (2) UTI (urinary tract infection) (3) HTN (hypertension) (4) DM (diabetes mellitus) (5) CKD (chronic kidney disease) stage 4, GFR 15-29 ml/min (6) History of CVA with residual deficit (7) Altered mental status (8) Acute on chronic renal failure Plan Patient has now stage 3 chronic kidney disease. Has Thyroid Nodule. Will need to see Endocrinology after D/C. TSH was normal. Now on Cefepime and Metronidazole. ID following. SPEP with abnormal gamma region on 01/10 - may consider further evaluation as patient further stabilizes. Extubated now, On Lasix 20mg IV BID, Creatinine continues to improve with good UOP Creatinine: 1.7->1.5 Continue lasix for now. Problem Qualifiers (1) UTI (urinary tract infection): Qualified Code: N39.0 - Urinary tract infection without hematuria, site unspecified (2) HTN (hypertension): Qualified Code: I10 - Essential hypertension (3) DM (diabetes mellitus): Qualified Code: E11.49 - Type 2 diabetes mellitus with other neurologic complication, unspecified intermediate manager insulin use status (4) Altered mental status: Qualified Code: R40.4 - Transient alteration of awareness Al Wong MD Jan 29, 2017 11:34
--- NOTE | 2017-01-29 14:55 | HHI.CCPN ---
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 She is bed ridden and totally dependent on DLA. She has developed stage IV sacral ulcer and became clinically worsening including hypoglycemia and leukocytosis. She was taken to operating room for debridement of a sacral ulcer. During the general anesthesia and surgical procedure she developed angioedema and postprocedure remained intubated for an airway protection. 01/24: Will attempt to extubate when tongue swelling improves. Cardiomegaly impressive. 01/25: Tongue edema persists, airway is compromised. Will continue intubation. 01/26: Edema improved but still drooling and air obstructed. Continue intubation. 01/27: Tongue edema improved, less drooling. Will work to extubate. 01/28: Extubated 01/28, breathing comfortably. No airway obstruction. 01/29: Breathing comfortably. Good response to diuretics. Protects airway well. Objective Vital Signs Date Time Temp Pulse Resp B/P Pulse Ox O2 Delivery O2 Flow Rate FiO2 01/29/17 08:03 100 Nasal Cannula 2.00 01/29/17 06:00 74 01/29/17 04:00 98.1 13 175/84 01/28/17 20:27 21 Intake and Output 01/28/17 01/28/17 01/29/17 08:00 16:00 00:00 Intake Total 760 ml 916 ml 910 ml Output Total 1600 ml 1600 ml 1200 ml Balance -840 ml -684 ml -290 ml Result Diagram: 01/27/17 0533 01/29/17 0340 Objective Remarks SKIN: Warm and dry. HEAD: Normocephalic. Angioedema of the tongue resolved. EYES: No scleral icterus. Periorbital edema. NECK: Supple, trachea midline. No stridor or obstruction. CARDIOVASCULAR: Regular rate and rhythm without murmurs, gallops, or rubs. No JVD. RESPIRATORY: Breath sounds equal bilaterally. Clear, no wheezes. GASTROINTESTINAL: Abdomen soft, non-tender, nondistended. BS active. MUSCULOSKELETAL: No cyanosis, or edema. EXTREMITIES: No clubbing cyanosis or edema. Large posterior wound with VAC coverage. NEURO: Alert, follows commands. S/P CVA with residual extremity weakness. Moves 4 limbs. A/P Assessment and Plan Respiratory failure - Intubated for an airway protection - Continue mechanical ventilation - no extubation until it edema improves -Extubated 01/27 Angioedema - Unknown origin - Decadron - H1 H2 blockers IV - Supportive care Diabetes - Levemir and insulin sliding scale - Glucerna tube feeds Stage IV chronic kidney disease - Per nephrology Stage IV sacral ulcer - Status post debridement - Further per surgery and infectious disease VAC DVT GI prophylaxis - Teds SCDs subcutaneous heparin and Pepcid Overall impression: Critical airway resolved. Ongoing care of decubitus wound. Miah Alvarez MD Jan 29, 2017 14:55
[2017-01-29] MEDS: hydrALAZINE HCL 20 MG/ML VIAL IV PRN ×2 (15:14→21:08)
--- NOTE | 2017-01-29 16:05 | HHI.PR ---
Subjective Subjective Remarks eyes open, alert speaking short sentences appropriately in room Currently on O2 per nasal cannula (Shiloh Pyle) Review of Systems Constitutional Constitutional: Fatigue, Weakness Constitutional Remarks 10 point ROS done positives noted (Shiloh Pyle) Pulmonary Pulmonary Remarks Low volumes (Shiloh Pyle) Cardiology CV Remarks BP high (Shiloh Pyle) Genitourinary Remarks UTI treatment (Shiloh Pyle) Musculoskeletal MS: Weakness, Stiffness, Swelling MS Remarks Old CVA (Shiloh Pyle) Integumentary Skin: Wounds (sacral coccyx wounds, debride) Skin Remarks Stage IV sacral (Shiloh Pyle) Vitals/Results Intake & Output 01/28/17 01/28/17 01/29/17 15:00 23:00 07:00 Intake Total 916 ml 910 ml 700 ml Output Total 1600 ml 1200 ml 600 ml Balance -684 ml -290 ml 100 ml Intake Oral 240 ml 360 ml IV Total 676 ml 550 ml 700 ml Output Urine Total 1600 ml 1200 ml 600 ml Drainage Total 0 ml 0 ml 0 ml # Bowel Movements 0 0 0 Vital Signs Vital Signs Date Time Temp Pulse Resp B/P Pulse Ox O2 Delivery O2 Flow Rate FiO2 01/29/17 08:03 100 Nasal Cannula 2.00 01/29/17 06:00 74 01/29/17 04:00 98.1 60 13 175/84 100 01/29/17 04:00 60 01/29/17 02:00 64 01/29/17 00:28 84 01/29/17 00:00 84 01/29/17 00:00 97.7 84 24 178/80 99 01/28/17 22:00 92 01/28/17 20:27 97 21 01/28/17 20:00 95 01/28/17 20:00 98.4 87 22 152/73 90 01/28/17 19:00 96 Room Air 01/28/17 18:00 90 (Shiloh Pyle) CBC/BMP: 01/27/17 0533 01/29/17 0340 Lab Results Laboratory Tests Test 01/29/17 03:40 Sodium Level 144 MEQ/L Potassium Level 4.3 MEQ/L Chloride Level 113 MEQ/L Carbon Dioxide Level 23.9 MEQ/L Anion Gap 7 MEQ/L Blood Urea Nitrogen 34 MG/DL Creatinine 1.52 MG/DL Estimat Glomerular Filtration 41 ML/MIN Rate Random Glucose 103 MG/DL Calcium Level 9.3 MG/DL Imaging Remarks Last Impressions Chest X-Ray 01/23/17 0000 Signed Impressions: Service Date/Time: Monday, January 23, 2017 20:58 - CONCLUSION: Dense left lung base consolidation and mild case of pulmonary edema is not excluded. Gabriele Ambrosio MD Lower Extremity CT 01/16/17 0000 Signed Impressions: Service Date/Time: Monday, January 16, 2017 21:27 - CONCLUSION: Large air and fluid collection within the subcutaneous tissues of the posterior lateral upper thigh and base of the left buttock measuring 10.4 x 8.1 x 6.4 cm consistent with large subcutaneous abscess and surrounding diffuse cellulitis. Shaw Morfin MD Neck Ultrasound 01/13/17 0000 Signed Impressions: Service Date/Time: Friday, January 13, 2017 08:58 - CONCLUSION: 1. Could not identify parathyroid tissue. 2. 3 mm, isolated hypoechoic nodule in the right lobe of the thyroid isolated 5 mm cyst in the left lobe of the thyroid. David Mason MD Head CT 01/10/17 0038 Signed Impressions: Service Date/Time: Tuesday, January 10, 2017 01:23 - CONCLUSION: No significant change has occurred. Samuel Don MD Current Medications Active Medications Hydralazine HCl (Apresoline Inj) 10 mg Q4H PRN IV Last administered on t 15:14; Admin Dose 10 MG; Start 01/29/17 at 10:00 (Shiloh PyleP) Physical Exam General General Appearance: No Acute Distress, Comfortable, Pale (mucous membranes) ( Shiloh Pyle CHIEF ESTIMATOR) Eyes Eye Exam: Pupils Equal, Pupils Reactive (Shiloh Pyle CHIEF ESTIMATOR) Ears & Nose Ears & Nose Exam: Nasal Mucosa [place] (Shiloh Pyle CHIEF ESTIMATOR) Throat Throat Exam: Oral Mucosa [place] & Moist (Shiloh Pyle CHIEF ESTIMATOR) Neck Neck Exam: Neck Supple, Trachea Midline (LashandaShiloh M. CHIEF ESTIMATOR) Pulmonary Resp Exam: No Distress, Rhonchi, Decreased Bases, Diminished Breath Sounds, Poor Inspiratory Effort ([place]Shiloh M. CHIEF ESTIMATOR) Cardiology CV Exam: Regular (BrandywineShiloh M. CHIEF ESTIMATOR) Gastrointestinal/Abdomen GI Exam: Soft, Non-Tender, Bowel Sounds Present, Non-Distended (BrandywineShiloh M. CHIEF ESTIMATOR) Genitourinary Exam: Clear Urine, Sediment (BrandywineShiloh M. CHIEF ESTIMATOR) Musculoskeletal MS Exam: Atrophy, Unable to Ambulate (BrandywineShiloh M. CHIEF ESTIMATOR) Integumentary Skin Exam: Warm, Dry (Br[place]wineShiloh M. CHIEF ESTIMATOR) Extremeties Extremities Exam: Pedal Pulses Palpable, Moderate Edema (LashandaShiloh M. CHIEF ESTIMATOR) Neurologic Neuro Exam: Awake (at times), Sedated Neuro Remarks Old CVA (LashandaShiloh M. CHIEF ESTIMATOR) VTE Prophylaxis VTE Prophylaxis Device: SCDs ([place]andywineShiloh M. CHIEF ESTIMATOR) Assessment/Plan Problem List: (1) Altered mental status (2) Dehydration (3) Hypoglycemia (4) UTI (urinary tract infection) (5) HTN (hypertension) (6) DM (diabetes mellitus) (7) CKD (chronic kidney disease) stage 4, GFR 15-29 ml/min (8) History of CVA with residual deficit (9) Pressure ulcer (10) Hypercalcemia (11) Leukocytosis (12) Acute on chronic renal failure (13) Left buttock abscess (14) Angioedema Assessment/Plan 66-year-old female with history of chronic kidney disease, hypertension, hyperlipidemia, CVA with left-sided hemiparesis, type 2 diabetes. Admitted with hypoglycemia, altered mental status. Found with UTI, acute on chronic renal failure, dehydration, abscess to left buttock and hypoglycemia Patient now maintained on O2, extubated, more alert more awake, is speaking short sentences Vital signs reviewed, afebrile, Hypertensive systolic BP today 170s -180s, increased PO clonidine. will monitor. Anemia , Likely of chronic disease status post blood transfusion january 16. Stable, will monitor Decubitus ulcer with abscess left buttock and thigh -Wound care is following -Report of CT lower extremity reviewed. -Wound culture showing MRSA - abx per ID, -Plastic surgery consult appreciated.s/p debridement / Gradual healing, dressing changes Monday and when necessary. Altered mental status , resolved answering questions appropriately when she speaks -monitor accuchecks AC/HS with low dose ISS Hypoglycemia resolved, UTI, with significant leukocytosis, improving -Culture shows Escherichia coli, now on Bactrim Also Gardnerella vaginalis, continue metronidazole Acute on CKD, stage V, pt. nearing HD per history. Labs reviewed renal function improved with B UN of 37 creatinine 1.7, continue hydration Leukocytosis secondary to steroids -nephrology-input appreciated Dysphasia, speech therapy eval and stated patient did pass swallow test In a.m., will start patient on diet. Taking by mouth fluids well this p.m. -Aspiration precautions Spoke with today concerning his wishes for his . Currently he wants ventilator and full aggressive treatment. Will need further discussion for PEG tube placement Speech therapy eval and treat ordered for their expert opinion and to assist on what patient treatment plan and options may be needed for her health. History of CVA with residual deficits, left-sided hemiplegia, dysphasia, expressive aphasia. Progression has been slow but returning to her baseline. Physical therapy, speech therapy Discharge planning will need to be evaluated for this patient, may need long- term care due to her wounds and multiple medical comorbidities Patient on telemetry sinus rhythm SCDs for DVT prophylaxis PUD prophylaxis D/W RN D/W Dr. Heath D/W pt's (Shiloh Pyle) Assessment/Plan (Shiloh Pyle) Assessment/Plan patient seen and examined BP high patient did not receive morning antihyoertensives plan of care discussed with patient's , nursing staff and Shiloh RIVERA ( Monserrat Heath MD) Problem Qualifiers (1) Altered mental status: Qualified Code: R40.4 - Transient alteration of awareness (2) UTI (urinary tract infection): Qualified Code: N39.0 - Urinary tract infection without hematuria, site unspecified (3) HTN (hypertension): Qualified Code: I10 - Essential hypertension (4) DM (diabetes mellitus): Qualified Code: E11.49 - Type 2 diabetes mellitus with other neurologic complication, unspecified extermination inspector insulin use status (5) Leukocytosis: Qualified Code: D72.829 - Leukocytosis, unspecified type (6) Angioedema: Qualified Code: T78.3XXA - Angioedema, initial encounter Shiloh Pyle Jan 29, 2017 16:05 Monserrat Heath MD Jan 29, 2017 19:56
[2017-01-29] MEDS: PRAVASTATIN SOD 40 MG TAB PO SCH (20:04)
[2017-01-29] MEDS: cloNIDine HCL 0.3 MG TAB PO SCH (20:04)
[2017-01-29] MEDS: traZODone HCL 50 MG TAB PO SCH (20:05)
[2017-01-29] MEDS: ONDANSETRON HCL 4 MG/2 ML VIAL IVP PRN (20:47)
[2017-01-30] VITALS (13 sets, daily range): BP systolic 159–199; BP diastolic 75–97; PULSE 68–109; RESP 12–29; TEMP 97.5–99.4; O2SAT 94–98
[2017-01-30] MEDS: LABETALOL HCL 100 MG/20 ML VIAL IV PUSH PRN ×3 (01:13→08:21)
[2017-01-30] MEDS: ONDANSETRON HCL 4 MG/2 ML VIAL IVP PRN (01:52)
[2017-01-30 04:05] LABS: AUTOMATED NEUTROPHIL # 16.6 TH/MM3 (1.8-7.7); BASOPHIL % 0.3 % (0.0-2.0); EOSINOPHIL # 0.1 TH/MM3 (0-0.4); EOSINOPHIL % 0.3 % (0.0-4.0); HEMATOCRIT 37.7 % (35.0-46.0); LYMPH % 4.4 % (9.0-44.0); LYMPHOCYTE # 0.9 TH/MM3 (1.0-4.8); MEAN CELL VOLUME 90.5 FL (80.0-100.0); MEAN CORPUSCULAR HEMOGLOBIN 30.6 PG (27.0-34.0); MEAN CORPUSCULAR HGB CONC 33.8 % (32.0-36.0); MONO % 10.3 % (0.0-8.0); NEUT % 84.7 % (16.0-70.0); PLATELET COUNT 345 TH/MM3 (150-450); RED BLOOD COUNT 4.17 MIL/MM3 (4.00-5.30); WHITE BLOOD COUNT 19.6 TH/MM3 (4.0-11.0)
[2017-01-30 04:06] LABS: HEMO FLAGS AUTO DIFF
[2017-01-30 04:15] LABS: ALKALINE PHOSPHATASE 126 U/L (45-117); TOTAL BILIRUBIN ADULT 0.4 MG/DL (0.2-1.0)
[2017-01-30 04:25] LABS: ALT (GPT) 32 U/L (10-53); ANION GAP 8 MEQ/L (5-15); AST (GOT) 32 U/L (15-37); BICARBONATE 28.4 MEQ/L (21.0-32.0); BLOOD UREA NITROGEN 35 MG/DL (7-18); CHLORIDE 110 MEQ/L (98-107); GLOMERULAR FILTRATION RATE 43 ML/MIN (>89); POTASSIUM 3.7 MEQ/L (3.5-5.1); SODIUM (NA) 146 MEQ/L (136-145)
[2017-01-30] MEDS: hydrALAZINE HCL 20 MG/ML VIAL IV PRN ×2 (05:07→09:31)
[2017-01-30 05:19] LABS: PLATELET ESTIMATE SMEAR NORMAL (NORMAL); PLATELET MORPHOLOGY NORMAL (NORMAL); SCAN/DIFF AUTO DIFF CONFIRMED
[2017-01-30] MEDS: MORPHINE SULFATE 4 MG/ML INJ IV PUSH PRN (06:17)
[2017-01-30] MEDS: INSULIN ASPART SUPPLEMENTAL SCALE SQ SCH ×4 (06:53→21:00)
[2017-01-30] MEDS: FLUoxetine HCL 20 MG CAP PO SCH (07:30)
[2017-01-30] MEDS: CINACALCET HYDROCHLORIDE 30 MG TAB PO SCH (07:30)
[2017-01-30] MEDS: METOCLOPRAMIDE HCL 10 MG TAB PO SCH (07:30)
[2017-01-30] MEDS: cloNIDine HCL 0.3 MG TAB PO SCH (07:31)
[2017-01-30] MEDS: LACTULOSE SYRUP 20 GM/30 ML CUP PO SCH (07:31)
[2017-01-30] MEDS: FAMOTIDINE 20 MG TAB PO SCH (07:31)
[2017-01-30] MEDS: BENEPROTEIN POWDER 1 PACK G-TUBE SCH ×3 (07:32→17:08)
[2017-01-30] MEDS: FUROSEMIDE 20 MG/2 ML VIAL IV PUSH SCH ×2 (07:32→17:08)
[2017-01-30] MEDS: DEXAMETHASONE SOD PHOS 20 MG/5 ML VIAL IV PUSH SCH (07:32)
[2017-01-30] MEDS: SODIUM CHLORIDE 0.9% FLUSH 5 ML FLUSH FLUSH SCH ×2 (07:32→21:11)
[2017-01-30] MEDS: INSULIN DETEMIR 100 UNITS/ML VIAL SQ SCH ×2 (08:13→21:00)
[2017-01-30] MEDS: CARVEDILOL 3.125 MG TAB PO SCH ×2 (09:00→21:00)
[2017-01-30] MEDS: predniSONE 20 MG TAB PO SCH ×2 (09:00→21:00)
[2017-01-30] MEDS: POVIDONE IODINE 10% SOLN 118 ML BOTTLE TOP SCH ×2 (09:23→21:00)
[2017-01-30] MEDS: COLLAGENASE OINT 30 GM TUBE TOP SCH (09:24)
--- NOTE | 2017-01-30 09:59 | RADRPT ---
EXAM DATE/TIME: 01/30/2017 09:41 [facility] COMPARISON: No previous studies available for comparison. INDICATIONS : Vomiting MEDICAL HISTORY : Stroke. SURGICAL HISTORY : Hysterectomy. ENCOUNTER: Initial ACUITY: 1 day PAIN SCORE: Non-responsive. LOCATION: Bilateral Abdomen FINDINGS: Supine view of the abdomen was performed. The abdominal bowel gas pattern is normal. No abnormal ma sses, calcifications, or organomegaly is seen. The osseous structures are unremarkable. NG tube tip terminates in the distal stomach region. CONCLUSION: No acute disease. Samuel Don MD on January 30, 2017 at 9:58 Board Certified Radiologist. This report was verified electronically.
[2017-01-30] MEDS ORDERED: hydrALAZINE HCL 20 MG/ML VIAL IV PUSH PRN (10:15)
[2017-01-30] MEDS ORDERED: ACETAMINOPHEN 325 MG SUPP RECTAL PRN (10:15)
--- NOTE | 2017-01-30 10:23 | HHI.PR ---
Subjective Subjective Remarks eyes closed, lethargic responds to Currently on O2 per nasal cannula nausea and vomiting this am NGT, (Shiloh Pyle) Review of Systems Constitutional Constitutional: Fatigue, Weakness Constitutional Remarks 10 point ROS done positives noted (Shiloh Pyle) Pulmonary Pulmonary Remarks Low volumes (Shiloh Pyle) Cardiology CV Remarks BP high (Shiloh Pyle) GI/Abdomen GI/Abdominal Exam: Nausea, Vomiting (acute today) GI/Abdomen Remarks NGT (Shiloh Pyle) Genitourinary Remarks UTI treatment (Shiloh Pyle) Musculoskeletal MS: Weakness, Stiffness, Swelling MS Remarks Old CVA (Shiloh Pyle) Integumentary Skin: Wounds (sacral coccyx wounds, debride) Skin Remarks Stage IV sacral (Shiloh Pyle) Neurologic Neurologic: Lethargic (Shiloh Pyle) Vitals/Results Intake & Output 01/29/17 01/29/17 01/30/17 15:00 23:00 07:00 Intake Total 1125 ml 790 ml 14 ml Output Total 1000 ml 1850 ml 1200 ml Balance 125 ml -1060 ml -1186 ml Intake Oral 480 ml 720 ml IV Total 645 ml 70 ml 14 ml Output Urine Total 1000 ml 1550 ml 850 ml Gastric Drainage Total 150 ml Emesis 300 ml 200 ml Drainage Total 0 ml 0 ml 0 ml # Bowel Movements 0 0 Vital Signs Vital Signs Date Time Temp Pulse Resp B/P Pulse Ox O2 Delivery O2 Flow Rate FiO2 01/30/17 08:00 97.5 89 15 199/97 97 01/30/17 08:00 89 01/30/17 07:00 95 Room Air 01/30/17 06:22 18 01/30/17 06:00 88 01/30/17 04:00 91 01/30/17 04:00 98.1 91 15 183/86 96 01/30/17 02:00 92 01/30/17 00:00 99.4 109 29 165/75 98 01/30/17 00:00 109 01/29/17 22:00 127 01/29/17 20:16 98 Nasal Cannula 01/29/17 20:00 97.9 106 19 189/99 97 01/29/17 20:00 106 01/29/17 19:00 97 Room Air 01/29/17 18:00 106 01/29/17 16:00 98 01/29/17 16:00 98.1 98 15 187/87 95 01/29/17 14:00 103 01/29/17 12:00 86 01/29/17 12:00 97.1 86 24 159/80 97 (Shiloh Pyle) CBC/BMP: 01/30/17 0348 01/30/17 0348 Lab Results Laboratory Tests Test 01/30/17 03:48 White Blood Count 19.6 TH/MM3 Red Blood Count 4.17 MIL/MM3 Hemoglobin 12.8 GM/DL Hematocrit 37.7 % Mean Corpuscular Volume 90.5 FL Mean Corpuscular Hemoglobin 30.6 PG Mean Corpuscular Hemoglobin 33.8 % Concent Red Cell Distribution Width 18.0 % Platelet Count 345 TH/MM3 Mean Platelet Volume 8.0 FL Neutrophils (%) (Auto) 84.7 % Lymphocytes (%) (Auto) 4.4 % Monocytes (%) (Auto) 10.3 % Eosinophils (%) (Auto) 0.3 % Basophils (%) (Auto) 0.3 % Neutrophils # (Auto) 16.6 TH/MM3 Lymphocytes # (Auto) 0.9 TH/MM3 Monocytes # (Auto) 2.0 TH/MM3 Eosinophils # (Auto) 0.1 TH/MM3 Basophils # (Auto) 0.0 TH/MM3 CBC Comment AUTO DIFF Differential Comment AUTO DIFF CONFIRMED Platelet Estimate NORMAL Platelet Morphology Comment NORMAL Sodium Level 146 MEQ/L Potassium Level 3.7 MEQ/L Chloride Level 110 MEQ/L Carbon Dioxide Level 28.4 MEQ/L Anion Gap 8 MEQ/L Blood Urea Nitrogen 35 MG/DL Creatinine 1.46 MG/DL Estimat Glomerular Filtration 43 ML/MIN Rate Random Glucose 85 MG/DL Calcium Level 10.1 MG/DL Total Bilirubin 0.4 MG/DL Aspartate Amino Transf 32 U/L (AST/SGOT) Alanine Aminotransferase 32 U/L (ALT/SGPT) Alkaline Phosphatase 126 U/L Total Protein 7.2 GM/DL Albumin 2.2 GM/DL Imaging Remarks Last Impressions Abdomen X-Ray 01/30/17 0956 Signed Impressions: Service Date/Time: Monday, January 30, 2017 09:41 - CONCLUSION: No acute disease. Samuel Don MD Chest X-Ray 01/23/17 0000 Signed Impressions: Service Date/Time: Monday, January 23, 2017 20:58 - CONCLUSION: Dense left lung base consolidation and mild case of pulmonary edema is not excluded. Gabriele Ambrosio MD Lower Extremity CT 01/16/17 0000 Signed Impressions: Service Date/Time: Monday, January 16, 2017 21:27 - CONCLUSION: Large air and fluid collection within the subcutaneous tissues of the posterior lateral upper thigh and base of the left buttock measuring 10.4 x 8.1 x 6.4 cm consistent with large subcutaneous abscess and surrounding diffuse cellulitis. Shaw Morfin MD Neck Ultrasound 01/13/17 0000 Signed Impressions: Service Date/Time: Friday, January 13, 2017 08:58 - CONCLUSION: 1. Could not identify parathyroid tissue. 2. 3 mm, isolated hypoechoic nodule in the right lobe of the thyroid isolated 5 mm cyst in the left lobe of the thyroid. David Mason MD Head CT 01/10/17 0038 Signed Impressions: Service Date/Time: Tuesday, January 10, 2017 01:23 - CONCLUSION: No significant change has occurred. Samuel Don MD Current Medications Active Medications Acetaminophen (Tylenol Supp) 325 mg Q6H PRN RECTAL; Start 01/30/17 at 10:15; Status UNV Carvedilol (Coreg) 3.125 mg Q12HR PO; Start 01/30/17 at 09:00 Clonidine (Catapres) 0.3 mg Q12HR PO Last administered on 01/30/17t 07:31; Admin Dose 0.3 MG; Start 01/29/17 at 21:00; Stop 01/30/17 at 10:04; Status DC Clonidine (Catapres-Tts 0.2 Mg Patch.7d) 1 patch Q7D T-DERMAL; Start 01/30/17 at 10:00; Status UNV Famotidine (Pepcid Inj) 10 mg Q12H IV PUSH; Start 01/30/17 at 10:15; Status UNV Hydralazine HCl (Apresoline Inj) 20 mg Q4H PRN IV PUSH; Start 01/30/17 at 10:15 ; Status UNV Metoclopramide HCl (Reglan Inj) 10 mg Q8H IM; Start 01/30/17 at 10:15; Status UNV Prednisone (Deltasone) 20 mg BID PO; Start 01/30/17 at 09:00 (Shiloh Pyle. CABLE ASSEMBLER AND SWAGER) Physical Exam General General Appearance: No Acute Distress, Comfortable, Pale (mucous membranes) ( Shiloh Pyle. CABLE ASSEMBLER AND SWAGER) Eyes Eye Exam: Pupils Equal, Pupils Reactive (Shiloh Pyle. CABLE ASSEMBLER AND SWAGER) Ears & Nose Ears & Nose Exam: Nasal Mucosa Wilsonia (Shiloh Pyle. CABLE ASSEMBLER AND SWAGER) Throat Throat Exam: Oral Mucosa Wilsonia & Moist (Shiloh Pyle. CABLE ASSEMBLER AND SWAGER) Neck Neck Exam: Neck Supple, Trachea Midline (Shiloh Pyle. CABLE ASSEMBLER AND SWAGER) Pulmonary Resp Exam: No Distress, Rhonchi, Decreased Bases, Diminished Breath Sounds, Poor Inspiratory Effort (Shiloh Pyle. CABLE ASSEMBLER AND SWAGER) Cardiology CV Exam: Regular (Shiloh Pyle. CABLE ASSEMBLER AND SWAGER) Gastrointestinal/Abdomen GI Exam: Soft, Non-Tender, Bowel Sounds Present, Non-Distended (Shiloh Pyle. CABLE ASSEMBLER AND SWAGER) Genitourinary Exam: Clear Urine, Sediment (Shiloh Pyle M. CABLE ASSEMBLER AND SWAGER) Musculoskeletal MS Exam: Atrophy, Unable to Ambulate (Shiloh Pyle M. CABLE ASSEMBLER AND SWAGER) Integumentary Skin Exam: Warm, Dry (Shiloh Pyle. CABLE ASSEMBLER AND SWAGER) Extremeties Extremities Exam: Pedal Pulses Palpable, Moderate Edema (Shiloh Pyle. CABLE ASSEMBLER AND SWAGER) Neurologic Neuro Exam: Awake (at times), Sedated Neuro Remarks Old CVA (Shiloh Pyle. CABLE ASSEMBLER AND SWAGER) VTE Prophylaxis VTE Prophylaxis Device: SCDs (Shiloh Pyle M. CABLE ASSEMBLER AND SWAGER) Assessment/Plan Problem List: (1) Altered mental status (2) Dehydration (3) Hypoglycemia (4) UTI (urinary tract infection) (5) HTN (hypertension) (6) DM (diabetes mellitus) (7) CKD (chronic kidney disease) stage 4, GFR 15-29 ml/min (8) History of CVA with residual deficit (9) Pressure ulcer (10) Hypercalcemia (11) Leukocytosis (12) Acute on chronic renal failure (13) Left buttock abscess (14) Ileus, unspecified (15) Nausea & vomiting Assessment/Plan Possible ileus : Acute onset on nausea and vomiting this am. NGT placed and connected to suction. KUB done, pending results. Changed Reglan to IV, Tylenol changed to supp. , Pepcid changed to IV, Clonidine changed to patch, Patient Blood sugar 88, D5W going at 30cc/hr. Patient now maintained on O2, extubated, lethargic this am probable secondary to acute abd. N&V. Eyes closed. HTN labile: Vital signs reviewed, BP still labile. Minimal response to IV prn meds . Changed Clonidine dose to patch. Increased Hydralazine IV prn HTN dose if needed. Anemia , Likely of chronic disease status post blood transfusion january 16. Stable, will monitor Decubitus ulcer with abscess left buttock and thigh -Wound care is following -Report of CT lower extremity reviewed. -Wound culture showing MRSA - abx per ID, -Plastic surgery consult appreciated.s/p debridement 01/23 Gradual healing, dressing changes Monday and when necessary. -monitor accuchecks AC/HS with low dose ISS Hypoglycemia resolved, UTI, with significant leukocytosis, improving -Culture shows Escherichia coli, now on Bactrim Also Gardnerella vaginalis, continue metronidazole Acute on CKD, stage V, pt. nearing HD per history. Leukocytosis secondary to steroids -nephrology-input appreciated , noted hypernatremia, Dysphasia, speech therapy eval patient did pass swallow test. NPO for now secondary to acute nausea and vomiting. In a.m., will start patient on diet. Taking by mouth fluids well this p.m. -Aspiration precautions Spoke with today concerning his wishes for his . Currently he wants ventilator and full aggressive treatment. Will need further discussion for PEG tube placement Speech therapy eval and treat ordered for their expert opinion and to assist on what patient treatment plan and options may be needed for her health. History of CVA with residual deficits, left-sided hemiplegia, dysphasia, expressive aphasia. Progression has been slow but returning to her baseline. Physical therapy, speech therapy Discharge planning will need to be evaluated for this patient, may need long- term care due to her wounds and multiple medical comorbidities vital signs reviewed, Patient on telemetry sinus rhythm, afebrile. See notes on HTN, SCDs for DVT prophylaxis PUD prophylaxis (Shiloh Pyle) Assessment/Plan patient seen and examined KUB neg can clamp NG tube if no nausea, vomiting will start clears slowly Plan of care discussed with nursing staff/ Shiloh RIVERA (Monserrat Heath MD) Problem Qualifiers (1) Altered mental status: Qualified Code: R40.4 - Transient alteration of awareness (2) UTI (urinary tract infection): Qualified Code: N39.0 - Urinary tract infection without hematuria, site unspecified (3) HTN (hypertension): Qualified Code: I10 - Essential hypertension (4) DM (diabetes mellitus): Qualified Code: E11.49 - Type 2 diabetes mellitus with other neurologic complication, unspecified pharmacy benefits coordinator insulin use status (5) Leukocytosis: Qualified Code: D72.829 - Leukocytosis, unspecified type Shiloh Pyle Jan 30, 2017 10:23 Monserrat Heath MD Jan 30, 2017 15:28
[2017-01-30] MEDS: cloNIDine HCL 0.2 MG/24 HR PATCH T-DERMAL SCH (11:04)
[2017-01-30] MEDS: FAMOTIDINE 20 MG/2 ML VIAL IV PUSH SCH ×2 (11:05→22:45)
[2017-01-30] MEDS: BISACODYL 10 MG SUPP PR PRN (11:54)
[2017-01-30] MEDS: DEXTROSE 5% IN WATE 1000ML INJ 1,000 ML IV SCH (13:00)
[2017-01-30] MEDS: METOCLOPRAMIDE HCL 10 MG/2 ML VIAL IV SCH ×2 (15:34→22:46)
--- NOTE | 2017-01-30 16:34 | HHI.NPPN ---
Subjective History of Present Illness 66-year-old female with past medical history of hypertension, diabetes mellitus, chronic kidney disease, history of cerebrovascular accident with left-sided weakness who was brought to the hospital because of altered mental status. I was called to see the patient because of elevated BUN and creatinine. The patient has known history of chronic kidney disease. She has been following with Dr. Ramos. Additional Remarks Patient is clinically same, not in distress. Objective Data Data 01/29/17 01/30/17 19:00 07:00 Intake Total 1125 ml 804 ml Output Total 1000 ml 3050 ml Balance 125 ml -2246 ml Intake Oral 480 ml 720 ml IV Total 645 ml 84 ml Output Urine Total 1000 ml 2400 ml Gastric Drainage Total 150 ml Emesis 500 ml Drainage Total 0 ml 0 ml # Bowel Movements 0 0 Vital Signs Date Time Temp Pulse Resp B/P Pulse Ox O2 Delivery O2 Flow Rate FiO2 01/30/17 16:00 97 01/30/17 16:00 97.7 97 15 159/77 97 01/30/17 14:00 93 01/30/17 12:00 89 01/30/17 12:00 97.7 89 15 165/80 96 01/30/17 10:00 92 01/30/17 08:00 97.5 89 15 199/97 97 01/30/17 08:00 89 01/30/17 07:00 95 Room Air 01/30/17 06:22 18 01/30/17 06:00 88 01/30/17 04:00 91 01/30/17 04:00 98.1 91 15 183/86 96 01/30/17 02:00 92 01/30/17 00:00 99.4 109 29 165/75 98 01/30/17 00:00 109 01/29/17 22:00 127 01/29/17 20:16 98 Nasal Cannula 01/29/17 20:00 97.9 106 19 189/99 97 01/29/17 20:00 106 01/29/17 19:00 97 Room Air 01/29/17 18:00 106 -: 01/30/17 0348 01/30/17 0348 Physical Exam General Appearance: No Acute Distress, Comfortable, Pale (mucous membranes) Appearance Remarks Intubated and sedated. Eyes Eye Exam: Pupils Equal, Pupils Reactive Ears & Nose Ears & Nose Exam: Nasal Mucosa Mart Throat Throat Exam: Oral Mucosa Mart & Moist Neck Neck Exam: Neck Supple, Trachea Midline Pulmonary Resp Exam: No Distress, Rhonchi, Decreased Bases, Diminished Breath Sounds, Poor Inspiratory Effort Cardiology CV Exam: Regular Gastrointestinal/Abdomen GI Exam: Soft, Non-Tender, Bowel Sounds Present, Non-Distended Genitourinary Exam: Clear Urine, Sediment Musculoskeletal MS Exam: Atrophy, Unable to Ambulate Integumentary Skin Exam: Warm, Dry Extremeties Extremities Exam: Pedal Pulses Palpable, Moderate Edema Neurologic Neuro Exam: Awake (at times), Sedated VTE Prophylaxis Device: SCDs Assessment/Plan Assessment Summary: Dehydration, Hypertension, CKD Stage IV Problem List: (1) Dehydration (2) UTI (urinary tract infection) (3) HTN (hypertension) (4) DM (diabetes mellitus) (5) CKD (chronic kidney disease) stage 4, GFR 15-29 ml/min (6) History of CVA with residual deficit (7) Altered mental status (8) Acute on chronic renal failure Plan Patient has now stage 3 chronic kidney disease. Has Thyroid Nodule. Will need to see Endocrinology after D/C. TSH was normal. Now on Cefepime and Metronidazole. ID following. SPEP with abnormal gamma region on 01/10 - may consider further evaluation as patient further stabilizes. Extubated now, On Lasix 20mg IV BID, Creatinine continues to improve with good UOP Creatinine is stable, has chronic kidney disease with some EDMUND. Problem Qualifiers (1) UTI (urinary tract infection): Qualified Code: N39.0 - Urinary tract infection without hematuria, site unspecified (2) HTN (hypertension): Qualified Code: I10 - Essential hypertension (3) DM (diabetes mellitus): Qualified Code: E11.49 - Type 2 diabetes mellitus with other neurologic complication, unspecified truck terminal manager insulin use status (4) Altered mental status: Qualified Code: R40.4 - Transient alteration of awareness Chelsea Mora MD Jan 30, 2017 16:34 Chelsea Mora MD Jan 30, 2017 16:34
[2017-01-30 19:47] LABS: BICARBONATE 28.6 MEQ/L (21.0-32.0); POTASSIUM 3.7 MEQ/L (3.5-5.1)
[2017-01-30] MEDS: traZODone HCL 50 MG TAB PO SCH (21:00)
[2017-01-30] MEDS: PRAVASTATIN SOD 40 MG TAB PO SCH (21:00)
[2017-01-31] VITALS (11 sets, daily range): BP systolic 138–176; BP diastolic 80–92; PULSE 72–96; RESP 12–19; TEMP 97–98; O2SAT 95–98
[2017-01-31] MEDS: LABETALOL HCL 100 MG/20 ML VIAL IV PUSH PRN ×3 (00:25→05:15)
[2017-01-31 04:13] LABS: AUTOMATED NEUTROPHIL # 9.8 TH/MM3 (1.8-7.7); BASOPHIL % 0.4 % (0.0-2.0); EOSINOPHIL % 0.1 % (0.0-4.0); HEMATOCRIT 35.9 % (35.0-46.0); LYMPH % 6.7 % (9.0-44.0); LYMPHOCYTE # 0.8 TH/MM3 (1.0-4.8); MEAN CELL VOLUME 91.3 FL (80.0-100.0); MEAN CORPUSCULAR HEMOGLOBIN 30.5 PG (27.0-34.0); MEAN CORPUSCULAR HGB CONC 33.4 % (32.0-36.0); MONO % 8.7 % (0.0-8.0); NEUT % 84.1 % (16.0-70.0); PLATELET COUNT 244 TH/MM3 (150-450); RED BLOOD COUNT 3.93 MIL/MM3 (4.00-5.30); RED CELL DISTRIBUTION WIDTH 18.4 % (11.6-17.2); WHITE BLOOD COUNT 11.7 TH/MM3 (4.0-11.0)
[2017-01-31 04:40] LABS: BICARBONATE 27.8 MEQ/L (21.0-32.0); POTASSIUM 3.8 MEQ/L (3.5-5.1)
[2017-01-31 04:44] LABS: HEMO FLAGS AUTO DIFF
[2017-01-31] MEDS: METOCLOPRAMIDE HCL 10 MG/2 ML VIAL IV SCH (06:00)
[2017-01-31] MEDS: INSULIN ASPART SUPPLEMENTAL SCALE SQ SCH ×4 (07:00→21:00)
[2017-01-31] MEDS: LACTULOSE SYRUP 20 GM/30 ML CUP PO SCH (07:57)
[2017-01-31] MEDS: BISACODYL 10 MG SUPP PR PRN (07:57)
[2017-01-31] MEDS: CINACALCET HYDROCHLORIDE 30 MG TAB PO SCH (07:58)
[2017-01-31] MEDS: CARVEDILOL 3.125 MG TAB PO SCH ×3 (07:58→23:09)
[2017-01-31] MEDS: FUROSEMIDE 20 MG/2 ML VIAL IV PUSH SCH (07:59)
[2017-01-31] MEDS: predniSONE 20 MG TAB PO SCH ×2 (07:59→21:00)
[2017-01-31] MEDS: INSULIN DETEMIR 100 UNITS/ML VIAL SQ SCH (07:59)
[2017-01-31] MEDS: BENEPROTEIN POWDER 1 PACK G-TUBE SCH ×3 (07:59→16:59)
[2017-01-31] MEDS: SODIUM CHLORIDE 0.9% FLUSH 5 ML FLUSH FLUSH SCH ×2 (07:59→21:00)
[2017-01-31] MEDS: POVIDONE IODINE 10% SOLN 118 ML BOTTLE TOP SCH ×2 (08:00→21:00)
[2017-01-31] MEDS: COLLAGENASE OINT 30 GM TUBE TOP SCH (08:00)
[2017-01-31 08:03] LABS: METAMYELOCYTES 2 % (0-1); NEUTROPHIL # MANUAL DIFF 9.8 TH/MM3 (1.8-7.7); POLYS (SEG NEUTROPHILS) 82 % (16-70); WBC DIFF SAMPLE 100
[2017-01-31 08:04] LABS: PLATELET ESTIMATE SMEAR NORMAL (NORMAL); PLATELET MORPHOLOGY NORMAL (NORMAL); SCAN/DIFF FINAL DIFF MANUAL; TARGET CELLS 1+ (NORMAL)
--- NOTE | 2017-01-31 09:06 | HHI.PR ---
Subjective Subjective Remarks eyes open, responding to verbal stimuli Currently on O2 per nasal cannula No further nausea and vomiting, taking by mouth fluids NGT, DC'd this morning Bowel regimen with Dulcolax suppository (Shiloh Pyle) Review of Systems Constitutional Constitutional: Fatigue, Weakness Constitutional Remarks 10 point ROS done positives noted (Shiloh Pyle) Pulmonary Pulmonary Remarks Low volumes (Shiloh Pyle) Cardiology CV Remarks BP high (Shiloh Pyle) GI/Abdomen GI/Abdominal Exam: Nausea, Vomiting (acute today) GI/Abdomen Remarks NGT DC'd this a.m. (Shiloh Pyle) Genitourinary Remarks UTI treatment (Shiloh Pyle) Musculoskeletal MS: Weakness, Stiffness, Swelling MS Remarks Old CVA (Shiloh Pyle) Integumentary Skin: Wounds (sacral coccyx wounds, debride) Skin Remarks Stage IV sacral, wound VAC (Shiloh Pyle) Neurologic Neurologic: Lethargic (Shiloh Pyle) Psychiatric Psychiatric: Normal Mood Psychiatric Remarks Minimal conversation secondary to her CVA (Shiloh Pyle) Vitals/Results Intake & Output 01/30/17 01/30/17 01/31/17 14:59 22:59 06:59 Intake Total 92 ml 83 ml 135 ml Output Total 1525 ml 800 ml 700 ml Balance -1433 ml -717 ml -565 ml Intake Oral 0 ml 30 ml 60 ml IV Total 92 ml 53 ml 75 ml Output Urine Total 1250 ml 800 ml 700 ml Gastric Drainage Total 200 ml 0 ml 0 ml Drainage Total 75 ml 0 ml 0 ml # Bowel Movements 0 0 0 Vital Signs Vital Signs Date Time Temp Pulse Resp B/P Pulse Ox O2 Delivery O2 Flow Rate FiO2 01/31/17 07:26 98 21 01/31/17 07:00 97 Room Air 01/31/17 06:00 81 01/31/17 04:00 84 01/31/17 04:00 98.0 84 17 154/87 97 01/31/17 02:00 89 01/31/17 00:00 91 01/31/17 00:00 97.5 91 12 176/92 96 01/30/17 22:00 89 01/30/17 20:00 68 01/30/17 20:00 98.0 68 12 159/76 96 01/30/17 19:29 94 01/30/17 19:00 95 Room Air 01/30/17 18:00 92 01/30/17 16:00 97 01/30/17 16:00 97.7 97 15 159/77 97 01/30/17 14:00 93 01/30/17 12:00 89 01/30/17 12:00 97.7 89 15 165/80 96 01/30/17 10:00 92 (Shiloh Pyle) CBC/BMP: 01/31/17 0320 01/31/17 0320 Lab Results Laboratory Tests Test 01/30/17 01/31/17 19:00 03:20 Sodium Level 145 MEQ/L 146 MEQ/L Potassium Level 3.7 MEQ/L 3.8 MEQ/L Chloride Level 108 MEQ/L 108 MEQ/L Carbon Dioxide Level 28.6 MEQ/L 27.8 MEQ/L Anion Gap 8 MEQ/L 10 MEQ/L Blood Urea Nitrogen 33 MG/DL 32 MG/DL Creatinine 1.29 MG/DL 1.30 MG/DL Estimat Glomerular Filtration 50 ML/MIN 50 ML/MIN Rate Random Glucose 180 MG/DL 139 MG/DL Calcium Level 9.6 MG/DL 9.6 MG/DL Phosphorus Level 3.1 MG/DL Magnesium Level 2.0 MG/DL White Blood Count 11.7 TH/MM3 Red Blood Count 3.93 MIL/MM3 Hemoglobin 12.0 GM/DL Hematocrit 35.9 % Mean Corpuscular Volume 91.3 FL Mean Corpuscular Hemoglobin 30.5 PG Mean Corpuscular Hemoglobin 33.4 % Concent Red Cell Distribution Width 18.4 % Platelet Count 244 TH/MM3 Mean Platelet Volume 8.9 FL Neutrophils (%) (Auto) 84.1 % Lymphocytes (%) (Auto) 6.7 % Monocytes (%) (Auto) 8.7 % Eosinophils (%) (Auto) 0.1 % Basophils (%) (Auto) 0.4 % Neutrophils # (Auto) 9.8 TH/MM3 Lymphocytes # (Auto) 0.8 TH/MM3 Monocytes # (Auto) 1.0 TH/MM3 Eosinophils # (Auto) 0.0 TH/MM3 Basophils # (Auto) 0.0 TH/MM3 CBC Comment AUTO DIFF Differential Total Cells 100 Counted Neutrophils % (Manual) 82 % Lymphocytes % 6 % Monocytes % 10 % Neutrophils # (Manual) 9.8 TH/MM3 Metamyelocytes 2 % Differential Comment FINAL DIFF MANUAL Platelet Estimate NORMAL Platelet Morphology Comment NORMAL Target Cells 1+ Imaging Remarks Last Impressions Abdomen X-Ray 01/30/17 0926 Signed Impressions: Service Date/Time: Monday, January 30, 2017 09:41 - CONCLUSION: No acute disease. Samuel Don MD Chest X-Ray 01/23/17 0000 Signed Impressions: Service Date/Time: Monday, January 23, 2017 20:58 - CONCLUSION: Dense left lung base consolidation and mild case of pulmonary edema is not excluded. Gabriele Ambrosio MD Lower Extremity CT 01/16/17 0000 Signed Impressions: Service Date/Time: Monday, January 16, 2017 21:27 - CONCLUSION: Large air and fluid collection within the subcutaneous tissues of the posterior lateral upper thigh and base of the left buttock measuring 10.4 x 8.1 x 6.4 cm consistent with large subcutaneous abscess and surrounding diffuse cellulitis. Shaw Morfin MD Neck Ultrasound 01/13/17 0000 Signed Impressions: Service Date/Time: Friday, January 13, 2017 08:58 - CONCLUSION: 1. Could not identify parathyroid tissue. 2. 3 mm, isolated hypoechoic nodule in the right lobe of the thyroid isolated 5 mm cyst in the left lobe of the thyroid. David Mason MD Head CT 01/10/17 0038 Signed Impressions: Service Date/Time: Tuesday, January 10, 2017 01:23 - CONCLUSION: No significant change has occurred. Samuel Don MD Current Medications Active Medications Acetaminophen (Tylenol Supp) 325 mg Q6H PRN RECTAL; Start 01/30/17 at 10:15 Clonidine (Catapres-Tts 0.2 Mg Patch.7d) 1 patch Q7D T-DERMAL Last administered on 01/30/17t 11:04; Admin Dose 1 PATCH; Start 01/30/17 at 12:00 Dextrose (D5W 1000 ml Inj) 1,000 ml @ 20 mls/hr Q24H IV Last administered on 13:00; Admin Dose 20 MLS/HR; Start 01/30/17 at 13:00 Famotidine (Pepcid Inj) 10 mg Q12H IV PUSH Last administered on 01/30/17 22:45 ; Admin Dose 10 MG; Start 01/30/17 at 11:00 Hydralazine HCl 20 mg 20 mg Q4H PRN IV PUSH; Start 01/30/17 at 10:15 Metoclopramide HCl (Reglan Inj) 10 mg Q8H IV Last administered on 01/31/17 06: 00; Admin Dose 10 MG; Start 01/30/17 at 15:00 (Shiloh Pyle. LACING OPERATOR) Physical Exam General General Appearance: No Acute Distress, Comfortable, Pale (mucous membranes) ( Shiloh Pyle. LACING OPERATOR) Eyes Eye Exam: Pupils Equal, Pupils Reactive (Shiloh Pyle LACING OPERATOR) Ears & Nose Ears & Nose Exam: Nasal Mucosa Marianne (Shiloh Pyle LACING OPERATOR) Throat Throat Exam: Oral Mucosa Marianne & Moist (Shiloh Pyle. LACING OPERATOR) Neck Neck Exam: Neck Supple, Trachea Midline (Shiloh Pyle. LACING OPERATOR) Pulmonary Resp Exam: No Distress, Rhonchi (improved), Decreased Bases, Diminished Breath Sounds, Poor Inspiratory Effort (Shiloh Pyle. LACING OPERATOR) Cardiology CV Exam: Regular (Shiloh Pyle. LACING OPERATOR) Gastrointestinal/Abdomen GI Exam: Soft, Non-Tender, Bowel Sounds Present, Non-Distended (Shiloh Pyle. LACING OPERATOR) Genitourinary Exam: Clear Urine, Sediment (Shiloh Pyle M. LACING OPERATOR) Musculoskeletal MS Exam: Atrophy, Unable to Ambulate (Shiloh Pyle. LACING OPERATOR) Integumentary Skin Exam: Warm, Dry (Shiloh Pyle. LACING OPERATOR) Extremeties Extremities Exam: Pedal Pulses Palpable, Moderate Edema (Shiloh Pyle M. LACING OPERATOR) Neurologic Neuro Exam: Awake (at times), Sedated Neuro Remarks Old CVA (Shiloh PyleP) VTE Prophylaxis VTE Prophylaxis Device: SCDs (Shiloh Pyle. LACING OPERATOR) Assessment/Plan Problem List: (1) Altered mental status (2) Dehydration (3) Hypoglycemia (4) UTI (urinary tract infection) (5) HTN (hypertension) (6) DM (diabetes mellitus) (7) CKD (chronic kidney disease) stage 4, GFR 15-29 ml/min (8) History of CVA with residual deficit (9) Pressure ulcer (10) Hypercalcemia (11) Leukocytosis (12) Acute on chronic renal failure (13) Left buttock abscess (14) Ileus, unspecified (15) Nausea & vomiting Assessment/Plan No ileus seen. No further nausea or vomiting. NGT DC'd this morning. She taken liquids without cough or nausea. Will increase to full liquids at lunch if patient is tolerating well. Sitter small feedings at frequent intervals. Changed her routine medications back to by mouth doses, and DC'd IV doses Gentle hydration Patient now maintained on O2, extubated, lethargic this am probable secondary to acute abd. N&V. Eyes closed. HTN , controlled today Vital signs reviewed, BP still labile. Minimal response to IV prn meds . Clonidine dose to patch, controlling patient's blood pressure. May also use Hydralazine IV prn HTN dose if needed. Anemia , Likely of chronic disease status post blood transfusion january 16. Stable, will monitor Decubitus ulcer with abscess left buttock and thigh, when care, patient has wound VAC on. According to records tissue is granulating. -Wound care is following -Wound culture showing MRSA - abx per ID, -Plastic surgery consult appreciated.s/p debridement 01/23 -monitor accuchecks AC/HS with low dose ISS Hypoglycemia resolved, UTI, with significant leukocytosis, improving -Culture shows Escherichia coli, now on Bactrim Also Gardnerella vaginalis, continue metronidazole Acute on CKD, stage V, pt. nearing HD per history. Leukocytosis secondary to steroids -nephrology-input appreciated , noted hypernatremia, -Aspiration precautions, speech therapy working with patient, no signs of aspiration or cough when patient is eating or drinking. Will continue to monitor Spoke with today concerning his wishes for his . Currently he wants ventilator and full aggressive treatment. Will need further discussion for PEG tube placement Speech therapy eval and treat ordered for their expert opinion and to assist on what patient treatment plan and options may be needed for her health. History of CVA with residual deficits, left-sided hemiplegia, dysphasia, expressive aphasia. Progression has been slow but returning to her baseline. Physical therapy, speech therapy Discharge planning will need to be evaluated for this patient, may need long- term care due to her wounds and multiple medical comorbidities vital signs reviewed, Patient on telemetry sinus rhythm, afebrile. SCDs for DVT prophylaxis PUD prophylaxis (Shiloh Pyle) Assessment/Plan Patient seen and examined tolerating Full Iquid diet BP better controlled with Clonidine patch Had BM ok to transfer to med surg with tele wound care consult Pt eval for discharge needs discussed with patient discussed with nursing staff discussed with Shiloh RIVERA no family at bed side (Monserrat Heath MD) Problem Qualifiers (1) Altered mental status: Qualified Code: R40.4 - Transient alteration of awareness (2) UTI (urinary tract infection): Qualified Code: N39.0 - Urinary tract infection without hematuria, site unspecified (3) HTN (hypertension): Qualified Code: I10 - Essential hypertension (4) DM (diabetes mellitus): Qualified Code: E11.49 - Type 2 diabetes mellitus with other neurologic complication, unspecified skilled nursing insulin use status (5) Leukocytosis: Qualified Code: D72.829 - Leukocytosis, unspecified type Shiloh Pyle Jan 31, 2017 09:06 Monserrat Heath MD Jan 31, 2017 14:08
[2017-01-31] MEDS: FUROSEMIDE 40 MG TAB PO SCH (09:15)
[2017-01-31] MEDS: DEXTROSE 5% IN WATE 1000ML INJ 1,000 ML IV SCH (12:46)
--- NOTE | 2017-01-31 20:31 | HHI.NPPN ---
Subjective History of Present Illness 66-year-old female with past medical history of hypertension, diabetes mellitus, chronic kidney disease, history of cerebrovascular accident with left-sided weakness who was brought to the hospital because of altered mental status. I was called to see the patient because of elevated BUN and creatinine. The patient has known history of chronic kidney disease. She has been following with Dr. Ramos. Additional Remarks Patient remain clinically same. Objective Data Data 01/30/17 01/31/17 19:00 07:00 Intake Total 92 ml 218 ml Output Total 1525 ml 1500 ml Balance -1433 ml -1282 ml Intake Oral 0 ml 90 ml IV Total 92 ml 128 ml Output Urine Total 1250 ml 1500 ml Gastric Drainage Total 200 ml 0 ml Drainage Total 75 ml 0 ml # Bowel Movements 0 0 Vital Signs Date Time Temp Pulse Resp B/P Pulse Ox O2 Delivery O2 Flow Rate FiO2 01/31/17 16:00 97.6 91 18 155/81 95 01/31/17 16:00 90 01/31/17 14:00 96 01/31/17 12:00 93 01/31/17 12:00 97.9 93 19 138/80 95 01/31/17 10:00 86 01/31/17 08:00 97.5 72 13 176/81 97 01/31/17 08:00 72 01/31/17 07:26 98 21 01/31/17 07:00 97 Room Air 01/31/17 06:00 81 01/31/17 04:00 84 01/31/17 04:00 98.0 84 17 154/87 97 01/31/17 02:00 89 01/31/17 00:00 91 01/31/17 00:00 97.5 91 12 176/92 96 01/30/17 22:00 89 -: 01/31/17 0320 01/31/17 0320 Physical Exam General Appearance: No Acute Distress, Comfortable, Pale (mucous membranes) Appearance Remarks Intubated and sedated. Eyes Eye Exam: Pupils Equal, Pupils Reactive Ears & Nose Ears & Nose Exam: Nasal Mucosa [place] Throat Throat Exam: Oral Mucosa [place] & Moist Neck Neck Exam: Neck Supple, Trachea Midline Pulmonary Resp Exam: No Distress, Rhonchi (improved), Decreased Bases, Diminished Breath Sounds, Poor Inspiratory Effort Cardiology CV Exam: Regular Gastrointestinal/Abdomen GI Exam: Soft, Non-Tender, Bowel Sounds Present, Non-Distended Genitourinary Exam: Clear Urine, Sediment Musculoskeletal MS Exam: Atrophy, Unable to Ambulate Integumentary Skin Exam: Warm, Dry Extremeties Extremities Exam: Pedal Pulses Palpable, Moderate Edema Neurologic Neuro Exam: Awake (at times), Sedated VTE Prophylaxis Device: SCDs Assessment/Plan Assessment Summary: Dehydration, Hypertension, CKD Stage IV Problem List: (1) Dehydration (2) UTI (urinary tract infection) (3) HTN (hypertension) (4) DM (diabetes mellitus) (5) CKD (chronic kidney disease) stage 4, GFR 15-29 ml/min (6) History of CVA with residual deficit (7) Altered mental status (8) Acute on chronic renal failure Plan Patient has now stage 3 chronic kidney disease. Has Thyroid Nodule. Will need to see Endocrinology after D/C. TSH was normal. Now on Cefepime and Metronidazole. ID following. SPEP with abnormal gamma region on 01/10 - may consider further evaluation as patient further stabilizes. Extubated now, On Lasix 20mg IV BID, Creatinine continues to improve with good UOP Creatinine remain stable. Avoid Nephrotoxins, continue diuretics. Problem Qualifiers (1) UTI (urinary tract infection): Qualified Code: N39.0 - Urinary tract infection without hematuria, site unspecified (2) HTN (hypertension): Qualified Code: I10 - Essential hypertension (3) DM (diabetes mellitus): Qualified Code: E11.49 - Type 2 diabetes mellitus with other neurologic complication, unspecified group home insulin use status (4) Altered mental status: Qualified Code: R40.4 - Transient alteration of awareness Chelsea Mora MD Jan 31, 2017 20:31 Chelsea Mora MD Jan 31, 2017 20:31
[2017-01-31] MEDS: PRAVASTATIN SOD 40 MG TAB PO SCH ×2 (23:05→23:09)
[2017-01-31] MEDS: traZODone HCL 50 MG TAB PO SCH ×2 (23:05→23:08)
[2017-02-01] VITALS: BP 130/62; PULSE 96; RESP 18; TEMP 96.4; O2SAT 98
[2017-02-01] MEDS: INSULIN DETEMIR 100 UNITS/ML VIAL SQ SCH ×3 (00:45→21:00)
[2017-02-01 04:45] VITALS: BP 175/83; PULSE 92; RESP 16; TEMP 96.2; O2SAT 96
[2017-02-01] MEDS: INSULIN ASPART SUPPLEMENTAL SCALE SQ SCH ×4 (07:00→21:00)
[2017-02-01 08:00] VITALS: BP 168/82; PULSE 87; RESP 18; TEMP 97.9; O2SAT 98
[2017-02-01] MEDS: BENEPROTEIN POWDER 1 PACK G-TUBE SCH ×4 (09:00→17:45)
[2017-02-01] MEDS: SODIUM CHLORIDE 0.9% FLUSH 5 ML FLUSH FLUSH SCH ×2 (09:00→21:00)
[2017-02-01] MEDS: CARVEDILOL 3.125 MG TAB PO SCH (10:12)
[2017-02-01] MEDS: LACTULOSE SYRUP 20 GM/30 ML CUP PO SCH (10:12)
[2017-02-01] MEDS: predniSONE 20 MG TAB PO SCH (10:13)
[2017-02-01] MEDS: CINACALCET HYDROCHLORIDE 30 MG TAB PO SCH (10:13)
[2017-02-01] MEDS: FUROSEMIDE 40 MG TAB PO SCH (10:13)
--- NOTE | 2017-02-01 11:13 | HHI.PR ---
Subjective Subjective Remarks eyes open, responding to verbal stimuli, following and tracking with her eyes, smiling, more responsiveness Currently on O2 per nasal cannula No further nausea and vomiting, taking by mouth fluids, and was able to eat grits, tolerates liquids without cough. Increase diet to 1800-calorie ADA.. 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 and is here every day feeding her Afebrile Review of Systems Constitutional Constitutional: Fatigue, Weakness Constitutional Remarks 10 point ROS done positives noted, more responsive, answers questions appropriately, no cough with eating or drinking Heels floated Pulmonary Pulmonary Remarks Low volumes Cardiology CV Remarks BP high GI/Abdomen GI/Abdominal Exam: Nausea, Vomiting (resolved) Genitourinary Remarks UTI treatment Musculoskeletal MS: Weakness, Stiffness, Swelling MS Remarks Old CVA Integumentary Skin: Wounds (sacral coccyx wounds, debride) Skin Remarks Stage IV sacral, wound VAC, orders for specialty mattress on her hospital bed Neurologic Neurologic: Lethargic (resolved) Psychiatric Psychiatric: Normal Mood Psychiatric Remarks Minimal conversation secondary to her CVA Vitals/Results Intake & Output 01/31/17 01/31/17 02/01/17 15:00 23:00 07:00 Intake Total 666 ml Output Total 1005 ml 200 ml Balance -339 ml -200 ml Intake Oral 400 ml IV Total 266 ml Output Urine Total 1000 ml 200 ml Drainage Total 5 ml # Bowel Movements 1 0 Vital Signs Vital Signs Date Time Temp Pulse Resp B/P Pulse Ox O2 Delivery O2 Flow Rate FiO2 02/01/17 08:00 97.9 87 18 168/82 98 02/01/17 04:45 96.2 92 16 175/83 96 02/01/17 00:00 96.4 96 18 130/62 98 01/31/17 20:00 97.0 92 16 144/80 98 01/31/17 20:00 Room Air 2.00 21 01/31/17 16:00 97.6 91 18 155/81 95 01/31/17 16:00 90 01/31/17 14:00 96 01/31/17 12:00 93 01/31/17 12:00 97.9 93 19 138/80 95 CBC/BMP: 01/31/17 0320 01/31/17 0320 Imaging Remarks Last Impressions Abdomen X-Ray 01/30/17 0994 Signed Impressions: Service Date/Time: Monday, January 30, 2017 09:41 - CONCLUSION: No acute disease. Samuel Don MD Chest X-Ray 01/23/17 0000 Signed Impressions: Service Date/Time: Monday, January 23, 2017 20:58 - CONCLUSION: Dense left lung base consolidation and mild case of pulmonary edema is not excluded. Gabriele Ambrosio MD Lower Extremity CT 01/16/17 0000 Signed Impressions: Service Date/Time: Monday, January 16, 2017 21:27 - CONCLUSION: Large air and fluid collection within the subcutaneous tissues of the posterior lateral upper thigh and base of the left buttock measuring 10.4 x 8.1 x 6.4 cm consistent with large subcutaneous abscess and surrounding diffuse cellulitis. Shaw Morfin MD Neck Ultrasound 01/13/17 0000 Signed Impressions: Service Date/Time: Friday, January 13, 2017 08:58 - CONCLUSION: 1. Could not identify parathyroid tissue. 2. 3 mm, isolated hypoechoic nodule in the right lobe of the thyroid isolated 5 mm cyst in the left lobe of the thyroid. David Mason MD Head CT 01/10/17 0038 Signed Impressions: Service Date/Time: Tuesday, January 10, 2017 01:23 - CONCLUSION: No significant change has occurred. Samuel Don MD Physical Exam General General Appearance: No Acute Distress, Comfortable, Pale (pink mucous membranes ) Eyes Eye Exam: Pupils Equal, Pupils Reactive Ears & Nose Ears & Nose Exam: Nasal Mucosa [place] Throat Throat Exam: Oral Mucosa [place] & Moist Neck Neck Exam: Neck Supple, Trachea Midline Pulmonary Resp Exam: No Distress, Rhonchi (improved), Decreased Bases, Diminished Breath Sounds, Poor Inspiratory Effort Cardiology CV Exam: Regular Gastrointestinal/Abdomen GI Exam: Soft, Non-Tender, Bowel Sounds Present, Non-Distended Genitourinary Exam: Clear Urine, Sediment (soft) Musculoskeletal MS Exam: Atrophy, Unable to Ambulate Integumentary Skin Exam: Warm, Dry Skin Remarks Sacral decubitus wound VAC on, Extremeties Extremities Exam: Pedal Pulses Palpable, Moderate Edema Neurologic Neuro Exam: Awake (at times), Sedated Neuro Remarks Old CVA VTE Prophylaxis VTE Prophylaxis Device: SCDs Assessment/Plan Problem List: (1) Altered mental status (2) Dehydration (3) Hypoglycemia (4) UTI (urinary tract infection) (5) HTN (hypertension) (6) DM (diabetes mellitus) (7) CKD (chronic kidney disease) stage 4, GFR 15-29 ml/min (8) History of CVA with residual deficit (9) Pressure ulcer (10) Hypercalcemia (11) Leukocytosis (12) Acute on chronic renal failure (13) Left buttock abscess (14) Ileus, unspecified (15) Nausea & vomiting Assessment/Plan GI symptoms of nausea vomiting or resolved. She ate 80% of her food and drained to apple juices and a candidate boost this morning. is in the room feeding her. Encouraged to elevate head of the bed to 90 and make sure patient is fully alert when given her first food or fluids. She is high risk of aspiration due history of CVA O2 at 2 L, having no problems with her breathing, monitor O2 sats and for any abnormals including tachypnea respirations HTN , controlled today with clonidine patch. Patient still has when necessary meds if needed for her systolic greater than 180. Anemia , Likely of chronic disease status post blood transfusion january 16. Stable, will monitor Decubitus ulcer with abscess left buttock and thigh, when care, patient has wound VAC on. According to records tissue is granulating. -Wound care is following -Wound culture showing MRSA - abx per ID, -Plastic surgery consult appreciated.s/p debridement 01/23 Specialty mattress ordered for her bed -monitor accuchecks AC/HS with low dose ISS Recent problems with hypoglycemia now the patient is eating and drinking again UTI, with significant leukocytosis, improving -Culture shows Escherichia coli, now on Bactrim Also Gardnerella vaginalis, continue metronidazole Acute on CKD, stage V, pt. nearing HD per history. Leukocytosis secondary to steroids -nephrology-input appreciated , noted hypernatremia, -Aspiration precautions, speech therapy working with patient, no signs of aspiration or cough when patient is eating or drinking. Will continue to monitor Physical therapy, speech therapy. Will have PT come and evaluate for any needs. Patient needs to be up in chair History of CVA with residual deficits, left-sided hemiplegia, dysphasia, expressive aphasia. Progression has been slow but returning to her baseline. Discharge planning will need to be evaluated for this patient, may need long- term care due to her wounds and multiple medical comorbidities. Plan same within the next few days. We'll have to evaluate home wound VAC, is looking at specialty mattresses. Case management will also assist if insurance covers any specialty mattress for her at home vital signs reviewed, Patient on telemetry sinus rhythm, afebrile. 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
[2017-02-01 12:00] VITALS: BP 157/78; PULSE 93; RESP 20; TEMP 97.7; O2SAT 99
[2017-02-01] MEDS: COLLAGENASE OINT 30 GM TUBE TOP SCH (13:20)
[2017-02-01 15:58] VITALS: BP 181/87; PULSE 90; RESP 20; TEMP 97.5; O2SAT 97
--- NOTE | 2017-02-01 16:48 | HHI.NPPN ---
Subjective History of Present Illness 66-year-old female with past medical history of hypertension, diabetes mellitus, chronic kidney disease, history of cerebrovascular accident with left-sided weakness who was brought to the hospital because of altered mental status. I was called to see the patient because of elevated BUN and creatinine. The patient has known history of chronic kidney disease. She has been following with Dr. Ramos. Additional Remarks Patient is alert, answering some questions. Objective Data Data 01/31/17 02/01/17 19:00 07:00 Intake Total 666 ml Output Total 1005 ml 200 ml Balance -339 ml -200 ml Intake Oral 400 ml IV Total 266 ml Output Urine Total 1000 ml 200 ml Drainage Total 5 ml # Bowel Movements 1 0 Vital Signs Date Time Temp Pulse Resp B/P Pulse Ox O2 Delivery O2 Flow Rate FiO2 02/01/17 15:58 97.5 90 20 181/87 97 02/01/17 12:00 97.7 93 20 157/78 99 02/01/17 08:00 97.9 87 18 168/82 98 02/01/17 04:45 96.2 92 16 175/83 96 02/01/17 00:00 96.4 96 18 130/62 98 01/31/17 20:00 97.0 92 16 144/80 98 01/31/17 20:00 Room Air 2.00 21 -: 01/31/17 0320 01/31/17 0320 Physical Exam General Appearance: No Acute Distress, Comfortable, Pale (pink mucous membranes) Appearance Remarks Intubated and sedated. Eyes Eye Exam: Pupils Equal, Pupils Reactive Ears & Nose Ears & Nose Exam: Nasal Mucosa [place] Throat Throat Exam: Oral Mucosa [place] & Moist Neck Neck Exam: Neck Supple, Trachea Midline Pulmonary Resp Exam: No Distress, Rhonchi (improved), Decreased Bases, Diminished Breath Sounds, Poor Inspiratory Effort Cardiology CV Exam: Regular Gastrointestinal/Abdomen GI Exam: Soft, Non-Tender, Bowel Sounds Present, Non-Distended Genitourinary Exam: Clear Urine, Sediment (soft) Musculoskeletal MS Exam: Atrophy, Unable to Ambulate Integumentary Skin Exam: Warm, Dry Extremeties Extremities Exam: Pedal Pulses Palpable, Moderate Edema Neurologic Neuro Exam: Awake (at times), Sedated VTE Prophylaxis Device: SCDs Assessment/Plan Assessment Summary: Dehydration, Hypertension, CKD Stage IV Problem List: (1) Dehydration (2) UTI (urinary tract infection) (3) HTN (hypertension) (4) DM (diabetes mellitus) (5) CKD (chronic kidney disease) stage 4, GFR 15-29 ml/min (6) History of CVA with residual deficit (7) Altered mental status (8) Acute on chronic renal failure Plan Patient has now stage 3 chronic kidney disease. Has Thyroid Nodule. Will need to see Endocrinology after D/C. TSH was normal. Now on Cefepime and Metronidazole. ID following. SPEP with abnormal gamma region on 01/10 - may consider further evaluation as patient further stabilizes. Started back on Lasix, follow the urine out put and BMP. Problem Qualifiers (1) UTI (urinary tract infection): Qualified Code: N39.0 - Urinary tract infection without hematuria, site unspecified (2) HTN (hypertension): Qualified Code: I10 - Essential hypertension (3) DM (diabetes mellitus): Qualified Code: E11.49 - Type 2 diabetes mellitus with other neurologic complication, unspecified parts counterman insulin use status (4) Altered mental status: Qualified Code: R40.4 - Transient alteration of awareness Chelsea Mora MD Feb 01, 2017 16:48
[2017-02-01 20:00] VITALS: BP 152/92; PULSE 86; RESP 22; TEMP 96.3; O2SAT 97
[2017-02-01] MEDS: traZODone HCL 50 MG TAB PO SCH (23:56)
[2017-02-02] VITALS (9 sets, daily range): BP systolic 141–180; BP diastolic 70–88; PULSE 83–110; RESP 16–18; TEMP 96.3–98.8; O2SAT 93–98
[2017-02-02] MEDS: PRAVASTATIN SOD 40 MG TAB PO SCH
[2017-02-02] MEDS: CARVEDILOL 3.125 MG TAB PO SCH ×4 (00:04→21:57)
[2017-02-02] MEDS ORDERED: hydrALAZINE HCL 25 MG TAB PO ONE (05:45)
[2017-02-02] MEDS: INSULIN ASPART SUPPLEMENTAL SCALE SQ SCH ×4 (06:01→22:00)
[2017-02-02] MEDS: INSULIN DETEMIR 100 UNITS/ML VIAL SQ SCH ×2 (09:00→21:59)
[2017-02-02] MEDS: SODIUM CHLORIDE 0.9% FLUSH 5 ML FLUSH FLUSH SCH ×2 (09:00→21:00)
[2017-02-02] MEDS: BENEPROTEIN POWDER 1 PACK G-TUBE SCH ×3 (09:00→16:53)
[2017-02-02] MEDS: predniSONE 20 MG TAB PO SCH ×2 (09:47)
[2017-02-02] MEDS: CINACALCET HYDROCHLORIDE 30 MG TAB PO SCH (09:47)
[2017-02-02] MEDS: LACTULOSE SYRUP 20 GM/30 ML CUP PO SCH (09:47)
[2017-02-02] MEDS: FUROSEMIDE 40 MG TAB PO SCH (09:47)
--- NOTE | 2017-02-02 10:36 | HHI.PR ---
Subjective Subjective Remarks awake, smilies, oriented to self and others appetite better, being fed by no fever BP elevated overnight making urine okay difficult to obtain ROS at bedside Review of Systems Constitutional Constitutional Remarks Difficult to obtain ROS Vitals/Results Intake & Output 02/01/17 02/01/17 02/02/17 15:00 23:00 07:00 Output Total 550 ml 550 ml Balance -550 ml -550 ml Output Urine Total 550 ml 550 ml # Bowel Movements 1 0 Vital Signs Vital Signs Date Time Temp Pulse Resp B/P Pulse Ox O2 Delivery O2 Flow Rate FiO2 02/02/17 09:02 96.4 94 18 174/88 98 02/02/17 06:31 96.4 92 16 180/85 96 02/02/17 01:48 96.3 83 16 165/83 97 02/01/17 20:00 96.3 86 22 152/92 97 02/01/17 18:19 21 02/01/17 15:58 97.5 90 20 181/87 97 02/01/17 12:00 97.7 93 20 157/78 99 CBC/BMP: 01/31/17 0320 01/31/17 0320 Physical Exam General General Appearance: Well Developed, No Acute Distress, Comfortable Eyes Eye Exam: Pupils Equal, Pupils Reactive Ears & Nose Ears & Nose Exam: Nasal Mucosa [place] Throat Throat Exam: Oral Mucosa [place] & Moist Neck Neck Exam: Neck Supple, Trachea Midline Pulmonary Resp Exam: No Distress, Diminished Breath Sounds, Poor Inspiratory Effort Cardiology CV Exam: Regular Gastrointestinal/Abdomen GI Exam: Soft, Non-Tender, Bowel Sounds Present, Non-Distended GI Remarks Genitourinary Exam: Clear Urine Remarks [place] Musculoskeletal MS Exam: Atrophy, Unable to Ambulate MS Remarks left hemiplegia contracture left wrist Integumentary Skin Exam: Warm, Dry Skin Remarks wound vac to buttock Extremeties Extremities Exam: Pedal Pulses Palpable, Moderate Edema Neurologic Neuro Exam: Awake (at times) Neuro Remarks left hemiplegia VTE Prophylaxis VTE Prophylaxis Device: SCDs PUD Prophylasis PUD Remarks Pepcid Assessment/Plan Problem List: (1) Altered mental status (2) Dehydration (3) Hypoglycemia (4) UTI (urinary tract infection) (5) HTN (hypertension) (6) DM (diabetes mellitus) (7) CKD (chronic kidney disease) stage 4, GFR 15-29 ml/min (8) History of CVA with residual deficit (9) Pressure ulcer (10) Hypercalcemia (11) Leukocytosis (12) Acute on chronic renal failure (13) Left buttock abscess (14) Ileus, unspecified (15) Nausea & vomiting Assessment/Plan 66-year-old female with history of chronic kidney disease, hypertension, hyperlipidemia, CVA with left-sided hemiparesis, type 2 diabetes. Admitted with hypoglycemia, altered mental status. Found with UTI, acute on chronic renal failure, dehydration, abscess to left buttock Resp. failure sec. angioedema -now resolved, on oxygen at 2 L. Transferred out of ICU. -intubated for airway protection, sec to angioedema, -Wean off oral steroids Anemia -Likely of chronic disease status post blood transfusion january 16. Stable, will monitor Nausea vomiting, now resolved, tolerating diet well -Risk of aspiration, prior history of CVA Continue to emphasize to to elevate head of bed, monitor for aspiration. Decubitus ulcer with abscess left buttock and thigh, when care, patient has wound VAC on. Appears to be healing well, has adequate granulation tissue per wound care report -Wound care is following -Wound culture showing MRSA - abx per ID, -Plastic surgery consult appreciated.s/p debridement 01/23 -will need specialty mattress at home Altered mental status secondary to hypoglycemia, infection, dehydration, acute on chronic renal failure. Resolved prior to intubation -monitor accuchecks AC/HS with low dose ISS UTI, with significant leukocytosis, improving -completed abx, DC per ID Acute on CKD, stage V, pt. was nearing HD per history. Possibly worst secondary to dehydration, improving. -nephrology-input appreciated -avoid nephrotoxic agents Avoid diuretics -Renal function markedly improved. Hypercalcemia, etiology unclear, on calcium supplements, also prolonged bed rest -better today . Improving Nephrology on board, input appreciated History of CVA with residual deficits, left-sided hemiplegia, dysphasia, expressive aphasia. It appears to be declining. CT of the head negative for any acute findings Continue with home medications Physical therapy, speech therapy -Continue with aspirin and statins Hypertension, stable Continue with home medications Thyroid nodule -Follow endocrinology as outpatient Overall improved, will need final ID recommendations on abx CM consult for DC planning, d/w -he wants to take her home Bed has been requested, may need specialty mattress. SCDs for DVT prophylaxis PUD prophylaxis D/W RN D/W D/W pt's D/W CM This patient was seen by myself and , this note is written on her behalf. Problem Qualifiers (1) Altered mental status: Qualified Code: R40.4 - Transient alteration of awareness (2) UTI (urinary tract infection): Qualified Code: N39.0 - Urinary tract infection without hematuria, site unspecified (3) HTN (hypertension): Qualified Code: I10 - Essential hypertension (4) DM (diabetes mellitus): Qualified Code: E11.49 - Type 2 diabetes mellitus with other neurologic complication, unspecified parts counterman insulin use status (5) Pressure ulcer: Qualified Code: L89.324 - Decubitus ulcer of left buttock, stage 4 (6) Leukocytosis: Qualified Code: D72.829 - Leukocytosis, unspecified type (7) Nausea & vomiting: Karis Guthrie Feb 02, 2017 10:36
--- NOTE | 2017-02-02 11:08 | HHI.FF ---
Face to Face Verification Diagnosis: (1) Dehydration (2) Hypoglycemia (3) UTI (urinary tract infection) (4) HTN (hypertension) (5) DM (diabetes mellitus) (6) CKD (chronic kidney disease) stage 4, GFR 15-29 ml/min (7) History of CVA with residual deficit (8) Altered mental status (9) Hypercalcemia (10) Leukocytosis (11) Acute on chronic renal failure (12) Pressure ulcer (13) Left buttock abscess (14) Angioedema (15) Ileus, unspecified (16) Nausea & vomiting Physical Therapy Order: Evaluate and Treat Home Health Nursing Order: Medical education Signs/symptoms of disease process Wound care and dressing changes Nursing assessment with vital signs Home Health Aide Order: To Assist In: Bathing and personal care, business transformation consultant and meal prep Supplier Development Manager Order: To Evaluate: Support services I have seen patient Simin Morris on 02/02/17. My clinical findings support the need for the requested home health care services because: Deconditioned w/ increased weakness Limited ability to care for self Need for psychosocial assistance I certify that my clinical findings support that this patient is homebound because: Impaired cognitive ability/safety Unsteady gait/balance Unsafe to leave home unassisted [id number] bed/chair Karis Guthrie Feb 02, 2017 11:08
[2017-02-02] MEDS ORDERED: HOSP BED2 (11:10)
--- NOTE | 2017-02-02 11:16 | HHI.NPPN ---
Subjective History of Present Illness 66-year-old female with past medical history of hypertension, diabetes mellitus, chronic kidney disease, history of cerebrovascular accident with left-sided weakness who was brought to the hospital because of altered mental status. I was called to see the patient because of elevated BUN and creatinine. The patient has known history of chronic kidney disease. She has been following with Dr. Ramos. Additional Remarks Patient is alert, more alert, no SOB, no pain in back. Objective Data Data 02/01/17 02/02/17 19:00 07:00 Output Total 550 ml 550 ml Balance -550 ml -550 ml Output Urine Total 550 ml 550 ml # Bowel Movements 1 0 Vital Signs Date Time Temp Pulse Resp B/P Pulse Ox O2 Delivery O2 Flow Rate FiO2 02/02/17 09:02 96.4 94 18 174/88 98 02/02/17 06:31 96.4 92 16 180/85 96 02/02/17 01:48 96.3 83 16 165/83 97 02/01/17 20:00 96.3 86 22 152/92 97 02/01/17 18:19 21 02/01/17 15:58 97.5 90 20 181/87 97 02/01/17 12:00 97.7 93 20 157/78 99 -: 01/31/17 0320 01/31/17 0320 Physical Exam General Appearance: No Acute Distress, Comfortable, Pale (pink mucous membranes) Appearance Remarks Intubated and sedated. Eyes Eye Exam: Pupils Equal, Pupils Reactive Ears & Nose Ears & Nose Exam: Nasal Mucosa [place] Throat Throat Exam: Oral Mucosa [place] & Moist Neck Neck Exam: Neck Supple, Trachea Midline Pulmonary Resp Exam: No Distress, Rhonchi (improved), Decreased Bases, Diminished Breath Sounds, Poor Inspiratory Effort Cardiology CV Exam: Regular Gastrointestinal/Abdomen GI Exam: Soft, Non-Tender, Bowel Sounds Present, Non-Distended Genitourinary Exam: Clear Urine, Sediment (soft) Musculoskeletal MS Exam: Atrophy, Unable to Ambulate Integumentary Skin Exam: Warm, Dry Extremeties Extremities Exam: Pedal Pulses Palpable, Moderate Edema Neurologic Neuro Exam: Awake (at times), Sedated VTE Prophylaxis Device: SCDs Assessment/Plan Assessment Summary: Dehydration, Hypertension, CKD Stage IV Problem List: (1) Dehydration (2) UTI (urinary tract infection) (3) HTN (hypertension) (4) DM (diabetes mellitus) (5) CKD (chronic kidney disease) stage 4, GFR 15-29 ml/min (6) History of CVA with residual deficit (7) Altered mental status (8) Acute on chronic renal failure Plan Patient has now stage 3 chronic kidney disease. Has Thyroid Nodule. Will need to see Endocrinology after D/C. TSH was normal. SPEP with abnormal gamma region on 01/10 - may consider further evaluation as patient further stabilizes. On Lasix, follow the urine out put. BP is elevated, started on Hydralazine. Problem Qualifiers (1) UTI (urinary tract infection): Qualified Code: N39.0 - Urinary tract infection without hematuria, site unspecified (2) HTN (hypertension): Qualified Code: I10 - Essential hypertension (3) DM (diabetes mellitus): Qualified Code: E11.49 - Type 2 diabetes mellitus with other neurologic complication, unspecified computer terminal operator insulin use status (4) Altered mental status: Qualified Code: R40.4 - Transient alteration of awareness Chelsea Mora MD Feb 02, 2017 11:16
[2017-02-02] MEDS: COLLAGENASE OINT 30 GM TUBE TOP SCH (11:45)
[2017-02-02] MEDS: hydrALAZINE HCL 25 MG TAB PO SCH ×2 (14:21→21:57)
[2017-02-02] MEDS: POVIDONE IODINE 10% SOLN 118 ML BOTTLE TOP SCH (21:00)
[2017-02-03] VITALS (10 sets, daily range): BP systolic 126–204; BP diastolic 61–106; PULSE 65–102; RESP 16–20; TEMP 97.1–98.6; O2SAT 93–100
[2017-02-03] MEDS: hydrALAZINE HCL 25 MG TAB PO SCH ×2 (06:00→12:48)
[2017-02-03] MEDS: DEXT 5%-NACL 0.45% 1000 ML INJ 1,000 ML IV SCH (06:58)
[2017-02-03] MEDS: INSULIN ASPART SUPPLEMENTAL SCALE SQ SCH ×4 (07:00→21:00)
[2017-02-03] MEDS: LACTULOSE SYRUP 20 GM/30 ML CUP PO SCH (08:41)
[2017-02-03] MEDS: CARVEDILOL 3.125 MG TAB PO SCH ×2 (08:41→21:35)
[2017-02-03] MEDS: predniSONE 20 MG TAB PO SCH (08:41)
[2017-02-03] MEDS: FUROSEMIDE 40 MG TAB PO SCH (08:41)
[2017-02-03] MEDS: CINACALCET HYDROCHLORIDE 30 MG TAB PO SCH (08:41)
[2017-02-03] MEDS: SODIUM CHLORIDE 0.9% FLUSH 5 ML FLUSH FLUSH SCH ×2 (08:42→21:00)
[2017-02-03] MEDS: BENEPROTEIN POWDER 1 PACK G-TUBE SCH (08:42)
[2017-02-03] MEDS: INSULIN DETEMIR 100 UNITS/ML VIAL SQ SCH ×2 (08:52→21:00)
[2017-02-03 08:59] LABS: BICARBONATE 34.7 MEQ/L (21.0-32.0); POTASSIUM 3.9 MEQ/L (3.5-5.1)
--- NOTE | 2017-02-03 11:09 | HHI.NPPN ---
Subjective History of Present Illness 66-year-old female with past medical history of hypertension, diabetes mellitus, chronic kidney disease, history of cerebrovascular accident with left-sided weakness who was brought to the hospital because of altered mental status. I was called to see the patient because of elevated BUN and creatinine. The patient has known history of chronic kidney disease. She has been following with Dr. Ramos. Additional Remarks Patient is sleepy but arousable, not in distress. Objective Data Data 02/02/17 02/03/17 19:00 07:00 Output Total 1250 ml Balance -1250 ml Output Urine Total 1250 ml # Bowel Movements 2 Vital Signs Date Time Temp Pulse Resp B/P Pulse Ox O2 Delivery O2 Flow Rate FiO2 02/03/17 08:00 97.1 90 18 204/106 100 02/03/17 06:33 76 02/03/17 04:00 97.7 84 20 162/80 98 02/03/17 00:00 97.4 96 20 177/87 93 02/02/17 23:49 103 02/02/17 20:00 97.6 94 18 141/70 96 02/02/17 18:18 96 21 02/02/17 17:14 98.8 105 16 173/80 96 02/02/17 13:54 86 02/02/17 13:39 98.3 110 18 171/85 93 -: 01/31/17 0320 02/03/17 0823 Physical Exam General Appearance: No Acute Distress, Comfortable Eyes Eye Exam: Pupils Equal, Pupils Reactive Ears & Nose Ears & Nose Exam: Nasal Mucosa [place] Throat Throat Exam: Oral Mucosa [place] & Moist Neck Neck Exam: Neck Supple, Trachea Midline Pulmonary Resp Exam: No Distress, Diminished Breath Sounds, Poor Inspiratory Effort Cardiology CV Exam: Regular Gastrointestinal/Abdomen GI Exam: Soft, Non-Tender, Bowel Sounds Present, Non-Distended Genitourinary Exam: Clear Urine Musculoskeletal MS Exam: Atrophy, Unable to Ambulate Integumentary Skin Exam: Warm, Dry Extremeties Extremities Exam: Moderate Edema VTE Prophylaxis Device: SCDs Assessment/Plan Assessment Summary: Dehydration, Hypertension, CKD Stage IV Problem List: (1) Dehydration (2) UTI (urinary tract infection) (3) HTN (hypertension) (4) DM (diabetes mellitus) (5) CKD (chronic kidney disease) stage 4, GFR 15-29 ml/min (6) History of CVA with residual deficit (7) Altered mental status (8) Acute on chronic renal failure Plan Patient has now stage 3 chronic kidney disease. Has Thyroid Nodule. Will need to see Endocrinology after D/C. TSH was normal. SPEP with abnormal gamma region on 01/10 - may consider further evaluation as patient further stabilizes. On Lasix, follow the urine out put. BP is elevated, started on Hydralazine. Has Hypoglycemia in AM. Now on IVF with D5 1/2NS, Last BS was 99 AT 9 am. Told the to feed patient more frequently. BP elevated, started Hydralazine yesterday, will follow and increase dose if needed. Creatinine is stable. Problem Qualifiers (1) UTI (urinary tract infection): Qualified Code: N39.0 - Urinary tract infection without hematuria, site unspecified (2) HTN (hypertension): Qualified Code: I10 - Essential hypertension (3) DM (diabetes mellitus): Qualified Code: E11.49 - Type 2 diabetes mellitus with other neurologic complication, unspecified snf insulin use status (4) Altered mental status: Qualified Code: R40.4 - Transient alteration of awareness Chelsea Mora MD Feb 03, 2017 11:09
--- NOTE | 2017-02-03 14:03 | HHI.PR ---
Subjective Subjective Remarks Patient lethargic today Blood glucose dropped to 25 Not eating as much On D 5-10/24 normal saline Awakes to voice, verbalizing very little Not following commands consistently Fever No family at bedside Most recent blood glucose 120 Blood pressure elevated, 184/82 Review of Systems Constitutional Constitutional Remarks Difficult to obtain ROS Vitals/Results Intake & Output 02/02/17 02/02/17 02/03/17 15:00 23:00 07:00 Output Total 1250 ml Balance -1250 ml Output Urine Total 1250 ml # Bowel Movements 2 Vital Signs Vital Signs Date Time Temp Pulse Resp B/P Pulse Ox O2 Delivery O2 Flow Rate FiO2 02/03/17 12:00 97.9 66 18 184/82 98 02/03/17 08:00 97.1 90 18 204/106 100 02/03/17 06:33 76 02/03/17 04:00 97.7 84 20 162/80 98 02/03/17 00:00 97.4 96 20 177/87 93 02/02/17 23:49 103 02/02/17 20:00 97.6 94 18 141/70 96 02/02/17 18:18 96 21 02/02/17 17:14 98.8 105 16 173/80 96 CBC/BMP: 01/31/17 0320 02/03/17 0823 Lab Results Laboratory Tests Test 02/03/17 08:23 Sodium Level 141 MEQ/L Potassium Level 3.9 MEQ/L Chloride Level 102 MEQ/L Carbon Dioxide Level 34.7 MEQ/L Anion Gap 4 MEQ/L Blood Urea Nitrogen 26 MG/DL Creatinine 1.34 MG/DL Estimat Glomerular Filtration 48 ML/MIN Rate Random Glucose 85 MG/DL Calcium Level 9.0 MG/DL Magnesium Level 2.0 MG/DL Physical Exam General General Appearance: No Acute Distress Appearance Remarks Lethargic Eyes Eye Exam: Pupils Equal, Pupils Reactive Ears & Nose Ears & Nose Exam: Nasal Mucosa [place] Throat Throat Exam: Oral Mucosa [place] & Moist Neck Neck Exam: Neck Supple, Trachea Midline Pulmonary Resp Exam: No Distress, Diminished Breath Sounds, Poor Inspiratory Effort Cardiology CV Exam: Regular Gastrointestinal/Abdomen GI Exam: Soft, Non-Tender, Bowel Sounds Present, Non-Distended GI Remarks Genitourinary Exam: Clear Urine Remarks [place] Musculoskeletal MS Exam: Atrophy, Unable to Ambulate MS Remarks left hemiplegia contracture left wrist Integumentary Skin Exam: Warm, Dry Skin Remarks wound vac to buttock Extremeties Extremities Exam: Moderate Edema Neurologic Neuro Exam: Stuporous Neuro Remarks left hemiplegia VTE Prophylaxis VTE Prophylaxis Device: SCDs PUD Prophylasis PUD Remarks Pepcid Assessment/Plan Problem List: (1) Altered mental status (2) Dehydration (3) Hypoglycemia (4) UTI (urinary tract infection) (5) HTN (hypertension) (6) DM (diabetes mellitus) (7) CKD (chronic kidney disease) stage 4, GFR 15-29 ml/min (8) History of CVA with residual deficit (9) Pressure ulcer (10) Hypercalcemia (11) Leukocytosis (12) Acute on chronic renal failure (13) Left buttock abscess (14) Ileus, unspecified (15) Nausea & vomiting Assessment/Plan 66-year-old female with history of chronic kidney disease, hypertension, hyperlipidemia, CVA with left-sided hemiparesis, type 2 diabetes. Admitted with hypoglycemia, altered mental status. Found with UTI, acute on chronic renal failure, dehydration, abscess to left buttock Resp. failure sec. angioedema -now resolved, on oxygen at 2 L. Transferred out of ICU. -intubated for airway protection, sec to angioedema, -Wean off oral steroids Anemia -Likely of chronic disease status post blood transfusion january 16. Stable, will monitor Nausea vomiting, now resolved, tolerating diet well -Risk of aspiration, prior history of CVA Continue to emphasize to to elevate head of bed, monitor for aspiration. Decubitus ulcer with abscess left buttock and thigh, when care, patient has wound VAC on. Appears to be healing well, has adequate granulation tissue per wound care report -Wound care is following -Wound culture showing MRSA - abx per ID, -Plastic surgery consult appreciated.s/p debridement 01/23 -will need specialty mattress at home Altered mental status secondary to hypoglycemia, infection, dehydration, acute on chronic renal failure. Lethargic today 02/03 -We will check UA, UC, stat CBC, BMP, ammonia Hypoglycemia, was present on initial admission, did improve. Now recurrent. Continue with D5 and a half Encourage by mouth intake, must be fed, discussed with RN -Decrease Levemir to 10 units subcutaneous twice a day -monitor accuchecks AC/HS with low dose ISS -Patient's by mouth intake is inconsistent, she is at risk for aspiration. She can benefit from PEG tube however patient's has been reluctant to do so. He insists on feeding her. UTI, with significant leukocytosis, improving -completed abx, DC per ID Acute on CKD, stage V, pt. was nearing HD per history. Possibly worst secondary to dehydration, improving. -nephrology-input appreciated -avoid nephrotoxic agents Avoid diuretics -Renal function markedly improved. Hypercalcemia, etiology unclear, on calcium supplements, also prolonged bed rest -better today . Improving Nephrology on board, input appreciated History of CVA with residual deficits, left-sided hemiplegia, dysphasia, expressive aphasia. It appears to be declining. CT of the head negative for any acute findings Continue with home medications Physical therapy, speech therapy -Continue with aspirin and statins Hypertension, uncontrolled Continue with home medications, increase hydralazine to 50 mg by mouth every 8 -Continue with when necessary meds Thyroid nodule -Follow endocrinology as outpatient CM consult for DC planning, d/w -he wants to take her home Bed has been requested, may need specialty mattress. SCDs for DVT prophylaxis PUD prophylaxis Noted with increased lethargy today, we'll check urine and labs Patient not ready to be discharged D/W RN D/W This patient was seen by myself and , this note is written on her behalf. Problem Qualifiers (1) Altered mental status: Qualified Code: R40.4 - Transient alteration of awareness (2) UTI (urinary tract infection): Qualified Code: N39.0 - Urinary tract infection without hematuria, site unspecified (3) HTN (hypertension): Qualified Code: I10 - Essential hypertension (4) DM (diabetes mellitus): Qualified Code: E11.49 - Type 2 diabetes mellitus with other neurologic complication, unspecified senior living insulin use status (5) Pressure ulcer: Qualified Code: L89.324 - Decubitus ulcer of left buttock, stage 4 (6) Leukocytosis: Qualified Code: D72.829 - Leukocytosis, unspecified type (7) Nausea & vomiting: Karis Guthrie Feb 03, 2017 14:03
[2017-02-03 17:19] LABS: HEMATOCRIT 35.1 % (35.0-46.0); MEAN CELL VOLUME 91.8 FL (80.0-100.0); MEAN CORPUSCULAR HEMOGLOBIN 30.3 PG (27.0-34.0); PLATELET COUNT 234 TH/MM3 (150-450); RED BLOOD COUNT 3.82 MIL/MM3 (4.00-5.30); RED CELL DISTRIBUTION WIDTH 18.2 % (11.6-17.2); REVIEW FLAG FINAL; WHITE BLOOD COUNT 12.7 TH/MM3 (4.0-11.0)
[2017-02-03 17:30] LABS: BICARBONATE 33.2 MEQ/L (21.0-32.0); POTASSIUM 4.4 MEQ/L (3.5-5.1)
[2017-02-03] MEDS: NIFEdipine 20 MG CAP PO SCH ×2 (17:46→21:35)
[2017-02-03] MEDS: POVIDONE IODINE 10% SOLN 118 ML BOTTLE TOP SCH (21:00)
[2017-02-03] MEDS: hydrALAZINE HCL 50 MG TAB PO SCH (21:35)
[2017-02-03] MEDS: traZODone HCL 50 MG TAB PO SCH (21:35)
[2017-02-03] MEDS: PRAVASTATIN SOD 40 MG TAB PO SCH (21:35)
[2017-02-04] VITALS (8 sets, daily range): BP systolic 135–167; BP diastolic 63–91; PULSE 87–106; RESP 17–20; TEMP 96.3–97.7; O2SAT 96–100
[2017-02-04] MEDS: DEXT 5%-NACL 0.45% 1000 ML INJ 1,000 ML IV SCH ×3 (02:45→22:49)
[2017-02-04] MEDS: INSULIN ASPART SUPPLEMENTAL SCALE SQ SCH ×4 (05:44→21:42)
[2017-02-04] MEDS: NIFEdipine 20 MG CAP PO SCH ×3 (05:44→21:19)
[2017-02-04] MEDS: hydrALAZINE HCL 50 MG TAB PO SCH ×3 (05:44→21:19)
[2017-02-04 06:33] LABS: BACTERIA, URINE OCC /hpf; BLOOD, URINE NEG (NEG); COMMENT (UR) CATH-CULTURE IND; CULTURE IF INDICATED CATH CULTURE IND; GLUCOSE,URINE 300 mg/dL (NEG); KETONE, URINE NEG (NEG); MUCUS URINE FEW /lpf (OCC); NITRITE,URINE NEG (NEG); URINE COLOR LIGHT-YELLOW (YELLW/STRAW)
[2017-02-04] MEDS: CARVEDILOL 3.125 MG TAB PO SCH ×2 (08:40→21:19)
[2017-02-04] MEDS: predniSONE 20 MG TAB PO SCH (08:40)
[2017-02-04] MEDS: LACTULOSE SYRUP 20 GM/30 ML CUP PO SCH (08:40)
[2017-02-04] MEDS: FUROSEMIDE 40 MG TAB PO SCH (08:40)
[2017-02-04] MEDS: INSULIN DETEMIR 100 UNITS/ML VIAL SQ SCH ×2 (08:41→21:24)
[2017-02-04] MEDS: CINACALCET HYDROCHLORIDE 30 MG TAB PO SCH (08:45)
[2017-02-04] MEDS: COLLAGENASE OINT 30 GM TUBE TOP SCH ×2 (09:00→11:45)
[2017-02-04] MEDS: SODIUM CHLORIDE 0.9% FLUSH 5 ML FLUSH FLUSH SCH ×2 (09:00→21:00)
[2017-02-04] MEDS: BENEPROTEIN POWDER 1 PACK G-TUBE SCH ×5 (09:00→18:00)
[2017-02-04] MEDS: POVIDONE IODINE 10% SOLN 118 ML BOTTLE TOP SCH ×2 (11:45→21:21)
--- NOTE | 2017-02-04 16:49 | HHI.NPPN ---
Subjective History of Present Illness 66-year-old female with past medical history of hypertension, diabetes mellitus, chronic kidney disease, history of cerebrovascular accident with left-sided weakness who was brought to the hospital because of altered mental status. I was called to see the patient because of elevated BUN and creatinine. The patient has known history of chronic kidney disease. She has been following with Dr. Ramos. Additional Remarks Patient is sleepy but arousable, not in distress. Objective Data Data 02/03/17 02/04/17 19:00 07:00 Intake Total 1031 ml Output Total 1200 ml 1300 ml Balance -1200 ml -269 ml IV Total 1031 ml Output Urine Total 1200 ml 1300 ml # Bowel Movements 1 Vital Signs Date Time Temp Pulse Resp B/P Pulse Ox O2 Delivery O2 Flow Rate FiO2 02/04/17 16:34 96.3 97 18 143/69 97 02/04/17 12:41 97.1 100 18 167/79 97 02/04/17 09:08 88 02/04/17 09:04 97.3 106 18 145/64 96 02/04/17 05:12 97.7 87 17 167/79 100 02/04/17 01:05 97.5 88 17 135/63 99 02/03/17 20:27 95 02/03/17 20:00 98.0 102 20 153/98 99 -: 02/03/17 1647 02/03/17 1647 Microbiology 02/04/17 Urine Culture, Received Pending Physical Exam General Appearance: No Acute Distress Eyes Eye Exam: Pupils Equal, Pupils Reactive Ears & Nose Ears & Nose Exam: Nasal Mucosa [place] Throat Throat Exam: Oral Mucosa [place] & Moist Neck Neck Exam: Neck Supple, Trachea Midline Pulmonary Resp Exam: No Distress, Diminished Breath Sounds, Poor Inspiratory Effort Cardiology CV Exam: Regular Gastrointestinal/Abdomen GI Exam: Soft, Non-Tender, Bowel Sounds Present, Non-Distended Genitourinary Exam: Clear Urine Musculoskeletal MS Exam: Atrophy, Unable to Ambulate Integumentary Skin Exam: Warm, Dry Extremeties Extremities Exam: Moderate Edema Neurologic Neuro Exam: Stuporous VTE Prophylaxis Device: SCDs Assessment/Plan Assessment Summary: Dehydration, Hypertension, CKD Stage IV Problem List: (1) Dehydration (2) UTI (urinary tract infection) (3) HTN (hypertension) (4) DM (diabetes mellitus) (5) CKD (chronic kidney disease) stage 4, GFR 15-29 ml/min (6) History of CVA with residual deficit (7) Altered mental status (8) Acute on chronic renal failure Plan Patient has now stage 3 chronic kidney disease. Has Thyroid Nodule. Will need to see Endocrinology after D/C. TSH was normal. SPEP with abnormal gamma region on 01/10 - may consider further evaluation as patient further stabilizes. On Lasix, follow the urine out put. BP is elevated, started on Hydralazine. Has Hypoglycemia in AM. Cr stable BP improved Dr. Mora to follow on Monday Problem Qualifiers (1) UTI (urinary tract infection): Qualified Code: N39.0 - Urinary tract infection without hematuria, site unspecified (2) HTN (hypertension): Qualified Code: I10 - Essential hypertension (3) DM (diabetes mellitus): Qualified Code: E11.49 - Type 2 diabetes mellitus with other neurologic complication, unspecified jail insulin use status (4) Altered mental status: Qualified Code: R40.4 - Transient alteration of awareness Rich Downing MD Feb 04, 2017 16:49
--- NOTE | 2017-02-04 18:19 | HHI.PR ---
Subjective Interval History Awake, responsive but not remarkable today, at bedside feeding the patient while she is at 45 incline Review of Systems Constitutional Constitutional Remarks Difficult to obtain Vitals/Results Intake & Output 02/03/17 02/03/17 02/04/17 15:00 23:00 07:00 Intake Total 500 ml 531 ml Output Total 1200 ml 1300 ml Balance -700 ml -769 ml IV Total 500 ml 531 ml Output Urine Total 1200 ml 1300 ml # Bowel Movements 1 Vital Signs Vital Signs Date Time Temp Pulse Resp B/P Pulse Ox O2 Delivery O2 Flow Rate FiO2 02/04/17 16:34 96.3 97 18 143/69 97 02/04/17 12:41 97.1 100 18 167/79 97 02/04/17 09:08 88 02/04/17 09:04 97.3 106 18 145/64 96 02/04/17 05:12 97.7 87 17 167/79 100 02/04/17 01:05 97.5 88 17 135/63 99 02/03/17 20:27 95 02/03/17 20:00 98.0 102 20 153/98 99 CBC/BMP: 02/03/17 1647 02/03/17 1647 Lab Results Laboratory Tests Test 02/04/17 06:00 Urine Color LIGHT-YELLOW Urine Turbidity CLEAR Urine pH 8.0 Urine Specific [place] 1.007 Urine Protein 30 mg/dL Urine Glucose (UA) 300 mg/dL Urine Ketones NEG mg/dL Urine Occult Blood NEG Urine Nitrite NEG Urine Bilirubin NEG Urine Urobilinogen LESS THAN 2.0 MG/DL Urine Leukocyte Esterase MOD Urine RBC 2 /hpf Urine WBC 18 /hpf Urine Bacteria OCC /hpf Urine Mucus FEW /lpf Urine Yeast ([place]) FEW Microscopic Urinalysis Comment CATH-CULTURE IND Microbiology Microbiology 02/04/17 Urine Culture, Received Pending Physical Exam General General Appearance: No Acute Distress Eyes Eye Exam: Pupils Equal, Pupils Reactive Ears & Nose Ears & Nose Exam: Nasal Mucosa [place] Throat Throat Exam: Oral Mucosa [place] & Moist Neck Neck Exam: Neck Supple, Trachea Midline Pulmonary Resp Exam: No Distress, Diminished Breath Sounds, Poor Inspiratory Effort Cardiology CV Exam: Regular Gastrointestinal/Abdomen GI Exam: Soft, Non-Tender, Bowel Sounds Present, Non-Distended Genitourinary Exam: Clear Urine Musculoskeletal MS Exam: Atrophy, Unable to Ambulate Integumentary Skin Exam: Warm, Dry Extremeties Extremities Exam: Moderate Edema Neurologic Neuro Remarks Aphasic, Right-sided weakness VTE Prophylaxis VTE Prophylaxis Device: SCDs Assessment/Plan Problem List: (1) Altered mental status (2) Dehydration (3) Hypoglycemia (4) UTI (urinary tract infection) (5) HTN (hypertension) (6) DM (diabetes mellitus) (7) CKD (chronic kidney disease) stage 4, GFR 15-29 ml/min (8) History of CVA with residual deficit (9) Pressure ulcer (10) Hypercalcemia (11) Leukocytosis (12) Acute on chronic renal failure (13) Left buttock abscess (14) Ileus, unspecified (15) Nausea & vomiting Assessment/Plan Assessment Altered mental status on admission UTI Acute on chronic renal disease Dehydration Abscess left buttock with MRSA, on wound VAC Hypoglycemia on admission Angioedema for which she had to be intubated and transferred to ICU, then extubated and transferred out to telemetry history of chronic kidney disease, hypertension, hyperlipidemia, anemia of chronic disease, CVA with left-sided hemiparesis, type 2 diabetes Management Antibiotics Left buttock wound VAC Supplemental oxygen IV D5 half-normal saline swallowing evaluation -Wound care is following - abx per ID, -Seen by Plastic surgery , ID, nephrology -will need specialty mattress at home - She can benefit from PEG tube however patient's has been reluctant to do so. He insists on feeding her. SCDs for DVT prophylaxis PUD prophylaxis D/W RN D/W Problem Qualifiers (1) Altered mental status: Qualified Code: R40.4 - Transient alteration of awareness (2) UTI (urinary tract infection): Qualified Code: N39.0 - Urinary tract infection without hematuria, site unspecified (3) HTN (hypertension): Qualified Code: I10 - Essential hypertension (4) DM (diabetes mellitus): Qualified Code: E11.49 - Type 2 diabetes mellitus with other neurologic complication, unspecified fdc insulin use status (5) Pressure ulcer: Qualified Code: L89.324 - Decubitus ulcer of left buttock, stage 4 (6) Leukocytosis: Qualified Code: D72.829 - Leukocytosis, unspecified type (7) Nausea & vomiting: Ronny Hunt MD Feb 04, 2017 18:19
[2017-02-04] MEDS: traZODone HCL 50 MG TAB PO SCH (21:19)
[2017-02-04] MEDS: PRAVASTATIN SOD 40 MG TAB PO SCH (21:19)
[2017-02-05] VITALS (7 sets, daily range): BP systolic 128–183; BP diastolic 64–91; PULSE 81–106; RESP 16–20; TEMP 96–97.7; O2SAT 95–100
[2017-02-05] MEDS: NIFEdipine 20 MG CAP PO SCH ×3 (05:13→21:29)
[2017-02-05] MEDS: hydrALAZINE HCL 50 MG TAB PO SCH ×3 (05:13→21:29)
[2017-02-05] MEDS: INSULIN ASPART SUPPLEMENTAL SCALE SQ SCH ×4 (05:16→21:00)
[2017-02-05] MEDS: ONDANSETRON HCL 4 MG/2 ML VIAL IVP PRN (05:32)
[2017-02-05] MEDS: CARVEDILOL 3.125 MG TAB PO SCH ×2 (08:49→21:29)
[2017-02-05] MEDS: predniSONE 20 MG TAB PO SCH (08:49)
[2017-02-05] MEDS: CINACALCET HYDROCHLORIDE 30 MG TAB PO SCH (08:50)
[2017-02-05] MEDS: FUROSEMIDE 40 MG TAB PO SCH (08:50)
[2017-02-05] MEDS: LACTULOSE SYRUP 20 GM/30 ML CUP PO SCH (08:51)
[2017-02-05] MEDS: INSULIN DETEMIR 100 UNITS/ML VIAL SQ SCH ×2 (08:51→21:29)
[2017-02-05] MEDS: SODIUM CHLORIDE 0.9% FLUSH 5 ML FLUSH FLUSH SCH ×2 (08:52→21:00)
[2017-02-05] MEDS: BENEPROTEIN POWDER 1 PACK G-TUBE SCH ×3 (13:00→18:15)
[2017-02-05] MEDS: POVIDONE IODINE 10% SOLN 118 ML BOTTLE TOP SCH ×2 (14:33→21:00)
[2017-02-05] MEDS: COLLAGENASE OINT 30 GM TUBE TOP SCH (14:33)
--- NOTE | 2017-02-05 18:13 | HHI.PR ---
Subjective Interval History Awake, nonverbal, eating very little for lunch today, no visible distress, however does not look happy Review of Systems Constitutional Constitutional Remarks Difficult to obtain Vitals/Results Intake & Output 02/04/17 02/04/17 02/05/17 15:00 23:00 07:00 Intake Total 240 ml 615 ml Output Total 1050 ml 500 ml Balance -810 ml 115 ml Intake Oral 240 ml 60 ml IV Total 555 ml Output Urine Total 1050 ml 500 ml # Bowel Movements 0 0 Vital Signs Vital Signs Date Time Temp Pulse Resp B/P Pulse Ox O2 Delivery O2 Flow Rate FiO2 02/05/17 17:43 96.2 94 16 166/78 97 02/05/17 14:06 96.4 99 16 161/86 96 02/05/17 10:46 89 02/05/17 09:40 97.1 96 16 170/91 98 02/05/17 04:00 96.4 91 20 183/84 99 02/05/17 00:00 96.0 81 20 128/64 95 02/04/17 20:00 96.7 95 20 157/91 99 CBC/BMP: 02/03/17 1647 02/03/17 1647 Physical Exam General General Appearance: No Acute Distress Eyes Eye Exam: Pupils Equal, Pupils Reactive Ears & Nose Ears & Nose Exam: Nasal Mucosa [place] Throat Throat Exam: Oral Mucosa [place] & Moist Neck Neck Exam: Neck Supple, Trachea Midline Pulmonary Resp Exam: No Distress, Diminished Breath Sounds, Poor Inspiratory Effort Cardiology CV Exam: Regular Gastrointestinal/Abdomen GI Exam: Soft, Non-Tender, Bowel Sounds Present, Non-Distended Genitourinary Exam: Clear Urine Musculoskeletal MS Exam: Atrophy, Unable to Ambulate Integumentary Skin Exam: Warm, Dry Extremeties Extremities Exam: Moderate Edema Neurologic Neuro Remarks Aphasic, Right-sided weakness VTE Prophylaxis VTE Prophylaxis Device: SCDs Assessment/Plan Problem List: (1) Altered mental status (2) Dehydration (3) Hypoglycemia (4) UTI (urinary tract infection) (5) HTN (hypertension) (6) DM (diabetes mellitus) (7) CKD (chronic kidney disease) stage 4, GFR 15-29 ml/min (8) History of CVA with residual deficit (9) Pressure ulcer (10) Hypercalcemia (11) Leukocytosis (12) Acute on chronic renal failure (13) Left buttock abscess (14) Ileus, unspecified (15) Nausea & vomiting Assessment/Plan Assessment Altered mental status on admission UTI Acute on chronic renal disease Dehydration Sporadic nutrition Abscess left buttock with MRSA, on wound VAC Hypoglycemia on admission Angioedema for which she had to be intubated and transferred to ICU, then extubated and transferred out to telemetry history of chronic kidney disease, hypertension, hyperlipidemia, anemia of chronic disease, CVA with left-sided hemiparesis, type 2 diabetes Management Antibiotics Left buttock wound VAC Supplemental oxygen IV D5 half-normal saline swallowing evaluation With probably benefit from PEG tube insertion Wound care is following abx per ID, Seen by Plastic surgery , ID, nephrology will need specialty mattress at home She can benefit from PEG tube however patient's has been reluctant to do so, discussed again with He probably is more amenable now for PEG tube insertion SCDs for DVT prophylaxis PUD prophylaxis D/W RN Problem Qualifiers (1) Altered mental status: Qualified Code: R40.4 - Transient alteration of awareness (2) UTI (urinary tract infection): Qualified Code: N39.0 - Urinary tract infection without hematuria, site unspecified (3) HTN (hypertension): Qualified Code: I10 - Essential hypertension (4) DM (diabetes mellitus): Qualified Code: E11.49 - Type 2 diabetes mellitus with other neurologic complication, unspecified 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
[2017-02-05] MEDS: traZODone HCL 50 MG TAB PO SCH (21:28)
[2017-02-05] MEDS: PRAVASTATIN SOD 40 MG TAB PO SCH (21:29)
[2017-02-06] VITALS (8 sets, daily range): BP systolic 126–179; BP diastolic 62–84; PULSE 78–91; RESP 18–20; TEMP 95.6–98.6; O2SAT 95–100
[2017-02-06] MEDS: NIFEdipine 20 MG CAP PO SCH ×3 (06:13→22:18)
[2017-02-06] MEDS: hydrALAZINE HCL 50 MG TAB PO SCH ×3 (06:13→22:18)
[2017-02-06] MEDS: INSULIN ASPART SUPPLEMENTAL SCALE SQ SCH ×4 (06:15→22:15)
[2017-02-06] MEDS: COLLAGENASE OINT 30 GM TUBE TOP SCH (09:00)
[2017-02-06] MEDS: INSULIN DETEMIR 100 UNITS/ML VIAL SQ SCH ×2 (09:00→21:15)
[2017-02-06] MEDS: SODIUM CHLORIDE 0.9% FLUSH 5 ML FLUSH FLUSH SCH ×2 (09:00→22:15)
[2017-02-06] MEDS: BENEPROTEIN POWDER 1 PACK G-TUBE SCH ×3 (09:00→17:18)
[2017-02-06] MEDS: FUROSEMIDE 40 MG TAB PO SCH (10:05)
[2017-02-06] MEDS: predniSONE 20 MG TAB PO SCH (10:05)
[2017-02-06] MEDS: LACTULOSE SYRUP 20 GM/30 ML CUP PO SCH (10:05)
[2017-02-06] MEDS: CARVEDILOL 3.125 MG TAB PO SCH ×2 (10:06→22:18)
[2017-02-06] MEDS: CINACALCET HYDROCHLORIDE 30 MG TAB PO SCH (10:06)
--- NOTE | 2017-02-06 12:51 | HHI.PR ---
Subjective Subjective Remarks awakes to voice, not talking to much appetite fair, at times eats most meal requires to be fed no fever BP slightly improved asking about hospital bed, the size, whether he can sleep on it explained that pt. not eating consistently and may drop blood glucose again. Doesn't want peg tube Review of Systems Constitutional Constitutional Remarks Difficult to obtain ROS Vitals/Results Intake & Output 02/05/17 02/05/17 02/06/17 15:00 23:00 07:00 Intake Total 1955 ml 622 ml Output Total 1000 ml 300 ml Balance -1000 ml 1655 ml 622 ml Intake Oral 120 ml IV Total 1835 ml 622 ml Output Urine Total 1000 ml 300 ml # Bowel Movements 1 Vital Signs Vital Signs Date Time Temp Pulse Resp B/P Pulse Ox O2 Delivery O2 Flow Rate FiO2 02/06/17 12:00 98.6 78 20 148/72 96 02/06/17 05:12 84 02/06/17 00:00 97.5 85 20 126/62 98 02/05/17 20:00 97.7 83 20 142/79 100 02/05/17 17:43 96.2 94 16 166/78 97 02/05/17 14:06 96.4 99 16 161/86 96 CBC/BMP: 02/03/17 1647 02/03/17 1647 Physical Exam General General Appearance: No Acute Distress Appearance Remarks Lethargic Eyes Eye Exam: Pupils Equal, Pupils Reactive Ears & Nose Ears & Nose Exam: Nasal Mucosa [place] Throat Throat Exam: Oral Mucosa [place] & Moist Neck Neck Exam: Neck Supple, Trachea Midline Pulmonary Resp Exam: No Distress, Diminished Breath Sounds, Poor Inspiratory Effort Cardiology CV Exam: Regular Gastrointestinal/Abdomen GI Exam: Soft, Non-Tender, Bowel Sounds Present, Non-Distended GI Remarks Genitourinary Exam: Clear Urine Remarks [place] Musculoskeletal MS Exam: Atrophy, Unable to Ambulate MS Remarks left hemiplegia contracture left wrist Integumentary Skin Exam: Warm, Dry Skin Remarks wound vac to buttock Extremeties Extremities Exam: Moderate Edema Neurologic Neuro Remarks left hemiplegia VTE Prophylaxis VTE Prophylaxis Device: SCDs PUD Prophylasis PUD Remarks Pepcid Assessment/Plan Problem List: (1) Altered mental status (2) Dehydration (3) Hypoglycemia (4) UTI (urinary tract infection) (5) HTN (hypertension) (6) DM (diabetes mellitus) (7) CKD (chronic kidney disease) stage 4, GFR 15-29 ml/min (8) History of CVA with residual deficit (9) Pressure ulcer (10) Hypercalcemia (11) Leukocytosis (12) Acute on chronic renal failure (13) Left buttock abscess (14) Ileus, unspecified (15) Nausea & vomiting Assessment/Plan 66-year-old female with history of chronic kidney disease, hypertension, hyperlipidemia, CVA with left-sided hemiparesis, type 2 diabetes. Admitted with hypoglycemia, altered mental status. Found with UTI, acute on chronic renal failure, dehydration, abscess to left buttock Resp. failure sec. angioedema -now resolved, on oxygen at 2 L. Transferred out of ICU. Now resolved -intubated for airway protection, sec to angioedema, -Wean off oral steroids Anemia -Likely of chronic disease status post blood transfusion january 16. Stable, will monitor Nausea vomiting, now resolved, tolerating diet well -Risk of aspiration, prior history of CVA Continue to emphasize to to elevate head of bed, monitor for aspiration. Decubitus ulcer with abscess left buttock and thigh, when care, patient has wound VAC on. Appears to be healing well, has adequate granulation tissue per wound care report -Wound care is following -Wound culture showing MRSA - abx per ID, -Plastic surgery consult appreciated.s/p debridement /3 -Patient needs hospital bed, requires frequent repositioning, head of bed up to prevent aspiration. Order has been put in place. Recurrent UTI Repeat UC shows Escherichia coli and yeast, will ask infectious disease if we need to restart antibiotics --We will discontinue [place] catheter Hypoglycemia, was present on initial admission, did improve. Now recurrent. Blood glucose stable while on D5 Continue with D5 and a half Encourage by mouth intake, must be fed, discussed with RN -monitor accuchecks AC/HS with low dose ISS -Patient's by mouth intake is inconsistent, she is at risk for aspiration. She can benefit from PEG tube however patient's has been reluctant to do so. He insists on feeding her. Attending discussed need for PEG tube, patient appear somewhat amenable yesterday, today he is declining. Acute on CKD, stage V, pt. was nearing HD per history. Possibly worst secondary to dehydration, improving. -nephrology-input appreciated -avoid nephrotoxic agents Avoid diuretics -Renal function markedly improved. Hypercalcemia, etiology unclear, on calcium supplements, also prolonged bed rest -better today . Improving Nephrology on board, input appreciated History of CVA with residual deficits, left-sided hemiplegia, dysphasia, expressive aphasia. It appears to be declining. CT of the head negative for any acute findings Continue with home medications Physical therapy, speech therapy -Continue with aspirin and statins Hypertension, uncontrolled Continue with home medications -Continue with when necessary meds Thyroid nodule -Follow endocrinology as outpatient CM consult for DC planning Patient requires hospital bed for repositioning, elevate head of bed while she is being fed, prevent aspiration. Will have wound care nurse provide wound vac settings SCDs for DVT prophylaxis. PUD prophylaxis Possible discharge tomorrow if arrangements can be made, we will obtain further recommendations about antibiotics from infectious disease. Overall patient is improved, there is high likelihood that she may be rehospitalized. She has multiple comorbidities that are likely to be exacerbated. does not appear to have realistic expectations, he want to bring her home and provide care himself. Patient can benefit from long-term care placement due to complex needs D/W RN D/W D/W pt's D/W CM This patient was seen by myself and , this note is written on her behalf. Problem Qualifiers (1) Altered mental status: Qualified Code: R40.4 - Transient alteration of awareness (2) UTI (urinary tract infection): Qualified Code: N39.0 - Urinary tract infection without hematuria, site unspecified (3) HTN (hypertension): Qualified Code: I10 - Essential hypertension (4) DM (diabetes mellitus): Qualified Code: E11.49 - Type 2 diabetes mellitus with other neurologic complication, unspecified roasterman insulin use status (5) Pressure ulcer: Qualified Code: L89.324 - Decubitus ulcer of left buttock, stage 4 (6) Leukocytosis: Qualified Code: D72.829 - Leukocytosis, unspecified type (7) Nausea & vomiting: Karis Guthrie Feb 06, 2017 12:51
[2017-02-06] MEDS: cloNIDine HCL 0.2 MG/24 HR PATCH T-DERMAL SCH (14:08)
[2017-02-06] MEDS: DEXT 5%-NACL 0.45% 1000 ML INJ 1,000 ML IV SCH (14:24)
[2017-02-06] MEDS ORDERED: FLUCONAZOLE 200 MG TAB PO ONE (15:00)
--- NOTE | 2017-02-06 16:31 | HHI.NPPN ---
Subjective History of Present Illness 66-year-old female with past medical history of hypertension, diabetes mellitus, chronic kidney disease, history of cerebrovascular accident with left-sided weakness who was brought to the hospital because of altered mental status. I was called to see the patient because of elevated BUN and creatinine. The patient has known history of chronic kidney disease. She has been following with Dr. Ramos. Additional Remarks Patient is clinically same, sleepy but arousable, not in distress. Objective Data Data 02/05/17 02/06/17 19:00 07:00 Intake Total 1835 ml 742 ml Output Total 1000 ml 300 ml Balance 835 ml 442 ml Intake Oral 120 ml IV Total 1835 ml 622 ml Output Urine Total 1000 ml 300 ml # Bowel Movements 1 0 Vital Signs Date Time Temp Pulse Resp B/P Pulse Ox O2 Delivery O2 Flow Rate FiO2 02/06/17 12:00 98.6 78 20 148/72 96 02/06/17 12:00 96.3 89 20 139/73 97 02/06/17 05:12 84 02/06/17 00:00 97.5 85 20 126/62 98 02/05/17 20:00 97.7 83 20 142/79 100 02/05/17 17:43 96.2 94 16 166/78 97 -: 02/03/17 1647 02/03/17 1647 Physical Exam General Appearance: No Acute Distress Eyes Eye Exam: Pupils Equal, Pupils Reactive Ears & Nose Ears & Nose Exam: Nasal Mucosa [place] Throat Throat Exam: Oral Mucosa [place] & Moist Neck Neck Exam: Neck Supple, Trachea Midline Pulmonary Resp Exam: No Distress, Diminished Breath Sounds, Poor Inspiratory Effort Cardiology CV Exam: Regular Gastrointestinal/Abdomen GI Exam: Soft, Non-Tender, Bowel Sounds Present, Non-Distended Genitourinary Exam: Clear Urine Musculoskeletal MS Exam: Atrophy, Unable to Ambulate Integumentary Skin Exam: Warm, Dry Extremeties Extremities Exam: Moderate Edema VTE Prophylaxis Device: SCDs Assessment/Plan Assessment Summary: Dehydration, Hypertension, CKD Stage IV Problem List: (1) Dehydration (2) UTI (urinary tract infection) (3) HTN (hypertension) (4) DM (diabetes mellitus) (5) CKD (chronic kidney disease) stage 4, GFR 15-29 ml/min (6) History of CVA with residual deficit (7) Altered mental status (8) Acute on chronic renal failure Plan Patient has now stage 3 chronic kidney disease. Has Thyroid Nodule. Will need to see Endocrinology after D/C. TSH was normal. SPEP with abnormal gamma region on 01/10 - may consider further evaluation as patient further stabilizes. On Lasix, follow the urine out put. BP is better today. Creatinine is stable, avoid Nephrotoxins. Problem Qualifiers (1) UTI (urinary tract infection): Qualified Code: N39.0 - Urinary tract infection without hematuria, site unspecified (2) HTN (hypertension): Qualified Code: I10 - Essential hypertension (3) DM (diabetes mellitus): Qualified Code: E11.49 - Type 2 diabetes mellitus with other neurologic complication, unspecified prison insulin use status (4) Altered mental status: Qualified Code: R40.4 - Transient alteration of awareness Chelsea Mora MD Feb 06, 2017 16:31
[2017-02-06] MEDS: cefTRIAXone INJ 1,000 MG in SODIUM CHLORIDE 0.9% INJ 100 ML IV SCH (17:16)
[2017-02-06] MEDS: POVIDONE IODINE 10% SOLN 118 ML BOTTLE TOP SCH (22:15)
[2017-02-06] MEDS: traZODone HCL 50 MG TAB PO SCH (22:18)
[2017-02-06] MEDS: PRAVASTATIN SOD 40 MG TAB PO SCH (22:19)
[2017-02-07] VITALS: BP 144/73; PULSE 86; RESP 20; TEMP 96.3; O2SAT 97
[2017-02-07 04:00] VITALS: BP 170/79; PULSE 67; RESP 19; TEMP 96.9; O2SAT 99
[2017-02-07] MEDS: hydrALAZINE HCL 50 MG TAB PO SCH ×3 (05:22→21:37)
[2017-02-07] MEDS: NIFEdipine 20 MG CAP PO SCH ×3 (05:22→21:43)
[2017-02-07] MEDS: INSULIN ASPART SUPPLEMENTAL SCALE SQ SCH ×4 (06:05→21:38)
[2017-02-07 08:00] VITALS: BP 151/75; PULSE 87; RESP 20; TEMP 96.3; O2SAT 99
[2017-02-07] MEDS: COLLAGENASE OINT 30 GM TUBE TOP SCH (09:00)
[2017-02-07] MEDS: BENEPROTEIN POWDER 1 PACK G-TUBE SCH ×3 (09:00→17:07)
[2017-02-07] MEDS: INSULIN DETEMIR 100 UNITS/ML VIAL SQ SCH ×2 (09:00→21:38)
[2017-02-07] MEDS: POVIDONE IODINE 10% SOLN 118 ML BOTTLE TOP SCH ×2 (09:00→21:40)
[2017-02-07] MEDS: SODIUM CHLORIDE 0.9% FLUSH 5 ML FLUSH FLUSH SCH ×2 (09:00→21:38)
[2017-02-07] MEDS: LACTULOSE SYRUP 20 GM/30 ML CUP PO SCH (09:35)
[2017-02-07] MEDS: CINACALCET HYDROCHLORIDE 30 MG TAB PO SCH (09:35)
[2017-02-07] MEDS: CARVEDILOL 3.125 MG TAB PO SCH ×2 (09:35→21:37)
[2017-02-07] MEDS: predniSONE 20 MG TAB PO SCH (09:35)
[2017-02-07] MEDS: FUROSEMIDE 40 MG TAB PO SCH (09:36)
[2017-02-07] MEDS: DEXT 5%-NACL 0.45% 1000 ML INJ 1,000 ML IV SCH (10:45)
--- NOTE | 2017-02-07 11:59 | HHI.PR ---
Subjective Subjective Remarks eyes open, responding to verbal stimuli, dozes off and on No further nausea and vomiting, taking by mouth fluids, and was able to eat grits, tolerates liquids without cough. Increase diet to 1800-calorie ADA.. Afebrile not in room, but at hsopital somewhere Review of Systems Constitutional Constitutional Remarks 10 point ROS done positives noted, more responsive, answers questions appropriately, no cough with eating or drinking Heels floated Pulmonary Pulmonary Remarks Low volumes Cardiology CV Remarks BP high Genitourinary Remarks UTI treatment Musculoskeletal MS Remarks Old CVA Integumentary Skin Remarks Stage IV sacral, wound VAC, orders for specialty mattress on her hospital bed Psychiatric Psychiatric Remarks Minimal conversation secondary to her CVA Vitals/Results Intake & Output 02/06/17 02/06/17 02/07/17 15:00 23:00 07:00 Output Total 1300 ml 1800 ml Balance -1300 ml -1800 ml Output Urine Total 1300 ml 1800 ml # Voids 0 # Bowel Movements 1 Vital Signs Vital Signs Date Time Temp Pulse Resp B/P Pulse Ox O2 Delivery O2 Flow Rate FiO2 02/07/17 08:00 96.3 87 20 151/75 99 02/07/17 04:00 96.9 67 19 170/79 99 02/07/17 00:00 96.3 86 20 144/73 97 02/06/17 21:00 78 02/06/17 20:00 95.6 91 18 179/84 95 02/06/17 14:00 96.7 91 20 147/70 97 02/06/17 12:00 98.6 78 20 148/72 96 CBC/BMP: 02/03/17 1647 02/03/17 1647 Imaging Remarks Last Impressions Abdomen X-Ray 01/30/17 0926 Signed Impressions: Service Date/Time: Monday, January 30, 2017 09:41 - CONCLUSION: No acute disease. Samuel Don MD Chest X-Ray 01/23/17 0000 Signed Impressions: Service Date/Time: Monday, January 23, 2017 20:58 - CONCLUSION: Dense left lung base consolidation and mild case of pulmonary edema is not excluded. Gabriele Ambrosio MD Lower Extremity CT 01/16/17 0000 Signed Impressions: Service Date/Time: Monday, January 16, 2017 21:27 - CONCLUSION: Large air and fluid collection within the subcutaneous tissues of the posterior lateral upper thigh and base of the left buttock measuring 10.4 x 8.1 x 6.4 cm consistent with large subcutaneous abscess and surrounding diffuse cellulitis. Shaw Morfin MD Neck Ultrasound 01/13/17 0000 Signed Impressions: Service Date/Time: Friday, January 13, 2017 08:58 - CONCLUSION: 1. Could not identify parathyroid tissue. 2. 3 mm, isolated hypoechoic nodule in the right lobe of the thyroid isolated 5 mm cyst in the left lobe of the thyroid. David Mason MD Head CT 01/10/17 0038 Signed Impressions: Service Date/Time: Tuesday, January 10, 2017 01:23 - CONCLUSION: No significant change has occurred. Samuel Don MD Current Medications Active Medications Ceftriaxone Sodium/Sodium Chloride (Rocephin Inj/NS Inj) 100 ml @ 200 mls/hr Q24H IV Last administered on 02/06/17t 17:16; Admin Dose 200 MLS/HR; Start 02/06 at 15:00 Fluconazole (Diflucan) 200 mg ONCE ONCE PO Last administered on 02/06/17 17:17 ; Admin Dose 200 MG; Start 02/06/17 at 15:00; Stop 02/06/17 at 15:01; Status DC Physical Exam General General Appearance: No Acute Distress Eyes Eye Exam: Pupils Equal, Pupils Reactive Ears & Nose Ears & Nose Exam: Nasal Mucosa [place] Throat Throat Exam: Oral Mucosa [place] & Moist Neck Neck Exam: Neck Supple, Trachea Midline Pulmonary Resp Exam: No Distress, Diminished Breath Sounds, Poor Inspiratory Effort Cardiology CV Exam: Regular Gastrointestinal/Abdomen GI Exam: Soft, Non-Tender, Bowel Sounds Present, Non-Distended Genitourinary Exam: Clear Urine Musculoskeletal MS Exam: Atrophy, Unable to Ambulate Integumentary Skin Exam: Warm, Dry Skin Remarks Sacral decubitus wound VAC on, Extremeties Extremities Exam: Moderate Edema Neurologic Neuro Remarks Old CVA VTE Prophylaxis VTE Prophylaxis Device: SCDs Assessment/Plan Problem List: (1) Altered mental status (2) Dehydration (3) Hypoglycemia (4) UTI (urinary tract infection) (5) HTN (hypertension) (6) DM (diabetes mellitus) (7) CKD (chronic kidney disease) stage 4, GFR 15-29 ml/min (8) History of CVA with residual deficit (9) Pressure ulcer (10) Hypercalcemia (11) Leukocytosis (12) Acute on chronic renal failure (13) Left buttock abscess (14) Ileus, unspecified (15) Nausea & vomiting Assessment/Plan (1) Altered mental status (2) Dehydration (3) Hypoglycemia (4) UTI (urinary tract infection) (5) HTN (hypertension) (6) DM (diabetes mellitus) (7) CKD (chronic kidney disease) stage 4, GFR 15-29 ml/min (8) History of CVA with residual deficit (9) Pressure ulcer (10) Hypercalcemia (11) Leukocytosis (12) Acute on chronic renal failure (13) Left buttock abscess (14) Ileus, unspecified (15) Nausea & vomiting Assessment/Plan Resp. failure sec. angioedema -now resolved, on oxygen at 2 L. Transferred out of ICU. Now resolved Anemia -Likely of chronic disease status post blood transfusion january 16. Stable, will monitor Nausea vomiting, now resolved, tolerating diet well -Risk of aspiration, prior history of CVA Continue to emphasize to to elevate head of bed, monitor for aspiration. Decubitus ulcer with abscess left buttock and thigh, when care, patient has wound VAC on. Appears to be healing well, has adequate granulation tissue per wound care report -Wound care is following -Wound culture showing MRSA - abx per ID, -Plastic surgery consult appreciated.s/p debridement / -Patient needs hospital bed, requires frequent repositioning, head of bed up to prevent aspiration. Patient can recieve hospital bed, but says they dont have room. Recurrent UTI Repeat UC shows Escherichia coli and yeast, will ask infectious disease if we need to restart antibiotics Hypoglycemia, was present on initial admission, did improve. Now recurrent. Blood glucose stable while on D5 Continue with D5 and a half Encourage by mouth intake, must be fed, discussed with RN -monitor accuchecks AC/HS with low dose ISS -Patient's by mouth intake is inconsistent, she is at risk for aspiration. She can benefit from PEG tube however patient's has been reluctant to do so. He insists on feeding her. Attending discussed need for PEG tube, will follow needs. Acute on CKD, stage V, pt. was nearing HD per history. Possibly worst secondary to dehydration, improving. -nephrology-input appreciated Avoid diuretics -Renal function markedly improved. Hypercalcemia, etiology unclear, on calcium supplements, also prolonged bed rest -better today . Improving Nephrology on board, input appreciated History of CVA with residual deficits, left-sided hemiplegia, dysphasia, expressive aphasia. It appears to be declining. CT of the head negative for any acute findings Physical therapy, speech therapy Hypertension, labile, medications PO and prn Thyroid nodule -Follow endocrinology as outpatient CM consult for DC planning Patient requires hospital bed for repositioning, elevate head of bed while she is being fed, prevent aspiration. Will have wound care nurse provide wound vac settings SCDs for DVT prophylaxis. PUD prophylaxis Possible discharge tomorrow if arrangements can be made, we will obtain further recommendations about antibiotics from infectious disease. Overall patient is improved, but patient has multicomorbid cobditions. wants aggressive care, full code. does not appear to have realistic expectations, he want to bring her home and provide care himself. Patient can benefit from long-term care placement due to complex needs CM assistance for probable placement at least until sacral wound under control. 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
[2017-02-07 12:00] VITALS: BP 172/86; PULSE 68; RESP 18; TEMP 96.9; O2SAT 97
[2017-02-07] MEDS: cefTRIAXone INJ 1,000 MG in SODIUM CHLORIDE 0.9% INJ 100 ML IV SCH (13:41)
--- NOTE | 2017-02-07 17:24 | HHI.NPPN ---
Subjective History of Present Illness 66-year-old female with past medical history of hypertension, diabetes mellitus, chronic kidney disease, history of cerebrovascular accident with left-sided weakness who was brought to the hospital because of altered mental status. I was called to see the patient because of elevated BUN and creatinine. The patient has known history of chronic kidney disease. She has been following with Dr. Ramos. Additional Remarks Patient is alert, seen in AM, no SOB, not in distress. Objective Data Data 02/06/17 02/07/17 19:00 07:00 Output Total 1300 ml 1800 ml Balance -1300 ml -1800 ml Output Urine Total 1300 ml 1800 ml # Voids 0 # Bowel Movements 1 Vital Signs Date Time Temp Pulse Resp B/P Pulse Ox O2 Delivery O2 Flow Rate FiO2 02/07/17 12:00 96.9 68 18 172/86 97 02/07/17 08:00 96.3 87 20 151/75 99 02/07/17 04:00 96.9 67 19 170/79 99 02/07/17 00:00 96.3 86 20 144/73 97 02/06/17 21:00 78 02/06/17 20:00 95.6 91 18 179/84 95 -: 02/03/17 1647 02/03/17 1647 Physical Exam General Appearance: No Acute Distress Eyes Eye Exam: Pupils Equal, Pupils Reactive Ears & Nose Ears & Nose Exam: Nasal Mucosa [place] Throat Throat Exam: Oral Mucosa [place] & Moist Neck Neck Exam: Neck Supple, Trachea Midline Pulmonary Resp Exam: No Distress, Diminished Breath Sounds, Poor Inspiratory Effort Cardiology CV Exam: Regular Gastrointestinal/Abdomen GI Exam: Soft, Non-Tender, Bowel Sounds Present, Non-Distended Genitourinary Exam: Clear Urine Musculoskeletal MS Exam: Atrophy, Unable to Ambulate Integumentary Skin Exam: Warm, Dry Extremeties Extremities Exam: Moderate Edema VTE Prophylaxis Device: SCDs Assessment/Plan Assessment Summary: Dehydration, Hypertension, CKD Stage IV Problem List: (1) Dehydration (2) UTI (urinary tract infection) (3) HTN (hypertension) (4) DM (diabetes mellitus) (5) CKD (chronic kidney disease) stage 4, GFR 15-29 ml/min (6) History of CVA with residual deficit (7) Altered mental status (8) Acute on chronic renal failure Plan Patient has now stage 3 chronic kidney disease. Has Thyroid Nodule. Will need to see Endocrinology after D/C. TSH was normal. SPEP with abnormal gamma region on 01/10 - may consider further evaluation as patient further stabilizes. On Lasix, follow the urine out put. BP is occ. elevated. Started on Ceftriaxone for UTI. D/W the . 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
[2017-02-07 20:00] VITALS: BP 167/86; PULSE 84; RESP 19; TEMP 95.8; O2SAT 96
[2017-02-07 21:30] VITALS: PULSE 93
[2017-02-07] MEDS: traZODone HCL 50 MG TAB PO SCH (21:37)
[2017-02-07] MEDS: PRAVASTATIN SOD 40 MG TAB PO SCH (21:37)
--- NOTE | 2017-02-07 23:41 | HHI.IDPN ---
Subjective Subjective Remarks delaeyd entry pt was seen today around 1630 event noted dw Yusra Guthrie yday regarding pt 's UA and culture findings Pt is apparently more lethargic \burciaga was changed Pt is afebrile with a tendency to hypothermia Mild leukocytosi She was started on rocephin and fluconazole yday Antibiotics CFTX fluconazole Allergies: Coded Allergies: Penicillin (Verified Allergy, Severe, rash/itching, 01/10/17) *MDRO Multi-Drug Resistant Organism (Verified Adverse Reaction, Unknown, ) MRSA (buttock)-01/15/17 Uncoded Allergies: CILLINS ALL (Allergy, Severe, 07/23/10) Objective . Vital Signs Date Time Temp Pulse Resp B/P Pulse Ox O2 Delivery O2 Flow Rate FiO2 02/07/17 20:00 95.8 84 19 167/86 96 02/07/17 12:00 96.9 68 18 172/86 97 02/07/17 08:00 96.3 87 20 151/75 99 02/07/17 04:00 96.9 67 19 170/79 99 02/07/17 00:00 96.3 86 20 144/73 97 02/06/17 02/06/17 02/07/17 15:00 23:00 07:00 Output Total 1300 ml 1800 ml Balance -1300 ml -1800 ml Output Urine Total 1300 ml 1800 ml # Voids 0 # Bowel Movements 1 Imaging Last Last Impressions Abdomen X-Ray 01/30/17 0926 Signed Impressions: Service Date/Time: Monday, January 30, 2017 09:41 - CONCLUSION: No acute disease. Samuel Don MD Chest X-Ray 01/23/17 0000 Signed Impressions: Service Date/Time: Monday, January 23, 2017 20:58 - CONCLUSION: Dense left lung base consolidation and mild case of pulmonary edema is not excluded. Gabriele Ambrosio MD Lower Extremity CT 01/16/17 0000 Signed Impressions: Service Date/Time: Monday, January 16, 2017 21:27 - CONCLUSION: Large air and fluid collection within the subcutaneous tissues of the posterior lateral upper thigh and base of the left buttock measuring 10.4 x 8.1 x 6.4 cm consistent with large subcutaneous abscess and surrounding diffuse cellulitis. Shaw Morfin MD Neck Ultrasound 01/13/17 0000 Signed Impressions: Service Date/Time: Friday, January 13, 2017 08:58 - CONCLUSION: 1. Could not identify parathyroid tissue. 2. 3 mm, isolated hypoechoic nodule in the right lobe of the thyroid isolated 5 mm cyst in the left lobe of the thyroid. David Mason MD Head CT 01/10/17 0038 Signed Impressions: Service Date/Time: Tuesday, January 10, 2017 01:23 - CONCLUSION: No significant change has occurred. Samuel Don MD Physical Exam CONSTITUTIONAL/GENERAL: This is an adequately nourished patient, in no apparent distress. TUBES/LINES/DRAINS: SKIN: No jaundice, rashes, HEAD: Atraumatic. Normocephalic. EYES: Pupils equal and round and reactive. Extraocular motions intact. No scleral icterus. No injection or drainage. Fundi not examined. ENT:Oral mucosae moist without visible erythema; no active drooling no tongue swelling CARDIOVASCULAR: Regular rate and rhythm without murmurs, gallops, or rubs. No JVD. Peripheral pulses symmetric. RESPIRATORY/CHEST: Symmetric, unlabored respirations. Clear to auscultation. Breath sounds equal bilaterally. No wheezes, rales, or rhonchi. GASTROINTESTINAL: Abdomen soft, non-tender, nondistended. No hepato-splenomegaly , or palpable masses. No guarding. Bowel sounds present. MUSCULOSKELETAL: Extremities without clubbing, cyanosis, or edema. VAC in place L LE with serosang dc : burciaga in place NEUROLOGICAL: Minimally responsive (opens eyes) noot following commnads, not tracking L side with hemiplegia (baseline); Assessment & Plan Remarks Bedridden non verbal pt with h/o devastating stroke L thigh/L buttock decub, appears clinically infected L buttock abscess, MRSA sp debridement, VAC placement UTI, E.coli PCN allergy , but uneventfully took cefepime in 2009 CKD approaching ESRD Angioedema - resolved Acute VDRF: resolved UTI, E.coli - new FUnguria -cont CFTX - cont fluconazole - monitor closely pts GFR Discussed Condition With Jancie Fatima MD Feb 07, 2017 23:41
[2017-02-08] VITALS (7 sets, daily range): BP systolic 124–186; BP diastolic 73–87; PULSE 72–100; RESP 18–20; TEMP 95.4–97.5; O2SAT 93–100
[2017-02-08] MEDS: NIFEdipine 20 MG CAP PO SCH ×2 (05:34→14:44)
[2017-02-08] MEDS: hydrALAZINE HCL 50 MG TAB PO SCH ×3 (05:34→23:18)
[2017-02-08] MEDS: DEXT 5%-NACL 0.45% 1000 ML INJ 1,000 ML IV SCH (06:45)
[2017-02-08] MEDS: INSULIN ASPART SUPPLEMENTAL SCALE SQ SCH ×4 (07:00→23:19)
[2017-02-08] MEDS: SODIUM CHLORIDE 0.9% FLUSH 5 ML FLUSH FLUSH SCH ×2 (09:00→23:20)
[2017-02-08] MEDS: FUROSEMIDE 40 MG TAB PO SCH (09:36)
[2017-02-08] MEDS: CARVEDILOL 3.125 MG TAB PO SCH ×2 (09:37→23:18)
[2017-02-08] MEDS: predniSONE 20 MG TAB PO SCH (09:37)
[2017-02-08] MEDS: CINACALCET HYDROCHLORIDE 30 MG TAB PO SCH (09:37)
[2017-02-08] MEDS: INSULIN DETEMIR 100 UNITS/ML VIAL SQ SCH ×2 (09:38→23:18)
[2017-02-08] MEDS: LACTULOSE SYRUP 20 GM/30 ML CUP PO SCH (09:38)
[2017-02-08] MEDS: BENEPROTEIN POWDER 1 PACK G-TUBE SCH ×3 (09:39→17:40)
[2017-02-08] MEDS: POVIDONE IODINE 10% SOLN 118 ML BOTTLE TOP SCH (09:39)
[2017-02-08] MEDS: COLLAGENASE OINT 30 GM TUBE TOP SCH (09:40)
[2017-02-08] MEDS ORDERED: WHEEMIS3 (11:09)
--- NOTE | 2017-02-08 11:16 | HHI.PR ---
Subjective Subjective Remarks eyes open, responding to verbal stimuli, dozes off and on No further nausea and vomiting, taking by mouth fluids, and was able to eat grits, tolerates liquids without cough. Afebrile here, discussed DC planning. [place] precautions Review of Systems Constitutional Constitutional Remarks 10 point ROS done positives noted, more responsive, answers questions appropriately, no cough with eating or drinking Heels floated Pulmonary Pulmonary Remarks Low volumes Cardiology CV Remarks BP high Genitourinary Remarks UTI treatment Musculoskeletal MS Remarks Old CVA Integumentary Skin Remarks Stage IV sacral, wound VAC, orders for specialty mattress on her hospital bed Psychiatric Psychiatric Remarks Minimal conversation secondary to her CVA Vitals/Results Intake & Output 02/07/17 02/07/17 02/08/17 15:00 23:00 07:00 Output Total 400 ml 500 ml Balance -400 ml -500 ml Output Urine Total 400 ml 500 ml Vital Signs Vital Signs Date Time Temp Pulse Resp B/P Pulse Ox O2 Delivery O2 Flow Rate FiO2 02/08/17 08:00 97.0 92 18 153/77 100 02/08/17 04:41 95.9 89 19 186/86 99 02/08/17 00:00 95.7 72 19 150/77 100 02/07/17 21:30 93 02/07/17 20:00 95.8 84 19 167/86 96 02/07/17 12:00 96.9 68 18 172/86 97 Physical Exam General General Appearance: No Acute Distress Eyes Eye Exam: Pupils Equal, Pupils Reactive Ears & Nose Ears & Nose Exam: Nasal Mucosa [place] Throat Throat Exam: Oral Mucosa [place] & Moist Neck Neck Exam: Neck Supple, Trachea Midline Pulmonary Resp Exam: No Distress, Diminished Breath Sounds, Poor Inspiratory Effort Cardiology CV Exam: Regular Gastrointestinal/Abdomen GI Exam: Soft, Non-Tender, Bowel Sounds Present, Non-Distended Genitourinary Exam: Clear Urine Musculoskeletal MS Exam: Atrophy, Unable to Ambulate Integumentary Skin Exam: Warm, Dry Skin Remarks Sacral decubitus wound VAC on, Extremeties Extremities Exam: Moderate Edema Neurologic Neuro Remarks Old CVA VTE Prophylaxis VTE Prophylaxis Device: SCDs Assessment/Plan Problem List: (1) Altered mental status (2) Dehydration (3) Hypoglycemia (4) UTI (urinary tract infection) (5) HTN (hypertension) (6) DM (diabetes mellitus) (7) CKD (chronic kidney disease) stage 4, GFR 15-29 ml/min (8) History of CVA with residual deficit (9) Pressure ulcer (10) Hypercalcemia (11) Leukocytosis (12) Acute on chronic renal failure (13) Left buttock abscess (14) Ileus, unspecified (15) Nausea & vomiting Assessment/Plan (1) Altered mental status (2) Dehydration (3) Hypoglycemia (4) UTI (urinary tract infection) (5) HTN (hypertension) (6) DM (diabetes mellitus) (7) CKD (chronic kidney disease) stage 4, GFR 15-29 ml/min (8) History of CVA with residual deficit (9) Pressure ulcer (10) Hypercalcemia (11) Leukocytosis (12) Acute on chronic renal failure (13) Left buttock abscess (14) Ileus, unspecified (15) Nausea & vomiting Assessment/Plan Resp. failure sec. angioedema -now resolved, on oxygen at 2 L. Transferred out of ICU. Now resolved Anemia -Likely of chronic disease status post blood transfusion january 16. Stable, Nausea vomiting, now resolved, tolerating diet well -Risk of aspiration, prior history of CVA Continue to emphasize to to elevate head of bed, monitor for aspiration. Decubitus ulcer with abscess left buttock and thigh, when care, patient has wound VAC on. Appears to be healing well, has adequate granulation tissue per wound care report -Wound care is following -Wound culture showing MRSA - abx per ID, -Plastic surgery consult appreciated.s/p debridement / -Patient needs hospital bed, requires frequent repositioning, ordered for home use. paid extra for the gel mattress. Set up at home today. Recurrent UTI Repeat UC shows Escherichia coli and yeast, will ask infectious disease for home needs. Eating with full assistance. High aspiration risk. understands. -monitor accuchecks AC/HS with low dose ISS Acute on CKD, stage V, pt. was nearing HD per history. Possibly worst secondary to dehydration,stable -nephrology-input appreciated Avoid diuretics -Renal function markedly improved. History of CVA with residual deficits, left-sided hemiplegia, dysphasia, expressive aphasia. Back to her baseline CM consult for DC planning hospital bed ordered, for repositioning, elevate head of bed while she is being fed, prevent aspiration. Will have wound care nurse provide wound vac settings SCDs for DVT prophylaxis. PUD prophylaxis Possible discharge today if arrangements can be made, we will obtain further recommendations about antibiotics from infectious disease. 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
[2017-02-08] MEDS: cefTRIAXone INJ 1,000 MG in SODIUM CHLORIDE 0.9% INJ 100 ML IV SCH (14:44)
--- NOTE | 2017-02-08 19:53 | HHI.NPPN ---
Subjective History of Present Illness 66-year-old female with past medical history of hypertension, diabetes mellitus, chronic kidney disease, history of cerebrovascular accident with left-sided weakness who was brought to the hospital because of altered mental status. I was called to see the patient because of elevated BUN and creatinine. The patient has known history of chronic kidney disease. She has been following with Dr. Ramos. Additional Remarks Patient is alert, clinically same, not in distress. Objective Data Data 02/07/17 02/08/17 19:00 07:00 Output Total 900 ml Balance -900 ml Output Urine Total 900 ml Vital Signs Date Time Temp Pulse Resp B/P Pulse Ox O2 Delivery O2 Flow Rate FiO2 02/08/17 16:00 97.5 100 18 162/85 93 02/08/17 14:18 88 02/08/17 12:00 95.4 87 18 157/87 97 02/08/17 08:00 97.0 92 18 153/77 100 02/08/17 04:41 95.9 89 19 186/86 99 02/08/17 00:00 95.7 72 19 150/77 100 02/07/17 21:30 93 02/07/17 20:00 95.8 84 19 167/86 96 Physical Exam General Appearance: No Acute Distress Eyes Eye Exam: Pupils Equal, Pupils Reactive Ears & Nose Ears & Nose Exam: Nasal Mucosa [place] Throat Throat Exam: Oral Mucosa [place] & Moist Neck Neck Exam: Neck Supple, Trachea Midline Pulmonary Resp Exam: No Distress, Diminished Breath Sounds, Poor Inspiratory Effort Cardiology CV Exam: Regular Gastrointestinal/Abdomen GI Exam: Soft, Non-Tender, Bowel Sounds Present, Non-Distended Genitourinary Exam: Clear Urine Musculoskeletal MS Exam: Atrophy, Unable to Ambulate Integumentary Skin Exam: Warm, Dry Extremeties Extremities Exam: Moderate Edema VTE Prophylaxis Device: SCDs Assessment/Plan Assessment Summary: Dehydration, Hypertension, CKD Stage IV Problem List: (1) Dehydration (2) UTI (urinary tract infection) (3) HTN (hypertension) (4) DM (diabetes mellitus) (5) CKD (chronic kidney disease) stage 4, GFR 15-29 ml/min (6) History of CVA with residual deficit (7) Altered mental status (8) Acute on chronic renal failure Plan Patient has now stage 3 chronic kidney disease. Has Thyroid Nodule. Will need to see Endocrinology after D/C. TSH was normal. SPEP with abnormal gamma region on 01/10 - may consider further evaluation as patient further stabilizes. On Lasix, follow the urine out put. BP is occ. elevated. Started on Ceftriaxone for UTI. Possibly discharge tomorrow. 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
[2017-02-08] MEDS: traZODone HCL 50 MG TAB PO SCH (23:18)
[2017-02-08] MEDS: PRAVASTATIN SOD 40 MG TAB PO SCH (23:18)
[2017-02-09] VITALS: BP 177/86; PULSE 62; RESP 20; TEMP 97; O2SAT 98
[2017-02-09] MEDS: DEXT 5%-NACL 0.45% 1000 ML INJ 1,000 ML IV SCH (01:35)
[2017-02-09 04:00] VITALS: BP 175/91; PULSE 77; RESP 20; TEMP 97.2; O2SAT 98
[2017-02-09] MEDS: NIFEdipine 20 MG CAP PO SCH ×2 (06:00→14:36)
[2017-02-09] MEDS: hydrALAZINE HCL 50 MG TAB PO SCH ×2 (06:06→14:36)
[2017-02-09] MEDS: INSULIN ASPART SUPPLEMENTAL SCALE SQ SCH ×2 (06:09→11:00)
[2017-02-09 08:13] VITALS: BP 123/73; PULSE 78; RESP 18; TEMP 97.1; O2SAT 98
[2017-02-09] MEDS: POVIDONE IODINE 10% SOLN 118 ML BOTTLE TOP SCH (09:00)
[2017-02-09] MEDS: SODIUM CHLORIDE 0.9% FLUSH 5 ML FLUSH FLUSH SCH (09:00)
[2017-02-09] MEDS: LACTULOSE SYRUP 20 GM/30 ML CUP PO SCH (09:00)
[2017-02-09] MEDS: BENEPROTEIN POWDER 1 PACK G-TUBE SCH ×2 (09:00→13:00)
[2017-02-09] MEDS: CINACALCET HYDROCHLORIDE 30 MG TAB PO SCH (09:48)
[2017-02-09] MEDS: FUROSEMIDE 40 MG TAB PO SCH (09:48)
[2017-02-09] MEDS: predniSONE 20 MG TAB PO SCH (09:48)
[2017-02-09] MEDS: CARVEDILOL 3.125 MG TAB PO SCH (09:48)
[2017-02-09] MEDS: INSULIN DETEMIR 100 UNITS/ML VIAL SQ SCH (09:50)
[2017-02-09] MEDS: COLLAGENASE OINT 30 GM TUBE TOP SCH (09:55)
[2017-02-09 12:08] VITALS: BP 120/64; PULSE 82; RESP 18; TEMP 97.1; O2SAT 97
[2017-02-09] MEDS ORDERED: NIFE20 PO (12:58)
[2017-02-09] MEDS ORDERED: CLON.2T T-DERMAL (12:58)
[2017-02-09] MEDS ORDERED: LANTUS2P SQ (12:58)
[2017-02-09] MEDS ORDERED: HYDR50TA15 PO (12:58)
[2017-02-09] MEDS ORDERED: CARV3.125 PO (12:58)
[2017-02-09] MEDS ORDERED: NOVOLOGP2 SQ (12:58)
[2017-02-09] MEDS ORDERED: CEFT250T8 PO (12:59)
--- NOTE | 2017-02-09 13:16 | HHI.PR ---
Subjective Subjective Remarks awakes to voice, not talking to much fed by ate okay no fever anxious to go home, asking about dc planning BP okay Review of Systems Constitutional Constitutional Remarks Difficult to obtain ROS Vitals/Results Intake & Output 02/08/17 02/08/17 02/09/17 15:00 23:00 07:00 Output Total 600 ml 500 ml Balance -600 ml -500 ml Output Urine Total 600 ml 500 ml # Bowel Movements 1 Vital Signs Vital Signs Date Time Temp Pulse Resp B/P Pulse Ox O2 Delivery O2 Flow Rate FiO2 02/09/17 12:08 97.1 82 18 120/64 97 02/09/17 08:13 97.1 78 18 123/73 98 02/09/17 04:00 97.2 77 20 175/91 98 02/09/17 00:00 97.0 62 20 177/86 98 02/08/17 20:00 97.2 88 20 124/73 99 02/08/17 16:00 97.5 100 18 162/85 93 02/08/17 14:18 88 Physical Exam General General Appearance: No Acute Distress Appearance Remarks Lethargic Eyes Eye Exam: Pupils Equal, Pupils Reactive Ears & Nose Ears & Nose Exam: Nasal Mucosa [place] Throat Throat Exam: Oral Mucosa [place] & Moist Neck Neck Exam: Neck Supple, Trachea Midline Pulmonary Resp Exam: No Distress, Diminished Breath Sounds, Poor Inspiratory Effort Cardiology CV Exam: Regular Gastrointestinal/Abdomen GI Exam: Soft, Non-Tender, Bowel Sounds Present, Non-Distended GI Remarks Genitourinary Exam: Clear Urine Remarks [place] Musculoskeletal MS Exam: Atrophy, Unable to Ambulate MS Remarks left hemiplegia contracture left wrist Integumentary Skin Exam: Warm, Dry Skin Remarks wound vac to buttock Extremeties Extremities Exam: Moderate Edema Neurologic Neuro Remarks left hemiplegia VTE Prophylaxis VTE Prophylaxis Device: SCDs PUD Prophylasis PUD Remarks Pepcid Assessment/Plan Problem List: (1) Altered mental status (2) Dehydration (3) Hypoglycemia (4) UTI (urinary tract infection) (5) HTN (hypertension) (6) DM (diabetes mellitus) (7) CKD (chronic kidney disease) stage 4, GFR 15-29 ml/min (8) History of CVA with residual deficit (9) Pressure ulcer (10) Hypercalcemia (11) Leukocytosis (12) Acute on chronic renal failure (13) Left buttock abscess (14) Ileus, unspecified (15) Nausea & vomiting Assessment/Plan 66-year-old female with history of chronic kidney disease, hypertension, hyperlipidemia, CVA with left-sided hemiparesis, type 2 diabetes. Admitted with hypoglycemia, altered mental status. Found with UTI, acute on chronic renal failure, dehydration, abscess to left buttock Resp. failure sec. angioedema -now resolved, on oxygen at 2 L. Transferred out of ICU. Now resolved -intubated for airway protection, sec to angioedema, -DC steroids Anemia -Likely of chronic disease status post blood transfusion january 16. Stable, will monitor Nausea vomiting, now resolved, tolerating diet well -Risk of aspiration, prior history of CVA Continue to emphasize to to elevate head of bed, monitor for aspiration. Decubitus ulcer with abscess left buttock and thigh, when care, patient has wound VAC on. Appears to be healing well, has adequate granulation tissue per wound care report -Wound care is following -Wound culture showing MRSA - abx per ID, -Plastic surgery consult appreciated.s/p debridement / -Patient needs hospital bed, requires frequent repositioning, head of bed up to prevent aspiration. Order has been put in place. Recurrent UTI Repeat UC shows Escherichia coli and yeast, dw Dr. Camp, started on Rocephin -bur[place] never removed, will have RN remove today -will send home on Ceftin PO Hypoglycemia, was present on initial admission, did improve. Now recurrent. Blood glucose stable while on D5 -DC D5 Encourage by mouth intake, must be fed, discussed with RN -monitor accuchecks AC/HS with low dose ISS -Patient's by mouth intake is inconsistent, she is at risk for aspiration. She can benefit from PEG tube however patient's has been reluctant to do so. He insists on feeding her. Attending discussed need for PEG tube, refused. Acute on CKD, stage V, pt. was nearing HD per history. Possibly worst secondary to dehydration, improving. -nephrology-input appreciated -avoid nephrotoxic agents Avoid diuretics -Renal function markedly improved. Hypercalcemia, etiology unclear, on calcium supplements, also prolonged bed rest -better today . Improving Nephrology on board, input appreciated History of CVA with residual deficits, left-sided hemiplegia, dysphasia, expressive aphasia. It appears to be declining. CT of the head negative for any acute findings Continue with home medications Physical therapy, speech therapy -Continue with aspirin and statins Hypertension, uncontrolled Continue with home medications -Continue with when necessary meds Thyroid nodule -Follow endocrinology as outpatient CM consult for DC planning Discussed with CM, wound vac and WC being delivered declined bed, will buy special mattress pad. SCDs for DVT prophylaxis. PUD prophylaxis Discussed discharge plan with at length, needs to continue on sliding scale, avoid hypoglycemic episodes. Needs to ensure PO intake. Instructed to follow hospital sliding scale Overall patient is improved, there is high likelihood that she may be rehospitalized. She has multiple comorbidities that are likely to be exacerbated. does not appear to have realistic expectations, he want to bring her home and provide care himself. Patient can benefit from long-term care placement due to complex needs per CM all equipment has been delivered discharge home today with [facility] F/U PCP next week Diet-1800 pureed Activity-as tolerated, turn frequently Wound care per [facility] RN Labs in one week, CBC, CMP D/W RN D/W D/W pt's D/W CM This patient was seen by myself and , this note is written on her behalf. Discharge Minutes: 50 Problem Qualifiers (1) Altered mental status: Qualified Code: R40.4 - Transient alteration of awareness (2) UTI (urinary tract infection): Qualified Code: N39.0 - Urinary tract infection without hematuria, site unspecified (3) HTN (hypertension): Qualified Code: I10 - Essential hypertension (4) DM (diabetes mellitus): Qualified Code: E11.49 - Type 2 diabetes mellitus with other neurologic complication, unspecified terminal gauger insulin use status (5) Pressure ulcer: Qualified Code: L89.324 - Decubitus ulcer of left buttock, stage 4 (6) Leukocytosis: Qualified Code: D72.829 - Leukocytosis, unspecified type (7) Nausea & vomiting: Karis Guthrie Feb 09, 2017 13:16
--- NOTE | 2017-02-09 14:39 | HHI.IDPN ---
Subjective Subjective Remarks doing well no fever Antibiotics CFTX fluconazole Allergies: Coded Allergies: Penicillin (Verified Allergy, Severe, rash/itching, 01/10/17) *MDRO Multi-Drug Resistant Organism (Verified Adverse Reaction, Unknown, ) MRSA (buttock)-01/15/17 Uncoded Allergies: CILLINS ALL (Allergy, Severe, 07/23/10) Objective . Vital Signs Date Time Temp Pulse Resp B/P Pulse Ox O2 Delivery O2 Flow Rate FiO2 02/09/17 12:08 97.1 82 18 120/64 97 02/09/17 08:13 97.1 78 18 123/73 98 02/09/17 04:00 97.2 77 20 175/91 98 02/09/17 00:00 97.0 62 20 177/86 98 02/08/17 20:00 97.2 88 20 124/73 99 02/08/17 16:00 97.5 100 18 162/85 93 02/08/17 02/08/17 02/09/17 15:00 23:00 07:00 Output Total 600 ml 500 ml Balance -600 ml -500 ml Output Urine Total 600 ml 500 ml # Bowel Movements 1 Imaging Last Impressions Abdomen X-Ray 01/30/17 0926 Signed Impressions: Service Date/Time: Monday, January 30, 2017 09:41 - CONCLUSION: No acute disease. Samuel Don MD Chest X-Ray 01/23/17 0000 Signed Impressions: Service Date/Time: Monday, January 23, 2017 20:58 - CONCLUSION: Dense left lung base consolidation and mild case of pulmonary edema is not excluded. Gabriele Ambrosio MD Lower Extremity CT 01/16/17 0000 Signed Impressions: Service Date/Time: Monday, January 16, 2017 21:27 - CONCLUSION: Large air and fluid collection within the subcutaneous tissues of the posterior lateral upper thigh and base of the left buttock measuring 10.4 x 8.1 x 6.4 cm consistent with large subcutaneous abscess and surrounding diffuse cellulitis. Shaw Morfin MD Neck Ultrasound 01/13/17 0000 Signed Impressions: Service Date/Time: Friday, January 13, 2017 08:58 - CONCLUSION: 1. Could not identify parathyroid tissue. 2. 3 mm, isolated hypoechoic nodule in the right lobe of the thyroid isolated 5 mm cyst in the left lobe of the thyroid. David Mason MD Head CT 01/10/17 0038 Signed Impressions: Service Date/Time: Tuesday, January 10, 2017 01:23 - CONCLUSION: No significant change has occurred. Samuel Don MD Physical Exam CONSTITUTIONAL/GENERAL: This is an adequately nourished patient, in no apparent distress. OOB in a chair SKIN: No jaundice, rashes, RESPIRATORY/CHEST: unlabored respirations. Clear to auscultation. Breath sounds equal bilaterally. No wheezes, rales, or rhonchi. NEUROLOGICAL: Awake, alert; Assessment & Plan Remarks Bedridden non verbal pt with h/o devastating stroke L thigh/L buttock decub, appears clinically infected L buttock abscess, MRSA sp debridement, VAC placement UTI, E.coli PCN allergy , but uneventfully took cefepime in 2009 CKD approaching ESRD Angioedema - resolved Acute VDRF: resolved UTI, E.coli - new FUnguria - dc CFTX; - complete abx course with ceftin x 7 more days - dc fluconazole - ok to dc home Discussed Condition With Janice Fatima MD Feb 09, 2017 14:39
== END 2017-02-09 14:48 | disposition home health service (06) | DRG 981 ==
LOC: NEPC 00:09 → NEDA 04:03 → NEPHCDU 09:38 → HOCA 01-11 03:11 → N03B 01-23 18:39 → N05B 01-31 17:55
PROVIDERS: ADMIT Family Medicine; ATTEND Family Medicine
PROC: 30233N1 Transfusion of Nonautologous Red Blood Cells into Peripheral Vein, Percutaneous Approach (ICD-10-PCS; 2017-01-16)
PROC: 0JD70ZZ Extraction of Back Subcutaneous Tissue and Fascia, Open Approach (ICD-10-PCS; 2017-01-23)
PROC: 5A1945Z Respiratory Ventilation, 24-96 Consecutive Hours (ICD-10-PCS; 2017-01-23)
PROC: 0KBP0ZZ Excision of Left Hip Muscle, Open Approach (ICD-10-PCS; principal; 2017-01-23 15:40)
DX: E11.649 Type 2 diabetes mellitus with hypoglycemia without coma (principal); L89.324 Pressure ulcer of left buttock, stage 4; L89.154 Pressure ulcer of sacral region, stage 4; J96.90 Respiratory failure, unspecified, unspecified whether with hypoxia or hypercapnia; N17.9 Acute kidney failure, unspecified; E87.0 Hyperosmolality and hypernatremia; Z99.11 Dependence on respirator [ventilator] status; L89.152 Pressure ulcer of sacral region, stage 2; L89.312 Pressure ulcer of right buttock, stage 2; N18.5 Chronic kidney disease, stage 5; I12.0 Hypertensive chronic kidney disease with stage 5 chronic kidney disease or end stage renal disease; D89.2 Hypergammaglobulinemia, unspecified; L02.31 Cutaneous abscess of buttock; N39.0 Urinary tract infection, site not specified; I69.354 Hemiplegia and hemiparesis following cerebral infarction affecting left non-dominant side; K56.7 Ileus, unspecified; L03.116 Cellulitis of left lower limb; E11.22 Type 2 diabetes mellitus with diabetic chronic kidney disease; E11.49 Type 2 diabetes mellitus with other diabetic neurological complication; D86.9 Sarcoidosis, unspecified; I50.9 Heart failure, unspecified; E78.00 Pure hypercholesterolemia, unspecified; Z79.84 Long term (current) use of oral hypoglycemic drugs; E78.5 Hyperlipidemia, unspecified; E03.9 Hypothyroidism, unspecified; E83.52 Hypercalcemia; I69.321 Dysphasia following cerebral infarction; R13.10 Dysphagia, unspecified; I25.10 Atherosclerotic heart disease of native coronary artery without angina pectoris; Z88.0 Allergy status to penicillin; M62.59 Muscle wasting and atrophy, not elsewhere classified, multiple sites; E86.0 Dehydration; D63.8 Anemia in other chronic diseases classified elsewhere; R63.0 Anorexia; Z74.01 Bed confinement status; B96.20 Unspecified Escherichia coli [E. coli] as the cause of diseases classified elsewhere; B95.62 Methicillin resistant Staphylococcus aureus infection as the cause of diseases classified elsewhere; I25.2 Old myocardial infarction; T78.3XXA Angioneurotic edema, initial encounter; T88.8XXA Other specified complications of surgical and medical care, not elsewhere classified, initial encounter; Y83.8 Other surgical procedures as the cause of abnormal reaction of the patient, or of later complication, without mention of misadventure at the time of the procedure; Y82.8 Other medical devices associated with adverse incidents; M54.5 Low back pain; E04.1 Nontoxic single thyroid nodule; Z16.23 Resistance to quinolones and fluoroquinolones; Y92.234 Operating room of hospital as the place of occurrence of the external cause; Z87.440 Personal history of urinary (tract) infections; Z53.29 Procedure and treatment not carried out because of patient's decision for other reasons
CPT/HCPCS: 36430; 36600; 70450; 71010; 73700; 74000; 76536; 76937; 80048; 80053; 80202; 80307; 81001; 82140; 82550; 82552; 82565; 82728; 82805; 82948; 83540; 83550; 83735; 83970; 84100; 84155; 84165; 84443; 84484; 85007; 85025; 85027; 85610; 85730; 86403; 86850; 86900; 86901; 86920; 87040; 87070; 87077; 87086; 87147; 87186; 87205; 93005; 94002; 94003; 96374; G8987-GP; G8988-GP; J0360; J0692; J0696; J1100; J1170; J1200; J1450; J1610; J1644; J1815; J1940; J1956; J2250; J2270; J2405; J2765; J3010; J3370; J7030; J7042; J7050; J7070; J7512; P9016; Q4081

== ENCOUNTER 2017-03-06 11:02 | Inpatient (IN) | payer OTHER, MEDICARE ==
[2017-03-06] VITALS (8 sets, daily range): BP systolic 95–118; BP diastolic 60–78; PULSE 92–98; RESP 14–20; TEMP 95.7–98; O2SAT 96–100
[~2017-03-06] VITALS: Ht 167.6 cm; Wt 64.0 kg
[~2017-03-06 11:02] MED LIST changes: -AMLO10 PO; +ASPI1TAB69 PO; -ASPI81 PO; -CALC0.25 PO; +CARV3.125 PO; +CEFT250T8 PO; +CINA30 PO; +CLON.2T T-DERMAL; -CLON0.2T PO; -FISH1000 PO; -FURO1TAB93 PO; +FURO20TA PO; -GLIP5 OR; +HOSP BED2; -KETO2AER; -KETO2SHA5 EX; +LANTUS2P SQ; -METO10TA PO; -NEOS15T; +NIFE20 PO; +NOVOLOGP2 SQ; -ROSU10 PO; -SIMV20 PO; -SPIR25TA PO; -SUPECAP3 PO; -TOPR25TA2 PO; +TRAZ50TA12 PO; -TRAZ50TA4 PO; +WHEEMIS3; +ZOCO20TA PO
[2017-03-06] MEDS ORDERED: SODIUM CHLORIDE 0.9% FLUSH 10 ML FLUSH IVF PRN (12:00)
[2017-03-06] MEDS ORDERED: NALOXONE HCL 2 MG/2 ML VIAL IV ONE (12:00)
--- NOTE | 2017-03-06 12:01 | PD ---
HPI Chief Complaint: Wound/Suture/Staple Re-Check Time Seen by Provider: 11:53 Travel History International Travel<30 days: No Contact w/Intl Traveler<30days: No Traveled to known affect area: No History of Present Illness HPI 66-year-old female with history of previous stroke, multiple medical issues, chronic sacral and buttocks decubitus ulcer which she is getting wound care for , presents to the ER today brought in by because wound care nurse was at their house today and noted a smell to her bandages, gave her pain medication , and called wound care doctor, was told to bring the patient in. There is concern that the wound is getting worse. However, patient's states that her wound actually does not look whole lot worse. He is concerned that the patient may be getting too much pain medication. She looks fairly lethargic and the ER. He denies any new fevers or other problems. Modifying Factors: None Associated Signs & Symptoms: Lethargy, wound check Risk Factors: Chronic decubitus ulcers, previous stroke PFSH Past Medical History Arthritis: No Asthma: No Autoimmune Disease: No Blood Disorders: No Anxiety: No Depression: No Heart Rhythm Problems: Yes Cancer: No Cardiovascular Problems: Yes (Heart failure, [place] twice) High Cholesterol: No Chemotherapy: No Chest Pain: No Congestive Heart Failure: Yes COPD: No Cerebrovascular Accident: Yes (2009 LEFT SIDE AFFECTED) Diabetes: Yes Diminished Hearing: No Endocrine: Yes GERD: No Glaucoma: No Genitourinary: Yes (Previous UTI's) Headaches: No Hepatitis: No Hiatal Hernia: No Hypertension: Yes Immune Disorder: No Kidney Stones: No Musculoskeletal: No Neurologic: Yes (previous stroke) Psychiatric: No Reproductive: No Respiratory: No Immunizations Current: Yes Migraines: No Myocardial Infarction: No Radiation Therapy: No Renal Failure: No Seizures: Yes Sickle Cell Disease: No Sleep Apnea: No Thyroid Disease: No Ulcer: No PNEUMOCCOCAL Vaccine (Year): 2 Menopausal: Yes : 5 Para: 5 Dilation and Curettage (D&C): Yes (X4) Tubal Ligation: Yes Past Surgical History Abdominal Surgery: No AICD: No Appendectomy: No Arteriovenous Shunt: No Cardiac Surgery: No Cholecystectomy: No Ear Surgery: No Endocrine Surgery: No Eye Surgery: No Genitourinary Surgery: No Gynecologic Surgery: Yes (D/C X4, BTL) Hysterectomy: Yes Insulin Pump: No Joint Replacement: No Oral Surgery: No Pacemaker: No Thoracic Surgery: No Other Surgery: Yes Social History Alcohol Use: No Tobacco Use: No Substance Use: No Allergies-Medications (Allergen,Severity, Reaction): Coded Allergies: Penicillin (Verified Allergy, Severe, rash/itching, 03/06/17) *MDRO Multi-Drug Resistant Organism (Verified Adverse Reaction, Unknown, ) MRSA (buttock)-01/15/17 Uncoded Allergies: CILLINS ALL (Allergy, Severe, 07/23/10) Reported Meds & Prescriptions Reported Meds & Active Scripts Active Hydralazine (Hydralazine HCl) 50 Mg Tab 50 Mg PO Q8HR Novolog Inj (Insulin Aspart) 1,000 Unit/10 Ml Vial 1-9 Units SQ ACHS Max dose at bedtime:( )units; sugars less than 70,(0)units; sugars 150-199,(1) unit; sugars 200-249,(3) units; sugars 250-299,(5) units; sugars 300-349,(7) units; sugars greater than 349,(9) units Lantus Inj (Insulin Glargine) 1,000 Unit/10 Ml Vial 10 Units SQ BID Nifedipine 20 Mg Cap 20 Mg PO Q8HR [id number] 168 HR Patch (Clonidine) 0.2 Mg/24 Hr Patch 1 Patch T-DERMAL Q7D Coreg (Carvedilol) 3.125 Mg Tab 3.125 Mg PO Q12HR Wheelchair Elevated Leg (Device) 1 Mis Mis 1 Units .XX DAILY Hospital Bed - Manual 1 Ea Ea 1 Ea .ROUTE DIRECTED Reported Lortab (Hydrocodone-Acetaminophen) 5-325 Mg Tab 1 Tab PO Q4H PRN Aspirin 81 Mg Tabdr 81 Mg PO DAILY Sensipar (Cinacalcet) 30 Mg Tab 30 Mg PO DAILY Furosemide 20 Mg Tab 20 Mg PO BID Trazodone (Trazodone HCl) 50 Mg Tab 50 Mg PO HS Zocor (Simvastatin) 20 Mg Tab 20 Mg PO HS Fluoxetine (Fluoxetine HCl) 40 Mg Cap 40 Cap PO DAILY Review of Systems ROS Limitations: Altered Mental Status Physical Exam Narrative GENERAL: Well-developed elderly -[place] female patient who is currently lethargic. In moderate distress. Left sided paresis. SKIN: Focused skin assessment warm/dry. Healing stage III sacral decubitus ulcer which is clean base without significant drainage or erythema. HEAD: Atraumatic. Normocephalic. EYES: Pupils are small equal and round. No scleral icterus. No injection or drainage. ENT: No nasal bleeding or discharge. Mucous membranes pink and moist. NECK: Trachea midline. No JVD. CARDIOVASCULAR: Regular rate and rhythm. No murmur appreciated. RESPIRATORY: No accessory muscle use. Clear to auscultation. Breath sounds equal bilaterally. GASTROINTESTINAL: Abdomen soft, non-tender, nondistended. Hepatic and splenic margins not palpable. MUSCULOSKELETAL: No obvious deformities. No clubbing. No cyanosis. No edema. NEUROLOGICAL: Lethargic, nonverbal. Left-sided paresis. Data Data Last Documented VS Vital Signs Date Time Temp Pulse Resp B/P Pulse Ox O2 Delivery O2 Flow Rate FiO2 03/06/17 13:01 93 16 112/70 100 Room Air 03/06/17 11:05 97.4 Orders Complete Blood Count With Diff (03/06/17 11:53) Comprehensive Metabolic Panel (03/06/17 11:53) Lactic Acid Sepsis Protocol (03/06/17 11:53) Urinalysis - C+S If Indicated (03/06/17 11:53) Blood Culture (03/06/17 11:53) Blood Glucose (03/06/17 11:53) Ecg Monitoring (03/06/17 11:53) Iv Access Insert/Monitor (03/06/17 11:53) Cath For Specimen (03/06/17 11:53) Oximetry (03/06/17 11:53) Naloxone Inj (Narcan Inj) (03/06/17 12:00) Sodium Chloride 0.9% Flush (Ns Flush) (03/06/17 12:00) Ct Brain W/O Iv Contrast(Rout) (03/06/17 12:01) Chest, Single Ap (03/06/17 13:08) Urine Culture (03/06/17 12:15) Cefepime Inj (Maxipime Inj) (03/06/17 13:25) Admit Order (Ed Use Only) (03/06/17 13:43) Labs Laboratory Tests Test 03/06/17 12:15 White Blood Count 15.6 TH/MM3 Red Blood Count 4.44 MIL/MM3 Hemoglobin 13.1 GM/DL Hematocrit 41.2 % Mean Corpuscular Volume 92.9 FL Mean Corpuscular Hemoglobin 29.4 PG Mean Corpuscular Hemoglobin 31.6 % Concent Red Cell Distribution Width 17.3 % Platelet Count 190 TH/MM3 Mean Platelet Volume 11.5 FL Neutrophils (%) (Auto) 82.9 % Lymphocytes (%) (Auto) 10.6 % Monocytes (%) (Auto) 5.4 % Eosinophils (%) (Auto) 0.7 % Basophils (%) (Auto) 0.4 % Neutrophils # (Auto) 12.9 TH/MM3 Lymphocytes # (Auto) 1.7 TH/MM3 Monocytes # (Auto) 0.8 TH/MM3 Eosinophils # (Auto) 0.1 TH/MM3 Basophils # (Auto) 0.1 TH/MM3 CBC Comment DIFF FINAL Differential Comment Urine Color YELLOW Urine Turbidity HAZY Urine pH 5.0 Urine Specific [place] 1.019 Urine Protein 30 mg/dL Urine Glucose (UA) NEG mg/dL Urine Ketones NEG mg/dL Urine Occult Blood MOD Urine Nitrite NEG Urine Bilirubin NEG Urine Urobilinogen LESS THAN 2.0 MG/DL Urine Leukocyte Esterase NEG Urine RBC /hpf Urine WBC 1 /hpf Urine Squamous Epithelial 1 /hpf Cells Urine Transitional Epithelial <1 /hpf Cells Urine Bacteria FEW /hpf Urine Hyaline Casts 5 /lpf Urine Yeast (Budding) FEW Microscopic Urinalysis Comment CATH-CULTURE IND Sodium Level 159 MEQ/L Potassium Level 4.6 MEQ/L Chloride Level 125 MEQ/L Carbon Dioxide Level 26.0 MEQ/L Anion Gap 8 MEQ/L Blood Urea Nitrogen 54 MG/DL Creatinine 3.09 MG/DL Estimat Glomerular Filtration 18 ML/MIN Rate Random Glucose 190 MG/DL Lactic Acid Level 2.5 mmol/L Calcium Level 11.7 MG/DL Protein Corrected Calcium 11.7 MG/DL Total Bilirubin 0.3 MG/DL Aspartate Amino Transf 122 U/L (AST/SGOT) Alanine Aminotransferase 108 U/L (ALT/SGPT) Alkaline Phosphatase 151 U/L Total Protein 7.2 GM/DL Albumin 2.2 GM/DL MDM Medical Decision Making Medical Screen Exam Complete: Yes Emergency Medical Condition: Yes Medical Record Reviewed: Yes Interpretation(s) Laboratory Tests Test 03/06/17 12:15 White Blood Count 15.6 TH/MM3 (4.0-11.0) Mean Corpuscular Hemoglobin 31.6 % Concent (32.0-36.0) Red Cell Distribution Width 17.3 % (11.6-17.2) Mean Platelet Volume 11.5 FL (7.0-11.0) Neutrophils (%) (Auto) 82.9 % (16.0-70.0) Neutrophils # (Auto) 12.9 TH/MM3 (1.8-7.7) Urine Turbidity HAZY (CLEAR) Urine Protein 30 mg/dL (NEG-TRACE) Urine Occult Blood MOD (NEG) Urine Bacteria FEW /hpf (NONE) Urine Yeast (Budding) FEW (NONE) Sodium Level 159 MEQ/L (136-145) Chloride Level 125 MEQ/L (98-107) Blood Urea Nitrogen 54 MG/DL (7-18) Creatinine 3.09 MG/DL (0.50-1.00) Estimat Glomerular Filtration 18 ML/MIN (>89) Rate Random Glucose 190 MG/DL (74-106) Lactic Acid Level 2.5 mmol/L (0.4-2.0) Calcium Level 11.7 MG/DL (8.5-10.1) Protein Corrected Calcium 11.7 MG/DL (8.5-10.1) Aspartate Amino Transf 122 U/L (15-37) (AST/SGOT) Alanine Aminotransferase 108 U/L (10-53) (ALT/SGPT) Alkaline Phosphatase 151 U/L (45-117) Albumin 2.2 GM/DL (3.4-5.0) Last [address] 03/06/17 1201 Signed Impressions: Service Date/Time: Monday, March 06, 2017 12:27 - CONCLUSION: Stable and unremarkable CT brain for patient's age. Tej Caceres MD Differential Diagnosis Wound check of decubitus ulcer, altered mental statusopiate overdose versus metabolic issues versus sepsis Narrative Course Patient was initially given Narcan because patient's is concerned about possible opiate overdose. Narcan did not help much. Her CAT scan the brain was negative for any signs of acute intercranial processes. Lab work otherwise returns showing significant dehydration, acute renal failure, and hyponatremia as well as hypercalcemia. I suspect that this is causing her current altered mental status. IV antibiotics were given in the ER. Lactate was fairly elevated swell. IV fluids to be given. At this point, my plan would be to admit the patient for further treatment. Case was discussed with Dr. Hastings for admission. Diagnosis Primary Impression: Acute on chronic renal failure Additional Impressions: Altered mental status Hypercalcemia Pressure ulcer Hypernatremia Severe sepsis Admitting Information Admitting Physician Requests: it Sergio Jonas MD March 06, 2017 12:01
[2017-03-06 12:39] LABS: AUTOMATED NEUTROPHIL # 12.9 TH/MM3 (1.8-7.7); BASOPHIL # 0.1 TH/MM3 (0-0.2); BASOPHIL % 0.4 % (0.0-2.0); EOSINOPHIL # 0.1 TH/MM3 (0-0.4); EOSINOPHIL % 0.7 % (0.0-4.0); HEMATOCRIT 41.2 % (35.0-46.0); HEMO FLAGS DIFF FINAL; LYMPH % 10.6 % (9.0-44.0); LYMPHOCYTE # 1.7 TH/MM3 (1.0-4.8); MEAN CELL VOLUME 92.9 FL (80.0-100.0); MEAN CORPUSCULAR HEMOGLOBIN 29.4 PG (27.0-34.0); MEAN CORPUSCULAR HGB CONC 31.6 % (32.0-36.0); MONO % 5.4 % (0.0-8.0); NEUT % 82.9 % (16.0-70.0); PLATELET COUNT 190 TH/MM3 (150-450); RED BLOOD COUNT 4.44 MIL/MM3 (4.00-5.30); RED CELL DISTRIBUTION WIDTH 17.3 % (11.6-17.2); WHITE BLOOD COUNT 15.6 TH/MM3 (4.0-11.0)
--- NOTE | 2017-03-06 12:39 | RADRPT ---
EXAM DATE/TIME: 03/06/2017 12:27 [facility] COMPARISON: CT BRAIN W/O CONTRAST, January 10, 2017, 1:23. INDICATIONS : Altered mental status. RADIATION DOSE: 45.35 CTDIvol (mGy) MEDICAL HISTORY : Hypertension. Seizures. SURGICAL HISTORY : Hysterectomy. ENCOUNTER: Initial ACUITY: 1 day PAIN SCALE: 4/10 LOCATION: Bilateral cranial TECHNIQUE: Multiple contiguous axial images were obtained of the head. Using automated exposure control and adj ustment of the mA and/or kV according to patient size, radiation dose was kept as low as reasonably a chievable to obtain optimal diagnostic quality images. FINDINGS: CEREBRUM: The ventricles are normal for age. No evidence of midline shift, mass lesion, hemorrhage or acute in farction. No extra-axial fluid collections are seen. POSTERIOR FOSSA: The cerebellum and brainstem are intact. The 4th ventricle is midline. The cerebellopontine angle i s unremarkable. EXTRACRANIAL: The visualized portion of the orbits is intact. SKULL: The calvaria is intact. No evidence of skull fracture. No significant changes. CONCLUSION: Stable and unremarkable CT brain for patient's age. Tej Caceres MD on March 06, 2017 at 12:35 Board Certified Radiologist. This report was verified electronically.
[2017-03-06 13:06] LABS: POTASSIUM 4.6 MEQ/L (3.5-5.1); TOTAL BILIRUBIN ADULT 0.3 MG/DL (0.2-1.0)
[2017-03-06] MEDS ORDERED: HYDR-3533 PO (13:12)
[2017-03-06 13:13] LABS: BACTERIA, URINE FEW /hpf; BLOOD, URINE MOD (NEG); CALCIUM-PROTEIN CORRECTED 11.7 MG/DL (8.5-10.1); GLUCOSE,URINE NEG (NEG); HYALINE CAST, URINE 5 /lpf (RARE); KETONE, URINE NEG (NEG); NITRITE,URINE NEG (NEG); SQUAMOUS EPITHELIAL CELL URINE 1 /hpf (0-5); TRANSITIONAL EPI CELLS, URINE <1 /hpf; URINE COLOR YELLOW (YELLW/STRAW)
[2017-03-06 13:17] LABS: COMMENT (UR) CATH-CULTURE IND; CULTURE IF INDICATED CATH CULTURE IND
[2017-03-06] MEDS ORDERED: CEFEPIME INJ 2,000 MG in SODIUM CHLORIDE 0.9% INJ 100 ML IV STA (13:25)
[2017-03-06] MEDS ORDERED: SENNOSIDES 8.6 MG TAB PO PRN (14:00)
[2017-03-06] MEDS ORDERED: NALOXONE HCL 0.4 MG/ML AMP IV PRN (14:00)
[2017-03-06] MEDS ORDERED: ACETAMINOPHEN 325 MG TAB PO PRN ×2 (14:00)
[2017-03-06] MEDS ORDERED: Vancomycin Consult Pharmacy 1 EA OTHER SCH (14:00)
[2017-03-06] MEDS ORDERED: VANCOMYCIN INJ 1,250 MG in SODIUM CHLOR 0.9% 250 ML INJ 250 ML IV SCH (14:00)
[2017-03-06] MEDS ORDERED: SODIUM CHLORIDE 0.9% FLUSH 10 ML FLUSH IV FLUSH PRN (14:00)
--- NOTE | 2017-03-06 14:02 | RADRPT ---
EXAM DATE/TIME: 03/06/2017 13:36 [facility] COMPARISON: CHEST SINGLE AP, January 23, 2017, 20:58. INDICATIONS : Short of breath. MEDICAL HISTORY : Renal insufficiency. SURGICAL HISTORY : None. ENCOUNTER: Initial ACUITY: 3 days PAIN SCORE: Non-responsive. LOCATION: Bilateral chest FINDINGS: A single view of the chest demonstrates mild infiltrate in the left lung base. Otherwise, the lungs r emain grossly clear. No pleural effusions or pulmonary edema. No evidence of pneumothorax. The bony s tructures are stable. The heart size is mildly prominent but stable.. CONCLUSION: Mild left lower lung infiltrate. Tej Caceres MD on March 06, 2017 at 13:59 Board Certified Radiologist. This report was verified electronically.
--- NOTE | 2017-03-06 14:09 | HHI.HP ---
[facility] Service [facility] Primary Care Physician Mango Ruiz MD Admission Diagnosis severe sepsis/acute renal failure Diagnoses: Chief Complaint: Lethargy Travel History International Travel<30 Days: No Contact w/Intl Traveler <30 Da: No Traveled to Known Affected Are: No History of Present Illness The patient is a 66-year-old female with a past medical history of CVA and left- sided weakness who is presenting to the hospital with lethargy and concerns for a wound infection. The patient recently had a month-long hospitalization and has been home since February 09. During that previous hospitalization the patient had a large wound on her buttocks which required surgery and wound VAC. She did have some complications and was ultimately discharged with home health care per the 's request. The patient is unable to give a history but the patient's stated that she was doing well at home. He says her mental status would wax and wane. He says this morning a visiting nurse examined the patient's wound and thought she smelled an infection. The patient's primary care doctor was contacted and the patient was referred to the hospital. The patient's also states that Lortab was recently prescribed for the patient's dressing changes. The patient's states that Lortab tends to make the patient loopy and has only been used 3 times, the last use this morning at around 6:30 AM. He does believe the patient's lethargy is secondary to the Lortab and he is upset about that. He believes that the patient's wound is continuing to heal and improve as time goes by. He does not believe that the wound is infected. When the patient is alert she denies any acute complaints. The patient's does not want to pursue any aggressive care such as a feeding tube and he believes the patient has been eating and drinking well recently. Review of Systems ROS Limitations: Clinical Condition, Altered Mental Status, Poor Historian Except as stated in HPI: all other systems reviewed are Neg Past Family Social History Past Medical History DM CKD CHF HTN Sarcoidosis Pericardial effusion CVA with residual left-sided hemiplegia Coronary artery disease Hyperlipidemia Past Surgical History Hysterectomy 2/2 fibroids Left buttock wound surgery Allergies: Coded Allergies: Penicillin (Verified Allergy, Severe, rash/itching, 03/06/17) *MDRO Multi-Drug Resistant Organism (Verified Adverse Reaction, Unknown, ) MRSA (buttock)-01/15/17 Uncoded Allergies: CILLINS ALL (Allergy, Severe, 07/23/10) Active Ordered Medications Current Medications Medications (Trade) Dose Ordered Sig/Yari Route Start Time Stop Time Status Last Admin (Ecotrin Ec) 81 mg DAILY PO 03/07/17 09:00 Cinacalcet 30 mg 30 mg DAILY PO 03/07/17 09:00 (D5W 1000 ml Inj) 1,000 ml @ 100 mls/hr Q10H IV 03/06/17 14:00 03/06/17 14:12 (NS Flush) 2 ml UNSCH PRN IV FLUSH 03/06/17 14:00 (NS Flush) 2 ml BID IV FLUSH 03/06/17 21:00 (Tylenol) 650 mg Q4H PRN PO 03/06/17 14:00 (Colace) 100 mg Q12H PO 03/06/17 15:00 (Senokot) 17.2 mg Q12H PRN PO 03/06/17 14:00 (Tylenol) 650 mg Q6H PRN PO 03/06/17 14:00 Naloxone HCl 0.4 mg 0.4 mg UNSCH PRN IV 03/06/17 14:00 Cefepime HCl 2000 mg/Sodium Chloride 100 ml @ 200 mls/hr Q24H IV 03/07/17 14:00 (Vancomycin Consult Pharmacy) 0 ml @ 0 mls/hr UNSCH OTHER 03/06/17 14:00 Family History CVA Social History No recent smoking, no alcohol, no substance abuse. Physical Exam Vital Signs Vital Signs Date Time Temp Pulse Resp B/P Pulse Ox O2 Delivery O2 Flow Rate FiO2 03/06/17 13:01 93 16 112/70 100 Room Air 03/06/17 11:05 97.4 98 14 100/60 96 Room Air Physical Exam GENERAL: Lethargic, comfortable. SKIN: Focused skin assessment warm/dry. Healing stage III sacral decubitus ulcer which is clean base without significant drainage or erythema. HEAD: Atraumatic. Normocephalic. EYES: Pupils are small equal and round. No scleral icterus. No injection or drainage. ENT: No nasal bleeding or discharge. Mucous membranes pink and moist. NECK: Trachea midline. No JVD. CARDIOVASCULAR: Tachycardic. No murmur appreciated. RESPIRATORY: No accessory muscle use. Clear to auscultation. Breath sounds equal bilaterally. GASTROINTESTINAL: Abdomen soft, non-tender, nondistended. Hepatic and splenic margins not palpable. MUSCULOSKELETAL: No obvious deformities. No clubbing. No cyanosis. No edema. NEUROLOGICAL: Lethargic, minimally verbal. Left-sided paresis. Laboratory Laboratory Tests Test 03/06/17 12:15 White Blood Count 15.6 Red Blood Count 4.44 Hemoglobin 13.1 Hematocrit 41.2 Mean Corpuscular Volume 92.9 Mean Corpuscular Hemoglobin 29.4 Mean Corpuscular Hemoglobin 31.6 Concent Red Cell Distribution Width 17.3 Platelet Count 190 Mean Platelet Volume 11.5 Neutrophils (%) (Auto) 82.9 Lymphocytes (%) (Auto) 10.6 Monocytes (%) (Auto) 5.4 Eosinophils (%) (Auto) 0.7 Basophils (%) (Auto) 0.4 Neutrophils # (Auto) 12.9 Lymphocytes # (Auto) 1.7 Monocytes # (Auto) 0.8 Eosinophils # (Auto) 0.1 Basophils # (Auto) 0.1 CBC Comment DIFF FINAL Differential Comment Urine Color YELLOW Urine Turbidity HAZY Urine pH 5.0 Urine Specific [place] 1.019 Urine Protein 30 Urine Glucose (UA) NEG Urine Ketones NEG Urine Occult Blood MOD Urine Nitrite NEG Urine Bilirubin NEG Urine Urobilinogen LESS THAN 2.0 Urine Leukocyte Esterase NEG Urine RBC Urine WBC 1 Urine Squamous Epithelial 1 Cells Urine Transitional Epithelial <1 Cells Urine Bacteria FEW Urine Hyaline Casts 5 Urine Yeast (Budding) FEW Microscopic Urinalysis Comment CATH-CULTURE IND Sodium Level 159 Potassium Level 4.6 Chloride Level 125 Carbon Dioxide Level 26.0 Anion Gap 8 Blood Urea Nitrogen 54 Creatinine 3.09 Estimat Glomerular Filtration 18 Rate Random Glucose 190 Lactic Acid Level 2.5 Calcium Level 11.7 Protein Corrected Calcium 11.7 Total Bilirubin 0.3 Aspartate Amino Transf 122 (AST/SGOT) Alanine Aminotransferase 108 (ALT/SGPT) Alkaline Phosphatase 151 Total Protein 7.2 Albumin 2.2 Date/Time Procedure Status Source Growth 03/06/17 12:15 Urine Culture Received Urine Catheterized Urine Pending 03/06/17 12:15 Aerobic Blood Culture Received Blood Peripheral Pending 03/06/17 12:15 Anaerobic Blood Culture Received Blood Peripheral Pending Result Diagram: 03/06/17 1215 03/06/17 1215 Imaging Last Impressions Chest X-Ray 03/06/17 1308 Signed Impressions: Service Date/Time: Monday, March 06, 2017 13:36 - CONCLUSION: Mild left lower lung infiltrate. Tej Caceres MD Head CT 03/06/17 1201 Signed Impressions: Service Date/Time: Monday, March 06, 2017 12:27 - CONCLUSION: Stable and unremarkable CT brain for patient's age. Tej Caceres MD Assessment and Plan Assessment and Plan History of CVA/ Failure to thrive/ Hypernatremia/ Metabolic encephalopathy The pt has residual deficits including left-sided hemiplegia, dysphasia and expressive aphasia. CT of the head negative for any acute findings. She presents with severe hypernatremia. - Continue ASA. - Physical therapy, speech therapy, occupational therapy. - holding statin in setting of elevated LFTs. - IV fluids. - Palliative care consultation requested. - regional property manager consult requested. - neuro checks. - hold all sedating meds. Acute on CKD The pt was nearing HD per history. Exacerbated by failure to thrive and diuretic use. - hold diuretics. - avoid nephrotoxic agents. - IVFs. - Follow BMP. - Nephrology consult if no improvement. Decubitus ulcer/ Pneumonia/ Sepsis Chronic wound to the left buttock and thigh, s/p wound vac and prolonged hospitalization. Off antibiotics. May be source of sepsis. Chest x-ray with mild left lower infiltrate. There is concern for aspiration considering her mental status. Received cefepime in the ED. Lactic acid level has improved. The pt has chronic leukocytosis and tachycardia. - Wound care consult. The wound appears to be healing well. - Wound culture requested. Previous culture grew MRSA and Escherichia coli. - blood cultures x 2 pending. - sputum culture and gram stain. - Continue cefepime and vancomycin for now. - IV fluids. Anemia Likely secondary to renal disease. - follow CBC and transfuse as needed. Recurrent UTI UA indicative of infection. - continue antibiotics. - follow urine culture. Diabetes Glucose has been low. Last hemoglobin A1c was 9.7%. - monitor accuchecks AC/HS with low dose ISS. - follow glucose closely while on D5W. - Check another hemoglobin A1c. Hypercalcemia Chronic. Etiology unclear. - continue to monitor. Hypertension Blood pressure low, likely s/t volume depletion. - hold home medications. - Clonidine as needed. - IVFs. Thyroid nodule Noted on previous imaging. - Follow endocrinology as outpatient once stable. PPx: SCDs. Code Status Full. Discussed Condition With Pt, pt's , nurse, Dr. Vizcarra. Physician Certification 2 Midnight Certification Type: Admission for Inpatient Services Order for Inpatient Services The services are ordered in accordance with Medicare regulations or non- Medicare payer requirements, as applicable. In the case of services not specified as inpatient-only, they are appropriately provided as inpatient services in accordance with the 2-midnight benchmark. Estimated LOS (days): 2 days is the estimated time the patient will need to remain in the hospital, assuming treatment plan goals are met and no additional complications. Post-Hospital Plan: Not yet determined uBd Monae DO March 06, 2017 14:08
[2017-03-06] MEDS: DEXTROSE 5% IN WATE 1000ML INJ 1,000 ML IV SCH (14:12)
[2017-03-06 14:29] LABS: LACTIC ACID GHOST NOT REPORTABLE
[2017-03-06] MEDS: DOCUSATE SODIUM 100 MG CAP PO SCH (15:00)
[2017-03-06] MEDS ORDERED: VANCOMYCIN INJ 1,250 MG in SODIUM CHLOR 0.9% 250 ML INJ 250 ML IV ONE (15:00)
[2017-03-06] MEDS: INSULIN ASPART SUPPLEMENTAL SCALE SQ SCH ×2 (16:00→23:18)
[2017-03-06] MEDS ORDERED: cloNIDine HCL 0.1 MG TAB PO PRN (16:45)
[2017-03-06 16:52] LABS: BLOOD GAS BASE EXCESS 1.1 mmol/L (-2-2); BLOOD GAS CARBOXYHEMOGLOBIN 0.7 % (0-4); BLOOD GAS HCO3 26 mmol/L (22-26); BLOOD GAS METHEMOGLOBIN 0.6 % (0-2); BLOOD GAS O2 HGB SATURATION 94 % (90-100); BLOOD GAS OXYGEN CONTENT 16.9 Vol % (12.0-20.0); BLOOD GAS PCO2 43 mmHg (38-42); BLOOD GAS PO2 79 mmHG (61-120); BLOOD GAS TOTAL HGB 12.8 G/DL (12.0-16.0); CRITICAL VALUE NO; DRAW SITE RT BRACHIAL; NUMBER OF ARTERIAL PUNCTURES 1; OXYGEN DEVICE RA; STAT YES; TEMP CORR TO 98.6; ULNAR PULSE Y
[2017-03-06] MEDS: SODIUM CHLORIDE 0.9% FLUSH 10 ML FLUSH IV FLUSH SCH (20:21)
[2017-03-06 21:31] LABS: BICARBONATE 27.4 MEQ/L (21.0-32.0); POTASSIUM 4.1 MEQ/L (3.5-5.1)
[2017-03-06 22:13] LABS: HEMOGLOBIN A1a 1.9 %; HEMOGLOBIN Ao 81.6 %; HEMOGLOBIN LA1C 2.8 %; HEMOGLOBIN P3 6.7 %
[2017-03-07] VITALS (8 sets, daily range): BP systolic 106–141; BP diastolic 61–81; PULSE 72–90; RESP 16–18; TEMP 95.6–97.5; O2SAT 96–100
[2017-03-07 02:09] LABS: AUTOMATED NEUTROPHIL # 8.5 TH/MM3 (1.8-7.7); BASOPHIL # 0.1 TH/MM3 (0-0.2); BASOPHIL % 0.5 % (0.0-2.0); EOSINOPHIL # 0.2 TH/MM3 (0-0.4); EOSINOPHIL % 1.4 % (0.0-4.0); HEMATOCRIT 39.6 % (35.0-46.0); HEMO FLAGS DIFF FINAL; LYMPH % 15.7 % (9.0-44.0); LYMPHOCYTE # 1.7 TH/MM3 (1.0-4.8); MEAN CELL VOLUME 93.9 FL (80.0-100.0); MEAN CORPUSCULAR HEMOGLOBIN 29.3 PG (27.0-34.0); MEAN CORPUSCULAR HGB CONC 31.2 % (32.0-36.0); MONO % 5.8 % (0.0-8.0); NEUT % 76.6 % (16.0-70.0); PLATELET COUNT 163 TH/MM3 (150-450); RED BLOOD COUNT 4.22 MIL/MM3 (4.00-5.30); RED CELL DISTRIBUTION WIDTH 17.1 % (11.6-17.2); WHITE BLOOD COUNT 11.1 TH/MM3 (4.0-11.0)
[2017-03-07] MEDS: DOCUSATE SODIUM 100 MG CAP PO SCH ×2 (02:20→14:31)
[2017-03-07] MEDS: DEXTROSE 5% IN WATE 1000ML INJ 1,000 ML IV SCH ×5 (02:20→15:31)
[2017-03-07 02:58] LABS: ALKALINE PHOSPHATASE 127 U/L (45-117); ALT (GPT) 90 U/L (10-53); ANION GAP 8 MEQ/L (5-15); AST (GOT) 75 U/L (15-37); BICARBONATE 27.4 MEQ/L (21.0-32.0); BLOOD UREA NITROGEN 56 MG/DL (7-18); CHLORIDE 121 MEQ/L (98-107); GLOMERULAR FILTRATION RATE 20 ML/MIN (>89); POTASSIUM 3.7 MEQ/L (3.5-5.1); TOTAL BILIRUBIN ADULT 0.4 MG/DL (0.2-1.0)
[2017-03-07 03:02] LABS: SODIUM (NA) 156 MEQ/L (136-145)
[2017-03-07] MEDS: INSULIN ASPART SUPPLEMENTAL SCALE SQ SCH ×4 (06:44→20:53)
[2017-03-07] MEDS: SODIUM CHLORIDE 0.9% FLUSH 10 ML FLUSH IV FLUSH SCH ×2 (07:26→20:53)
[2017-03-07] MEDS: ASPIRIN EC 81 MG TABEC PO SCH ×2 (07:27→07:59)
[2017-03-07] MEDS: CINACALCET HYDROCHLORIDE 30 MG TAB PO SCH ×2 (07:27→07:59)
--- NOTE | 2017-03-07 10:42 | HHI.PR ---
Subjective Remarks The pt was resting in bed. Her was at the bedside. He had many questions which were answered. The pt had no acute complaints. Discussed with nursing. Objective Vitals Vital Signs Date Time Temp Pulse Resp B/P Pulse Ox O2 Delivery O2 Flow Rate FiO2 03/07/17 08:42 96.4 87 16 139/81 100 03/07/17 04:00 97.3 84 18 139/79 100 03/07/17 00:00 96.2 90 18 106/76 96 03/06/17 20:27 97 21 03/06/17 20:00 96.7 92 18 118/69 100 03/06/17 18:14 95.7 92 20 111/78 96 03/06/17 17:53 98.0 92 16 100/68 99 Room Air 03/06/17 14:37 96 18 95/69 99 Room Air 03/06/17 14:08 100 21 03/06/17 13:01 93 16 112/70 100 Room Air 03/06/17 11:05 97.4 98 14 100/60 96 Room Air I/O 03/06/17 03/06/17 03/06/17 03/07/17 03/07/17 03/07/17 07:00 15:00 23:00 07:00 15:00 23:00 Intake Total 1385 ml Balance 1385 ml Intake IV Total 1385 ml Result Diagram: 03/07/17 0159 03/07/17 0159 Imaging Last Impressions Chest X-Ray 03/06/17 1308 Signed Impressions: Service Date/Time: Monday, March 06, 2017 13:36 - CONCLUSION: Mild left lower lung infiltrate. Tej Caceres MD Head CT 03/06/17 1201 Signed Impressions: Service Date/Time: Monday, March 06, 2017 12:27 - CONCLUSION: Stable and unremarkable CT brain for patient's age. Tej Caceres MD Objective Remarks GENERAL: Moving around in bed but appears comfortable. SKIN: Focused skin assessment warm/dry. Healing stage III sacral decubitus ulcer which is clean base without significant drainage or erythema. HEAD: Atraumatic. Normocephalic. EYES: Pupils are small equal and round. No scleral icterus. No injection or drainage. ENT: No nasal bleeding or discharge. Mucous membranes pink and moist. NECK: Trachea midline. No JVD. CARDIOVASCULAR: Regular rate and rhythm. No murmur appreciated. RESPIRATORY: No accessory muscle use. Clear to auscultation. Breath sounds equal bilaterally. GASTROINTESTINAL: Abdomen soft, non-tender, nondistended. Hepatic and splenic margins not palpable. MUSCULOSKELETAL: No obvious deformities. No clubbing. No cyanosis. No edema. NEUROLOGICAL: Lethargic but alert, minimally verbal. Left-sided paresis. Medications and IVs Current Medications Medications (Trade) Dose Ordered Sig/Yari Route Start Time Stop Time Status Last Admin (Ecotrin Ec) 81 mg DAILY PO 03/07/17 09:00 03/07/17 07:59 Cinacalcet 30 mg 30 mg DAILY PO 03/07/17 09:00 03/07/17 07:59 (D5W 1000 ml Inj) 1,000 ml @ 150 mls/hr Q6H40M IV 03/06/17 14:00 03/07/17 09:23 (NS Flush) 2 ml UNSCH PRN IV FLUSH 03/06/17 14:00 (NS Flush) 2 ml BID IV FLUSH 03/06/17 21:00 (Tylenol) 650 mg Q4H PRN PO 03/06/17 14:00 (Colace) 100 mg Q12H PO 03/06/17 15:00 (Senokot) 17.2 mg Q12H PRN PO 03/06/17 14:00 (Tylenol) 650 mg Q6H PRN PO 03/06/17 14:00 Naloxone HCl 0.4 mg 0.4 mg UNSCH PRN IV 03/06/17 14:00 Cefepime HCl 2000 mg/Sodium Chloride 100 ml @ 200 mls/hr Q24H IV 03/07/17 14:00 (Vancomycin Consult Pharmacy) 0 ml @ 0 mls/hr UNSCH OTHER 03/06/17 14:00 Clonidine 0.1 mg 0.1 mg Q6H PRN PO 03/06/17 16:45 (Vancomycin Inj/ NS 250 ml Inj) 250 ml @ 250 mls/hr ONCE ONCE IV 03/07/17 15:00 03/07/17 15:59 A/P Assessment and Plan History of CVA/ Failure to thrive/ Hypernatremia/ Metabolic encephalopathy The pt has residual deficits including left-sided hemiplegia, dysphasia and expressive aphasia. CT of the head negative for any acute findings. She presents with severe hypernatremia. - Continue ASA. - Physical therapy, speech therapy, occupational therapy. - holding statin in setting of elevated LFTs. Improving. - IV fluids. On D5W at 150 ml/hr. - Palliative care consultation requested. - registered nurse hh case manager consult requested. - neuro checks. - hold all sedating meds. Acute on CKD The pt was nearing HD per history. Exacerbated by failure to thrive and diuretic use. Improved. - hold diuretics. - avoid nephrotoxic agents. - IVFs. - Follow BMP. - Nephrology consult if no continued improvement. Decubitus ulcer/ Pneumonia/ Sepsis Chronic wound to the left buttock and thigh, s/p wound vac and prolonged hospitalization. Off antibiotics. May be source of sepsis. Chest x-ray with mild left lower infiltrate. There is concern for aspiration considering her mental status. Received cefepime in the ED. Lactic acid level has improved. The pt has chronic leukocytosis and tachycardia. - Wound care consult. The wound appears to be healing well. - Wound culture requested. Previous culture grew MRSA and Escherichia coli. - blood cultures x 2 pending. - sputum culture and gram stain. - Continue cefepime and vancomycin for now. - IV fluids. Recurrent UTI UA indicative of infection. - continue antibiotics. - follow urine culture. Diabetes Glucose has been low. Hemoglobin A1c iss 6.1%. - monitor accuchecks AC/HS with low dose ISS. - follow glucose closely while on D5W. - hold home meds. Hypercalcemia Chronic. Etiology unclear. - continue to monitor. Improved. Hypertension Blood pressure low, likely s/t volume depletion. - hold home medications. - Clonidine as needed. - IVFs. Thyroid nodule Noted on previous imaging. - Follow endocrinology as outpatient once stable. PPx: SCDs. Discharge Planning Awaiting palliative care consult. Bud Monae DO March 07, 2017 10:42
--- NOTE | 2017-03-07 12:45 | PD.CONS ---
Consult Service Palliative Care Consult Requested By Dr Monae Primary Care Physician Mango Ruiz MD Reason for Consultation a. To assist with evaluation and management of symptoms including: Dysphagia , pain b. To assist medical decision maker(s) with: better understanding of current medical conditions; weighing benefits/burdens of medical treatment options; making medical treatment decisions. HPI History of Present Illness This 66-year-old female presented to the ED on 03/06/17, after being recommended to report to the ED by the patient's home wound care nurse and wound management physician. There was concern about an odor to her wounds and the wounds were getting worse. Her indicated subjectively that her wound does not appear to be worse. He was more concerned about too much pain medication. She has known history of stroke, NE, CHF, chronic sacral and buttock ulcers. She was noted to be lethargic at presentation to the ED. Denied any fevers or other symptoms. * In the ED patient initially received Narcan due to 's concerns about overmedication, she did not have change in condition with Narcan. CT brain negative for acute intracranial process. Lab work notable for acute renal failure, dehydration, hypernatremia, hypercalcemia.[ WBC 15.6, sodium 159, BUN 54/creatinine 3.09, GFR 18, glucose 190, lactic acid 2.5] This is felt to be the cause of her AMS. Started on antibiotics, IV fluids. She was admitted for further evaluation and management. Patient apparently had been prescribed Lortab for dressing changes, reporting that this makes her altered. upset feeling Lortab is the cause of her AMS. * Patient recently had prolonged one-month hospitalization discharged home February 09. During that. She had a large wound which required surgery and a wound VAC. Prior wound cultures positive for MRSA, Escherichia coli. * Cultures this admission pending; on cefepime, Vanco, IV fluid. CXR =mild left lower infiltrate. Thyroid nodule noted on previous imaging, patient to follow outpatient. Patient has been indicated to medical attending that he would not want measures such as feeding tube etc., the patient had been doing okay up until this point home. Palliative care was consulted to assist with clarification of goals of treatment. [Dual visit with Osman RIVERA.] Patient seen in room with at bedside. She is minimally interactive with examiner though appears calm and comfortable. Met with at length at bedside, see family conference. Recent hospitalization per EMR: : This admission patient presented to the ED reported to be altered and hypoglycemic. Patient reporting decline over the prior 2 weeks not eating and not talking much. She had been increasingly agitated and sometimes refusing pills and food. Asthma and also reporting coughing more and difficulty swallowing. She was noted to have chronic kidney disease nearing the point of requiring hemodialysis in the outpatient setting. She had large wounds to left buttock/thigh, diffuse cellulitis. Plastic surgery was consulted --initially she was deferred to [facility] for possible plastic intervention however plastic surgery here was able to see her--status post debridement 01/23. She developed respiratory complications postoperatively including angioedema, requiring ICU course. She was eventually extubated, on steroids which were later weaned and discontinued. She was discharged home after prolonged course on 02/09/17, with home health. During that admission apparently PEG tube was discussed due to concerns regarding aspiration, however was reluctant to proceed he was insistent on feeding her. She was also recommended to consider long-term placement due to complicated care needs, was insistent on caring for her at home. He did not want SNF placement due to prior bad experiences at nursing homes in the family. They did apparently apply for possible placement at [facility] however she was declined. Function/Cognitive Trajectory difficult to ascertain full baseline-- she has been dependent on her for all care for many years since CVA left side weakness residual. She requires feeding of pure diet. indicates that she is somewhat verbal in the home setting and that she is able to communicate some basic needs to him though not clear how oriented she is. Review of Systems ROS Limitations: Clinical Condition, Altered Mental Status (nonverbal for me today) Constitutional: COMPLAINS OF: Pain (some pain to buttock wound per ), DENIES: Fever (per no fevers) Respiratory: DENIES: Cough (per ) Gastrointestinal: COMPLAINS OF: Difficulty Swallowing (per recent pocketing and difficulty swallowing in the past few weeks) Psychiatric: DENIES: Mood changes (per ) Other ROS: + Decreased level of consciousness per Past Family Social History Coded Allergies: Penicillin (Verified Allergy, Severe, rash/itching, 03/06/17) *MDRO Multi-Drug Resistant Organism (Verified Adverse Reaction, Unknown, ) MRSA (buttock)-01/15/17 Uncoded Allergies: CILLINS ALL (Allergy, Severe, 07/23/10) Past Medical History DM CKD CHF HTN Sarcoidosis Pericardial effusion CVA with residual left-sided hemiplegia 2010 Coronary artery disease Hyperlipidemia Past Surgical History Hysterectomy 2/2 fibroids Left buttock wound surgery Reported Medications Hydralazine (Hydralazine HCl) 50 Mg Tab 50 Mg PO Q8HR Novolog Inj (Insulin Aspart) 1,000 Unit/10 Ml Vial 1-9 Units SQ ACHS Max dose at bedtime:( )units; sugars less than 70,(0)units; sugars 150-199,(1) unit; sugars 200-249,(3) units; sugars 250-299,(5) units; sugars 300-349,(7) units; sugars greater than 349,(9) units Lantus Inj (Insulin Glargine) 1,000 Unit/10 Ml Vial 10 Units SQ BID Nifedipine 20 Mg Cap 20 Mg PO Q8HR [id number] 168 HR Patch (Clonidine) 0.2 Mg/24 Hr Patch 1 Patch T-DERMAL Q7D Coreg (Carvedilol) 3.125 Mg Tab 3.125 Mg PO Q12HR Wheelchair Elevated Leg (Device) 1 Mis Mis 1 Units .XX DAILY Hospital Bed - Manual 1 Ea Ea 1 Ea .ROUTE DIRECTED Lortab (Hydrocodone-Acetaminophen) 5-325 Mg Tab 1 Tab PO Q4H PRN Aspirin 81 Mg Tabdr 81 Mg PO DAILY Sensipar (Cinacalcet) 30 Mg Tab 30 Mg PO DAILY Furosemide 20 Mg Tab 20 Mg PO BID Trazodone (Trazodone HCl) 50 Mg Tab 50 Mg PO HS Zocor (Simvastatin) 20 Mg Tab 20 Mg PO HS Fluoxetine (Fluoxetine HCl) 40 Mg Cap 40 Cap PO DAILY . Current Medications Medications (Trade) Dose Ordered Sig/Yari Route Start Time Stop Time Status Last Admin (Ecotrin Ec) 81 mg DAILY PO 03/07/17 09:00 03/07/17 07:59 Cinacalcet 30 mg 30 mg DAILY PO 03/07/17 09:00 03/07/17 07:59 (D5W 1000 ml Inj) 1,000 ml @ 150 mls/hr Q6H40M IV 03/06/17 14:00 03/07/17 09:23 (NS Flush) 2 ml UNSCH PRN IV FLUSH 03/06/17 14:00 (NS Flush) 2 ml BID IV FLUSH 03/06/17 21:00 (Tylenol) 650 mg Q4H PRN PO 03/06/17 14:00 (Colace) 100 mg Q12H PO 03/06/17 15:00 (Senokot) 17.2 mg Q12H PRN PO 03/06/17 14:00 (Tylenol) 650 mg Q6H PRN PO 03/06/17 14:00 Naloxone HCl 0.4 mg 0.4 mg UNSCH PRN IV 03/06/17 14:00 Cefepime HCl 2000 mg/Sodium Chloride 100 ml @ 200 mls/hr Q24H IV 03/07/17 14:00 (Vancomycin Consult Pharmacy) 0 ml @ 0 mls/hr UNSCH OTHER 03/06/17 14:00 Clonidine 0.1 mg 0.1 mg Q6H PRN PO 03/06/17 16:45 (Vancomycin Inj/ NS 250 ml Inj) 250 ml @ 250 mls/hr ONCE ONCE IV 03/07/17 15:00 03/07/17 15:59 Family History CVA Substance Use Tobacco: No smoking history Alcohol: None reported Prescription med abuse: None reported Illicits: None reported . Psychosocial History Lives at home with her spouse, he has been her full-time caregiver since around 2007 or 2009 when she suffered significant stroke leaving her completely dependent. They do have a few adult children who are involved at times though is primary caregiver. Spiritual/Cultural Factors [employer]- patient indicates they're well supported by their known melly community. Living Will: Never completed Health Care Surrogate: Never completed Durable Power of Certified Pharmacy Tech: Never completed Ethical and Legal Issues Patient is unable to participate in decision-making due to underlying conditions. Per [place] statutes would be legal decision maker/proxy. Physical Exam Vital Signs Date Time Temp Pulse Resp B/P Pulse Ox O2 Delivery O2 Flow Rate FiO2 03/07/17 12:07 95.6 90 16 125/61 98 03/07/17 08:42 96.4 87 16 139/81 100 03/07/17 04:00 97.3 84 18 139/79 100 03/07/17 00:00 96.2 90 18 106/76 96 03/06/17 20:27 97 21 03/06/17 20:00 96.7 92 18 118/69 100 03/06/17 18:14 95.7 92 20 111/78 96 03/06/17 17:53 98.0 92 16 100/68 99 Room Air 03/06/17 14:37 96 18 95/69 99 Room Air 03/06/17 14:08 100 21 03/06/17 13:01 93 16 112/70 100 Room Air 03/06/17 03/07/17 19:00 07:00 Intake Total 1385 ml Balance 1385 ml Intake IV Total 1385 ml Exam CONSTITUTIONAL/GENERAL: This is an adequately nourished patient, chronically ill -appearing patient, lethargic, in no apparent distress. TUBES/LINES/DRAINS: Peripheral IV right hand SKIN: No jaundice, rashes, or lesions. No wounds seen anteriorly. Reported wound to buttocks I did not visualize today. Skin warm, feet cool. HEAD: Atraumatic. Normocephalic. EYES: Not open eyes for exam did not force open. ENT: Nose without bleeding or purulent drainage. Oropharynx without any visible lesions or exudates. NECK: Trachea midline. Supple, nontender. CARDIOVASCULAR: Regular rate and rhythm, no murmur. No JVD. Peripheral pulses symmetric--pedal pulses very faint. RESPIRATORY/CHEST: Symmetric, unlabored respirations. Clear to auscultation, decreased air movement. On room air. Breath sounds equal bilaterally. GASTROINTESTINAL: Abdomen soft, non-tender, no apparent tenderness. No palpable masses. Bowel sounds present. GENITOURINARY: Without palpable bladder distension. MUSCULOSKELETAL: Extremities without clubbing, cyanosis, or edema. No joint tenderness or effusion noted. No calf tenderness. No mottling or clubbing. LYMPHATICS: No palpable cervical or supraclavicular adenopathy. NEUROLOGICAL: Lethargic, sleeping during my exam. Does not verbalize minimally responsive to me. Does move right upper, right lower extremities to touch and seems to move them purposely at times see her scratch her face with her right hand. Left upper and left lower very weak, but some movement to touch noted. She does not follow any commands for me-lethargic. PSYCHIATRIC: No obvious anxiety/depression--limited assessment due to clinical condition. . Diagnostic Tests Laboratory Laboratory Tests Test 03/06/17 03/06/17 03/06/17 03/06/17 12:15 14:32 14:45 16:40 White Blood Count 15.6 TH/MM3 (4.0-11.0) Red Blood Count 4.44 MIL/MM3 (4.00-5.30) Hemoglobin 13.1 GM/DL (11.6-15.3) Hematocrit 41.2 % (35.0-46.0) Mean Corpuscular Volume 92.9 FL (80.0-100.0) Mean Corpuscular Hemoglobin 29.4 PG (27.0-34.0) Mean Corpuscular Hemoglobin 31.6 % Concent (32.0-36.0) Red Cell Distribution Width 17.3 % (11.6-17.2) Platelet Count 190 TH/MM3 (150-450) Mean Platelet Volume 11.5 FL (7.0-11.0) Neutrophils (%) (Auto) 82.9 % (16.0-70.0) Lymphocytes (%) (Auto) 10.6 % (9.0-44.0) Monocytes (%) (Auto) 5.4 % (0.0-8.0) Eosinophils (%) (Auto) 0.7 % (0.0-4.0) Basophils (%) (Auto) 0.4 % (0.0-2.0) Neutrophils # (Auto) 12.9 TH/MM3 (1.8-7.7) Lymphocytes # (Auto) 1.7 TH/MM3 (1.0-4.8) Monocytes # (Auto) 0.8 TH/MM3 (0-0.9) Eosinophils # (Auto) 0.1 TH/MM3 (0-0.4) Basophils # (Auto) 0.1 TH/MM3 (0-0.2) CBC Comment DIFF FINAL Differential Comment Urine Color YELLOW (YELLW/STRAW) Urine Turbidity HAZY (CLEAR) Urine pH 5.0 (5.0-8.5) Urine Specific [place] 1.019 (1.002-1.035) Urine Protein 30 mg/dL (NEG-TRACE) Urine Glucose (UA) NEG mg/dL (NEG) Urine Ketones NEG mg/dL (NEG) Urine Occult Blood MOD (NEG) Urine Nitrite NEG (NEG) Urine Bilirubin NEG (NEG) Urine Urobilinogen LESS THAN 2.0 MG/DL (LESS THAN 2.0) Urine Leukocyte Esterase NEG (NEG) Urine RBC /hpf (0-3) Urine WBC 1 /hpf (0-5) Urine Squamous Epithelial 1 /hpf (0-5) Cells Urine Transitional Epithelial <1 /hpf (NONE) Cells Urine Bacteria FEW /hpf (NONE) Urine Hyaline Casts 5 /lpf (RARE) Urine Yeast (Budding) FEW (NONE) Microscopic Urinalysis Comment CATH-CULTURE IND Sodium Level 159 MEQ/L (136-145) Potassium Level 4.6 MEQ/L (3.5-5.1) Chloride Level 125 MEQ/L (98-107) Carbon Dioxide Level 26.0 MEQ/L (21.0-32.0) Anion Gap 8 MEQ/L (5-15) Blood Urea Nitrogen 54 MG/DL (7-18) Creatinine 3.09 MG/DL (0.50-1.00) Estimat Glomerular Filtration 18 ML/MIN (>89) Rate Random Glucose 190 MG/DL (74-106) Lactic Acid Level 2.5 mmol/L 2.0 mmol/L (0.4-2.0) (0.4-2.0) Calcium Level 11.7 MG/DL (8.5-10.1) Protein Corrected Calcium 11.7 MG/DL (8.5-10.1) Total Bilirubin 0.3 MG/DL (0.2-1.0) Aspartate Amino Transf 122 U/L (15-37) (AST/SGOT) Alanine Aminotransferase 108 U/L (10-53) (ALT/SGPT) Alkaline Phosphatase 151 U/L (45-117) Total Protein 7.2 GM/DL (6.4-8.2) Albumin 2.2 GM/DL (3.4-5.0) Troponin I 0.10 NG/ML (0.02-0.05) Blood Gas Puncture Site RT BRACHIAL Blood Gas Patient Temperature 98.6 Blood Gas HCO3 26 mmol/L (22-26) Blood Gas Base Excess 1.1 mmol/L (-2-2) Blood Gas Oxygen Saturation 94 % (90-100) Arterial Blood pH 7.39 (7.380-7.420) Arterial Blood Partial 43 mmHg (38-42) Pressure CO2 Arterial Blood Partial 79 mmHG Pressure O2 (61-120) Arterial Blood Oxygen Content 16.9 Vol % (12.0-20.0) Arterial Blood 0.7 % (0-4) Carboxyhemoglobin Arterial Blood Methemoglobin 0.6 % (0-2) Blood Gas Hemoglobin 12.8 G/DL (12.0-16.0) Oxygen Delivery Device RA Test 03/06/17 03/06/17 03/06/17 03/07/17 20:06 20:25 20:26 01:59 Hemoglobin A1c 6.1 % (4.3-6.0) Troponin I 0.08 NG/ML (0.02-0.05) Sodium Level 157 MEQ/L 156 MEQ/L (136-145) (136-145) Potassium Level 4.1 MEQ/L 3.7 MEQ/L (3.5-5.1) (3.5-5.1) Chloride Level 122 MEQ/L 121 MEQ/L (98-107) (98-107) Carbon Dioxide Level 27.4 MEQ/L 27.4 MEQ/L (21.0-32.0) (21.0-32.0) Anion Gap 8 MEQ/L (5-15) 8 MEQ/L (5-15) Blood Urea Nitrogen 54 MG/DL (7-18) 56 MG/DL (7-18) Creatinine 3.01 MG/DL 2.81 MG/DL (0.50-1.00) (0.50-1.00) Estimat Glomerular Filtration 19 ML/MIN (>89) 20 ML/MIN (>89) Rate Random Glucose 165 MG/DL 228 MG/DL (74-106) (74-106) Calcium Level 11.0 MG/DL 10.6 MG/DL (8.5-10.1) (8.5-10.1) Lactic Acid Level 1.8 mmol/L (0.4-2.0) White Blood Count 11.1 TH/MM3 (4.0-11.0) Red Blood Count 4.22 MIL/MM3 (4.00-5.30) Hemoglobin 12.4 GM/DL (11.6-15.3) Hematocrit 39.6 % (35.0-46.0) Mean Corpuscular Volume 93.9 FL (80.0-100.0) Mean Corpuscular Hemoglobin 29.3 PG (27.0-34.0) Mean Corpuscular Hemoglobin 31.2 % Concent (32.0-36.0) Red Cell Distribution Width 17.1 % (11.6-17.2) Platelet Count 163 TH/MM3 (150-450) Mean Platelet Volume 11.2 FL (7.0-11.0) Neutrophils (%) (Auto) 76.6 % (16.0-70.0) Lymphocytes (%) (Auto) 15.7 % (9.0-44.0) Monocytes (%) (Auto) 5.8 % (0.0-8.0) Eosinophils (%) (Auto) 1.4 % (0.0-4.0) Basophils (%) (Auto) 0.5 % (0.0-2.0) Neutrophils # (Auto) 8.5 TH/MM3 (1.8-7.7) Lymphocytes # (Auto) 1.7 TH/MM3 (1.0-4.8) Monocytes # (Auto) 0.6 TH/MM3 (0-0.9) Eosinophils # (Auto) 0.2 TH/MM3 (0-0.4) Basophils # (Auto) 0.1 TH/MM3 (0-0.2) CBC Comment DIFF FINAL Differential Comment Total Bilirubin 0.4 MG/DL (0.2-1.0) Aspartate Amino Transf 75 U/L (15-37) (AST/SGOT) Alanine Aminotransferase 90 U/L (10-53) (ALT/SGPT) Alkaline Phosphatase 127 U/L (45-117) Total Protein 6.4 GM/DL (6.4-8.2) Albumin 2.0 GM/DL (3.4-5.0) Random Vancomycin Level 20.8 COMMENT Result Diagram: 03/07/17 0159 03/07/17 0159 Microbiology Microbiology Date/Time Procedure Status Source Growth 03/06/17 12:10 Aerobic Blood Culture - Preliminary Resulted Blood Peripheral NO GROWTH IN 1 DAY 03/06/17 12:10 Anaerobic Blood Culture - Preliminary Resulted Blood Peripheral NO GROWTH IN 1 DAY 03/06/17 12:15 Aerobic Blood Culture - Preliminary Resulted Blood Peripheral NO GROWTH IN 1 DAY 03/06/17 12:15 Anaerobic Blood Culture - Preliminary Resulted Blood Peripheral NO GROWTH IN 1 DAY 03/06/17 12:15 Urine Culture Received Urine Catheterized Urine Pending 03/07/17 10:50 Gram Stain Received Wound Buttock Pending 03/07/17 10:50 Wound Culture Received Wound Buttock Pending Imaging Last Impressions Chest X-Ray 03/06/17 1308 Signed Impressions: Service Date/Time: Monday, March 06, 2017 13:36 - CONCLUSION: Mild left lower lung infiltrate. Tej Caceres MD Head CT 03/06/17 1201 Signed Impressions: Service Date/Time: Monday, March 06, 2017 12:27 - CONCLUSION: Stable and unremarkable CT brain for patient's age. Tej Caceres MD Patient/Family Conference Present at Family Conference: Family Conference Time (mins): 40 Family Conference Location: Bedside Issues Discussed: Met with patient at length at bedside. Discussion included: * Palliative care role, purpose, approach * Additional medical, psychosocial, and spiritual history * Patients general health, functional status, and cognitive changes in the months leading up to the current hospitalization * Patient/family understanding of the current medical problems; review of overall prognosis * Patients goals of care as best understood from advance directives and/or conversations and/or values * Current medical treatment options and benefits/burdens of those options; potential for requirement of feeding tube or invasive or aggressive measures * Questions answered to the best of my ability * Palliative care contact information provided Patient appears to have some basic understanding of recent hospitalization and underlying conditions. He remains very optimistic that he can continue to care for her in the home setting. He attributes any problems setbacks or decline to treatment changes, nursing issues etc., but not to underlying conditions and general debility and decline. He has many complaints about various nursing issues and encounters during their prior hospitalization last month. He is adamant that she not be in a nursing facility setting as he has a great concern about the level of care provided in those settings and feels he is the best caregiver for this patient. Goals are aggressive, not clear he understands pt remains at risk for ongoing infections, hospitalizations , complications, he feels if treatments can be optimized then she should improve to prior level of health. . Assessment and Plan Disease Oriented Problem List: (1) HTN (hypertension) (2) CKD (chronic kidney disease) stage 4, GFR 15-29 ml/min (3) DM (diabetes mellitus) (4) Left buttock abscess (5) History of CVA with residual deficit (6) Hypernatremia (7) Hypercalcemia (8) Altered mental status (9) Acute on chronic renal failure (10) Dehydration Symptom Scale: (1) Dysphagia (2) Pain (3) Malnutrition Pertinent Non-Medical Issues Psychosocial:Lives at home with her spouse, he has been her full-time caregiver since around 2007 or 2009 when she suffered significant stroke leaving her completely dependent. They do have a few adult children who are involved at times though is primary caregiver. Spiritual: Pentecostalpatient indicates they're well supported by their known melly community Legal:Patient is unable to participate in decision-making due to underlying conditions. Per [place] statutes would be legal decision maker/proxy. Ethical issues impacting care: Important Contacts Koby Morris- - [phone] . Prognosis This patient was admitted for altered mental status, felt to be secondary to hypernatremia, acute renal failure. She wishes recently discharged home after a month-long hospitalization for wounds, sepsis. She has had general decline, increased level of care at home. Will likely require SNF placement for skilled nursing care. May require PEG tube to meet nutritional requirements. High risk for recurrent hospitalizations, complications. . Code Status: Full Code Plan * Legal decision maker:Patient is unable to participate in decision-making due to underlying conditions. Per [place] statutes would be legal decision maker/proxy. * Goals: Patient expresses very aggressive goals, he relates her AMS, general decline to concerns regarding care given by various nursing staff etc., and not to her general underlying conditions in debilitated state. * CODE STATUS: Full code * SYMPTOMS: --Dysphagia-status post CVA several years ago requires feeding by patient , takes pured diet. He reports recently episodes of pocketing food in appearing to have increased difficulty swallowing. Consider speech therapy evaluation, monitoring further. If she continues to experience difficulties could potentially require feeding tube. Risk for aspiration. --Pain- reports patient with some pain with dressing changes to buttock wound though he describes it as mild and does not feel she needs frequent medication, only wants her medicated prior to dressing change. He has concerns about oversedation related to pain medications. She currently has Tylenol available. At home was on [place]. NO sx of pain today during exam, will continue to evaluate. Cautious use of any opiates given 's concern for sedating effects as he feels this has contributed to her recent clinical deterioration. --Malnutrition-status post CVA several years ago requires feeding by patient , takes pured diet. He reports recently episodes of pocketing food in appearing to have increased difficulty swallowing. Consider speech therapy evaluation, monitoring further. If she continues to experience difficulties could potentially require feeding tube. He reports good appetite and good intake up until the past few weeks when these difficulties developed. Albumin 2.0. He supplements her with Glucerna shakes. * Palliative care will continue to follow during hospital course as condition evolves, to assist patient/decision-maker with understanding of medical conditions, weighing benefits/burdens of treatment options, for clarification of goals of treatment. Additionally will assist with any symptoms of palliative concern Thank you for the opportunity to participate in the care of Ms. Morris. Attestation To help prompt me to consider important information that might be impacting today's encounter and assessment, information from prior notes written by myself or my colleagues may have been "brought forward" into today's note. My signature on this note, however, is an attestation that I personally performed the exam, history, and/or decision-making noted today, and, unless otherwise indicated, the interactions with patient, family, and staff as well as the review of records all occurred today. I also attest that the listed assessment and stated plan reflect my best clinical judgment today based on the combination of historical information, prior notes, and today's exam/ interactions. When time spent is documented, it refers only to time spent today by the signer, or if indicated, combined time spent today by collaborating physician/nurse practitioner. Megan Barney March 07, 2017 12:45
[2017-03-07] MEDS: CEFEPIME INJ 2,000 MG in SODIUM CHLORIDE 0.9% INJ 100 ML IV SCH (12:59)
[2017-03-07] MEDS ORDERED: VANCOMYCIN 1,000 MG/NS 250 ML IV ONE ×2 (15:00)
[2017-03-07 18:13] LABS: BICARBONATE 26.2 MEQ/L (21.0-32.0); POTASSIUM 3.6 MEQ/L (3.5-5.1)
[2017-03-08] VITALS: BP 131/81; PULSE 68; RESP 18; TEMP 97.3; O2SAT 100
[2017-03-08] MEDS: DOCUSATE SODIUM 100 MG CAP PO SCH ×2 (03:20→14:43)
[2017-03-08 04:00] VITALS: BP 137/84; PULSE 71; RESP 18; TEMP 95.7; O2SAT 100
[2017-03-08] MEDS: INSULIN ASPART SUPPLEMENTAL SCALE SQ SCH ×4 (06:28→22:41)
[2017-03-08 08:06] LABS: HEMATOCRIT 34.3 % (35.0-46.0); MEAN CELL VOLUME 92.4 FL (80.0-100.0); MEAN CORPUSCULAR HGB CONC 31.4 % (32.0-36.0); PLATELET COUNT 135 TH/MM3 (150-450); RED BLOOD COUNT 3.71 MIL/MM3 (4.00-5.30); RED CELL DISTRIBUTION WIDTH 16.3 % (11.6-17.2); REVIEW FLAG FINAL; WHITE BLOOD COUNT 9.2 TH/MM3 (4.0-11.0)
[2017-03-08 08:30] LABS: MAGNESIUM 2.4 MG/DL (1.5-2.5); POTASSIUM 3.4 MEQ/L (3.5-5.1)
[2017-03-08 08:32] LABS: INDIRECT BILIRUBIN 0.2 MG/DL (0.0-0.8); TOTAL BILIRUBIN ADULT 0.3 MG/DL (0.2-1.0)
[2017-03-08 08:34] VITALS: BP 137/85; PULSE 77; RESP 18; TEMP 96; O2SAT 99
[2017-03-08] MEDS: SODIUM CHLORIDE 0.9% FLUSH 10 ML FLUSH IV FLUSH SCH ×2 (09:00→21:00)
[2017-03-08] MEDS ORDERED: POTASSIUM CHLORIDE 25 MEQ EFFERVESCENT TAB PO ONE (09:00)
[2017-03-08] MEDS: ASPIRIN EC 81 MG TABEC PO SCH (09:06)
[2017-03-08] MEDS: CINACALCET HYDROCHLORIDE 30 MG TAB PO SCH (09:06)
[2017-03-08 11:45] VITALS: BP 135/89; PULSE 82; RESP 18; TEMP 96.7; O2SAT 97
[2017-03-08] MEDS: DEXTROSE 5% IN WATE 1000ML INJ 1,000 ML IV SCH ×2 (12:06→22:26)
[2017-03-08] MEDS: CEFEPIME INJ 2,000 MG in SODIUM CHLORIDE 0.9% INJ 100 ML IV SCH (14:43)
[2017-03-08 15:36] VITALS: BP 146/88; PULSE 79; RESP 18; TEMP 95.5; O2SAT 98
--- NOTE | 2017-03-08 16:31 | HHI.PR ---
Subjective Remarks The patient was resting comfortably in bed. She had no acute complaints. Discussed with nursing. Objective Vitals Vital Signs Date Time Temp Pulse Resp B/P Pulse Ox O2 Delivery O2 Flow Rate FiO2 03/08/17 15:36 95.5 79 18 146/88 98 03/08/17 11:45 96.7 82 18 135/89 97 03/08/17 08:34 96.0 77 18 137/85 99 03/08/17 04:00 95.7 71 18 137/84 100 03/08/17 00:00 97.3 68 18 131/81 100 03/07/17 21:00 75 03/07/17 20:00 97.5 72 18 141/80 99 03/07/17 16:59 96.2 82 16 114/61 100 I/O 03/07/17 03/07/17 03/07/17 03/08/17 03/08/17 03/08/17 07:00 15:00 23:00 07:00 15:00 23:00 Intake Total 1385 ml 1400 ml Output Total 400 ml Balance 1385 ml 1400 ml -400 ml Intake IV Total 1385 ml 1400 ml Output Urine Total 400 ml # Voids 1 # Bowel Movements 1 Result Diagram: 03/08/17 0719 03/08/17 0719 Imaging Last Impressions Chest X-Ray 03/06/17 1308 Signed Impressions: Service Date/Time: Monday, March 06, 2017 13:36 - CONCLUSION: Mild left lower lung infiltrate. Tej Caceres MD Head CT 03/06/17 1201 Signed Impressions: Service Date/Time: Monday, March 06, 2017 12:27 - CONCLUSION: Stable and unremarkable CT brain for patient's age. Tej Caceres MD Objective Remarks GENERAL: Moving around in bed but appears comfortable. SKIN: Focused skin assessment warm/dry. Healing sacral decubitus ulcer which is clean base without significant drainage or erythema. HEAD: Atraumatic. Normocephalic. EYES: Pupils are small equal and round. No scleral icterus. No injection or drainage. ENT: No nasal bleeding or discharge. Mucous membranes pink and moist. NECK: Trachea midline. No JVD. CARDIOVASCULAR: Regular rate and rhythm. No murmur appreciated. RESPIRATORY: No accessory muscle use. Clear to auscultation. Breath sounds equal bilaterally. GASTROINTESTINAL: Abdomen soft, non-tender, nondistended. Hepatic and splenic margins not palpable. MUSCULOSKELETAL: No obvious deformities. No clubbing. No cyanosis. No edema. NEUROLOGICAL: Lethargic but alert, minimally verbal. Left-sided paresis. Medications and IVs Current Medications Medications (Trade) Dose Ordered Sig/Yari Route Start Time Stop Time Status Last Admin (Ecotrin Ec) 81 mg DAILY PO 03/07/17 09:00 03/08/17 09:06 Cinacalcet 30 mg 30 mg DAILY PO 03/07/17 09:00 03/08/17 09:06 (D5W 1000 ml Inj) 1,000 ml @ 30 mls/hr Q24H IV 03/06/17 14:00 03/08/17 12:06 (NS Flush) 2 ml UNSCH PRN IV FLUSH 03/06/17 14:00 (NS Flush) 2 ml BID IV FLUSH 03/06/17 21:00 (Tylenol) 650 mg Q4H PRN PO 03/06/17 14:00 (Colace) 100 mg Q12H PO 03/06/17 15:00 03/08/17 14:43 (Senokot) 17.2 mg Q12H PRN PO 03/06/17 14:00 (Tylenol) 650 mg Q6H PRN PO 03/06/17 14:00 Naloxone HCl 0.4 mg 0.4 mg UNSCH PRN IV 03/06/17 14:00 Cefepime HCl 2000 mg/Sodium Chloride 100 ml @ 200 mls/hr Q24H IV 03/07/17 14:00 03/08/17 14:43 (Vancomycin Consult Pharmacy) 0 ml @ 0 mls/hr UNSCH OTHER 03/06/17 14:00 (Catapres) 0.1 mg Q6H PRN PO 03/06/17 16:45 A/P Assessment and Plan History of CVA/ Failure to thrive/ Hypernatremia/ Metabolic encephalopathy The pt has residual deficits including left-sided hemiplegia, dysphasia and expressive aphasia. CT of the head negative for any acute findings. She presents with severe hypernatremia which has resolved. - Continue ASA. - Physical therapy, speech therapy, occupational therapy. - holding statin in setting of elevated LFTs. Stable. - IV fluids. On D5W, reduced to 30 ml/hr. - Palliative care following. Consult appreciated. - hydrogen plant operations manager consult requested. - neuro checks. - hold all sedating meds. Acute on CKD The pt was nearing HD per history. Exacerbated by failure to thrive and diuretic use. Improving. - hold diuretics. - avoid nephrotoxic agents. - IVFs. - Follow BMP. Decubitus ulcer/ Pneumonia/ Sepsis Chronic wound to the left buttock and thigh, s/p wound vac and prolonged hospitalization. Off antibiotics. May be source of sepsis. Chest x-ray with mild left lower infiltrate. There is concern for aspiration considering her mental status. Received cefepime in the ED. Lactic acid level has improved. The pt has chronic leukocytosis and tachycardia. Previous wound culture grew MRSA and Escherichia coli. New culture growing MRSA. - Wound care consult appreciated. The wound appears to be healing well. Wound vac at 125 mmHg per wound care. - blood cultures x 2 pending. - sputum culture and gram stain. - Continue cefepime and vancomycin. - IV fluids. Diabetes Glucose has been low. Hemoglobin A1c iss 6.1%. - monitor accuchecks AC/HS with low dose ISS. - follow glucose closely while on D5W. Stable. - hold home meds. Hypercalcemia Chronic. Etiology unclear. - continue to monitor. Improved. Hypertension Blood pressure stable. - hold home medications. - Clonidine as needed. - IVFs. Thyroid nodule Noted on previous imaging. - Follow endocrinology as outpatient once stable. PPx: Heparin. Discharge Planning The pt will benefit from SNF placement but the pt's demands to take her home. hydrogen plant operations manager following. Bud Monae DO March 08, 2017 16:31
--- NOTE | 2017-03-08 17:14 | HHI.HCPN ---
Reason for visit a. To assist with evaluation and management of symptoms including: Dysphagia , pain, anxiety b. To assist medical decision maker(s) with: better understanding of current medical conditions; weighing benefits/burdens of medical treatment options; making medical treatment decisions. Subjective/Interval History This 66-year-old female presented to the ED on 03/06/17, at the recommendation of her wound care physician due to concern of infection. She does have a chronic ischial wound. She is status post CVA in 2009 with chronic left hemiparesis. She is cared for at home by her and was initially seen with him 03/07. At that visit she was obtunded and not interactive. She is seen today for follow-up of goals of care and symptom management. No family is at bedside today. Her eyes are open and she is able to speak slowly. She is aware that she is in the hospital but otherwise is not oriented to time or purpose. She denies any pain or shortness of breath but is seen to be thrashing in the bed. She does admit to anxiety. She is unable to articulate what is making her anxious. She drifts off to sleep during conversation and it is unclear how much she is able to understand and process.She was found to be significantly dehydrated with a sodium of 159 and creatinine of 3.09 on admission. Her sodium today is 144 and creatinine 2.12. She is receiving IV hydration. Her wound culture is positive for MRSA. In conversation with the yesterday he was adamant that she would come home and be cared for by him. He declined SNF evaluation. He appears to have limited grasp of her physical comorbidities and wants aggressive treatment and full code. Advance Directives Living Will: Never completed Health Care Surrogate: Never completed Durable Power of President [employer]: Never completed Objective Vital Signs Date Time Temp Pulse Resp B/P Pulse Ox O2 Delivery O2 Flow Rate FiO2 03/08/17 15:36 95.5 79 18 146/88 98 03/08/17 11:45 96.7 82 18 135/89 97 03/08/17 08:34 96.0 77 18 137/85 99 03/08/17 04:00 95.7 71 18 137/84 100 03/08/17 00:00 97.3 68 18 131/81 100 03/07/17 21:00 75 03/07/17 20:00 97.5 72 18 141/80 99 03/07/17 16:59 96.2 82 16 114/61 100 Intake & Output 03/08/17 03/08/17 07:00 19:00 Output Total 400 ml Balance -400 ml Output Urine Total 400 ml # Bowel Movements 1 Physical Exam CONSTITUTIONAL/GENERAL: This is an adequately nourished patient, chronically ill -appearing patient, awake but intermittently dozes off. TUBES/LINES/DRAINS: Peripheral IV right hand SKIN: No jaundice, rashes, or lesions. Wound VAC to left ishial wound. HEAD: Atraumatic. Normocephalic. EYES: Pupils 3 mm reactive bilaterally, spontaneously opens, extraocular movements intact. ENT: Nose without bleeding or purulent drainage. Oropharynx without any visible lesions or exudates. NECK: Trachea midline. Supple, nontender. CARDIOVASCULAR: Regular rate and rhythm, no murmur. No JVD. Peripheral pulses symmetric RESPIRATORY/CHEST: Symmetric, unlabored respirations. Clear to auscultation, decreased air movement. On room air. Breath sounds equal bilaterally. GASTROINTESTINAL: Abdomen soft, non-tender, no apparent tenderness. No palpable masses. Bowel sounds present. MUSCULOSKELETAL: Moving right upper and lower extremities independently, follows commands. Left hemiparesis NEUROLOGICAL: Awake, answers questions, thinks she is in the hospital, oriented to self. PSYCHIATRIC: States mild anxiety but doses off frequently . Diagnostic Tests Laboratory Laboratory Tests Test 03/06/17 03/06/17 03/06/17 03/06/17 12:15 14:32 14:45 16:40 White Blood Count 15.6 TH/MM3 (4.0-11.0) Red Blood Count 4.44 MIL/MM3 (4.00-5.30) Hemoglobin 13.1 GM/DL (11.6-15.3) Hematocrit 41.2 % (35.0-46.0) Mean Corpuscular Volume 92.9 FL (80.0-100.0) Mean Corpuscular Hemoglobin 29.4 PG (27.0-34.0) Mean Corpuscular Hemoglobin 31.6 % Concent (32.0-36.0) Red Cell Distribution Width 17.3 % (11.6-17.2) Platelet Count 190 TH/MM3 (150-450) Mean Platelet Volume 11.5 FL (7.0-11.0) Neutrophils (%) (Auto) 82.9 % (16.0-70.0) Lymphocytes (%) (Auto) 10.6 % (9.0-44.0) Monocytes (%) (Auto) 5.4 % (0.0-8.0) Eosinophils (%) (Auto) 0.7 % (0.0-4.0) Basophils (%) (Auto) 0.4 % (0.0-2.0) Neutrophils # (Auto) 12.9 TH/MM3 (1.8-7.7) Lymphocytes # (Auto) 1.7 TH/MM3 (1.0-4.8) Monocytes # (Auto) 0.8 TH/MM3 (0-0.9) Eosinophils # (Auto) 0.1 TH/MM3 (0-0.4) Basophils # (Auto) 0.1 TH/MM3 (0-0.2) CBC Comment DIFF FINAL Differential Comment Urine Color YELLOW (YELLW/STRAW) Urine Turbidity HAZY (CLEAR) Urine pH 5.0 (5.0-8.5) Urine Specific [place] 1.019 (1.002-1.035) Urine Protein 30 mg/dL (NEG-TRACE) Urine Glucose (UA) NEG mg/dL (NEG) Urine Ketones NEG mg/dL (NEG) Urine Occult Blood MOD (NEG) Urine Nitrite NEG (NEG) Urine Bilirubin NEG (NEG) Urine Urobilinogen LESS THAN 2.0 MG/DL (LESS THAN 2.0) Urine Leukocyte Esterase NEG (NEG) Urine RBC /hpf (0-3) Urine WBC 1 /hpf (0-5) Urine Squamous Epithelial 1 /hpf (0-5) Cells Urine Transitional Epithelial <1 /hpf (NONE) Cells Urine Bacteria FEW /hpf (NONE) Urine Hyaline Casts 5 /lpf (RARE) Urine Yeast (Budding) FEW (NONE) Microscopic Urinalysis Comment CATH-CULTURE IND Sodium Level 159 MEQ/L (136-145) Potassium Level 4.6 MEQ/L (3.5-5.1) Chloride Level 125 MEQ/L (98-107) Carbon Dioxide Level 26.0 MEQ/L (21.0-32.0) Anion Gap 8 MEQ/L (5-15) Blood Urea Nitrogen 54 MG/DL (7-18) Creatinine 3.09 MG/DL (0.50-1.00) Estimat Glomerular Filtration 18 ML/MIN (>89) Rate Random Glucose 190 MG/DL (74-106) Lactic Acid Level 2.5 mmol/L 2.0 mmol/L (0.4-2.0) (0.4-2.0) Calcium Level 11.7 MG/DL (8.5-10.1) Protein Corrected Calcium 11.7 MG/DL (8.5-10.1) Total Bilirubin 0.3 MG/DL (0.2-1.0) Aspartate Amino Transf 122 U/L (15-37) (AST/SGOT) Alanine Aminotransferase 108 U/L (10-53) (ALT/SGPT) Alkaline Phosphatase 151 U/L (45-117) Total Protein 7.2 GM/DL (6.4-8.2) Albumin 2.2 GM/DL (3.4-5.0) Troponin I 0.10 NG/ML (0.02-0.05) Blood Gas Puncture Site RT BRACHIAL Blood Gas Patient Temperature 98.6 Blood Gas HCO3 26 mmol/L (22-26) Blood Gas Base Excess 1.1 mmol/L (-2-2) Blood Gas Oxygen Saturation 94 % (90-100) Arterial Blood pH 7.39 (7.380-7.420) Arterial Blood Partial 43 mmHg (38-42) Pressure CO2 Arterial Blood Partial 79 mmHG Pressure O2 (61-120) Arterial Blood Oxygen Content 16.9 Vol % (12.0-20.0) Arterial Blood 0.7 % (0-4) Carboxyhemoglobin Arterial Blood Methemoglobin 0.6 % (0-2) Blood Gas Hemoglobin 12.8 G/DL (12.0-16.0) Oxygen Delivery Device RA Test 03/06/17 03/06/17 03/06/17 03/07/17 20:06 20:25 20:26 01:59 Hemoglobin A1c 6.1 % (4.3-6.0) Troponin I 0.08 NG/ML (0.02-0.05) Sodium Level 157 MEQ/L 156 MEQ/L (136-145) (136-145) Potassium Level 4.1 MEQ/L 3.7 MEQ/L (3.5-5.1) (3.5-5.1) Chloride Level 122 MEQ/L 121 MEQ/L (98-107) (98-107) Carbon Dioxide Level 27.4 MEQ/L 27.4 MEQ/L (21.0-32.0) (21.0-32.0) Anion Gap 8 MEQ/L (5-15) 8 MEQ/L (5-15) Blood Urea Nitrogen 54 MG/DL (7-18) 56 MG/DL (7-18) Creatinine 3.01 MG/DL 2.81 MG/DL (0.50-1.00) (0.50-1.00) Estimat Glomerular Filtration 19 ML/MIN (>89) 20 ML/MIN (>89) Rate Random Glucose 165 MG/DL 228 MG/DL (74-106) (74-106) Calcium Level 11.0 MG/DL 10.6 MG/DL (8.5-10.1) (8.5-10.1) Lactic Acid Level 1.8 mmol/L (0.4-2.0) White Blood Count 11.1 TH/MM3 (4.0-11.0) Red Blood Count 4.22 MIL/MM3 (4.00-5.30) Hemoglobin 12.4 GM/DL (11.6-15.3) Hematocrit 39.6 % (35.0-46.0) Mean Corpuscular Volume 93.9 FL (80.0-100.0) Mean Corpuscular Hemoglobin 29.3 PG (27.0-34.0) Mean Corpuscular Hemoglobin 31.2 % Concent (32.0-36.0) Red Cell Distribution Width 17.1 % (11.6-17.2) Platelet Count 163 TH/MM3 (150-450) Mean Platelet Volume 11.2 FL (7.0-11.0) Neutrophils (%) (Auto) 76.6 % (16.0-70.0) Lymphocytes (%) (Auto) 15.7 % (9.0-44.0) Monocytes (%) (Auto) 5.8 % (0.0-8.0) Eosinophils (%) (Auto) 1.4 % (0.0-4.0) Basophils (%) (Auto) 0.5 % (0.0-2.0) Neutrophils # (Auto) 8.5 TH/MM3 (1.8-7.7) Lymphocytes # (Auto) 1.7 TH/MM3 (1.0-4.8) Monocytes # (Auto) 0.6 TH/MM3 (0-0.9) Eosinophils # (Auto) 0.2 TH/MM3 (0-0.4) Basophils # (Auto) 0.1 TH/MM3 (0-0.2) CBC Comment DIFF FINAL Differential Comment Total Bilirubin 0.4 MG/DL (0.2-1.0) Aspartate Amino Transf 75 U/L (15-37) (AST/SGOT) Alanine Aminotransferase 90 U/L (10-53) (ALT/SGPT) Alkaline Phosphatase 127 U/L (45-117) Total Protein 6.4 GM/DL (6.4-8.2) Albumin 2.0 GM/DL (3.4-5.0) Random Vancomycin Level 20.8 COMMENT Test 03/07/17 03/08/17 17:20 07:19 Sodium Level 148 MEQ/L 144 MEQ/L (136-145) (136-145) Potassium Level 3.6 MEQ/L 3.4 MEQ/L (3.5-5.1) (3.5-5.1) Chloride Level 113 MEQ/L 112 MEQ/L (98-107) (98-107) Carbon Dioxide Level 26.2 MEQ/L 23.0 MEQ/L (21.0-32.0) (21.0-32.0) Anion Gap 9 MEQ/L (5-15) 9 MEQ/L (5-15) Blood Urea Nitrogen 53 MG/DL (7-18) 46 MG/DL (7-18) Creatinine 2.64 MG/DL 2.12 MG/DL (0.50-1.00) (0.50-1.00) Estimat Glomerular Filtration 22 ML/MIN (>89) 28 ML/MIN (>89) Rate Random Glucose 163 MG/DL 103 MG/DL (74-106) (74-106) Calcium Level 9.9 MG/DL 9.5 MG/DL (8.5-10.1) (8.5-10.1) White Blood Count 9.2 TH/MM3 (4.0-11.0) Red Blood Count 3.71 MIL/MM3 (4.00-5.30) Hemoglobin 10.8 GM/DL (11.6-15.3) Hematocrit 34.3 % (35.0-46.0) Mean Corpuscular Volume 92.4 FL (80.0-100.0) Mean Corpuscular Hemoglobin 29.0 PG (27.0-34.0) Mean Corpuscular Hemoglobin 31.4 % Concent (32.0-36.0) Red Cell Distribution Width 16.3 % (11.6-17.2) Platelet Count 135 TH/MM3 (150-450) Mean Platelet Volume 11.3 FL (7.0-11.0) Magnesium Level 2.4 MG/DL (1.5-2.5) Total Bilirubin 0.3 MG/DL (0.2-1.0) Direct Bilirubin 0.1 MG/DL (0.0-0.2) Indirect Bilirubin 0.2 MG/DL (0.0-0.8) Aspartate Amino Transf 89 U/L (15-37) (AST/SGOT) Alanine Aminotransferase 84 U/L (10-53) (ALT/SGPT) Alkaline Phosphatase 117 U/L (45-117) Total Protein 6.0 GM/DL (6.4-8.2) Albumin 1.8 GM/DL (3.4-5.0) Result Diagram: 03/08/17 0719 03/08/17 0719 Microbiology Microbiology Date/Time Procedure Status Source Growth 03/06/17 12:10 Aerobic Blood Culture - Preliminary Resulted Blood Peripheral NO GROWTH IN 2 DAYS 03/06/17 12:10 Anaerobic Blood Culture - Preliminary Resulted Blood Peripheral NO GROWTH IN 2 DAYS 03/06/17 12:15 Aerobic Blood Culture - Preliminary Resulted Blood Peripheral NO GROWTH IN 2 DAYS 03/06/17 12:15 Anaerobic Blood Culture - Preliminary Resulted Blood Peripheral NO GROWTH IN 2 DAYS 03/06/17 12:15 Urine Culture - Final Complete Urine Catheterized Urine NO GROWTH IN 48 HOURS. 03/07/17 10:50 Gram Stain - Final Resulted Wound Buttock 03/07/17 10:50 Wound Culture - Preliminary Resulted S. Aureus Mrsa Assessment and Plan Disease Oriented Problem List: (1) HTN (hypertension) (2) CKD (chronic kidney disease) stage 4, GFR 15-29 ml/min (3) DM (diabetes mellitus) (4) Left buttock abscess (5) History of CVA with residual deficit (6) Hypernatremia (7) Hypercalcemia (8) Altered mental status (9) Acute on chronic renal failure (10) Dehydration Symptom Scale: (1) Dysphagia 0-10 Scale: Unable to quantify (2) Pain 0-10 Scale: Unable to quantify (3) Malnutrition 0-10 Scale: Unable to quantify (4) Anxiety 0-10 Scale: Unable to quantify Pertinent Non-Medical Issues Psychosocial:Lives at home with her spouse, he has been her full-time caregiver since around 2007 or 2009 when she suffered significant stroke leaving her completely dependent. They do have a few adult children who are involved at times though is primary caregiver. Spiritual: Pentecostalpatient indicates they're well supported by their known melly community Legal:Patient is unable to participate in decision-making due to underlying conditions. Per [place] statutes would be legal decision maker/proxy. Ethical issues impacting care: Important Contacts Koby Morris- - [phone] . Prognosis This patient was admitted for altered mental status, felt to be secondary to hypernatremia, acute renal failure. She was recently discharged home after a month-long hospitalization for wounds, sepsis. She has had general decline, increased level of care at home. Will likely require SNF placement for technician terminal and repeater care. May require PEG tube to meet nutritional requirements. High risk for recurrent hospitalizations, complications. . Code Status: Full Code Plan * Legal decision maker: Patient is unable to participate in decision-making due to underlying conditions. Per [place] statutes would be legal decision maker/proxy. * Goals: Patient expresses very aggressive goals, he relates her AMS, general decline to concerns regarding care given by various nursing staff etc., and not to her general underlying conditions in debilitated state. * CODE STATUS: Full code * SYMPTOMS: --Dysphagia-status post CVA several years ago requires feeding by patient , takes pured diet. He reports recently episodes of pocketing food in appearing to have increased difficulty swallowing. Speech therapy following. Patient is cleared for pured diet with thin liquids. --Pain- reports pain with some dressing changes and had previously medicated her with [place] 3 times a week prior to dressing changes. She is currently using a wound VAC to left ischial wound and denies pain however it is not certain that she is able to make her needs known due to altered mental status. She is receiving no narcotics in the hospital. --Malnutrition-albumin is 1.8 and total protein 6.0. It is not clear that she is able to take enough calories in to supply her metabolic needs. Status post CVA several years ago requires feeding by patient , takes pured diet with supplemental Glucerna. If she continues to experience difficulties could potentially require feeding tube. He reports good appetite and good intake up until the past few weeks when these difficulties developed. It is unclear whether this is late effects of stroke, chronic decline or other metabolic process. --Anxiety-patient appears slightly agitated in bed while awake and does answer yes to my question regarding anxiety however then dozes off to sleep. She is on no sedating medications. This may be related to her encephalopathy and will be monitored as clinical course evolves. In summary, her dehydration is being treated with IV fluid and is reversing however it is not clear if she is able to meet her metabolic needs with oral feeding. She does now have a MRSA infection in her left ischial wound and is requiring a wound VAC. She is requiring more support which her may have difficulties supplying at home. His goals remain very aggressive. Palliative care will continue to provide information, monitor for changes in symptoms and assist the in decision making as clinical course he falls. * Palliative care will continue to follow during hospital course as condition evolves, to assist patient/decision-maker with understanding of medical conditions, weighing benefits/burdens of treatment options, for clarification of goals of treatment. Additionally will assist with any symptoms of palliative concern Attestation To help prompt me to consider important information that might be impacting today's encounter and assessment, information from prior notes written by myself or my colleagues may have been "brought forward" into today's note. My signature on this note, however, is an attestation that I personally performed the exam, history, and/or decision-making noted today, and, unless otherwise indicated, the interactions with patient, family, and staff as well as the review of records all occurred today. I also attest that the listed assessment and stated plan reflect my best clinical judgment today based on the combination of historical information, prior notes, and today's exam/ interactions. When time spent is documented, it refers only to time spent today by the signer, or if indicated, combined time spent today by collaborating physician/nurse practitioner. Shira Frost March 08, 2017 5:14 pm
[2017-03-08] MEDS: HEPARIN SODIUM - SQ 10,000 UNITS/ML VIAL SQ SCH ×2 (17:33→22:00)
[2017-03-09] VITALS: BP 132/66; PULSE 87; RESP 20; TEMP 96.7; O2SAT 98
[2017-03-09 04:00] VITALS: BP 123/73; PULSE 79; RESP 20; TEMP 96.6; O2SAT 100
[2017-03-09] MEDS: INSULIN ASPART SUPPLEMENTAL SCALE SQ SCH ×4 (06:27→21:00)
[2017-03-09] MEDS: DOCUSATE SODIUM 100 MG CAP PO SCH (06:28)
[2017-03-09] MEDS: HEPARIN SODIUM - SQ 10,000 UNITS/ML VIAL SQ SCH ×3 (06:28→22:13)
[2017-03-09 08:00] VITALS: BP 128/77; PULSE 78; RESP 20; TEMP 96.6; O2SAT 98
[2017-03-09] MEDS: SODIUM CHLORIDE 0.9% FLUSH 10 ML FLUSH IV FLUSH SCH ×2 (08:44→22:15)
[2017-03-09] MEDS: ASPIRIN EC 81 MG TABEC PO SCH (08:45)
[2017-03-09] MEDS: DOCUSATE SODIUM 100 MG/10 ML UDC PO SCH ×2 (08:45→21:00)
[2017-03-09] MEDS: CINACALCET HYDROCHLORIDE 30 MG TAB PO SCH (08:45)
[2017-03-09 09:08] LABS: HEMATOCRIT 34.5 % (35.0-46.0); MEAN CELL VOLUME 91.1 FL (80.0-100.0); MEAN CORPUSCULAR HEMOGLOBIN 29.9 PG (27.0-34.0); MEAN CORPUSCULAR HGB CONC 32.8 % (32.0-36.0); PLATELET COUNT 164 TH/MM3 (150-450); RED BLOOD COUNT 3.78 MIL/MM3 (4.00-5.30); RED CELL DISTRIBUTION WIDTH 16.1 % (11.6-17.2); REVIEW FLAG FINAL; WHITE BLOOD COUNT 8.4 TH/MM3 (4.0-11.0)
[2017-03-09 09:54] LABS: BICARBONATE 21.7 MEQ/L (21.0-32.0); INDIRECT BILIRUBIN 0.2 MG/DL (0.0-0.8); MAGNESIUM 2.4 MG/DL (1.5-2.5); POTASSIUM 3.9 MEQ/L (3.5-5.1); TOTAL BILIRUBIN ADULT 0.3 MG/DL (0.2-1.0)
[2017-03-09 12:00] VITALS: BP 125/80; PULSE 84; RESP 20; TEMP 95.8; O2SAT 99
[2017-03-09] MEDS ORDERED: VANCOMYCIN 1,000 MG/NS 250 ML IV ONE ×2 (13:00)
[2017-03-09] MEDS: CEFEPIME INJ 2,000 MG in SODIUM CHLORIDE 0.9% INJ 100 ML IV SCH (14:39)
[2017-03-09 16:00] VITALS: BP 134/88; PULSE 83; RESP 20; TEMP 96.3; O2SAT 100
[2017-03-09] MEDS ORDERED: SODIUM CHLOR 0.9% 1000 ML INJ 1,000 ML IV SCH (18:00)
--- NOTE | 2017-03-09 18:46 | HHI.PR ---
Subjective Remarks no major overnight events as per - states patient unable to sleep no fevers or chills reported Objective Vitals Vital Signs Date Time Temp Pulse Resp B/P Pulse Ox O2 Delivery O2 Flow Rate FiO2 03/09/17 16:00 96.3 83 20 134/88 100 03/09/17 12:00 95.8 84 20 125/80 99 03/09/17 08:00 96.6 78 20 128/77 98 03/09/17 04:00 96.6 79 20 123/73 100 03/09/17 00:00 96.7 87 20 132/66 98 I/O 03/08/17 03/08/17 03/08/17 03/09/17 03/09/17 03/09/17 07:00 15:00 23:00 07:00 15:00 23:00 Intake Total 240 ml 0 ml 600 ml Output Total 400 ml 500 ml 700 ml 1350 ml Balance -400 ml -260 ml -700 ml -750 ml Intake Oral 240 ml 0 ml IV Total 600 ml Output Urine Total 400 ml 500 ml 700 ml 1350 ml # Bowel Movements 1 0 0 1 Result Diagram: 03/09/17 0813 03/09/17 0813 Imaging Last Impressions Chest X-Ray 03/06/17 1308 Signed Impressions: Service Date/Time: Monday, March 06, 2017 13:36 - CONCLUSION: Mild left lower lung infiltrate. Tej Caceres MD Head CT 03/06/17 1201 Signed Impressions: Service Date/Time: Monday, March 06, 2017 12:27 - CONCLUSION: Stable and unremarkable CT brain for patient's age. Tej Caceres MD Objective Remarks GENERAL: Moving around in bed but appears comfortable. SKIN: Focused skin assessment warm/dry. Healing sacral decubitus ulcer which is clean base without significant drainage or erythema. HEAD: Atraumatic. Normocephalic. EYES: Pupils are small equal and round. No scleral icterus. No injection or drainage. ENT: No nasal bleeding or discharge. Mucous membranes pink and moist. NECK: Trachea midline. No JVD. CARDIOVASCULAR: Regular rate and rhythm. No murmur appreciated. RESPIRATORY: No accessory muscle use. Clear to auscultation. Breath sounds equal bilaterally. GASTROINTESTINAL: Abdomen soft, non-tender, nondistended. Hepatic and splenic margins not palpable. MUSCULOSKELETAL: No obvious deformities. No clubbing. No cyanosis. No edema. NEUROLOGICAL: Lethargic but alert, minimally verbal. Left-sided paresis. Medications and IVs Current Medications Medications (Trade) Dose Ordered Sig/Yari Route Start Time Stop Time Status Last Admin (Ecotrin Ec) 81 mg DAILY PO 03/07/17 09:00 03/10/17 09:24 (Sensipar) 30 mg DAILY PO 03/07/17 09:00 03/10/17 09:24 (NS Flush) 2 ml UNSCH PRN IV FLUSH 03/06/17 14:00 (NS Flush) 2 ml BID IV FLUSH 03/06/17 21:00 03/09/17 22:15 (Tylenol) 650 mg Q4H PRN PO 03/06/17 14:00 (Senokot) 17.2 mg Q12H PRN PO 03/06/17 14:00 (Tylenol) 650 mg Q6H PRN PO 03/06/17 14:00 Naloxone HCl 0.4 mg 0.4 mg UNSCH PRN IV 03/06/17 14:00 Cefepime HCl 2000 mg/Sodium Chloride 100 ml @ 200 mls/hr Q24H IV 03/07/17 14:00 03/10/17 14:35 (Vancomycin Consult Pharmacy) 0 ml @ 0 mls/hr UNSCH OTHER 03/06/17 14:00 (Catapres) 0.1 mg Q6H PRN PO 03/06/17 16:45 (Heparin Inj) 5,000 units Q8HR SQ 03/08/17 17:00 03/10/17 14:34 Docusate Sodium 100 mg 100 mg BID PO 03/09/17 09:00 03/10/17 09:24 (NS 1000 ml Inj) 1,000 ml @ 42 mls/hr [id number] IV 03/09/17 18:00 03/09/17 18:00 (Pravachol) 40 mg HS PO 03/09/17 21:00 03/09/17 22:14 (Desyrel) 50 mg HS PO 03/09/17 21:00 03/09/17 22:14 Urinary Catheter: Yes Assessment to: Continue Melendez insert reason: Prolonged Immobilization Vascular Central Line Catheter: No A/P Assessment and Plan History of CVA/ Failure to thrive/ Hypernatremia/ Metabolic encephalopathy The pt has residual deficits including left-sided hemiplegia, dysphasia and expressive aphasia. CT of the head negative for any acute findings. She presents with severe hypernatremia which has resolved. - Continue ASA. - Physical therapy, speech therapy, occupational therapy. - holding statin in setting of elevated LFTs. Stable. - IV fluids. On D5W, reduced to 30 ml/hr. - Palliative care following. Consult appreciated. - credit analysis manager consult requested. - neuro checks. - hold all sedating meds. Acute on CKD The pt was nearing HD per history. Exacerbated by failure to thrive and diuretic use. Improving. - hold diuretics. - avoid nephrotoxic agents. - IVFs - will discontinue D5 water and place on IV normal saline. - Follow BMP. Decubitus ulcer/ Pneumonia/ Sepsis Chronic wound to the left buttock and thigh, s/p wound vac and prolonged hospitalization. Off antibiotics. May be source of sepsis. Chest x-ray with mild left lower infiltrate. There is concern for aspiration considering her mental status. Received cefepime in the ED. Lactic acid level has improved. The pt has chronic leukocytosis and tachycardia. Previous wound culture grew MRSA and Escherichia coli. New culture growing MRSA. - Wound care consult appreciated. The wound appears to be healing well. Wound vac at 125 mmHg per wound care. - blood cultures x 2 pending. - sputum culture and gram stain. - Continue cefepime and vancomycin. - IV fluids. Diabetes Glucose has been low. Hemoglobin A1c iss 6.1%. - monitor accuchecks AC/HS with low dose ISS. - follow glucose closely while on D5W. Stable. - hold home meds. Hypercalcemia Chronic. Etiology unclear. - continue to monitor. Improved. Hypertension Blood pressure stable. - hold home medications. - Clonidine as needed. - IVFs. Thyroid nodule Noted on previous imaging. - Follow endocrinology as outpatient once stable. Resume trazodone at bedtime for insomnia PPx: Heparin. Ronaldo Coyne MD March 09, 2017 18:46
[2017-03-09 20:23] VITALS: BP 145/75; PULSE 83; RESP 18; TEMP 96.6; O2SAT 98
[2017-03-09] MEDS: traZODone HCL 50 MG TAB PO SCH (22:14)
[2017-03-09] MEDS: PRAVASTATIN SOD 40 MG TAB PO SCH (22:14)
[2017-03-10] VITALS: BP 131/88; PULSE 85; RESP 16; TEMP 97.1; O2SAT 99
[2017-03-10 05:44] VITALS: BP 151/65; PULSE 69; RESP 18; TEMP 96.5; O2SAT 98
[2017-03-10] MEDS: HEPARIN SODIUM - SQ 10,000 UNITS/ML VIAL SQ SCH ×3 (06:03→21:28)
[2017-03-10] MEDS: INSULIN ASPART SUPPLEMENTAL SCALE SQ SCH ×4 (06:03→21:00)
[2017-03-10 08:00] VITALS: BP 131/81; PULSE 90; RESP 18; TEMP 96.4; O2SAT 98
[2017-03-10] MEDS: SODIUM CHLORIDE 0.9% FLUSH 10 ML FLUSH IV FLUSH SCH ×2 (09:00→21:28)
[2017-03-10] MEDS: CINACALCET HYDROCHLORIDE 30 MG TAB PO SCH (09:24)
[2017-03-10] MEDS: DOCUSATE SODIUM 100 MG/10 ML UDC PO SCH ×2 (09:24→21:27)
[2017-03-10] MEDS: ASPIRIN EC 81 MG TABEC PO SCH (09:24)
[2017-03-10 12:42] VITALS: BP 138/77; PULSE 81; RESP 18; TEMP 96.2; O2SAT 100
[2017-03-10 13:28] LABS: HEMATOCRIT 33.5 % (35.0-46.0); MEAN CELL VOLUME 91.2 FL (80.0-100.0); MEAN CORPUSCULAR HEMOGLOBIN 29.8 PG (27.0-34.0); MEAN CORPUSCULAR HGB CONC 32.7 % (32.0-36.0); PLATELET COUNT 166 TH/MM3 (150-450); RED BLOOD COUNT 3.68 MIL/MM3 (4.00-5.30); RED CELL DISTRIBUTION WIDTH 16.5 % (11.6-17.2); REVIEW FLAG FINAL; WHITE BLOOD COUNT 8.1 TH/MM3 (4.0-11.0)
[2017-03-10 13:45] LABS: BICARBONATE 24.1 MEQ/L (21.0-32.0); POTASSIUM 3.8 MEQ/L (3.5-5.1)
[2017-03-10] MEDS: CEFEPIME INJ 2,000 MG in SODIUM CHLORIDE 0.9% INJ 100 ML IV SCH (14:35)
--- NOTE | 2017-03-10 16:24 | HHI.DCPOC ---
Discharge Care Plan Diagnosis: (1) History of CVA with residual deficit (2) Encephalopathy acute (3) Failure to thrive in adult (4) Decubitus skin ulcer (5) Sepsis (6) PNA (pneumonia) (7) Hypercalcemia (8) Diabetes (9) Thyroid nodule (10) HTN (hypertension) Goals to Promote Your Health * To prevent worsening of your condition and complications * To maintain your health at the optimal level Directions to Meet Your Goals Take your medications as prescribed Follow your dietary instruction Follow activity as directed Keep your appointments as scheduled Take your immunizations and boosters as scheduled If your symptoms worsen call your PCP, if no PCP go to Urgent Care Center or Emergency Room Smoking is Dangerous to Your Health. Avoid second hand smoke Call the 24-hour hour crisis hotline for domestic abuse at Ronaldo Coyne MD March 10, 2017 16:24
--- NOTE | 2017-03-10 16:30 | HHI.FF ---
Face to Face Verification Diagnosis: (1) Hypercalcemia (2) Thyroid nodule (3) Anxiety (4) Decubitus skin ulcer (5) Diabetes (6) Malnutrition (7) Encephalopathy acute (8) Failure to thrive in adult (9) History of CVA with residual deficit (10) Dysphagia (11) Failure to thrive in adult Home Health Nursing Order: Wound care and dressing changes Nursing assessment with vital signs I have seen patient Simin Morris on 03/10/17. My clinical findings support the need for the requested home health care services because: Deconditioned w/ increased weakness Limited ability to care for self Impaired cognition/judgement Infection w/ risk of complications I certify that my clinical findings support that this patient is homebound because: [id number] bed/chair Ronaldo Coyne MD March 10, 2017 16:30
[2017-03-10] MEDS ORDERED: BACT800T5 PO (16:33)
[2017-03-10] MEDS ORDERED: CEFT500T3 PO (16:33)
[2017-03-10 16:49] VITALS: BP 142/96; PULSE 77; RESP 18; TEMP 96.3; O2SAT 99
[2017-03-10] MEDS: SODIUM CHLORIDE 23.4% INJ 38.5 MEQ in WATER STERILE FOR INJ 1,000 ML IV SCH (18:08)
--- NOTE | 2017-03-10 18:43 | HHI.PR ---
Subjective Remarks deferred entry - patient seen earlier at 15:30 am no major overnight events states patient slept well stable vital signs Objective Vitals Vital Signs Date Time Temp Pulse Resp B/P Pulse Ox O2 Delivery O2 Flow Rate FiO2 03/10/17 16:49 96.3 77 18 142/96 99 03/10/17 12:42 96.2 81 18 138/77 100 03/10/17 08:00 96.4 90 18 131/81 98 03/10/17 05:44 96.5 69 18 151/65 98 03/10/17 00:00 97.1 85 16 131/88 99 03/09/17 20:23 96.6 83 18 145/75 98 I/O 03/09/17 03/09/17 03/09/17 03/10/17 03/10/17 03/10/17 07:00 15:00 23:00 07:00 15:00 23:00 Intake Total 0 ml 600 ml 600 ml Output Total 700 ml 1350 ml 1300 ml 550 ml Balance -700 ml -750 ml -1300 ml 50 ml Intake Oral 0 ml 600 ml IV Total 600 ml Output Urine Total 700 ml 1350 ml 1300 ml 550 ml # Bowel Movements 0 1 1 1 Result Diagram: 03/10/17 1312 03/10/17 1312 Imaging Last Impressions Chest X-Ray 03/06/17 1308 Signed Impressions: Service Date/Time: Monday, March 06, 2017 13:36 - CONCLUSION: Mild left lower lung infiltrate. Tej Caceres MD Head CT 03/06/17 1201 Signed Impressions: Service Date/Time: Monday, March 06, 2017 12:27 - CONCLUSION: Stable and unremarkable CT brain for patient's age. Tej Caceres MD Objective Remarks GENERAL: Moving around in bed but appears comfortable. SKIN: Focused skin assessment warm/dry. Healing sacral decubitus ulcer which is clean base without significant drainage or erythema. HEAD: Atraumatic. Normocephalic. EYES: Pupils are small equal and round. No scleral icterus. No injection or drainage. ENT: No nasal bleeding or discharge. Mucous membranes pink and moist. NECK: Trachea midline. No JVD. CARDIOVASCULAR: Regular rate and rhythm. No murmur appreciated. RESPIRATORY: No accessory muscle use. Clear to auscultation. Breath sounds equal bilaterally. GASTROINTESTINAL: Abdomen soft, non-tender, nondistended. Hepatic and splenic margins not palpable. MUSCULOSKELETAL: No obvious deformities. No clubbing. No cyanosis. No edema. NEUROLOGICAL: Lethargic but alert, minimally verbal. Left-sided paresis. Medications and IVs Current Medications Medications (Trade) Dose Ordered Sig/Yari Route Start Time Stop Time Status Last Admin (Ecotrin Ec) 81 mg DAILY PO 03/07/17 09:00 03/10/17 09:24 (Sensipar) 30 mg DAILY PO 03/07/17 09:00 03/10/17 09:24 (NS Flush) 2 ml UNSCH PRN IV FLUSH 03/06/17 14:00 (NS Flush) 2 ml BID IV FLUSH 03/06/17 21:00 03/09/17 22:15 (Tylenol) 650 mg Q4H PRN PO 03/06/17 14:00 (Senokot) 17.2 mg Q12H PRN PO 03/06/17 14:00 (Tylenol) 650 mg Q6H PRN PO 03/06/17 14:00 Naloxone HCl 0.4 mg 0.4 mg UNSCH PRN IV 03/06/17 14:00 Cefepime HCl 2000 mg/Sodium Chloride 100 ml @ 200 mls/hr Q24H IV 03/07/17 14:00 03/10/17 14:35 (Vancomycin Consult Pharmacy) 0 ml @ 0 mls/hr UNSCH OTHER 03/06/17 14:00 (Catapres) 0.1 mg Q6H PRN PO 03/06/17 16:45 (Heparin Inj) 5,000 units Q8HR SQ 03/08/17 17:00 03/10/17 14:34 (Colace Liq) 100 mg BID PO 03/09/17 09:00 03/10/17 09:24 (Pravachol) 40 mg HS PO 03/09/17 21:00 03/09/17 22:14 Trazodone HCl 50 mg 50 mg HS PO 03/09/17 21:00 03/09/17 22:14 (Sodium Chloride 23.4% Inj/Sterile Water For Inj) 1,009.625 ml @ 84 mls/hr Q12H2M IV 03/10/17 18:00 03/10/17 18:08 A/P Assessment and Plan History of CVA/ Failure to thrive/ Hypernatremia/ Metabolic encephalopathy The pt has residual deficits including left-sided hemiplegia, dysphasia and expressive aphasia. CT of the head negative for any acute findings. She presents with severe hypernatremia which has resolved. - Continue ASA. - Physical therapy, speech therapy, occupational therapy. - holding statin in setting of elevated LFTs. Stable. - IV fluids. Patient previously on D5 water, discontinued and started on normal saline on 03/09. Discontinue normal saline and Place on 10/26 ns given that sodium was trending up again. - Palliative care following. Consult appreciated. - manager behavior consult requested. - neuro checks. - hold all sedating meds. Acute on CKD The pt was nearing HD per history. Exacerbated by failure to thrive and diuretic use. Improving. - hold diuretics. - avoid nephrotoxic agents. - Follow BMP. - Creatinine much improved down to 1.63 from an initial creatinine of 3.09. I will continue IV fluids in the 4 of one fourth normal saline. Patient has good urine output. Decubitus ulcer/ Pneumonia/ Sepsis Chronic wound to the left buttock and thigh, s/p wound vac and prolonged hospitalization. Off antibiotics. May be source of sepsis. Chest x-ray with mild left lower infiltrate. There is concern for aspiration considering her mental status. Received cefepime in the ED. Lactic acid level has improved. The pt has chronic leukocytosis and tachycardia. Previous wound culture grew MRSA and Escherichia coli. New culture growing MRSA. - Wound care consult appreciated. The wound appears to be healing well. Wound vac at 125 mmHg per wound care. - blood cultures negative 4 - Continue cefepime and vancomycin. Diabetes Glucose has been low. Hemoglobin A1c iss 6.1%. - monitor accuchecks AC/HS with low dose ISS. - Blood sugar seems to be stable - hold home meds. Hypercalcemia Chronic. Hyperglycemia likely related to dehydration. Continue to administer IV fluids. Hypercalcemia has resolved. Hypertension Blood pressure stable. - hold home medications. - Clonidine as needed. - IVFs. Thyroid nodule Noted on previous imaging. - Follow endocrinology as outpatient once stable. Continue trazodone for insomnia. PPx: Heparin. Discharge Planning Discharge in a.m. Patient's has been advised that the patient needs long-term care placement, however has been refuses to place the patient on length of care. Ronaldo Coyne MD March 10, 2017 18:43
[2017-03-10 20:00] VITALS: BP 128/72; PULSE 79; PULSE 80; RESP 18; TEMP 97.2; O2SAT 98
[2017-03-10] MEDS: PRAVASTATIN SOD 40 MG TAB PO SCH (21:28)
[2017-03-10] MEDS: traZODone HCL 50 MG TAB PO SCH (21:28)
[2017-03-11] VITALS: BP 147/79; PULSE 76; RESP 14; TEMP 97.7; O2SAT 93
[2017-03-11 04:00] VITALS: BP 133/75; PULSE 83; RESP 16; TEMP 97.8; O2SAT 95
[2017-03-11 05:40] LABS: HEMATOCRIT 31.7 % (35.0-46.0); MEAN CELL VOLUME 92.4 FL (80.0-100.0); MEAN CORPUSCULAR HEMOGLOBIN 29.3 PG (27.0-34.0); MEAN CORPUSCULAR HGB CONC 31.7 % (32.0-36.0); PLATELET COUNT 155 TH/MM3 (150-450); RED BLOOD COUNT 3.43 MIL/MM3 (4.00-5.30); RED CELL DISTRIBUTION WIDTH 16.1 % (11.6-17.2); REVIEW FLAG FINAL; WHITE BLOOD COUNT 8.8 TH/MM3 (4.0-11.0)
[2017-03-11] MEDS: SODIUM CHLORIDE 23.4% INJ 38.5 MEQ in WATER STERILE FOR INJ 1,000 ML IV SCH (05:40)
[2017-03-11 05:55] LABS: BICARBONATE 20.5 MEQ/L (21.0-32.0); POTASSIUM 3.8 MEQ/L (3.5-5.1)
[2017-03-11] MEDS: INSULIN ASPART SUPPLEMENTAL SCALE SQ SCH ×2 (06:00→11:00)
[2017-03-11] MEDS: HEPARIN SODIUM - SQ 10,000 UNITS/ML VIAL SQ SCH (06:01)
[2017-03-11 06:35] VITALS: PULSE 81
[2017-03-11 08:11] VITALS: BP 152/82; PULSE 84; RESP 20; TEMP 95.6; O2SAT 99
[2017-03-11] MEDS: SODIUM CHLORIDE 0.9% FLUSH 10 ML FLUSH IV FLUSH SCH (09:47)
[2017-03-11] MEDS: CINACALCET HYDROCHLORIDE 30 MG TAB PO SCH (09:47)
[2017-03-11] MEDS: DOCUSATE SODIUM 100 MG/10 ML UDC PO SCH (09:47)
[2017-03-11] MEDS: ASPIRIN EC 81 MG TABEC PO SCH (09:47)
--- NOTE | 2017-03-11 11:09 | HHI.DS ---
Discharge Summary Admission Date March 06, 2017 at 13:45 Discharge Date: March 11, 2017 Admitting Diagnosis severe sepsis/acute renal failure (1) Severe sepsis ICD Code: A41.9 Diagnosis: Principal (2) Encephalopathy acute ICD Code: G93.40 Diagnosis: Principal (3) Aspiration pneumonia ICD Code: J69.0 Diagnosis: Principal (4) Decubitus skin ulcer ICD Code: L89.90 Diagnosis: Principal (5) Failure to thrive in adult ICD Code: R62.7 Diagnosis: Principal (6) Malnutrition ICD Code: E46 Diagnosis: Principal (7) Diabetes ICD Code: E11.9 Diagnosis: Secondary (8) Hypercalcemia ICD Code: E83.52 Diagnosis: Principal (9) Hypernatremia ICD Code: E87.0 Diagnosis: Principal (10) Hypercalcemia ICD Code: E83.52 Diagnosis: Principal (11) Dehydration ICD Code: E86.0 Diagnosis: Principal (12) Pressure ulcer ICD Code: L89.90 Diagnosis: Principal Procedures none Brief History - From Admission The patient is a 66-year-old female with a past medical history of CVA and left- sided weakness who is presenting to the hospital with lethargy and concerns for a wound infection. The patient recently had a month-long hospitalization and has been home since February 09. During that previous hospitalization the patient had a large wound on her buttocks which required surgery and wound VAC. She did have some complications and was ultimately discharged with home health care per the 's request. The patient is unable to give a history but the patient's stated that she was doing well at home. He says her mental status would wax and wane. He says this morning a visiting nurse examined the patient's wound and thought she smelled an infection. The patient's primary care doctor was contacted and the patient was referred to the hospital. The patient's also states that Lortab was recently prescribed for the patient's dressing changes. The patient's states that Lortab tends to make the patient loopy and has only been used 3 times, the last use this morning at around 6:30 AM. He does believe the patient's lethargy is secondary to the Lortab and he is upset about that. He believes that the patient's wound is continuing to heal and improve as time goes by. He does not believe that the wound is infected. When the patient is alert she denies any acute complaints. The patient's does not want to pursue any aggressive care such as a feeding tube and he believes the patient has been eating and drinking well recently. CBC/BMP: 03/11/17 0501 03/11/17 0501 Significant Findings Laboratory Tests Test 03/09/17 03/10/17 03/11/17 08:13 13:12 05:01 Red Blood Count 3.78 MIL/MM3 3.68 MIL/MM3 3.43 MIL/MM3 (4.00-5.30) (4.00-5.30) (4.00-5.30) Hemoglobin 11.3 GM/DL 11.0 GM/DL 10.0 GM/DL (11.6-15.3) (11.6-15.3) (11.6-15.3) Hematocrit 34.5 % 33.5 % 31.7 % (35.0-46.0) (35.0-46.0) (35.0-46.0) Mean Platelet Volume 11.8 FL 11.1 FL (7.0-11.0) (7.0-11.0) Chloride Level 109 MEQ/L 114 MEQ/L 115 MEQ/L (98-107) (98-107) (98-107) Blood Urea Nitrogen 40 MG/DL (7-18) 35 MG/DL (7-18) 29 MG/DL (7-18) Creatinine 2.04 MG/DL 1.63 MG/DL 1.43 MG/DL (0.50-1.00) (0.50-1.00) (0.50-1.00) Estimat Glomerular Filtration 29 ML/MIN (>89) 38 ML/MIN (>89) 44 ML/MIN (>89) Rate Random Glucose 119 MG/DL (74-106) Aspartate Amino Transf 50 U/L (15-37) (AST/SGOT) Alanine Aminotransferase 66 U/L (10-53) (ALT/SGPT) Alkaline Phosphatase 118 U/L (45-117) Total Protein 5.9 GM/DL (6.4-8.2) Albumin 1.8 GM/DL (3.4-5.0) Calcium Level 8.4 MG/DL 7.9 MG/DL (8.5-10.1) (8.5-10.1) Mean Corpuscular Hemoglobin 31.7 % Concent (32.0-36.0) Carbon Dioxide Level 20.5 MEQ/L (21.0-32.0) Imaging Last Impressions Chest X-Ray 03/06/17 1308 Signed Impressions: Service Date/Time: Monday, March 06, 2017 13:36 - CONCLUSION: Mild left lower lung infiltrate. Tej Caceres MD Head CT 03/06/17 1201 Signed Impressions: Service Date/Time: Monday, March 06, 2017 12:27 - CONCLUSION: Stable and unremarkable CT brain for patient's age. Tej Caceres MD PE at Discharge GENERAL: Moving around in bed but appears comfortable. SKIN: Focused skin assessment warm/dry. Healing sacral decubitus ulcer which is clean base without significant drainage or erythema. HEAD: Atraumatic. Normocephalic. EYES: Pupils are small equal and round. No scleral icterus. No injection or drainage. ENT: No nasal bleeding or discharge. Mucous membranes pink and moist. NECK: Trachea midline. No JVD. CARDIOVASCULAR: Regular rate and rhythm. No murmur appreciated. RESPIRATORY: No accessory muscle use. Clear to auscultation. Breath sounds equal bilaterally. GASTROINTESTINAL: Abdomen soft, non-tender, nondistended. Hepatic and splenic margins not palpable. MUSCULOSKELETAL: No obvious deformities. No clubbing. No cyanosis. No edema. NEUROLOGICAL: Lethargic but alert, minimally verbal. Left-sided paresis. Pt update on day of discharge no major overnight events. Patient sleepy but awake however as per patient very awake on prior night went to sleep at 3 am. As per RN no fevers, chills, no diarrhea. Hospital Course History of CVA/ Failure to thrive/ Hypernatremia/ Metabolic encephalopathy The pt has residual deficits including left-sided hemiplegia, dysphasia and expressive aphasia. CT of the head negative for any acute findings. She presents with severe hypernatremia which has resolved. - Continue ASA. - Physical therapy, speech therapy, occupational therapy. - holding statin in setting of elevated LFTs. Stable. - IV fluids. Patient previously on D5 water, discontinued and started on normal saline on 03/09. - Palliative care following. Consult appreciated. - piping manager consult requested. - neuro checks. - Sedating medications were held.. - Patient's advised numerous times of the need for the patient would better be cared at a medical terminologist care facility, however patient's refused. Acute on CKD The pt was nearing HD per history. Exacerbated by failure to thrive and diuretic use. - Diuretics were held, patient was given IV fluids. - Avoided nephrotoxic medications, monitored BUN and creatinine during hospital stay. - Creatinine much improved down to 1.4 from an initial creatinine of 3.09. I will continue IV fluids in the 4 of one fourth normal saline. Patient with good urine output upon discharge. Decubitus ulcer/ Pneumonia/ Sepsis Chronic wound to the left buttock and thigh, s/p wound vac and prolonged hospitalization. Off antibiotics. May be source of sepsis. Chest x-ray with mild left lower infiltrate. There was concern for aspiration considering her mental status. Received cefepime in the ED. Lactic acid level has improved. The pt has chronic leukocytosis and tachycardia. Previous wound culture grew MRSA and Escherichia coli. New culture growing MRSA. - Wound care consult appreciated. The wound appears to be healing well. Wound vac at 125 mmHg per wound care. - blood cultures negative 4 - Continue cefepime and vancomycin. - Patient was discharged on Ceftin and Bactrim. Diabetes Glucose has been low. Hemoglobin A1c iss 6.1%. - monitor accuchecks AC/HS with low dose ISS. - Blood sugars remained stable during hospitalization. - Home medication held. Hypercalcemia Chronic. Hyperglycemia likely related to dehydration. Treated and resolved after IV fluid administration. Hypertension Blood pressure stable. - Home medications initially held. - Patient discharged on Coreg and hydralazine orally. Thyroid nodule Noted on previous imaging. - Follow endocrinology as outpatient once stable. Insomnia: Trazodone restarted. PPx: Heparin. Pt Condition on Discharge: Stable Discharge Disposition: Disch w/ Home Health Serv Discharge Time: > 30 minutes Discharge Instructions DIET: Follow Instructions for: Diabetic Diet Speech Therapy-Diet Recommends: Pureed Additional Diet Instructions: thin liquids ok Activities you can perform: Continue Bedrest Follow up Referrals: PCP Follow-up - 2-3 Days New Medications: Cefuroxime (Ceftin) 500 Mg Tab 500 MG PO BID Infection #20 Ref 0 TAB Sulfamethoxazole-Trimethoprim (Bactrim DS) 800-160 Mg Tab 1 TAB PO BID Infection #20 Ref 0 TAB Continued Medications: Aspirin (Aspirin) 81 Mg Tabdr 81 MG PO DAILY TAB Carvedilol (Coreg) 3.125 Mg Tab 3.125 MG PO Q12HR Blood Pressure Management #60 Ref 1 TAB Cinacalcet (Sensipar) 30 Mg Tab 30 MG PO DAILY #30 Ref 0 TAB Clonidine 168 HR Patch ([id number] HR Patch) 0.2 Mg/24 Hr Patch 1 PATCH T-DERMAL Q7D Blood Pressure Management #6 Ref 1 PATCH Fluoxetine (Fluoxetine) 40 Mg Cap 40 CAP PO DAILY #30 Ref 0 CAP Furosemide (Furosemide) 20 Mg Tab 20 MG PO BID #60 Ref 0 TAB Hydrocodone-Acetaminophen (Lortab) 5-325 Mg Tab 1 TAB PO Q4H PRN PAIN Ref 0 TAB Insulin Aspart Inj (Novolog Inj) 1,000 Unit/10 Ml Vial 1-9 UNITS SQ ACHS Max dose at bedtime:( )units; sugars less than 70,(0)units; sugars 150-199,(1) unit; sugars 200-249,(3) units; sugars 250-299,(5) units; sugars 300-349,(7) units; sugars greater than 349,(9) units Blood Sugar Management #10 Ref 0 ML Simvastatin (Zocor) 20 Mg Tab 20 MG PO HS Cholesterol Management #30 Ref 0 TAB Trazodone (Trazodone) 50 Mg Tab 50 MG PO HS Control Depression #30 Ref 0 TAB Discontinued Medications: Hydralazine (Hydralazine) 50 Mg Tab 50 MG PO Q8HR Blood Pressure Management #90 Ref 1 TAB Insulin Glargine Inj (Lantus Inj) 1,000 Unit/10 Ml Vial 10 UNITS SQ BID Blood Sugar Management #1 Ref 1 VIAL Nifedipine (Nifedipine) 20 Mg Cap 20 MG PO Q8HR Blood Pressure Management #90 Ref 1 CAP Ronaldo Coyne MD March 11, 2017 11:09
[2017-03-11 12:15] VITALS: BP 124/83; PULSE 80; RESP 20; TEMP 96.4; O2SAT 100
[2017-03-11] MEDS ORDERED: VANCOMYCIN 1,000 MG/NS 250 ML IV ONE ×2 (13:00)
== END 2017-03-11 15:54 | disposition home health service (06) | DRG 871 ==
LOC: NEPE 11:02 → NEDA 13:45 → N05A 17:30
PROVIDERS: ADMIT Hospitalist; ATTEND Hospitalist
DX: A41.9 Sepsis, unspecified organism (principal); G93.41 Metabolic encephalopathy; E87.0 Hyperosmolality and hypernatremia; N17.9 Acute kidney failure, unspecified; L89.322 Pressure ulcer of left buttock, stage 2; L89.153 Pressure ulcer of sacral region, stage 3; I12.9 Hypertensive chronic kidney disease with stage 1 through stage 4 chronic kidney disease, or unspecified chronic kidney disease; N18.4 Chronic kidney disease, stage 4 (severe); I69.354 Hemiplegia and hemiparesis following cerebral infarction affecting left non-dominant side; I50.9 Heart failure, unspecified; N39.0 Urinary tract infection, site not specified; D86.9 Sarcoidosis, unspecified; R65.20 Severe sepsis without septic shock; E86.0 Dehydration; R62.7 Adult failure to thrive; I69.320 Aphasia following cerebral infarction; E11.9 Type 2 diabetes mellitus without complications; I25.10 Atherosclerotic heart disease of native coronary artery without angina pectoris; E78.5 Hyperlipidemia, unspecified; R47.02 Dysphasia; D63.1 Anemia in chronic kidney disease; Z87.440 Personal history of urinary (tract) infections; E83.52 Hypercalcemia; E04.1 Nontoxic single thyroid nodule; G47.00 Insomnia, unspecified
CPT/HCPCS: 36600; 70450; 71010; 76937; 80048; 80053; 80076; 80202; 81001; 82805; 82948; 83036; 83605; 83735; 84484; 85025; 85027; 86403; 87040; 87070; 87086; 87147; 87186; 87205; 96374; J0692; J1644; J1815; J2310; J3370; J7030; J7050; J7070; P9612

== ENCOUNTER 2017-04-27 11:15 | Emergency (ER) | payer OTHER ==
[~2017-04-27] VITALS: Ht 165.1 cm; Wt 64.0 kg
[~2017-04-27 11:15] MED LIST changes: +BACT800T5 PO; -CEFT250T8 PO; +CEFT500T3 PO; +EPINEPHrine HCL (1:10,000) 1 MG/10 ML SYRINGE IV ONE; +HYDR-3533 PO; -HYDR50TA15 PO; -LANTUS2P SQ; -NIFE20 PO
--- NOTE | 2017-04-27 11:41 | PD ---
HPI Chief Complaint: cardiopulmonary arrest Time Seen by Provider: 11:21 Travel History International Travel<30 days: No Contact w/Intl Traveler<30days: No History of Present Illness HPI The patient 66 years old. She arrives by EMS amidst a state of cardiopulmonary arrest s/p epinephrine, bicarbonate, dextrose 50, intubation with Combitube and chest compressions. Initially the cause for EMS activation was due to altered mental status followed by unresponsiveness. The patient was last seen normal about 2 hours prior to ER arrival although at that time she was diaphoretic and lethargic according to the . She became unresponsive and EMS on scene reports potentially a fine V. fib rhythm on the monitor or possible asystole with artifact. ACLS protocol was initiated however after one round of chest compressions the patient had no pulse and asystole was observed on the monitor. She was intubated with a Combitube. A right interosseous line was started. EMS reports asystole for at least 20 minutes. Upon arrival to the ER the airway was confirmed. Chest compressions were continued. At the time of pulse check the patient had no pulse and fixed dilated pupils. At the time of discussion with the he notes the patient was weak and diaphoretic throughout most of the morning. He notes the arrival of EMS followed by at least 20 minutes of ACLS protocol on scene during which time police officers had arrived and left. 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) Diabetes: Yes Diminished Hearing: No Endocrine: Yes GERD: No Glaucoma: No Genitourinary: Yes (Previous UTI's) Headaches: No Hepatitis: No Hiatal Hernia: No Hypertension: Yes Immune Disorder: No Kidney Stones: No Musculoskeletal: No Neurologic: Yes (previous stroke) Psychiatric: No Reproductive: No Respiratory: No Immunizations Current: Yes Migraines: No Myocardial Infarction: No Radiation Therapy: No Renal Failure: No Seizures: Yes Sickle Cell Disease: No Sleep Apnea: No Thyroid Disease: No Ulcer: No PNEUMOCCOCAL Vaccine (Year): 2 Menopausal: Yes : 5 Para: 5 Dilation and Curettage (D&C): Yes (X4) Tubal Ligation: Yes Past Surgical History Abdominal Surgery: No AICD: No Appendectomy: No Arteriovenous Shunt: No Cardiac Surgery: No Cholecystectomy: No Ear Surgery: No Endocrine Surgery: No Eye Surgery: No Genitourinary Surgery: No Gynecologic Surgery: Yes (D/C X4, BTL) Hysterectomy: Yes Insulin Pump: No Joint Replacement: No Oral Surgery: No Pacemaker: No Thoracic Surgery: No Other Surgery: Yes Social History Alcohol Use: No Tobacco Use: No Substance Use: No Allergies-Medications (Allergen,Severity, Reaction): Coded Allergies: Penicillin (Verified Allergy, Severe, rash/itching, 03/06/17) *MDRO Multi-Drug Resistant Organism (Verified Adverse Reaction, Unknown, ) 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 Uncoded Allergies: CILLINS ALL (Allergy, Severe, 07/23/10) Reported Meds & Prescriptions Reported Meds & Active Scripts Active Bactrim DS (Sulfamethoxazole-Trimethoprim) 800-160 Mg Tab 1 Tab PO BID Ceftin (Cefuroxime Axetil) 500 Mg Tab 500 Mg PO BID Novolog Inj (Insulin Aspart) 1,000 Unit/10 Ml Vial 1-9 Units SQ ACHS Max dose at bedtime:( )units; sugars less than 70,(0)units; sugars 150-199,(1) unit; sugars 200-249,(3) units; sugars 250-299,(5) units; sugars 300-349,(7) units; sugars greater than 349,(9) units [id number] HR Patch (Clonidine) 0.2 Mg/24 Hr Patch 1 Patch T-DERMAL Q7D Coreg (Carvedilol) 3.125 Mg Tab 3.125 Mg PO Q12HR Wheelchair Elevated Leg (Device) 1 Mis Mis 1 Units .XX DAILY Hospital Bed - Manual 1 Ea Ea 1 Ea .ROUTE DIRECTED Reported Lortab (Hydrocodone-Acetaminophen) 5-325 Mg Tab 1 Tab PO Q4H PRN Aspirin 81 Mg Tabdr 81 Mg PO DAILY Sensipar (Cinacalcet) 30 Mg Tab 30 Mg PO DAILY Furosemide 20 Mg Tab 20 Mg PO BID Trazodone (Trazodone HCl) 50 Mg Tab 50 Mg PO HS Zocor (Simvastatin) 20 Mg Tab 20 Mg PO HS Fluoxetine (Fluoxetine HCl) 40 Mg Cap 40 Cap PO DAILY Review of Systems ROS Limitations: Clinical Condition Physical Exam Narrative GENERAL: 66-year-old female intubated, unresponsive, EMS performing chest compressions, patient has a diaper SKIN: Focused skin assessment warm/dry. HEAD: Atraumatic. Normocephalic. EYES: Pupils fixed and dilated. ENT: Intubated. Oral mucosa dry. NECK: Trachea midline. No JVD. CARDIOVASCULAR: Pulseless. Flatline on the monitor. RESPIRATORY: No spontaneous respiration. Patient intubated with a Combitube. Breath sounds present bilaterally. GASTROINTESTINAL: Abdomen soft, non-tender, nondistended. Hepatic and splenic margins not palpable. MUSCULOSKELETAL: There is a 10 cm chronic wound along the left buttocks. Generalized atrophic change throughout. NEUROLOGICAL: GCS 3T. No motor function. Pupils fixed and dilated. PSYCHIATRIC: Unable to assess. MDM Medical Decision Making Medical Screen Exam Complete: Yes Emergency Medical Condition: Yes Medical Record Reviewed: Yes Differential Diagnosis Cardiopulmonary arrest, respiratory arrest, cardiac arrest, anoxic brain injury Narrative Course Pt arrives in cardiopulmonary arrest with at least 20 minutes asystole. Pupils fixed and dilated upon arrival. notes decreased responsiveness at home with diaphoresis. At time of notification of expiration stated he was upset that the patient came to [place]. He stated EMS performed CPR for 20 minutes on the front lawn prior to transport when they could have used that time to transfer pt to a different hospital. Pt's also states he is upset with outpatient care, pt's primary doctor and with [employer]. At least 20 minutes were spent with patient with charge loader Marois present throughout. All questions answered. Please note the decision to the terminate the code only shortly after arrival was based on the fact that the patient had been pulseless and apneic despite sustained heroic efforts. Pt pronounced at 1117AM. Diagnosis Primary Impression: Cardiopulmonary arrest Additional Impression: Additional Instructions: Not applicable Med/Other Pt SpecificInfo: No Change to Meds Disposition: 20 Condition: Stable Al Jesus MD Apr 27, 2017 11:41 Al Jesus MD Apr 27, 2017 11:41
== END 2017-04-27 15:27 | disposition expired ==
LOC: NEPE 11:15
DX: I46.9 Cardiac arrest, cause unspecified (principal); Y99.9 Unspecified external cause status; Y92.9 Unspecified place or not applicable; Y93.79 Activity, other specified sports and athletics; X58.XXXA Exposure to other specified factors, initial encounter; S81.802A Unspecified open wound, left lower leg, initial encounter; Z86.73 Personal history of transient ischemic attack (TIA), and cerebral infarction without residual deficits; E11.9 Type 2 diabetes mellitus without complications; I11.0 Hypertensive heart disease with heart failure
CPT/HCPCS: 99283; J0171